=== PATIENT | female | born 2000 | race Hispanic/Latino ===

== ENCOUNTER 2020-06-02 22:01 | Emergency (ER) | payer OTHER, SELFPAY ==
[2020-06-03 00:53] LABS: Basophils % 1.2 % (0-1.3); Hematocrit 43.6 % (36.0-45.0); Lymphocytes % 39.2 % (15.3-44.8); MPV 7.7 fL (7.6-11.3); Protime INR 0.93; RBC Red Blood Cell Count 4.88 M/uL (3.86-4.86)
[2020-06-03 01:07] LABS: ALT/SGPT 135 U/L (12-78); AST/SGOT 54 U/L (15-37); Alkaline Phosphatase 119 U/L (45-117); BUN Blood Urea Nitrogen 16 mg/dL (7-18); Bicarbonate 22 mmol/L (21-32); Bilirubin Direct < 0.1 mg/dL (0-0.2); Bilirubin Total 0.3 mg/dL (0.2-1.0); Glucose Level 106 mg/dL (74-106); Potassium 3.7 mmol/L (3.5-5.1); Sodium Level 140 mmol/L (136-145)
[2020-06-03 01:08] LABS: Albumin 4.2 g/dL (3.4-5.0); Magnesium 2.3 mg/dL (1.8-2.4); NT PRO-BNP 34 pg/mL (<125); Protein, Total 8.1 g/dL (6.4-8.2); Troponin (Emerg Dept Use Only) < 0.02 ng/mL (0.0-0.045)
[2020-06-03] MEDS ORDERED: ACETAMINOPHEN 500 MG TAB ONE (01:27)
[2020-06-03 01:31] LABS: Barbiturates NEGATIVE (NEGATIVE); Benzodiazepines NEGATIVE (NEGATIVE); Cocaine NEGATIVE (NEGATIVE); METHAMPHETAM NEGATIVE (NEGATIVE); Methadone NEGATIVE (NEGATIVE); Opiates NEGATIVE (NEGATIVE); Phencyclidine NEGATIVE (NEGATIVE); THC Cannibis NEGATIVE (NEGATIVE)
[2020-06-03 01:48] LABS: Urine Blood NEGATIVE (NEG); Urine Glucose NEGATIVE (NEG); Urine Protein NEGATIVE (NEG)
[2020-06-03] MEDS ORDERED: ONDANSETRON 4 MG/2 ML VIAL ONE (03:35)
[2020-06-03] MEDS ORDERED: MORPHINE 4 MG/ML SYR ONE (03:35)
--- NOTE | 2020-06-03 04:35 | EDPHYS ---
Physician Documentation [facility] Name: Cyndi Sheridan Age: 20 yrs Sex: Female : 2000 Arrival Date: 06/02/2020 Time: 22:06 Bed 15 Private MD: ED Physician Jose Manuel Wu HPI: 06/03 00:57 This 20 yrs old Female presents to ER via Ambulatory with complaints of rib mh7 pain left side, Dizziness, Numbness Of Arm - Left arm. 00:58 The patient or guardian reports chest pain that is located primarily in the anterior mh7 chest wall, left. The pain radiates to the left arm. Associated signs and symptoms: Pertinent positives: dizziness, nausea, Pertinent negatives: abdominal pain, cough, diaphoresis, headache, lower extremity pain, lower extremity swelling, near syncope, palpitations, recent travel, shortness of breath, syncope, vomiting. The chest pain is described as sharp. Duration: The patient or guardian reports multiple episodes, that are intermittent, that wax and wane. Modifying factors: The symptoms are alleviated by remaining still, the symptoms are aggravated by movement. Severity of pain: At its worst the pain was moderate yesterday, in the emergency department the pain is unchanged. 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 - Social history:: Smoking status: Patient denies any tobacco usage or history of. ROS: 06/03 00:58 Constitutional: Negative for fever, chills, and weight loss, Eyes: Negative for injury, mh7 pain, redness, and discharge, ENT: Negative for injury, pain, and discharge, Neck: Negative for injury, pain, and swelling, Respiratory: Negative for shortness of breath, cough, wheezing, and pleuritic chest pain, Back: Negative for injury and pain, : Negative for injury, bleeding, discharge, and swelling, Skin: Negative for injury, rash, and discoloration, Psych: Negative for depression, anxiety, suicide ideation, homicidal ideation, and hallucinations, Allergy/Immunology: Negative for hives, rash, and allergies, Endocrine: Negative for neck swelling, polydipsia, polyuria, polyphagia, and marked weight changes, Hematologic/Lymphatic: Negative for swollen nodes, abnormal bleeding, and unusual bruising. Exam: 00:58 Constitutional: This is a well developed, well nourished patient who is awake, alert, mh7 and in no acute distress. Head/Face: Normocephalic, atraumatic. Eyes: Pupils equal round and reactive to light, extra-ocular motions intact. Lids and lashes normal. Conjunctiva and sclera are non-icteric and not injected. Cornea within normal limits. Periorbital areas with no swelling, redness, or edema. Neck: Trachea midline, no thyromegaly or masses palpated, and no cervical lymphadenopathy. Supple, full range of motion without nuchal rigidity, or vertebral point tenderness. No Meningismus. 00:58 Cardiovascular: Regular rate and rhythm with a normal S1 and S2. No gallops, murmurs, or rubs. Normal PMI, no JVD. No pulse deficits. Respiratory: Lungs have equal breath sounds bilaterally, clear to auscultation and percussion. No rales, rhonchi or wheezes noted. No increased work of breathing, no retractions or nasal flaring. Abdomen/GI: Soft, non-tender, with normal bowel sounds. No distension or tympany. No guarding or rebound. No evidence of tenderness throughout. Back: No spinal tenderness. No costovertebral tenderness. Full range of motion. Skin: Warm, dry with normal turgor. Normal color with no rashes, no lesions, and no evidence of cellulitis. MS/ Extremity: Pulses equal, no cyanosis. Neurovascular intact. Full, normal range of motion. Neuro: Awake and alert, GCS 15, oriented to person, place, time, and situation. Cranial nerves II-XII grossly intact. Motor strength 5/5 in all extremities. Sensory grossly intact. Cerebellar exam normal. Normal gait. Psych: Awake, alert, with orientation to person, place and time. Behavior, mood, and affect are within normal limits. 00:58 Chest/axilla: Inspection: normal, Palpation: tenderness, that is moderate, of the left lateral anterior chest, that totally reproduces the patient's complaints, Axilla: are normal, Lymph nodes: lymphadenopathy is not appreciated. Vital Signs: 06/02 22:31 BP 143 / 113; Pulse 83; Resp 18; Temp 97.7(TE); Pulse Ox 100% on R/A; Weight 76.2 kg lp1 (R); Height 5 ft. 2 in. (157.48 cm); 22:32 BP 138 / 107 RA; lp1 06/03 01:00 BP 109 / 74; Pulse 62; Resp 18; Pulse Ox 99% on R/A; wh 02:30 BP 105 / 69; Pulse 64; Resp 18; Pulse Ox 99% on R/A; wh 04:00 BP 109 / 62; Pulse 72; Resp 18; Pulse Ox 100% on R/A; wh 06/02 22:31 Body Mass Index 30.73 (76.20 kg, 157.48 cm) lp1 MDM: 04:32 Differential diagnosis: acute myocardial infarction, acute pericarditis, anxiety, chest mh7 wall pain, costochondritis, myocarditis, pleurisy, pneumonia, pneumothorax, pulmonary embolus. HEART Score: History: Slightly Suspicious (0), ECG: Normal (0), Age: < or = 45 years (0), Risk Factors: No Risk Factors Known (0), Troponin: < or = 1 x Normal Limit (0), Total Score = 0. Data reviewed: vital signs, nurses notes, lab test result(s), cardiac enzymes, CBC, electrolytes, urinalysis, urine drug screen, UPT: negative EKG, radiologic studies, CT scan, plain films. Data interpreted: Pulse oximetry: on room air is 100 %. Interpretation: normal. Counseling: I had a detailed discussion with the patient and/or guardian regarding: the historical points, exam findings, and any diagnostic results supporting the discharge/admit diagnosis, lab results, radiology results, the need for outpatient follow up, to return to the emergency department if symptoms worsen or persist or if there are any questions or concerns that arise at home. 04:[address] [facility] 06/03 00:40 Order name: Basic Metabolic Panel; Complete Time: 02:45 [facility] 06/03 00:40 Order name: CBC with Diff; Complete Time: 02:45 [facility] 06/03 00:40 Order name: LFT's; Complete Time: 02:45 06/03 00:40 Order name: Magnesium; Complete Time: 02:45 06/03 00:40 Order name: NT PRO-BNP; Complete Time: 02:45 06/03 00:40 Order name: PT-INR; Complete Time: 02:45 06/03 00:40 Order name: Troponin (emerg Dept Use Only); Complete Time: 02:45 06/03 00:40 Order name: XRAY Chest (1 view) 06/03 00:40 Order name: UDS; Complete Time: 02:45 06/03 00:57 Order name: ETOH Level; Complete Time: 02:45 06/03 01:01 Order name: Urine --Ancillary (enter results); Complete Time: 02:45 06/03 01:01 Order name: Urine Dipstick--Ancillary (enter results); Complete Time: 02:45 06/03 02:58 Order name: CT Chest For PE Angio 06/03 00:40 Order name: EKG; Complete Time: 00:41 06/03 00:40 Order name: Cardiac monitoring; Complete Time: 00:42 06/03 00:40 Order name: EKG - Nurse/Tech; Complete Time: 00:42 06/03 00:40 Order name: IV Saline Lock; Complete Time: 00:42 06/03 00:40 Order name: Labs collected and sent; Complete Time: 00:42 06/03 00:40 Order name: O2 Per Protocol; Complete Time: 00:42 06/03 00:40 Order name: O2 Sat Monitoring; Complete Time: 00:42 06/03 00:40 Order name: Urine Dipstick-Ancillary (obtain specimen); Complete Time: 00:51 06/03 00:40 Order name: Urine Test (obtain specimen); Complete Time: 00:51 Administered Medications: 03:26 Drug: morphine 4 mg {Note: RASS 0.} Route: IVP; Site: right forearm; 04:47 Follow up: Response: No adverse reaction; Pain is decreased; RASS: Alert and Calm (0) 03:28 Drug: Zofran (Ondansetron) 4 mg Route: IVP; Site: right forearm; 04:47 Follow up: Response: No adverse reaction 03:29 Not Given (Patient Refused): Tylenol 1000 mg PO once Disposition: 06/03/20 04:34 Discharged to Home. Impression: Chest pain, unspecified. - Condition is Stable. - Discharge Instructions: Chest Wall Pain. - Prescriptions for Ibuprofen 800 mg Oral Tablet - take 1 tablet by ORAL route every 8 hours As needed take with food; 15 tablet. - Medication Reconciliation Form, Thank You Letter, Antibiotic Education, Prescription Opioid Use form. - Follow up: Private Physician; When: 1 - 2 days; Reason: Worsening of condition, Recheck today's complaints, Continuance of care, Re-evaluation by your physician. - Problem is new. - Symptoms have improved. Signatures: Dispatcher [employer] EDTN Homa Singh RN RN lp1 Hany Sheehan Jose Manuel Wu MD MD mh7 Corrections: (The following items were deleted from the chart) 04:48 04:34 06/03/2020 04:34 Discharged to Home. Impression: Chest pain, unspecified. Condition is Stable. Forms are Medication Reconciliation Form, Thank You Letter, Antibiotic Education, Prescription Opioid Use. Follow up: Private Physician; When: 1 - 2 days; Reason: Worsening of condition, Recheck today's complaints, Continuance of care, Re-evaluation by your physician. Problem is new. Symptoms have improved. mh7
--- NOTE | 2020-06-03 04:35 | ER ---
Nurse's Notes [facility] Name: Cyndi Sheridan Age: 20 yrs Sex: Female : 2000 Arrival Date: 06/02/2020 Time: 22:06 Bed 15 Private MD: Diagnosis: Chest pain, unspecified Presentation: 06/02 22:28 Chief complaint: Patient states: About 3 hours ago, had left arm numbness, still able lp1 to move arm with left rib pain radiating to chest; Reports right arm feeling numb during triage, able to move arm independently; Denies any trauma. Coronavirus screen: Client denies travel out of the [place] in the last 14 days. At this time, the client does not indicate any symptoms associated with coronavirus-19. Ebola Screen: No symptoms or risks identified at this time. Onset of symptoms was June 02, 2020 at 19:00. 22:28 Method Of Arrival: Ambulatory lp1 22:28 Acuity: COLT 3 lp1 22:31 Initial Sepsis Screen: Does the patient meet any 2 criteria? No. Patient's initial lp1 sepsis screen is negative. Does the patient have a suspected source of infection? No. Patient's initial sepsis screen is negative. Risk Assessment: Do you want to hurt yourself or someone else? Patient reports no desire to harm self or others. 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 - Social history:: Smoking status: Patient denies any tobacco usage or history of. Screenin:31 Abuse screen: Denies threats or abuse. Denies injuries from another. Nutritional lp1 screening: No deficits noted. Tuberculosis screening: No symptoms or risk factors identified. Fall Risk None identified. Assessment: 06/03 00:48 General: Appears in no apparent distress. comfortable, Behavior is calm, cooperative. mg2 Pain: Complains of pain in chest Pain radiates to back. Neuro: Level of Consciousness is awake, alert, obeys commands, Oriented to person, place, time, situation. Neuro: Reports dizziness. Cardiovascular: Capillary refill < 3 seconds Patient's skin is warm and dry. Respiratory: Airway is patent Respiratory effort is even, unlabored, Respiratory pattern is regular, symmetrical. GI: No signs and/or symptoms were reported involving the gastrointestinal system. : No signs and/or symptoms were reported regarding the genitourinary system. EENT: No signs and/or symptoms were reported regarding the EENT system. Derm: Skin is intact, is healthy with good turgor, Skin is pink, warm \T\ dry. normal. Musculoskeletal: Circulation, motion, and sensation intact. Capillary refill < 3 seconds, Reports. 01:30 Reassessment: Patient appears in no apparent distress at this time. Patient and/or wh family updated on plan of care and expected duration. Pain level reassessed. Patient is alert, oriented x 3, equal unlabored respirations, skin warm/dry/pink. 03:00 Reassessment: Patient appears in no apparent distress at this time. Patient and/or wh family updated on plan of care and expected duration. Pain level reassessed. Patient is alert, oriented x 3, equal unlabored respirations, skin warm/dry/pink. 04:30 Reassessment: Patient appears in no apparent distress at this time. Patient and/or wh family updated on plan of care and expected duration. Pain level reassessed. Patient is alert, oriented x 3, equal unlabored respirations, skin warm/dry/pink. Patient states feeling better. Patient states symptoms have improved. Vital Signs: 06/02 22:31 BP 143 / 113; Pulse 83; Resp 18; Temp 97.7(TE); Pulse Ox 100% on R/A; Weight 76.2 kg lp1 (R); Height 5 ft. 2 in. (157.48 cm); 22:32 BP 138 / 107 RA; lp1 06/03 01:00 BP 109 / 74; Pulse 62; Resp 18; Pulse Ox 99% on R/A; 02:30 BP 105 / 69; Pulse 64; Resp 18; Pulse Ox 99% on R/A; 04:00 BP 109 / 62; Pulse 72; Resp 18; Pulse Ox 100% on R/A; 06/02 22:31 Body Mass Index 30.73 (76.20 kg, 157.48 cm) [facility] ED Course: 06/02 22:06 Patient arrived in ED. am2 22:30 Triage completed. lp1 22:31 Arm band placed on left wrist. lp1 06/03 00:12 Jose Manuel Wu MD is Attending Physician. mh7 00:15 Inserted saline lock: 20 gauge in right forearm, using aseptic technique. Blood ds4 collected. 00:17 Benito Bates, RN is Primary Nurse. mg2 00:30 EKG done, by ED staff, reviewed by Jose Manuel Wu MD. ds4 00:42 Patient has correct armband on for positive identification. Placed in gown. Bed in low ea position. Call light in reach. Side rails up X 1. monitoring engineer on. Pulse ox on. NIBP on. 00:49 No provider procedures requiring assistance completed. mg2 01:30 XRAY Chest (1 view) In Process Unspecified. EDMS 03:55 CT Chest For PE Angio In Process Unspecified. EDMS 04:48 IV discontinued, intact, bleeding controlled, No redness/swelling at site. Administered Medications: 03:26 Drug: morphine 4 mg {Note: RASS 0.} Route: IVP; Site: right forearm; 04:47 Follow up: Response: No adverse reaction; Pain is decreased; RASS: Alert and Calm (0) 03:28 Drug: Zofran (Ondansetron) 4 mg Route: IVP; Site: right forearm; 04:47 Follow up: Response: No adverse reaction 03:29 Not Given (Patient Refused): Tylenol 1000 mg PO once Outcome: 04:34 Discharge ordered by . [facility] 04:47 Discharged to home ambulatory, with family. 04:47 Condition: stable 04:47 Discharge instructions given to patient, Instructed on discharge instructions, follow up and referral plans. medication usage, POC Demonstrated understanding of instructions, follow-up care, medications, POC Prescriptions given X 1. 04:48 Patient left the ED. Signatures: Dispatcher [employer] EDMS Homa Singh, YOCASTA RN lp1 Prasad Mendez ds4 [place] Garvin am2 [place] Bender RN RN ea Habalo, Winsy Benito Bates RN RN mg2 Jose Manuel Wu MD MD [facility]
[2020-06-03 04:53] VITALS: TEMP 97.7
[2020-06-03 04:58] VITALS: BP 109/62; O2SAT 100
--- NOTE | 2020-06-03 12:46 | RAD REPORT ---
EXAM DESCRIPTION: RAD - Chest Single View - 06/03/2020 1:32 am CLINICAL HISTORY: CHEST PAIN Chest pain. COMPARISON: CHEST PA AND LAT 2 VIEW dated 12/02/2014 FINDINGS: Portable technique limits examination quality. The lungs are grossly clear. The heart is normal in size. No displaced fractures. IMPRESSION: No acute intrathoracic process suspected.
--- NOTE | 2020-06-03 14:05 | RAD REPORT ---
EXAM DESCRIPTION: CT Angiography Chest With Intravenous Contrast CLINICAL HISTORY: The patient is 20 years old and is Female; CHEST PAIN TECHNIQUE: Axial computed tomographic angiography images of the chest with intravenous contrast. S agittal and coronal reformatted images were created and reviewed. This CT exam was performed using one or more of the following dose reduction techniques: automated exposure control, adjustment of t he mA and/or kV according to patient size, and/or use of iterative reconstruction technique. MIP re constructed images were created and reviewed. COMPARISON: No relevant prior studies available. FINDINGS: Pulmonary arteries: No PE identified. Aorta: No acute findings. No thoracic aortic aneurysm. Lungs: No pulmonary consolidation or groundglass opacities. Pleural space: No pleural effusion or pneumothorax. Heart: Cardiomegaly. No significant pericardial effusion. No evidence of RV dysfunction. Mediastinum: No pathologically enlarged mediastinal or hilar lymph nodes. Bones/joints: No acute fracture. No dislocation. Soft tissues: Unremarkable. Lymph nodes: 2.8 cm left axillary lymph node. Other nonenlarged axillary lymph nodes noted bilaterally. Liver: Fatty liver. IMPRESSION: 1. No PE identified. 2. 2.8 cm left axillary lymph node. 3. Additional non-emergent findings as above. Electronically signed by: Yuko Bello MD 06/03/2020 4:18 AM ANDROID DEVELOPER Due to temporary technical issues with the PACS/Fluency reporting system, reports are being signed by the in house radiologists without review as a courtesy to insure prompt reporting. The interpreting radiologist is fully responsible for the content of the report
== END 2020-06-03 04:48 | disposition home or self-care (01) ==
LOC: ER 22:01
DX: R07.9 Chest pain, unspecified (principal)
CPT/HCPCS: 36415; 71045; 71275; 80048; 80076; 80307; 80320; 81003; 81025; 83735; 83880; 84484; 85025; 85610; 93005; 96374; 96375; 99285; J2405; Q9967

== ENCOUNTER 2024-07-20 09:26 | Emergency (ER) | payer OTHER ==
--- OUTSIDE RECORDS SUMMARY | 2024-07-20 09:38 | XMS REPORT | Continuity of Care Document ---
Author Name Unknown Address [address] [facility] [place] [address] [facility] Address [address] [facility] [place] [address] Care Team Providers Care Fumigator And Sterilizer Name Role Phone CHERYL ANDRES Primary Care Physician Unav ailCHERYL Silvestre Attending Clinician Unavail able Mary Infante Attending Clinician [phone] MARY LOREDO Attending Clinician Unavailable Marjan Salvador MD Attending Clinician [phone] WHITNEY ROMERO Attending Clinician UnavailWhitney Demarco CNM Attending Clinician Doctor Unassigned, [place] Attending Clinician U JANNIE Vincent Attending Clinician Unavailable [facility] Unava ilSHERRY Carlos Attending Clinician Unavailable Sherry Arreguni MD Attending Clinician [phone] Lazarus Lehman CRNA Attending Clinician [phone] Nilson Marx MD Attending Clinician [phone] [email or web address]_S Attending Clinician UnavailFREYA Flores Attending Clinician Unavailabl e Ultrasound, Ang-Mfm Attending Clinician UnavailFreya Flores MD Attending Clinician [phone] MARJAN SALVADOR Attending Clinician Unavailable MARJAN SALVDAOR Attending Clinician Unavailable 1, [facility] Usg Room Attending Clinician Unavaila LESLEE Sheehan Attending Clinician Unavailable Risk, Nye-Jevet-Fm/High Attending Clinician Unav ailable Landry WHLeslee FLYNN Attending Clinician + [phone] SLADE ACOSTA Attending Clinician Unavailab le CHAOMAN, LINDA RUCKER Attending Clinician Unavailab le Chaoman DIFFERENTIAL REPAIRER, Linda Rucker Attending Clinician + [phone] Aimee Childs MD Attending Clinician + AIMEE CHILDS Attending Clinician Unav ailable RADIOLOGY Attending Clinician Unavailable ELIEL PRO Attending Clinician Unavailable Eliel Pro MD Attending Clinician [phone] Akinsipe WHCNP, Cheryl Pierce Attending Clinician + SHEYLA WEBB Attending Clinician Unavailable Sheyla Givens Attending Clinician [phone] Parisa Sousa RN Attending Clinician Unavailable Carolynn Melendez RN Attending Clinician Unavailab ANABELA Murray Attending Clinician Unavailab Dajuan Marquez DO Attending Clinician [phone] Anabela Serrato Attending Clinician + [phone] SHERRY ARREGUIN Admitting Clinician Unavailable Sherry Arreguin MD Admitting Clinician [phone] [email or web address]_S Admitting Clinician Unavaila ELIEL Pope Admitting Clinician Unavailable Payers Payer Name Policy Type Policy Number Effective Date Expirati on Date Source GIULIANA MEYERS [id number] 2023 00:00:00 MEDICAID [facility] [id number] 2021 00:00:00 [facility] [id number] 2020 00:00:00 Problems Condition Name Condition Details Condition Category Status Onset Date Resolution Date Last Treatment Date Treating Clinician Comments Source Status post section Status post section Disease Active 2022-06 00:00: 00 [facility] Declines flu vaccine Declines flu vaccine Disease Active 2022-06 0-05 00:00: 00 [facility] Elevated blood pressure reading without diagnosis of hypertensi on Elevated blood pressure reading without diagnosis of hypertensi on Disease Active 4-06 00:00: 00 [facility] Family history of Down syndrome Family history of Down syndrome Disease Active 2020-06 2-16 00:00: 00 Overview: Formattin g of this note might be different from the original. Reports her brother [facility] PCOS (polycysti c ovarian syndrome) PCOS (polycysti c ovarian syndrome) Disease Active 2- 00:00: 00 [facility] Hypothyroi dism Hypothyroi dism Disease Active 2016-06 2 00:00: 00 [facility] Overweight (BMI 25.0-29.9) Overweight (BMI 25.0-29.9) Disease Resolve d 1-02 00:00: 00 2024-06-23 00:00:00 2024-06-23 11:00:35 [facility] Mild pre-eclamp marlin in third trimester Mild pre-eclamp marlin in third trimester Disease Resolve d 4-06 00:00: 00 2023-05-18 00:00:00 2023-05-18 11:28:16 [facility] Elevated liver enzymes Elevated liver enzymes Disease Resolve d 4-06 00:00: 00 2023-05-18 00:00:00 2023-05-18 11:28:23 [facility] Rubella non-immune status, antepartum Rubella non-immune status, antepartum Disease Resolve d 2020-06 2-17 00:00: 00 2023-05-18 00:00:00 2023-05-18 11:26:00 Overview: Formattin g of this note might be different from the original. Address pp [facility] Liveborn , of dueñas , born in hospital by delivery Liveborn , of dueñas , born in hospital by delivery Disease Resolve d 2022-06 1-16 00:00: 00 2023-05-15 00:00:00 2023-05-15 12:48:02 [facility] Vaginal bleeding in Vaginal bleeding in Disease Resolve d 2022- 1-15 00:00: 00 2023-05-15 00:00:00 2023-05-15 12:50:34 [facility] 37 weeks gestation of 37 weeks gestation of Disease Resolve d 2022-1 1-15 00:00: 00 2023-05-15 00:00:00 2023-05-15 12:47:30 [facility] Pain of round ligament during Pain of round ligament during Disease Resolve d 2022-0 9-03 00:00: 00 2023-05-15 00:00:00 2023-05-15 12:47:28 [facility] Family history of Down syndrome Family history of Down syndrome Disease Resolve d 2020-06 2-16 00:00: 00 2023-05-15 00:00:00 2023-05-15 12:50:18 Overview: Formattin g of this note might be different from the original. Reports her brother [facility] High-risk in third trimester High-risk in third trimester Disease Resolve d 2020- 2-16 00:00: 00 2023-05-15 00:00:00 2023-05-15 12:50:19 [facility] History of hypothyroi dism History of hypothyroi dism Disease Resolve d 2020- 2-16 00:00: 00 2023-05-15 00:00:00 2023-05-15 12:50:28 Overview: Formattin g of this note might be different from the original. Reports in 2012, was on meds, no longer on meds Labs WNL, repeat in 4 weeks [facility] Obesity in Obesity in Disease Resolve d 2019-0 9-23 00:00: 00 2023-05-15 00:00:00 2023-05-15 12:50:30 [facility] Other general counseling and advice for contracept dino management Other general counseling and advice for contracept dino management Disease Resolve d 2021-0 1-14 00:00: 00 2022-09-11 00:00:00 2022-09-11 10:59:14 [facility] UTI in UTI in Disease Resolve d 2020-06 2-20 00:00: 00 2022-09-11 00:00:00 2022-09-11 10:59:10 Overview: Formattin g of this note might be different from the original. Pending brittni [facility] Amenorrhea Amenorrhea Disease Resolve d 2-10 00:00: 00 2022-09-11 00:00:00 2022-09-11 10:59:07 [facility] Other general counseling and advice for contracept dino management Other general counseling and advice for contracept dino management Disease Resolve d 2-10 00:00: 00 2021-05-24 00:00:00 2021-05-24 10:54:32 [facility] Chlamydia trachomati s infection of lower genitourin khari sites Chlamydia trachomati s infection of lower genitourin khari sites Disease Resolve d 2017-0 5-11 00:00: 00 2021-05-24 00:00:00 2021-05-24 10:54:06 [facility] Screen for STD (sexually transmitte d disease) Screen for STD (sexually transmitte d disease) Disease Resolve d 2016-06 2-15 00:00: 00 2021-05-24 00:00:00 2021-05-24 10:54:26 [facility] Over weight Over weight Disease Resolve d 2016-06 2-15 00:00: 00 2021-05-24 00:00:00 2021-05-24 10:54:28 [facility] Allergies, Adverse Reactions, Alerts Allergy Name Allergy Type Status Severity Reaction(s) Onset Date Inactive Date Treating Clinician Comments Source NO KNOWN ALLERGIE S Drug Class Active [facility] Social History Social Habit Start Date Stop Date Quantity Comments Source ASSERTION 2022-08-15 00:00:00 [facility] of Social function 2024-06-23 00:00:00 2024-06-23 00:00:00 [facility] Alcoholic beverage intake 2024-06-23 00:00:00 2024-06-23 00:00:00 Ex-drinker (finding) [facility] Alcohol intake 2023-05-18 00:00:00 2023-05-18 00:00:00 Current non-drinker of alcohol (finding) [facility] Exposure to SARS-CoV-2 (event) 2022-11-01 00:00:00 2022-11-11 23:45:00 Not sure [facility] Tobacco use and exposure 2022-09-11 00:00:00 2022-09-11 00:00:00 Smokeless tobacco non-user [facility] Sex assigned at 2000 00:00:00 2000 00:00:00 [facility] Smoking Status Start Date Stop Date Source Never smoked tobacco [facility] Medications Ordered Medication Name Filled Medication Name Start Date Stop Date Current Medication? Ordering Clinician Indication Dosage Frequency Signature (SIG) Comments Components Source metroNIDAZO LE 500 mg tablet 06-25 00:00: 00 Yes [id number] 500mg Take 1 tablet by mouth every 12 (twelve) hours. [facility] fluconazole 150 mg tablet 06-25 00:00: 00 06-26 05:59 :00 Yes [id number] 150mg Take 1 tablet by mouth once now for 1 dose. [facility] silver sulfADIAZIN E (SILVADENE) 1 % cream 06-23 00:00: 00 Yes [id number] Apply to area(s) 2 (two) times daily. [facility] fluconazole 150 mg tablet 06-23 00:00: 00 06-24 05:59 :00 Yes [id number] 150mg Take 1 tablet by mouth once now for 1 dose. [facility] ibuprofen (IBU) tablet 600 mg 2022-06 00:00: 00 Yes 600mg 600 mg, Oral, Q6H ABX, First dose on 04/26/23 at 1800, Until Discontinu ed, Routine [facility] vitamin w/FA tablet 2022-06 00:00: 00 06-23 00:00 :00 No [id number] 1{tbl} Take 1 tablet by mouth in the morning. [facility] docusate 100 mg capsule 2022-06 00:00: 00 06-10 00:00 :00 No [id number] 200mg Take 2 capsules by mouth once daily as needed for Constipati on. [facility] ferrous sulfate 325 mg (65 mg iron) tablet 2022-06 00:00: 00 06-10 00:00 :00 No [id number] 325mg Take 1 tablet by mouth in the morning and 1 tablet in the evening. [facility] ibuprofen 600 mg tablet 2022-06 00:00: 00 06-10 00:00 :00 No [id number] 600mg Take 1 tablet by mouth every 6 (six) hours as needed (Pain). Take with food or milk. [facility] gabapentin 300 mg capsule 2022-06 00:00: 00 06-10 00:00 :00 No [id number] 300mg Take 1 capsule by mouth in the morning and 1 capsule at noon and 1 capsule in the evening. [facility] HYDROcodone -acetaminop hen 5-325 mg tablet 2022-06 00:00: 00 05-04 05:59 :00 No [id number] 1{tbl} Take 1 tablet by mouth every 6 (six) hours as needed for Pain (scale 7-10) (Alternate with Ibuprofen) for up to 7 days. Indication s: acute pain [facility] ketorolac (TORADOL) injection 30 mg 2022-06 00:00: 00 04-26 23:59 :00 No 30mg 30 mg, Slow IV Push, Q6H ABX, 4 doses, First dose on Fri04/25/23 at 1800, Last dose on Fri04/26/23 at 1200, Routine [facility] acetaminoph en (TYLENOL) tablet 650 mg 2022-06 18:00: 00 Yes 650mg 650 mg, Oral, Q6H ABX, First dose on 11/17/23 at 1200, Until Discontinu ed, Routine [facility] HYDROcodone -acetaminop hen (NORCO 5) 5-325 mg tablet 1 tablet 2022-06 18:00: 00 Yes 1{tbl} 1 tablet, Oral, Q6HPRN, Starting on Fri04/25/23 at 1200, Until Discontinu ed, Routine, Pain (scale 7-10), Alternate with Ibuprofen [facility] gabapentin (NEURONTIN) capsule 300 mg 2022-06 14:00: 00 Yes 300mg 300 mg, Oral, TID, First dose on Fri04/25/23 at 0800, Until Discontinu ed, Routine [facility] sodium chloride 0.9 % irrigation solution 2022-06 06:03: 00 Yes PRN, Starting on Fri04/25/23 at 0003, Until Discontinu ed, Intra-op [facility] lactated ringers IV infusion 1,000 mL 2022-06 04:45: 00 04-25 07:22 :51 No 1000mL at 125 mL/hr, 1,000 mL, IV Infusion, ONCE, 1 dose, On Fri04/24/23 at 2245, Routine [facility] rho(D) immune globulin (RHOGAM) syringe 300 mcg 2022-06 04:22: 07 Yes 300ug 300 mcg, Intramuscu lar, ONCE, For 1 dose, Conditiona l, Routine [facility] diphenhydrA MINE (BENADRYL) injection 25 mg 2022-06 04:22: 02 Yes 25mg 25 mg, Slow IV Push, Q6HPRN, Starting on Fri04/24/23 at 2222, Until Discontinu ed, Routine, Itching [facility] diphenhydrA MINE (BENADRYL) tablet 25 mg 2022-06 04:22: 02 Yes 25mg 25 mg, Oral, Q6HPRN, Starting on Fri04/24/23 at 2222, Until Discontinu ed, Routine, Sleep, Itching [facility] ondansetron (ZOFRAN (PF)) injection 4 mg 2022-06 04:22: 02 Yes 4mg 4 mg, Slow IV Push, Q8HPRN, Starting on Fri04/24/23 at 2222, Until Discontinu ed, Routine, Nausea and Vomiting (N/V) [facility] bisacodyL (DULCOLAX) suppository 10 mg 2022-06 04:22: 02 Yes 10mg 10 mg, Rectal, QDAILYPRN, Starting on Fri04/24/23 at 222, Until Discontinu ed, Routine, Constipati on [facility] simethicone (GAS RELIEF (SIMETHICON E)) chewable tablet 160 mg 2022-06 04:22: 02 Yes 160mg 160 mg, Oral, PC+HSPRN, Starting on Fri04/24/23 at 222, Until Discontinu ed, Routine, Gas [facility] docusate (COLACE) capsule 200 mg 2022-06 04:22: 02 Yes 200mg 200 mg, Oral, QDAILYPRN, Starting on Fri04/24/23 at 2222, Until Discontinu ed, Routine, Constipati on [facility] magnesium hydroxide (MILK OF MAGNESIA) 400 mg/5 mL suspension 30 mL 2022-06 04:22: 02 Yes 30mL 30 mL, Oral, QDAILYPRN, Starting on Fri04/24/23 at 2222, Until Discontinu ed, Routine, Constipati on [facility] lactated ringers IV infusion 1,000 mL 2022-06 04:22: 02 Yes 1000mL at 125 mL/hr, 1,000 mL, IV Infusion, PRN, 1 dose, Starting on Fri04/24/23 at 2222, Until Discontinu ed, Routine [facility] naloxone (NARCAN) injection 0.2 mg 2022-06 04:12: 00 Yes .2mg 0.2 mg, Intramuscu lar, Q3HPRN, Starting on Fri04/24/23 at 2212, Until Discontinu ed, Routine, Itching [facility] diphenhydrA MINE (BENADRYL) tablet 25 mg 2022-06 04:12: 00 Yes 25mg 25 mg, Oral, Q4HPRN, Starting on Georgina 04/24/23 at 2212, Until Discontinu ed, Routine, Itching [facility] naloxone (NARCAN) injection 0.4 mg 2022-06 04:12: 00 04-26 16:02 :22 No .4mg 0.4 mg, Slow IV Push, PRN - SEE INSTRUCTIO NS, Starting on Georgina 04/24/23 at 2212, Until 04/26/23 at 1002, Routine, Analgesia Recovery [facility] diphenhydrA MINE (BENADRYL) injection 25 mg 2022-06 04:12: 00 04-26 04:11 :00 No 25mg 25 mg, Slow IV Push, Q4HPRN, Starting on Georgina 04/24/23 at 2212, Until 04/25/23 at 2211, Routine, Itching [facility] morpHINE PF (DURAMORPH- PF) injection 2022-06 03:38: 00 04-25 03:58 :45 No Epidural, ONCE INTRA PROCEDURE, Starting on Georgina 04/24/23 at 2138, Until Georgina 04/24/23 at 2158, Routine, Intra-op [facility] methylergon ovine (METHERGINE ) injection 2022-06 03:08: 00 04-25 03:58 :45 No Intramuscu lar, ONCE INTRA PROCEDURE, Starting on Georgina 04/24/23 at 2108, Until Georgina 04/24/23 at 2158, Routine, Intra-op [facility] acetaminoph en ADULT (OFIRMEV) injection 2022-06 03:05: 00 04-25 03:58 :45 No IV Infusion, Administer over 15 Minutes, ONCE INTRA PROCEDURE, Starting on Georgina 04/24/23 at 2105, Until Georgina 04/24/23 at 215, Routine, [facility] ondansetron (ZOFRAN (PF)) injection 2022-06 02:59: 00 04-25 03:58 :45 No Slow IV Push, ONCE INTRA PROCEDURE, Starting on Georgina 04/24/23 at 2058, Until Georgina 04/24/23 at 2157, Routine, Intra-op [facility] LR 1000 mL + oxytocin 40 units 40 unit/ 1,000 mL IV Solution 2022-06 02:58: 00 04-25 03:58 :45 No IV Infusion, CONTINUOUS PRN, Starting on Georgina 04/24/23 at 2057, Until Georgina 04/24/23 at 2157, Routine, Intra-op [facility] chloroproca ine (NESACAINE- MPF) 30 mg/mL (3 %) injection 2022-06 02:31: 00 04-25 03:58 :45 No Epidural, ONCE INTRA PROCEDURE, Starting on Georgina 04/24/23 at 2030, Until Georgina 04/24/23 at 2157, Routine, Intra-op [facility] famotidine (PEPCID (PF)) injection 20 mg 2022-06 02:30: 00 04-25 04:22 :06 No 20mg 20 mg, Slow IV Push, Q12H, First dose on Georgina 04/24/23 at 2030, Until Discontinu ed, Routine [facility] mupirocin (BACTROBAN OINT) 2 % skin ointment 2022-06 02:00: 00 04-25 04:22 :06 No [facility] ceFAZolin (ANCEF) 2,000 mg in NaCl 0.9% (NS) 100 mL MINI-BAG 2022-06 01:28: 45 04-25 04:22 :06 No 2000mg 2,000 mg, IV Piggyback, O.R. HOLDING ONCE, Starting on Georgina 04/24/23 at 8, Until Georgina 04/24/23 at 2221, Administer over 30 Minutes, 100 mL
Reas on for Anti-Infec tive: Surgical Prophylaxi s
Surgi miquel Prophylaxi s: NATURALIST
Duration of therapy: within 24 hours of surgery [facility] PIB fentaNYL-ro pivacaine 2 mcg/mL-0.1 % (PF) in NS 200 mL epidural infusion RTU 2022-06 17:18: 00 04-25 03:58 :45 No Epidural, ONCE INTRA PROCEDURE, Starting on Georgina 04/24/23 at 1118, Until Discontinu ed, Routine, Intra-op [facility] lidocaine-e pinephrine (XYLOCAINE W/EPINEPHRI NE) 1.5 %-1:200,000 injection 2022-06 17:17: 00 04-25 03:58 :45 No Epidural, ONCE INTRA PROCEDURE, Starting on Georgina 04/24/23 at 1117, Until Discontinu ed, Routine, Intra-op [facility] lidocaine 1% (XYLOCAINE) 100 mg/10 mL (1 %) injection 2022-06 17:12: 00 04-25 03:58 :45 No Infiltrati on, ONCE INTRA PROCEDURE, Starting on Georgina 04/24/23 at 1112, Until Discontinu ed, Routine, Intra-op [facility] fluconazole (DIFLUCAN) tablet 200 mg 2022-06 04:00: 00 04-25 01:29 :17 No 200mg 200 mg, Oral, DAILY, 7 doses, First dose on Fri04/23/23 at 2200, Last dose on Fri04/29/23 at 0900, MARLY
Re ason for Anti-Infec tive: Documented Infection< br>Documen shamar Infection Site: Other
O ther site: yeast in vagina
Duration of Therapy: Other (see Comments) [facility] lactated ringers IV infusion 500 mL 2022-06 03:00: 00 04-24 16:50 :00 No 500mL at 999 mL/hr, 500 mL, IV Infusion, ONCE, 1 dose, On Fri04/23/23 at 2100, Routine [facility] terbutaline (BRETHINE) injection 0.25 mg 2022-06 02:33: 34 04-25 04:22 :06 No .25mg 0.25 mg, Subcutaneo us, PRN, Starting on Fri04/23/23 at 2033, Until Georgina 04/24/23 at 2222, Routine, feta bradycardi a > 3 min or Cat III strip [facility] FENTanyl PF (SUBLIMAZE (PF)) injection 100 mcg 2022-06 02:33: 02 04-25 04:22 :06 No 100ug 100 mcg, Slow IV Push, Q1HPRN, Starting on Fri04/23/23 at 2032, Until Georgina 04/24/23 at 2222, Routine, contractio n pain without an epidural and SVE < 8 cm and Cat I strip [facility] oxytocin (PITOCIN) 30 units in NS 500 mL IV infusion 2022-06 02:12: 52 04-25 04:22 :06 No 2mU/min at 2-40 mL/hr, IV Infusion, TITRATE, Starting on Fri04/23/23 at 2011, Until Georgina 04/24/23 at 2222, MARLY [facility] lactated ringers IV infusion 500 mL 2022-06 02:11: 17 04-25 04:22 :06 No 500mL at 999 mL/hr, 500 mL, IV Infusion, PRN - SEE INSTRUCTIO NS, Starting on Fri04/23/23 at 2010, Until Georgina 04/24/23 at 2222, Routine [facility] tranexamic acid (CYKLOKAPRO N) 1,000 mg in NaCl 0.9% (NS) 250 mL piggyback 2022-06 02:11: 04-25 03:10 :00 No 1000mg 1,000 mg, IV Piggyback, PRN, 1 dose, Starting on Fri04/23/23 at 2010, Until Discontinu ed, Administer over 10 Minutes, 250 mL [facility] carboprost (HEMABATE) injection 250 mcg 2022-06 02:11: 17 04-25 04:22 :06 No 250ug 250 mcg, Intramuscu lar, Q2HPRN, 8 doses, Starting on Fri04/23/23 at 2010, Until Georgina 04/24/23 at 2222, Routine, PPH [facility] sodium citrate-cit shannon acid (BICITRA) 500-334 mg/5 mL solution 30 mL 2022-06 02:11: 04-25 01:42 :00 No 30mL 30 mL, Oral, PRE-PROCED URE ONCE, 1 dose, Starting on Fri04/23/23 at 2010, Until Discontinu ed, Routine, Surgery/Pr ocedure [facility] D5W-LR IV infusion 1,000 mL 2022-06 02:11: 17 04-25 04:22 :06 No 1000mL at 1-125 mL/hr, IV Infusion, TITRATE, Starting on Fri04/23/23 at 2010, Until Georgina 04/24/23 at 2222, Routine [facility] fluconazole (DIFLUCAN) 150 mg tablet 2022-06 0 00:00: 00 03-16 04:59 :00 No [id number] 150mg Take 1 tablet by mouth once now for 1 dose. [facility] metroNIDAZO LE 500 mg tablet 01-24 00:00: 00 02-09 00:00 :00 No [id number] 500mg Take 1 tablet by mouth in the morning and 1 tablet in the evening. [facility] fluconazole (DIFLUCAN) 150 mg tablet 01-24 00:00: 00 01-25 04:59 :00 No [id number] 150mg Take 1 tablet by mouth once now for 1 dose. [facility] neomycin-po lymyxin-hyd rocortisone 3.5-10,000- 1 mg/mL-unit/ mL-% otic susp 03 00:00: 00 01-17 04:59 :00 No [id number] 92910 3[drp] Place 3 Drops in left ear 4 (four) times daily for 7 days. [facility] metroNIDAZO LE 500 mg tablet 12-13 00:00: 00 12-28 04:59 :00 No [id number] 500mg Take 1 tablet by mouth in the morning and 1 tablet in the evening. Do all this for 14 days. [facility] fluconazole (DIFLUCAN) 150 mg tablet 7-07 00:00: 00 12-14 04:59 :00 No [id number] 150mg Take 1 tablet by mouth once now for 1 dose. [facility] metroNIDAZO LE 500 mg tablet 6-07 00:00: 00 11-21 04:59 :00 No [id number] 500mg Take 1 tablet by mouth in the morning and 1 tablet in the evening. Do all this for 7 days. [facility] fluconazole (DIFLUCAN) 150 mg tablet 607 00:00: 00 11-14 04:59 :00 No [id number] 150mg Take 1 tablet by mouth once now for 1 dose. [facility] cephALEXin 500 mg capsule 5-14 00:00: 00 10-28 04:59 :00 No [id number] 500mg Take 1 capsule by mouth in the morning and 1 capsule in the evening. Do all this for 7 days. [facility] miconazole kit 5-14 00:00: 00 10-21 04:59 :00 No [id number] 1{each} Insert 1 Each into vagina once now for 1 dose. [facility] (BLOOD PRESSURE CUFF) [facility] 4-05 00:00: 00 Yes [id number] Use as directed [facility] [place] (BLOOD PRESSURE CUFF) [facility] 4-05 00:00: 00 04-26 00:00 :00 No [id number] Use as directed [facility] semaglutide (OZEMPIC) 1 mg/dose (4 mg/3 mL) PnIj 1-27 00:00: 00 09-11 00:00 :00 No 1mg inject 1 mg under the skin. [facility] metformin ER 500 mg 24 hr tablet 8-12 00:00: 00 09-11 00:00 :00 No [facility] Nitrofurant oin&Nit. Macrocryst (MACROBID) 100 mg capsule 100 mg 08-20 05:00: 00 08-20 05:00 :00 No 100mg 100 mg, Oral, ONCE, 1 dose, On 08/20/21 at 0000, Routine
Reason for Anti-Infec tive: Documented Infection< br>Documen shamar Infection Site: Urine
D uration of Therapy: Other (see Comments) [facility] iopamidol (ISOVUE 370-500 mL) injection 100 mL 08-20 03:15: 00 08-20 03:15 :00 No [id number] 100mL 100 mL, Intravenou s, ONCE, 1 dose, On Fri08/19/21 at 2215, Routine [facility] Nitrofurant oin&Nit. Macrocryst (MACROBID) 100 mg capsule 08-19 00:00: 00 09-11 00:00 :00 No [id number] 100mg Take 1 capsule by mouth 2 (two) times daily. [facility] traMADoL (ULTRAM) 50 mg tablet 08-19 00:00: 00 09-11 00:00 :00 No [id number] 50mg Take 1 tablet by mouth every 6 (six) hours as needed for Pain (scale 7-10). Indication s: acute pain [facility] ondansetron (ZOFRAN) 4 mg tablet 08-19 00:00: 00 09-11 00:00 :00 No [id number] 4mg Take 1 tablet by mouth every 8 (eight) hours as needed for Nausea and Vomiting (N/V). [facility] Nitrofurant oin&Nit. Macrocryst (MACROBID) 100 mg capsule 2020-06 2-20 00:00: 00 08-19 00:00 :00 No [id number] 100mg Take 1 capsule by mouth 2 (two) times daily. [facility] multivitami n ( VITAMIN) tablet 2020-06 2-16 00:00: 00 Yes [id number] 1{tbl} Take 1 tablet by mouth daily. [facility] multivitami n ( VITAMIN) tablet 2020-06 2-16 00:00: 00 04-26 00:00 :00 No [id number] 1{tbl} Take 1 tablet by mouth daily. [facility] Immunizations Ordered Immunization Name Filled Immunization Name Date Status Comments Source DTaP, Unspecified Formulation 2023-06-10 10:30:00 Completed [facility] MMR 2023-06-10 10:30:00 Completed [facility] Pneumococcal 7 Conjugate, PCV7 (Prevnar7) 2023-06-10 10:30:00 Completed [facility] IPV 2023-06-10 10:30:00 Completed [facility] Varicella (varivax)(chicken pox) 2023-06-10 10:30:00 Completed [facility] TDAP 2023-06-10 10:30:00 Completed [facility] HPV9 2023-06-10 10:30:00 Completed [facility] HEPATITIS A 2023-06-10 10:30:00 Completed [facility] HPV 2023-06-10 10:30:00 Completed [facility] Meningococcal Polysaccharide (groups A, C, Y and W-135) conjugate vaccine (MCV4P) 2023-06-10 10:30:00 Completed [facility] TDAP 2023-06-03 00:00:00 Completed [facility] HPV9 2023-06-03 00:00:00 Completed [facility] DTaP, Unspecified Formulation 2023-06-03 00:00:00 Completed [facility] HEPATITIS A 2023-06-03 00:00:00 Completed [facility] HPV 2023-06-03 00:00:00 Completed [facility] Meningococcal Polysaccharide (groups A, C, Y and W-135) conjugate vaccine (MCV4P) 2023-06-03 00:00:00 Completed [facility] MMR 2023-06-03 00:00:00 Completed [facility] Pneumococcal 7 Conjugate, PCV7 (Prevnar7) 2023-06-03 00:00:00 Completed [facility] IPV 2023-06-03 00:00:00 Completed [facility] Varicella (varivax)(chicken pox) 2023-06-03 00:00:00 Completed [facility] DTaP, Unspecified Formulation 2023-05-15 12:45:00 Completed [facility] MMR 2023-05-15 12:45:00 Completed [facility] Pneumococcal 7 Conjugate, PCV7 (Prevnar7) 2023-05-15 12:45:00 Completed [facility] IPV 2023-05-15 12:45:00 Completed [facility] Varicella (varivax)(chicken pox) 2023-05-15 12:45:00 Completed [facility] TDAP 2023-05-15 12:45:00 Completed [facility] HPV9 2023-05-15 12:45:00 Completed [facility] HEPATITIS A 2023-05-15 12:45:00 Completed [facility] HPV 2023-05-15 12:45:00 Completed [facility] Meningococcal Polysaccharide (groups A, C, Y and W-135) conjugate vaccine (MCV4P) 2023-05-15 12:45:00 Completed [facility] TDAP 2023-04-30 08:30:00 Completed [facility] HPV9 2023-04-30 08:30:00 Completed [facility] DTaP, Unspecified Formulation 2023-04-30 08:30:00 Completed [facility] HEPATITIS A 2023-04-30 08:30:00 Completed [facility] HPV 2023-04-30 08:30:00 Completed [facility] Meningococcal Polysaccharide (groups A, C, Y and W-135) conjugate vaccine (MCV4P) 2023-04-30 08:30:00 Completed [facility] MMR 2023-04-30 08:30:00 Completed [facility] Pneumococcal 7 Conjugate, PCV7 (Prevnar7) 2023-04-30 08:30:00 Completed [facility] IPV 2023-04-30 08:30:00 Completed [facility] Varicella (varivax)(chicken pox) 2023-04-30 08:30:00 Completed [facility] TDAP 2023-04-28 00:00:00 Completed [facility] HPV9 2023-04-28 00:00:00 Completed [facility] DTaP, Unspecified Formulation 2023-04-28 00:00:00 Completed [facility] HEPATITIS A 2023-04-28 00:00:00 Completed [facility] HPV 2023-04-28 00:00:00 Completed [facility] Meningococcal Polysaccharide (groups A, C, Y and W-135) conjugate vaccine (MCV4P) 2023-04-28 00:00:00 Completed [facility] MMR 2023-04-28 00:00:00 Completed [facility] Pneumococcal 7 Conjugate, PCV7 (Prevnar7) 2023-04-28 00:00:00 Completed [facility] IPV 2023-04-28 00:00:00 Completed [facility] Varicella (varivax)(chicken pox) 2023-04-28 00:00:00 Completed [facility] TDAP 2023-04-27 00:00:00 Completed [facility] HPV9 2023-04-27 00:00:00 Completed [facility] DTaP, Unspecified Formulation 2023-04-27 00:00:00 Completed [facility] HEPATITIS A 2023-04-27 00:00:00 Completed [facility] HPV 2023-04-27 00:00:00 Completed [facility] Meningococcal Polysaccharide (groups A, C, Y and W-135) conjugate vaccine (MCV4P) 2023-04-27 00:00:00 Completed [facility] MMR 2023-04-27 00:00:00 Completed [facility] Pneumococcal 7 Conjugate, PCV7 (Prevnar7) 2023-04-27 00:00:00 Completed [facility] IPV 2023-04-27 00:00:00 Completed [facility] Varicella (varivax)(chicken pox) 2023-04-27 00:00:00 Completed [facility] TDAP 2023-04-26 00:00:00 Completed [facility] HPV9 2023-04-26 00:00:00 Completed [facility] DTaP, Unspecified Formulation 2023-04-26 00:00:00 Completed [facility] HEPATITIS A 2023-04-26 00:00:00 Completed [facility] HPV 2023-04-26 00:00:00 Completed [facility] Meningococcal Polysaccharide (groups A, C, Y and W-135) conjugate vaccine (MCV4P) 2023-04-26 00:00:00 Completed [facility] MMR 2023-04-26 00:00:00 Completed [facility] Pneumococcal 7 Conjugate, PCV7 (Prevnar7) 2023-04-26 00:00:00 Completed [facility] IPV 2023-04-26 00:00:00 Completed [facility] Varicella (varivax)(chicken pox) 2023-04-26 00:00:00 Completed [facility] TDAP 2023-04-25 20:00:51 Completed [facility] HPV9 2023-04-25 20:00:51 Completed [facility] DTaP, Unspecified Formulation 2023-04-25 20:00:51 Completed [facility] HEPATITIS A 2023-04-25 20:00:51 Completed [facility] HPV 2023-04-25 20:00:51 Completed [facility] Meningococcal Polysaccharide (groups A, C, Y and W-135) conjugate vaccine (MCV4P) 2023-04-25 20:00:51 Completed [facility] MMR 2023-04-25 20:00:51 Completed [facility] Pneumococcal 7 Conjugate, PCV7 (Prevnar7) 2023-04-25 20:00:51 Completed [facility] IPV 2023-04-25 20:00:51 Completed [facility] Varicella (varivax)(chicken pox) 2023-04-25 20:00:51 Completed [facility] TDAP 2023-04-24 20:45:00 Completed [facility] HPV9 2023-04-24 20:45:00 Completed [facility] DTaP, Unspecified Formulation 2023-04-24 20:45:00 Completed [facility] HEPATITIS A 2023-04-24 20:45:00 Completed [facility] HPV 2023-04-24 20:45:00 Completed [facility] Meningococcal Polysaccharide (groups A, C, Y and W-135) conjugate vaccine (MCV4P) 2023-04-24 20:45:00 Completed [facility] MMR 2023-04-24 20:45:00 Completed [facility] Pneumococcal 7 Conjugate, PCV7 (Prevnar7) 2023-04-24 20:45:00 Completed [facility] IPV 2023-04-24 20:45:00 Completed [facility] Varicella (varivax)(chicken pox) 2023-04-24 20:45:00 Completed [facility] TDAP 2023-04-24 11:00:00 Completed [facility] HPV9 2023-04-24 11:00:00 Completed [facility] DTaP, Unspecified Formulation 2023-04-24 11:00:00 Completed [facility] HEPATITIS A 2023-04-24 11:00:00 Completed [facility] HPV 2023-04-24 11:00:00 Completed [facility] Meningococcal Polysaccharide (groups A, C, Y and W-135) conjugate vaccine (MCV4P) 2023-04-24 11:00:00 Completed [facility] MMR 2023-04-24 11:00:00 Completed [facility] Pneumococcal 7 Conjugate, PCV7 (Prevnar7) 2023-04-24 11:00:00 Completed [facility] IPV 2023-04-24 11:00:00 Completed [facility] Varicella (varivax)(chicken pox) 2023-04-24 11:00:00 Completed [facility] TDAP 2023-04-23 19:33:00 Completed [facility] HPV9 2023-04-23 19:33:00 Completed [facility] DTaP, Unspecified Formulation 2023-04-23 19:33:00 Completed [facility] HEPATITIS A 2023-04-23 19:33:00 Completed [facility] HPV 2023-04-23 19:33:00 Completed [facility] Meningococcal Polysaccharide (groups A, C, Y and W-135) conjugate vaccine (MCV4P) 2023-04-23 19:33:00 Completed [facility] MMR 2023-04-23 19:33:00 Completed [facility] Pneumococcal 7 Conjugate, PCV7 (Prevnar7) 2023-04-23 19:33:00 Completed [facility] IPV 2023-04-23 19:33:00 Completed [facility] Varicella (varivax)(chicken pox) 2023-04-23 19:33:00 Completed [facility] TDAP 2023-04-23 00:00:00 Completed [facility] HPV9 2023-04-23 00:00:00 Completed [facility] DTaP, Unspecified Formulation 2023-04-23 00:00:00 Completed [facility] HEPATITIS A 2023-04-23 00:00:00 Completed [facility] HPV 2023-04-23 00:00:00 Completed [facility] Meningococcal Polysaccharide (groups A, C, Y and W-135) conjugate vaccine (MCV4P) 2023-04-23 00:00:00 Completed [facility] MMR 2023-04-23 00:00:00 Completed [facility] Pneumococcal 7 Conjugate, PCV7 (Prevnar7) 2023-04-23 00:00:00 Completed [facility] IPV 2023-04-23 00:00:00 Completed [facility] Varicella (varivax)(chicken pox) 2023-04-23 00:00:00 Completed [facility] TDAP 2023-04-16 09:30:00 Completed [facility] HPV9 2023-04-16 09:30:00 Completed [facility] DTaP, Unspecified Formulation 2023-04-16 09:30:00 Completed [facility] HEPATITIS A 2023-04-16 09:30:00 Completed [facility] HPV 2023-04-16 09:30:00 Completed [facility] Meningococcal Polysaccharide (groups A, C, Y and W-135) conjugate vaccine (MCV4P) 2023-04-16 09:30:00 Completed [facility] MMR 2023-04-16 09:30:00 Completed [facility] Pneumococcal 7 Conjugate, PCV7 (Prevnar7) 2023-04-16 09:30:00 Completed [facility] IPV 2023-04-16 09:30:00 Completed [facility] Varicella (varivax)(chicken pox) 2023-04-16 09:30:00 Completed [facility] DTaP, Unspecified Formulation 2023-04-10 10:45:00 Completed [facility] MMR 2023-04-10 10:45:00 Completed [facility] Pneumococcal 7 Conjugate, PCV7 (Prevnar7) 2023-04-10 10:45:00 Completed [facility] IPV 2023-04-10 10:45:00 Completed [facility] Varicella (varivax)(chicken pox) 2023-04-10 10:45:00 Completed [facility] TDAP 2023-04-10 10:45:00 Completed [facility] HPV9 2023-04-10 10:45:00 Completed [facility] HEPATITIS A 2023-04-10 10:45:00 Completed [facility] HPV 2023-04-10 10:45:00 Completed [facility] Meningococcal Polysaccharide (groups A, C, Y and W-135) conjugate vaccine (MCV4P) 2023-04-10 10:45:00 Completed [facility] TDAP 2023-03-27 10:00:00 Completed [facility] HPV9 2023-03-27 10:00:00 Completed [facility] DTaP, Unspecified Formulation 2023-03-27 10:00:00 Completed [facility] HEPATITIS A 2023-03-27 10:00:00 Completed [facility] HPV 2023-03-27 10:00:00 Completed [facility] Meningococcal Polysaccharide (groups A, C, Y and W-135) conjugate vaccine (MCV4P) 2023-03-27 10:00:00 Completed [facility] MMR 2023-03-27 10:00:00 Completed [facility] Pneumococcal 7 Conjugate, PCV7 (Prevnar7) 2023-03-27 10:00:00 Completed [facility] IPV 2023-03-27 10:00:00 Completed [facility] Varicella (varivax)(chicken pox) 2023-03-27 10:00:00 Completed [facility] TDAP 2023-03-15 00:00:00 Completed [facility] HPV9 2023-03-15 00:00:00 Completed [facility] DTaP, Unspecified Formulation 2023-03-15 00:00:00 Completed [facility] HEPATITIS A 2023-03-15 00:00:00 Completed [facility] HPV 2023-03-15 00:00:00 Completed [facility] Meningococcal Polysaccharide (groups A, C, Y and W-135) conjugate vaccine (MCV4P) 2023-03-15 00:00:00 Completed [facility] MMR 2023-03-15 00:00:00 Completed [facility] Pneumococcal 7 Conjugate, PCV7 (Prevnar7) 2023-03-15 00:00:00 Completed [facility] IPV 2023-03-15 00:00:00 Completed [facility] Varicella (varivax)(chicken pox) 2023-03-15 00:00:00 Completed [facility] TDAP 2023-03-13 09:45:00 Completed [facility] HPV9 2023-03-13 09:45:00 Completed [facility] DTaP, Unspecified Formulation 2023-03-13 09:45:00 Completed [facility] HEPATITIS A 2023-03-13 09:45:00 Completed [facility] HPV 2023-03-13 09:45:00 Completed [facility] Meningococcal Polysaccharide (groups A, C, Y and W-135) conjugate vaccine (MCV4P) 2023-03-13 09:45:00 Completed [facility] MMR 2023-03-13 09:45:00 Completed [facility] Pneumococcal 7 Conjugate, PCV7 (Prevnar7) 2023-03-13 09:45:00 Completed [facility] IPV 2023-03-13 09:45:00 Completed [facility] Varicella (varivax)(chicken pox) 2023-03-13 09:45:00 Completed [facility] TDAP 2023-02-28 11:00:00 Completed [facility] HPV9 2023-02-28 11:00:00 Completed [facility] DTaP, Unspecified Formulation 2023-02-28 11:00:00 Completed [facility] HEPATITIS A 2023-02-28 11:00:00 Completed [facility] HPV 2023-02-28 11:00:00 Completed [facility] Meningococcal Polysaccharide (groups A, C, Y and W-135) conjugate vaccine (MCV4P) 2023-02-28 11:00:00 Completed [facility] MMR 2023-02-28 11:00:00 Completed [facility] Pneumococcal 7 Conjugate, PCV7 (Prevnar7) 2023-02-28 11:00:00 Completed [facility] IPV 2023-02-28 11:00:00 Completed [facility] Varicella (varivax)(chicken pox) 2023-02-28 11:00:00 Completed [facility] TDAP 2023-02-07 00:00:00 Completed [facility] TDAP 2023-02-07 00:00:00 Completed [facility] TDAP 2023-01-07 00:00:00 Completed [facility] HPV9 2023-01-07 00:00:00 Completed [facility] DTaP, Unspecified Formulation 2023-01-07 00:00:00 Completed [facility] HEPATITIS A 2023-01-07 00:00:00 Completed [facility] HPV 2023-01-07 00:00:00 Completed [facility] Meningococcal Polysaccharide (groups A, C, Y and W-135) conjugate vaccine (MCV4P) 2023-01-07 00:00:00 Completed [facility] MMR 2023-01-07 00:00:00 Completed [facility] Pneumococcal 7 Conjugate, PCV7 (Prevnar7) 2023-01-07 00:00:00 Completed [facility] IPV 2023-01-07 00:00:00 Completed [facility] Varicella (varivax)(chicken pox) 2023-01-07 00:00:00 Completed [facility] TDAP 2022-12-30 00:00:00 Completed [facility] HPV9 2022-12-30 00:00:00 Completed [facility] DTaP, Unspecified Formulation 2022-12-30 00:00:00 Completed [facility] HEPATITIS A 2022-12-30 00:00:00 Completed [facility] HPV 2022-12-30 00:00:00 Completed [facility] Meningococcal Polysaccharide (groups A, C, Y and W-135) conjugate vaccine (MCV4P) 2022-12-30 00:00:00 Completed [facility] MMR 2022-12-30 00:00:00 Completed [facility] Pneumococcal 7 Conjugate, PCV7 (Prevnar7) 2022-12-30 00:00:00 Completed [facility] IPV 2022-12-30 00:00:00 Completed [facility] Varicella (varivax)(chicken pox) 2022-12-30 00:00:00 Completed [facility] TDAP 2022-10-20 00:00:00 Completed [facility] HPV9 2022-10-20 00:00:00 Completed [facility] DTaP, Unspecified Formulation 2022-10-20 00:00:00 Completed [facility] HEPATITIS A 2022-10-20 00:00:00 Completed [facility] HPV 2022-10-20 00:00:00 Completed [facility] Meningococcal Polysaccharide (groups A, C, Y and W-135) conjugate vaccine (MCV4P) 2022-10-20 00:00:00 Completed [facility] MMR 2022-10-20 00:00:00 Completed [facility] Pneumococcal 7 Conjugate, PCV7 (Prevnar7) 2022-10-20 00:00:00 Completed [facility] IPV 2022-10-20 00:00:00 Completed [facility] Varicella (varivax)(chicken pox) 2022-10-20 00:00:00 Completed [facility] TDAP 2022-09-12 00:00:00 Completed [facility] HPV9 2022-09-12 00:00:00 Completed [facility] DTaP, Unspecified Formulation 2022-09-12 00:00:00 Completed [facility] HEPATITIS A 2022-09-12 00:00:00 Completed [facility] HPV 2022-09-12 00:00:00 Completed [facility] Meningococcal Polysaccharide (groups A, C, Y and W-135) conjugate vaccine (MCV4P) 2022-09-12 00:00:00 Completed [facility] MMR 2022-09-12 00:00:00 Completed [facility] Pneumococcal 7 Conjugate, PCV7 (Prevnar7) 2022-09-12 00:00:00 Completed [facility] IPV 2022-09-12 00:00:00 Completed [facility] Varicella (varivax)(chicken pox) 2022-09-12 00:00:00 Completed [facility] TDAP 2021-08-21 00:00:00 Completed [facility] HPV9 2021-08-21 00:00:00 Completed [facility] DTaP, Unspecified Formulation 2021-08-21 00:00:00 Completed [facility] HEPATITIS A 2021-08-21 00:00:00 Completed [facility] HPV 2021-08-21 00:00:00 Completed [facility] Meningococcal Polysaccharide (groups A, C, Y and W-135) conjugate vaccine (MCV4P) 2021-08-21 00:00:00 Completed [facility] MMR 2021-08-21 00:00:00 Completed [facility] Pneumococcal 7 Conjugate, PCV7 (Prevnar7) 2021-08-21 00:00:00 Completed [facility] IPV 2021-08-21 00:00:00 Completed [facility] Varicella (varivax)(chicken pox) 2021-08-21 00:00:00 Completed [facility] TDAP 2021-06-04 00:00:00 Completed [facility] HPV9 2021-06-04 00:00:00 Completed [facility] DTaP, Unspecified Formulation 2021-06-04 00:00:00 Completed [facility] HEPATITIS A 2021-06-04 00:00:00 Completed [facility] HPV 2021-06-04 00:00:00 Completed [facility] Meningococcal Polysaccharide (groups A, C, Y and W-135) conjugate vaccine (MCV4P) 2021-06-04 00:00:00 Completed [facility] MMR 2021-06-04 00:00:00 Completed [facility] Pneumococcal 7 Conjugate, PCV7 (Prevnar7) 2021-06-04 00:00:00 Completed [facility] IPV 2021-06-04 00:00:00 Completed [facility] Varicella (varivax)(chicken pox) 2021-06-04 00:00:00 Completed [facility] HPV9 2017-12-15 00:00:00 Completed [facility] HPV9 2017-12-15 00:00:00 Completed [facility] HPV9 2017-12-15 00:00:00 Completed [facility] HPV9 2017-12-15 00:00:00 Completed [facility] HPV9 2017-12-15 00:00:00 Completed [facility] HPV9 2017-12-15 00:00:00 Completed [facility] HPV9 2017-12-15 00:00:00 Completed [facility] HPV9 2017-12-15 00:00:00 Completed [facility] HPV9 2017-12-15 00:00:00 Completed [facility] HPV9 2017-12-15 00:00:00 Completed [facility] HPV9 2017-12-15 00:00:00 Completed [facility] HPV9 2017-12-15 00:00:00 Completed [facility] HPV9 2017-12-15 00:00:00 Completed [facility] HPV9 2017-12-15 00:00:00 Completed [facility] HPV9 2017-12-15 00:00:00 Completed [facility] HPV9 2017-12-15 00:00:00 Completed [facility] HPV9 2017-12-15 00:00:00 Completed [facility] HPV9 2017-12-15 00:00:00 Completed HPV9 2017-12-15 00:00:00 Completed [facility] HPV9 2017-12-15 00:00:00 Completed [facility] HPV9 2017-12-15 00:00:00 Completed [facility] HPV9 2017-12-15 00:00:00 Completed [facility] HPV9 2017-12-15 00:00:00 Completed [facility] HPV9 2017-12-15 00:00:00 Completed [facility] HPV9 2017-12-15 00:00:00 Completed [facility] HPV9 2017-12-15 00:00:00 Completed [facility] HPV9 2017-12-15 00:00:00 Completed [facility] HPV9 2017-12-15 00:00:00 Completed [facility] HPV9 2017-12-15 00:00:00 Completed [facility] HPV9 2017-08-15 00:00:00 Completed [facility] HPV9 2017-08-15 00:00:00 Completed [facility] HPV9 2017-08-15 00:00:00 Completed [facility] HPV9 2017-08-15 00:00:00 Completed [facility] HPV9 2017-08-15 00:00:00 Completed [facility] HPV9 2017-08-15 00:00:00 Completed [facility] HPV9 2017-08-15 00:00:00 Completed [facility] HPV9 2017-08-15 00:00:00 Completed [facility] HPV9 2017-08-15 00:00:00 Completed [facility] HPV9 2017-08-15 00:00:00 Completed [facility] HPV9 2017-08-15 00:00:00 Completed [facility] HPV9 2017-08-15 00:00:00 Completed [facility] HPV9 2017-08-15 00:00:00 Completed [facility] HPV9 2017-08-15 00:00:00 Completed [facility] HPV9 2017-08-15 00:00:00 Completed [facility] HPV9 2017-08-15 00:00:00 Completed [facility] HPV9 2017-08-15 00:00:00 Completed [facility] HPV9 2017-08-15 00:00:00 Completed [facility] HPV9 2017-08-15 00:00:00 Completed [facility] HPV9 2017-08-15 00:00:00 Completed [facility] HPV9 2017-08-15 00:00:00 Completed [facility] HPV9 2017-08-15 00:00:00 Completed [facility] HPV9 2017-08-15 00:00:00 Completed [facility] HPV9 2017-08-15 00:00:00 Completed [facility] HPV9 2017-08-15 00:00:00 Completed [facility] HPV9 2017-08-15 00:00:00 Completed [facility] HPV9 2017-08-15 00:00:00 Completed [facility] HPV9 2017-08-15 00:00:00 Completed [facility] HPV9 2017-08-15 00:00:00 Completed [facility] HPV9 2017-05-23 00:00:00 Completed [facility] HPV9 2017-05-23 00:00:00 Completed [facility] HPV9 2017-05-23 00:00:00 Completed [facility] HPV9 2017-05-23 00:00:00 Completed [facility] HPV9 2017-05-23 00:00:00 Completed [facility] HPV9 2017-05-23 00:00:00 Completed [facility] HPV9 2017-05-23 00:00:00 Completed [facility] HPV9 2017-05-23 00:00:00 Completed [facility] HPV9 2017-05-23 00:00:00 Completed [facility] HPV9 2017-05-23 00:00:00 Completed [facility] HPV9 2017-05-23 00:00:00 Completed [facility] HPV9 2017-05-23 00:00:00 Completed [facility] HPV9 2017-05-23 00:00:00 Completed [facility] HPV9 2017-05-23 00:00:00 Completed [facility] HPV9 2017-05-23 00:00:00 Completed [facility] HPV9 2017-05-23 00:00:00 Completed [facility] [facility] HPV9 2017-05-23 00:00:00 Completed [facility] HPV9 2017-05-23 00:00:00 Completed [facility] HPV9 2017-05-23 00:00:00 Completed [facility] HPV9 2017-05-23 00:00:00 Completed [facility] HPV9 2017-05-23 00:00:00 Completed [facility] HPV9 2017-05-23 00:00:00 Completed [facility] HPV9 2017-05-23 00:00:00 Completed [facility] HPV9 2017-05-23 00:00:00 Completed [facility] HPV9 2017-05-23 00:00:00 Completed [facility] HPV9 2017-05-23 00:00:00 Completed [facility] HPV9 2017-05-23 00:00:00 Completed [facility] HPV9 2017-05-23 00:00:00 Completed [facility] TDAP 2017-02-07 00:00:00 Completed [facility] TDAP 2017-02-07 00:00:00 Completed [facility] TDAP 2017-02-07 00:00:00 Completed [facility] TDAP 2017-02-07 00:00:00 Completed [facility] TDAP 2017-02-07 00:00:00 Completed [facility] TDAP 2017-02-07 00:00:00 Completed [facility] TDAP 2017-02-07 00:00:00 Completed [facility] TDAP 2017-02-07 00:00:00 Completed [facility] TDAP 2017-02-07 00:00:00 Completed [facility] TDAP 2017-02-07 00:00:00 Completed [facility] TDAP 2017-02-07 00:00:00 Completed [facility] TDAP 2017-02-07 00:00:00 Completed [facility] TDAP 2017-02-07 00:00:00 Completed [facility] TDAP 2017-02-07 00:00:00 Completed [facility] TDAP 2017-02-07 00:00:00 Completed [facility] TDAP 2017-02-07 00:00:00 Completed [facility] TDAP 2017-02-07 00:00:00 Completed [facility] TDAP 2017-02-07 00:00:00 Completed [facility] TDAP 2017-02-07 00:00:00 Completed [facility] TDAP 2017-02-07 00:00:00 Completed [facility] TDAP 2017-02-07 00:00:00 Completed [facility] TDAP 2017-02-07 00:00:00 Completed [facility] TDAP 2017-02-07 00:00:00 Completed [facility] TDAP 2017-02-07 00:00:00 Completed [facility] TDAP 2017-02-07 00:00:00 Completed [facility] TDAP 2017-02-07 00:00:00 Completed [facility] TDAP 2017-02-07 00:00:00 Completed [facility] TDAP 2017-02-07 00:00:00 Completed [facility] Meningococcal Polysaccharide (groups A, C, Y and W-135) conjugate vaccine (MCV4P) 2015-09-29 00:00:00 Completed [facility] Meningococcal Polysaccharide (groups A, C, Y and W-135) conjugate vaccine (MCV4P) 2015-09-29 00:00:00 Completed [facility] Meningococcal Polysaccharide (groups A, C, Y and W-135) conjugate vaccine (MCV4P) 2015-09-29 00:00:00 Completed [facility] Meningococcal Polysaccharide (groups A, C, Y and W-135) conjugate vaccine (MCV4P) 2015-09-29 00:00:00 Completed [facility] Meningococcal Polysaccharide (groups A, C, Y and W-135) conjugate vaccine (MCV4P) 2015-09-29 00:00:00 Completed [facility] Meningococcal Polysaccharide (groups A, C, Y and W-135) conjugate vaccine (MCV4P) 2015-09-29 00:00:00 Completed [facility] Meningococcal Polysaccharide (groups A, C, Y and W-135) conjugate vaccine (MCV4P) 2015-09-29 00:00:00 Completed [facility] Meningococcal Polysaccharide (groups A, C, Y and W-135) conjugate vaccine (MCV4P) 2015-09-29 00:00:00 Completed [facility] Meningococcal Polysaccharide (groups A, C, Y and W-135) conjugate vaccine (MCV4P) 2015-09-29 00:00:00 Completed [facility] Meningococcal Polysaccharide (groups A, C, Y and W-135) conjugate vaccine (MCV4P) 2015-09-29 00:00:00 Completed [facility] Meningococcal Polysaccharide (groups A, C, Y and W-135) conjugate vaccine (MCV4P) 2015-09-29 00:00:00 Completed [facility] Meningococcal Polysaccharide (groups A, C, Y and W-135) conjugate vaccine (MCV4P) 2015-09-29 00:00:00 Completed [facility] Meningococcal Polysaccharide (groups A, C, Y and W-135) conjugate vaccine (MCV4P) 2015-09-29 00:00:00 Completed [facility] Meningococcal Polysaccharide (groups A, C, Y and W-135) conjugate vaccine (MCV4P) 2015-09-29 00:00:00 Completed [facility] Meningococcal Polysaccharide (groups A, C, Y and W-135) conjugate vaccine (MCV4P) 2015-09-29 00:00:00 Completed [facility] Meningococcal Polysaccharide (groups A, C, Y and W-135) conjugate vaccine (MCV4P) 2015-09-29 00:00:00 Completed [facility] Meningococcal Polysaccharide (groups A, C, Y and W-135) conjugate vaccine (MCV4P) 2015-09-29 00:00:00 Completed [facility] Meningococcal Polysaccharide (groups A, C, Y and W-135) conjugate vaccine (MCV4P) 2015-09-29 00:00:00 Completed Meningococcal Polysaccharide (groups A, C, Y and W-135) conjugate vaccine (MCV4P) 2015-09-29 00:00:00 Completed [facility] Meningococcal Polysaccharide (groups A, C, Y and W-135) conjugate vaccine (MCV4P) 2015-09-29 00:00:00 Completed [facility] Meningococcal Polysaccharide (groups A, C, Y and W-135) conjugate vaccine (MCV4P) 2015-09-29 00:00:00 Completed [facility] Meningococcal Polysaccharide (groups A, C, Y and W-135) conjugate vaccine (MCV4P) 2015-09-29 00:00:00 Completed [facility] Meningococcal Polysaccharide (groups A, C, Y and W-135) conjugate vaccine (MCV4P) 2015-09-29 00:00:00 Completed [facility] Meningococcal Polysaccharide (groups A, C, Y and W-135) conjugate vaccine (MCV4P) 2015-09-29 00:00:00 Completed [facility] Meningococcal Polysaccharide (groups A, C, Y and W-135) conjugate vaccine (MCV4P) 2015-01-25 00:00:00 Completed [facility] Meningococcal Polysaccharide (groups A, C, Y and W-135) conjugate vaccine (MCV4P) 2015-01-25 00:00:00 Completed [facility] Meningococcal Polysaccharide (groups A, C, Y and W-135) conjugate vaccine (MCV4P) 2015-01-25 00:00:00 Completed [facility] Meningococcal Polysaccharide (groups A, C, Y and W-135) conjugate vaccine (MCV4P) 2015-01-25 00:00:00 Completed [facility] Meningococcal Polysaccharide (groups A, C, Y and W-135) conjugate vaccine (MCV4P) 2015-01-25 00:00:00 Completed [facility] Meningococcal Polysaccharide (groups A, C, Y and W-135) conjugate vaccine (MCV4P) 2015-01-25 00:00:00 Completed [facility] Meningococcal Polysaccharide (groups A, C, Y and W-135) conjugate vaccine (MCV4P) 2015-01-25 00:00:00 Completed [facility] Meningococcal Polysaccharide (groups A, C, Y and W-135) conjugate vaccine (MCV4P) 2015-01-25 00:00:00 Completed [facility] Meningococcal Polysaccharide (groups A, C, Y and W-135) conjugate vaccine (MCV4P) 2015-01-25 00:00:00 Completed [facility] Meningococcal Polysaccharide (groups A, C, Y and W-135) conjugate vaccine (MCV4P) 2015-01-25 00:00:00 Completed [facility] Meningococcal Polysaccharide (groups A, C, Y and W-135) conjugate vaccine (MCV4P) 2015-01-25 00:00:00 Completed [facility] Meningococcal Polysaccharide (groups A, C, Y and W-135) conjugate vaccine (MCV4P) 2015-01-25 00:00:00 Completed [facility] Meningococcal Polysaccharide (groups A, C, Y and W-135) conjugate vaccine (MCV4P) 2015-01-25 00:00:00 Completed [facility] Meningococcal Polysaccharide (groups A, C, Y and W-135) conjugate vaccine (MCV4P) 2015-01-25 00:00:00 Completed [facility] Meningococcal Polysaccharide (groups A, C, Y and W-135) conjugate vaccine (MCV4P) 2015-01-25 00:00:00 Completed [facility] Meningococcal Polysaccharide (groups A, C, Y and W-135) conjugate vaccine (MCV4P) 2015-01-25 00:00:00 Completed [facility] Meningococcal Polysaccharide (groups A, C, Y and W-135) conjugate vaccine (MCV4P) 2015-01-25 00:00:00 Completed [facility] Meningococcal Polysaccharide (groups A, C, Y and W-135) conjugate vaccine (MCV4P) 2015-01-25 00:00:00 Completed [facility] Meningococcal Polysaccharide (groups A, C, Y and W-135) conjugate vaccine (MCV4P) 2015-01-25 00:00:00 Completed [facility] Meningococcal Polysaccharide (groups A, C, Y and W-135) conjugate vaccine (MCV4P) 2015-01-25 00:00:00 Completed [facility] Meningococcal Polysaccharide (groups A, C, Y and W-135) conjugate vaccine (MCV4P) 2015-01-25 00:00:00 Completed [facility] Meningococcal Polysaccharide (groups A, C, Y and W-135) conjugate vaccine (MCV4P) 2015-01-25 00:00:00 Completed [facility] Meningococcal Polysaccharide (groups A, C, Y and W-135) conjugate vaccine (MCV4P) 2015-01-25 00:00:00 Completed [facility] HPV 2014-01-10 00:00:00 Completed [facility] HPV 2014-01-10 00:00:00 Completed [facility] HPV 2014-01-10 00:00:00 Completed [facility] HPV 2014-01-10 00:00:00 Completed [facility] HPV 2014-01-10 00:00:00 Completed [facility] HPV 2014-01-10 00:00:00 Completed [facility] HPV 2014-01-10 00:00:00 Completed [facility] HPV 2014-01-10 00:00:00 Completed [facility] HPV 2014-01-10 00:00:00 Completed [facility] HPV 2014-01-10 00:00:00 Completed [facility] HPV 2014-01-10 00:00:00 Completed [facility] HPV 2014-01-10 00:00:00 Completed [facility] HPV 2014-01-10 00:00:00 Completed [facility] HPV 2014-01-10 00:00:00 Completed [facility] HPV 2014-01-10 00:00:00 Completed [facility] HPV 2014-01-10 00:00:00 Completed [facility] HPV 2014-01-10 00:00:00 Completed [facility] HPV 2014-01-10 00:00:00 Completed HPV 2014-01-10 00:00:00 Completed [facility] HPV 2014-01-10 00:00:00 Completed [facility] HPV 2014-01-10 00:00:00 Completed [facility] HPV 2014-01-10 00:00:00 Completed [facility] HPV 2014-01-10 00:00:00 Completed [facility] HPV 2014-01-10 00:00:00 Completed [facility] HEPATITIS A 2013-01-11 00:00:00 Completed [facility] HPV 2013-01-11 00:00:00 Completed [facility] HEPATITIS A 2013-01-11 00:00:00 Completed [facility] HPV 2013-01-11 00:00:00 Completed [facility] HEPATITIS A 2013-01-11 00:00:00 Completed [facility] HPV 2013-01-11 00:00:00 Completed [facility] HEPATITIS A 2013-01-11 00:00:00 Completed [facility] HPV 2013-01-11 00:00:00 Completed [facility] HEPATITIS A 2013-01-11 00:00:00 Completed [facility] HPV 2013-01-11 00:00:00 Completed [facility] HEPATITIS A 2013-01-11 00:00:00 Completed [facility] HPV 2013-01-11 00:00:00 Completed [facility] HEPATITIS A 2013-01-11 00:00:00 Completed [facility] HPV 2013-01-11 00:00:00 Completed [facility] HEPATITIS A 2013-01-11 00:00:00 Completed [facility] HPV 2013-01-11 00:00:00 Completed [facility] HEPATITIS A 2013-01-11 00:00:00 Completed [facility] HPV 2013-01-11 00:00:00 Completed [facility] HEPATITIS A 2013-01-11 00:00:00 Completed [facility] HPV 2013-01-11 00:00:00 Completed [facility] HEPATITIS A 2013-01-11 00:00:00 Completed [facility] HPV 2013-01-11 00:00:00 Completed [facility] HEPATITIS A 2013-01-11 00:00:00 Completed [facility] HPV 2013-01-11 00:00:00 Completed [facility] HEPATITIS A 2013-01-11 00:00:00 Completed [facility] HPV 2013-01-11 00:00:00 Completed [facility] HEPATITIS A 2013-01-11 00:00:00 Completed [facility] HPV 2013-01-11 00:00:00 Completed [facility] HEPATITIS A 2013-01-11 00:00:00 Completed [facility] HPV 2013-01-11 00:00:00 Completed [facility] HEPATITIS A 2013-01-11 00:00:00 Completed [facility] HPV 2013-01-11 00:00:00 Completed [facility] HEPATITIS A 2013-01-11 00:00:00 Completed [facility] HPV 2013-01-11 00:00:00 Completed [facility] HEPATITIS A 2013-01-11 00:00:00 Completed HPV 2013-01-11 00:00:00 Completed HEPATITIS A 2013-01-11 00:00:00 Completed [facility] HPV 2013-01-11 00:00:00 Completed [facility] HEPATITIS A 2013-01-11 00:00:00 Completed [facility] HPV 2013-01-11 00:00:00 Completed [facility] HEPATITIS A 2013-01-11 00:00:00 Completed [facility] HPV 2013-01-11 00:00:00 Completed [facility] HEPATITIS A 2013-01-11 00:00:00 Completed [facility] HPV 2013-01-11 00:00:00 Completed [facility] HEPATITIS A 2013-01-11 00:00:00 Completed [facility] HPV 2013-01-11 00:00:00 Completed [facility] HEPATITIS A 2013-01-11 00:00:00 Completed [facility] HPV 2013-01-11 00:00:00 Completed [facility] HEPATITIS A 2012-01-10 00:00:00 Completed [facility] HPV 2012-01-10 00:00:00 Completed [facility] HEPATITIS A 2012-01-10 00:00:00 Completed [facility] HPV 2012-01-10 00:00:00 Completed [facility] HEPATITIS A 2012-01-10 00:00:00 Completed [facility] HPV 2012-01-10 00:00:00 Completed [facility] HEPATITIS A 2012-01-10 00:00:00 Completed [facility] HPV 2012-01-10 00:00:00 Completed [facility] HEPATITIS A 2012-01-10 00:00:00 Completed [facility] HPV 2012-01-10 00:00:00 Completed [facility] HEPATITIS A 2012-01-10 00:00:00 Completed [facility] HPV 2012-01-10 00:00:00 Completed [facility] HEPATITIS A 2012-01-10 00:00:00 Completed [facility] HPV 2012-01-10 00:00:00 Completed [facility] HEPATITIS A 2012-01-10 00:00:00 Completed [facility] HPV 2012-01-10 00:00:00 Completed [facility] HEPATITIS A 2012-01-10 00:00:00 Completed [facility] HPV 2012-01-10 00:00:00 Completed [facility] HEPATITIS A 2012-01-10 00:00:00 Completed [facility] HPV 2012-01-10 00:00:00 Completed [facility] HEPATITIS A 2012-01-10 00:00:00 Completed [facility] HPV 2012-01-10 00:00:00 Completed [facility] HEPATITIS A 2012-01-10 00:00:00 Completed [facility] HPV 2012-01-10 00:00:00 Completed [facility] HEPATITIS A 2012-01-10 00:00:00 Completed [facility] HPV 2012-01-10 00:00:00 Completed [facility] HEPATITIS A 2012-01-10 00:00:00 Completed [facility] HPV 2012-01-10 00:00:00 Completed [facility] HEPATITIS A 2012-01-10 00:00:00 Completed [facility] HPV 2012-01-10 00:00:00 Completed [facility] HEPATITIS A 2012-01-10 00:00:00 Completed [facility] HPV 2012-01-10 00:00:00 Completed [facility] HEPATITIS A 2012-01-10 00:00:00 Completed [facility] HPV 2012-01-10 00:00:00 Completed [facility] HEPATITIS A 2012-01-10 00:00:00 Completed [facility] HPV 2012-01-10 00:00:00 Completed [facility] HEPATITIS A 2012-01-10 00:00:00 Completed [facility] HPV 2012-01-10 00:00:00 Completed [facility] HEPATITIS A 2012-01-10 00:00:00 Completed [facility] HPV 2012-01-10 00:00:00 Completed [facility] HEPATITIS A 2012-01-10 00:00:00 Completed [facility] HPV 2012-01-10 00:00:00 Completed [facility] HEPATITIS A 2012-01-10 00:00:00 Completed [facility] HPV 2012-01-10 00:00:00 Completed [facility] HEPATITIS A 2012-01-10 00:00:00 Completed [facility] HPV 2012-01-10 00:00:00 Completed [facility] Varicella (varivax)(chicken pox) 2011-10-10 00:00:00 Completed [facility] Varicella (varivax)(chicken pox) 2011-10-10 00:00:00 Completed [facility] Varicella (varivax)(chicken pox) 2011-10-10 00:00:00 Completed [facility] Varicella (varivax)(chicken pox) 2011-10-10 00:00:00 Completed [facility] Varicella (varivax)(chicken pox) 2011-10-10 00:00:00 Completed [facility] Varicella (varivax)(chicken pox) 2011-10-10 00:00:00 Completed [facility] Varicella (varivax)(chicken pox) 2011-10-10 00:00:00 Completed [facility] Varicella (varivax)(chicken pox) 2011-10-10 00:00:00 Completed [facility] Varicella (varivax)(chicken pox) 2011-10-10 00:00:00 Completed [facility] Varicella (varivax)(chicken pox) 2011-10-10 00:00:00 Completed [facility] Varicella (varivax)(chicken pox) 2011-10-10 00:00:00 Completed [facility] Varicella (varivax)(chicken pox) 2011-10-10 00:00:00 Completed [facility] Varicella (varivax)(chicken pox) 2011-10-10 00:00:00 Completed [facility] Varicella (varivax)(chicken pox) 2011-10-10 00:00:00 Completed [facility] Varicella (varivax)(chicken pox) 2011-10-10 00:00:00 Completed [facility] Varicella (varivax)(chicken pox) 2011-10-10 00:00:00 Completed [facility] Varicella (varivax)(chicken pox) 2011-10-10 00:00:00 Completed [facility] Varicella (varivax)(chicken pox) 2011-10-10 00:00:00 Completed [facility] Varicella (varivax)(chicken pox) 2011-10-10 00:00:00 Completed [facility] Varicella (varivax)(chicken pox) 2011-10-10 00:00:00 Completed [facility] Varicella (varivax)(chicken pox) 2011-10-10 00:00:00 Completed [facility] Varicella (varivax)(chicken pox) 2011-10-10 00:00:00 Completed [facility] Varicella (varivax)(chicken pox) 2011-10-10 00:00:00 Completed [facility] Meningococcal Polysaccharide (groups A, C, Y and W-135) conjugate vaccine (MCV4P) 2010-01-26 00:00:00 Completed [facility] TDAP 2010-01-26 00:00:00 Completed [facility] Meningococcal Polysaccharide (groups A, C, Y and W-135) conjugate vaccine (MCV4P) 2010-01-26 00:00:00 Completed [facility] TDAP 2010-01-26 00:00:00 Completed [facility] Meningococcal Polysaccharide (groups A, C, Y and W-135) conjugate vaccine (MCV4P) 2010-01-26 00:00:00 Completed [facility] TDAP 2010-01-26 00:00:00 Completed [facility] Meningococcal Polysaccharide (groups A, C, Y and W-135) conjugate vaccine (MCV4P) 2010-01-26 00:00:00 Completed [facility] TDAP 2010-01-26 00:00:00 Completed [facility] Meningococcal Polysaccharide (groups A, C, Y and W-135) conjugate vaccine (MCV4P) 2010-01-26 00:00:00 Completed [facility] TDAP 2010-01-26 00:00:00 Completed [facility] Meningococcal Polysaccharide (groups A, C, Y and W-135) conjugate vaccine (MCV4P) 2010-01-26 00:00:00 Completed [facility] TDAP 2010-01-26 00:00:00 Completed [facility] Meningococcal Polysaccharide (groups A, C, Y and W-135) conjugate vaccine (MCV4P) 2010-01-26 00:00:00 Completed [facility] TDAP 2010-01-26 00:00:00 Completed [facility] Meningococcal Polysaccharide (groups A, C, Y and W-135) conjugate vaccine (MCV4P) 2010-01-26 00:00:00 Completed [facility] TDAP 2010-01-26 00:00:00 Completed [facility] Meningococcal Polysaccharide (groups A, C, Y and W-135) conjugate vaccine (MCV4P) 2010-01-26 00:00:00 Completed [facility] TDAP 2010-01-26 00:00:00 Completed [facility] Meningococcal Polysaccharide (groups A, C, Y and W-135) conjugate vaccine (MCV4P) 2010-01-26 00:00:00 Completed [facility] TDAP 2010-01-26 00:00:00 Completed [facility] Meningococcal Polysaccharide (groups A, C, Y and W-135) conjugate vaccine (MCV4P) 2010-01-26 00:00:00 Completed [facility] TDAP 2010-01-26 00:00:00 Completed [facility] Meningococcal Polysaccharide (groups A, C, Y and W-135) conjugate vaccine (MCV4P) 2010-01-26 00:00:00 Completed [facility] TDAP 2010-01-26 00:00:00 Completed [facility] Meningococcal Polysaccharide (groups A, C, Y and W-135) conjugate vaccine (MCV4P) 2010-01-26 00:00:00 Completed [facility] TDAP 2010-01-26 00:00:00 Completed [facility] Meningococcal Polysaccharide (groups A, C, Y and W-135) conjugate vaccine (MCV4P) 2010-01-26 00:00:00 Completed [facility] TDAP 2010-01-26 00:00:00 Completed [facility] Meningococcal Polysaccharide (groups A, C, Y and W-135) conjugate vaccine (MCV4P) 2010-01-26 00:00:00 Completed [facility] TDAP 2010-01-26 00:00:00 Completed [facility] Meningococcal Polysaccharide (groups A, C, Y and W-135) conjugate vaccine (MCV4P) 2010-01-26 00:00:00 Completed [facility] TDAP 2010-01-26 00:00:00 Completed [facility] Meningococcal Polysaccharide (groups A, C, Y and W-135) conjugate vaccine (MCV4P) 2010-01-26 00:00:00 Completed [facility] TDAP 2010-01-26 00:00:00 Completed [facility] Meningococcal Polysaccharide (groups A, C, Y and W-135) conjugate vaccine (MCV4P) 2010-01-26 00:00:00 Completed TDAP 2010-01-26 00:00:00 Completed Meningococcal Polysaccharide (groups A, C, Y and W-135) conjugate vaccine (MCV4P) 2010-01-26 00:00:00 Completed [facility] TDAP 2010-01-26 00:00:00 Completed [facility] Meningococcal Polysaccharide (groups A, C, Y and W-135) conjugate vaccine (MCV4P) 2010-01-26 00:00:00 Completed [facility] TDAP 2010-01-26 00:00:00 Completed [facility] Meningococcal Polysaccharide (groups A, C, Y and W-135) conjugate vaccine (MCV4P) 2010-01-26 00:00:00 Completed [facility] TDAP 2010-01-26 00:00:00 Completed [facility] Meningococcal Polysaccharide (groups A, C, Y and W-135) conjugate vaccine (MCV4P) 2010-01-26 00:00:00 Completed [facility] TDAP 2010-01-26 00:00:00 Completed [facility] Meningococcal Polysaccharide (groups A, C, Y and W-135) conjugate vaccine (MCV4P) 2010-01-26 00:00:00 Completed [facility] TDAP 2010-01-26 00:00:00 Completed [facility] Meningococcal Polysaccharide (groups A, C, Y and W-135) conjugate vaccine (MCV4P) 2010-01-26 00:00:00 Completed [facility] TDAP 2010-01-26 00:00:00 Completed [facility] DTaP, Unspecified Formulation 2003-01-17 00:00:00 Completed [facility] MMR 2003-01-17 00:00:00 Completed [facility] Pneumococcal 7 Conjugate, PCV7 (Prevnar7) 2003-01-17 00:00:00 Completed [facility] IPV 2003-01-17 00:00:00 Completed [facility] DTaP, Unspecified Formulation 2003-01-17 00:00:00 Completed [facility] MMR 2003-01-17 00:00:00 Completed [facility] Pneumococcal 7 Conjugate, PCV7 (Prevnar7) 2003-01-17 00:00:00 Completed [facility] IPV 2003-01-17 00:00:00 Completed [facility] DTaP, Unspecified Formulation 2003-01-17 00:00:00 Completed [facility] MMR 2003-01-17 00:00:00 Completed [facility] Pneumococcal 7 Conjugate, PCV7 (Prevnar7) 2003-01-17 00:00:00 Completed [facility] IPV 2003-01-17 00:00:00 Completed [facility] DTaP, Unspecified Formulation 2003-01-17 00:00:00 Completed [facility] MMR 2003-01-17 00:00:00 Completed [facility] Pneumococcal 7 Conjugate, PCV7 (Prevnar7) 2003-01-17 00:00:00 Completed [facility] IPV 2003-01-17 00:00:00 Completed [facility] DTaP, Unspecified Formulation 2003-01-17 00:00:00 Completed [facility] MMR 2003-01-17 00:00:00 Completed [facility] Pneumococcal 7 Conjugate, PCV7 (Prevnar7) 2003-01-17 00:00:00 Completed [facility] IPV 2003-01-17 00:00:00 Completed [facility] DTaP, Unspecified Formulation 2003-01-17 00:00:00 Completed [facility] MMR 2003-01-17 00:00:00 Completed [facility] Pneumococcal 7 Conjugate, PCV7 (Prevnar7) 2003-01-17 00:00:00 Completed [facility] IPV 2003-01-17 00:00:00 Completed [facility] DTaP, Unspecified Formulation 2003-01-17 00:00:00 Completed [facility] MMR 2003-01-17 00:00:00 Completed [facility] Pneumococcal 7 Conjugate, PCV7 (Prevnar7) 2003-01-17 00:00:00 Completed [facility] IPV 2003-01-17 00:00:00 Completed [facility] DTaP, Unspecified Formulation 2003-01-17 00:00:00 Completed [facility] MMR 2003-01-17 00:00:00 Completed [facility] Pneumococcal 7 Conjugate, PCV7 (Prevnar7) 2003-01-17 00:00:00 Completed [facility] IPV 2003-01-17 00:00:00 Completed [facility] DTaP, Unspecified Formulation 2003-01-17 00:00:00 Completed [facility] MMR 2003-01-17 00:00:00 Completed [facility] Pneumococcal 7 Conjugate, PCV7 (Prevnar7) 2003-01-17 00:00:00 Completed [facility] IPV 2003-01-17 00:00:00 Completed [facility] DTaP, Unspecified Formulation 2003-01-17 00:00:00 Completed [facility] MMR 2003-01-17 00:00:00 Completed [facility] Pneumococcal 7 Conjugate, PCV7 (Prevnar7) 2003-01-17 00:00:00 Completed [facility] IPV 2003-01-17 00:00:00 Completed [facility] DTaP, Unspecified Formulation 2003-01-17 00:00:00 Completed [facility] MMR 2003-01-17 00:00:00 Completed [facility] Pneumococcal 7 Conjugate, PCV7 (Prevnar7) 2003-01-17 00:00:00 Completed [facility] IPV 2003-01-17 00:00:00 Completed [facility] DTaP, Unspecified Formulation 2003-01-17 00:00:00 Completed [facility] MMR 2003-01-17 00:00:00 Completed [facility] Pneumococcal 7 Conjugate, PCV7 (Prevnar7) 2003-01-17 00:00:00 Completed [facility] IPV 2003-01-17 00:00:00 Completed [facility] DTaP, Unspecified Formulation 2003-01-17 00:00:00 Completed [facility] MMR 2003-01-17 00:00:00 Completed [facility] Pneumococcal 7 Conjugate, PCV7 (Prevnar7) 2003-01-17 00:00:00 Completed [facility] IPV 2003-01-17 00:00:00 Completed [facility] DTaP, Unspecified Formulation 2003-01-17 00:00:00 Completed [facility] MMR 2003-01-17 00:00:00 Completed [facility] Pneumococcal 7 Conjugate, PCV7 (Prevnar7) 2003-01-17 00:00:00 Completed [facility] IPV 2003-01-17 00:00:00 Completed [facility] DTaP, Unspecified Formulation 2003-01-17 00:00:00 Completed [facility] MMR 2003-01-17 00:00:00 Completed [facility] Pneumococcal 7 Conjugate, PCV7 (Prevnar7) 2003-01-17 00:00:00 Completed [facility] IPV 2003-01-17 00:00:00 Completed [facility] DTaP, Unspecified Formulation 2003-01-17 00:00:00 Completed [facility] MMR 2003-01-17 00:00:00 Completed [facility] Pneumococcal 7 Conjugate, PCV7 (Prevnar7) 2003-01-17 00:00:00 Completed [facility] IPV 2003-01-17 00:00:00 Completed [facility] DTaP, Unspecified Formulation 2003-01-17 00:00:00 Completed [facility] MMR 2003-01-17 00:00:00 Completed [facility] Pneumococcal 7 Conjugate, PCV7 (Prevnar7) 2003-01-17 00:00:00 Completed [facility] IPV 2003-01-17 00:00:00 Completed [facility] DTaP, Unspecified Formulation 2003-01-17 00:00:00 Completed [facility] DTaP, Unspecified Formulation 2003-01-17 00:00:00 Completed [facility] MMR 2003-01-17 00:00:00 Completed [facility] Pneumococcal 7 Conjugate, PCV7 (Prevnar7) 2003-01-17 00:00:00 Completed [facility] IPV 2003-01-17 00:00:00 Completed [facility] DTaP, Unspecified Formulation 2003-01-17 00:00:00 Completed [facility] MMR 2003-01-17 00:00:00 Completed [facility] Pneumococcal 7 Conjugate, PCV7 (Prevnar7) 2003-01-17 00:00:00 Completed [facility] IPV 2003-01-17 00:00:00 Completed [facility] DTaP, Unspecified Formulation 2003-01-17 00:00:00 Completed [facility] MMR 2003-01-17 00:00:00 Completed [facility] Pneumococcal 7 Conjugate, PCV7 (Prevnar7) 2003-01-17 00:00:00 Completed [facility] IPV 2003-01-17 00:00:00 Completed [facility] DTaP, Unspecified Formulation 2003-01-17 00:00:00 Completed [facility] MMR 2003-01-17 00:00:00 Completed [facility] Pneumococcal 7 Conjugate, PCV7 (Prevnar7) 2003-01-17 00:00:00 Completed [facility] IPV 2003-01-17 00:00:00 Completed [facility] DTaP, Unspecified Formulation 2003-01-17 00:00:00 Completed [facility] MMR 2003-01-17 00:00:00 Completed [facility] Pneumococcal 7 Conjugate, PCV7 (Prevnar7) 2003-01-17 00:00:00 Completed [facility] IPV 2003-01-17 00:00:00 Completed [facility] DTaP, Unspecified Formulation 2003-01-17 00:00:00 Completed [facility] MMR 2003-01-17 00:00:00 Completed [facility] Pneumococcal 7 Conjugate, PCV7 (Prevnar7) 2003-01-17 00:00:00 Completed [facility] IPV 2003-01-17 00:00:00 Completed [facility] Vital Signs Vital Name Observation Time Observation Value Comments S ource Systolic blood pressure 2024-06-23 16:40:00 112 mm[Hg] [facility] Diastolic blood pressure 2024-06-23 16:40:00 82 mm[Hg] [facility] Heart rate 2024-06-23 16:35:00 78 /min [facility] Body temperature 2024-06-23 16:35:00 36.56 Melissa [facility] Respiratory rate 2024-06-23 16:35:00 18 /min [facility] Body height 2024-06-23 16:35:00 157.5 cm [facility] Body weight 2024-06-23 16:35:00 77.367 kg [facility] BMI 2024-06-23 16:35:00 31.20 kg/m2 [facility] Systolic blood pressure 2023-06-10 16:29:00 121 mm[Hg] [facility] Diastolic blood pressure 2023-06-10 16:29:00 83 mm[Hg] [facility] Heart rate 2023-06-10 16:29:00 71 /min [facility] Body temperature 2023-06-10 16:29:00 36.56 Melissa [facility] Respiratory rate 2023-06-10 16:29:00 18 /min [facility] Body height 2023-06-10 16:29:00 157.5 cm [facility] Body weight 2023-06-10 16:29:00 74.135 kg [facility] BMI 2023-06-10 16:29:00 29.89 kg/m2 [facility] Systolic blood pressure 2023-05-15 19:10:00 124 mm[Hg] [facility] Diastolic blood pressure 2023-05-15 19:10:00 89 mm[Hg] [facility] Heart rate 2023-05-15 19:10:00 66 /min [facility] Body temperature 2023-05-15 19:10:00 36.28 Melissa [facility] Respiratory rate 2023-05-15 19:10:00 18 /min [facility] Body height 2023-05-15 19:10:00 157.5 cm [facility] Body weight 2023-05-15 19:10:00 76.839 kg [facility] BMI 2023-05-15 19:10:00 30.98 kg/m2 [facility] Systolic blood pressure 2023-04-30 14:48:00 110 mm[Hg] [facility] Diastolic blood pressure 2023-04-30 14:48:00 72 mm[Hg] [facility] Heart rate 2023-04-30 14:40:00 83 /min [facility] Body temperature 2023-04-30 14:40:00 36.39 Melissa [facility] Respiratory rate 2023-04-30 14:40:00 17 /min [facility] Body height 2023-04-30 14:40:00 157.5 cm [facility] Body weight 2023-04-30 14:40:00 81.103 kg [facility] BMI 2023-04-30 14:40:00 32.70 kg/m2 [facility] Systolic blood pressure 2023-04-26 13:44:00 121 mm[Hg] [facility] Diastolic blood pressure 2023-04-26 13:44:00 87 mm[Hg] [facility] Heart rate 2023-04-26 13:44:00 87 /[facility] 2023-04-26 13:44:00 36.67 Melissa [facility] Respiratory rate 2023-04-26 13:44:00 18 /min [facility] Oxygen saturation in Arterial blood by Pulse oximetry 2023-04-26 13:44:00 100 /min [facility] Body height 2023-04-24 01:48:00 157.5 cm [facility] Body weight 2023-04-24 01:48:00 87 kg [facility] BMI 2023-04-24 01:48:00 35.08 kg/m2 [facility] Systolic blood pressure 2023-04-25 04:15:00 117 mm[Hg] [facility] Diastolic blood pressure 2023-04-25 04:15:00 67 mm[Hg] [facility] Heart rate 2023-04-25 04:15:00 98 /min [facility] O[facility] in Arterial blood by Pulse oximetry 2023-04-25 04:15:00 98 /min [facility] Body temperature 2023-04-25 04:00:00 36.44 Melissa [facility] Respiratory rate 2023-04-25 04:00:00 18 /min [facility] Body height 2023-04-24 01:48:00 157.5 cm [facility] Body weight 2023-04-24 01:48:00 87 kg [facility] BMI 2023-04-24 01:48:00 35.08 kg/m2 [facility] Respiratory rate 2023-04-25 03:49:00 25 /min [facility] Systolic blood pressure 2023-04-16 15:21:00 119 mm[Hg] [facility] Diastolic blood pressure 2023-04-16 15:21:00 76 mm[Hg] [facility] Heart rate 2023-04-16 15:21:00 89 /min [facility] Body [facility] 2023-04-16 15:21:00 36.5 Melissa [facility] Respiratory rate 2023-04-16 15:21:00 18 /min [facility] Body height 2023-04-16 15:21:00 157.5 cm [facility] Body weight 2023-04-16 15:21:00 85.503 kg [facility] BMI 2023-04-16 15:21:00 34.48 kg/m2 [facility] Systolic blood pressure 2023-04-10 15:41:00 108 mm[Hg] [facility] Diastolic blood pressure 2023-04-10 15:41:00 72 mm[Hg] [facility] Heart rate 2023-04-10 15:41:00 85 /min [facility] Body temperature 2023-04-10 15:41:00 36.33 Melissa [facility] Respiratory rate 2023-04-10 15:41:00 18 /min [facility] Body height 2023-04-10 15:41:00 157.5 cm [facility] Body weight 2023-04-10 15:41:00 84.879 kg [facility] BMI 2023-04-10 15:41:00 34.23 kg/m2 [facility] Systolic blood pressure 2023-03-27 14:57:00 119 mm[Hg] [facility] Diastolic blood pressure 2023-03-27 14:57:00 79 mm[Hg] [facility] Heart rate 2023-03-27 14:57:00 88 /min [facility] Body temperature 2023-03-27 14:57:00 36.61 Melissa [facility] Respiratory rate 2023-03-27 14:57:00 18 /min [facility] Body height 2023-03-27 14:57:00 157.5 cm [facility] Body weight 2023-03-27 14:57:00 84.823 kg [facility] BMI 2023-03-27 14:57:00 34.20 kg/m2 [facility] Systolic blood pressure 2023-03-13 15:04:00 121 mm[Hg] [facility] Diastolic blood pressure 2023-03-13 15:04:00 76 mm[Hg] [facility] Heart rate 2023-03-13 15:04:00 86 /min [facility] Body temperature 2023-03-13 15:04:00 36.56 Melissa [facility] Respiratory rate 2023-03-13 15:04:00 17 /min [facility] Body height 2023-03-13 15:04:00 157.5 cm [facility] Body weight 2023-03-13 15:04:00 84.879 kg [facility] BMI 2023-03-13 15:04:00 34.23 kg/m2 [facility] Systolic blood pressure 2023-02-28 15:54:00 112 mm[Hg] [facility] Diastolic blood pressure 2023-02-28 15:54:00 77 mm[Hg] [facility] Heart rate 2023-02-28 15:54:00 75 /min [facility] Body temperature 2023-02-28 15:54:00 36.22 Melissa [facility] Respiratory rate 2023-02-28 15:54:00 18 /min [facility] Body height 2023-02-28 15:54:00 157.5 cm [facility] Body weight 2023-02-28 15:54:00 83.122 kg [facility] BMI 2023-02-28 15:54:00 33.52 kg/m2 [facility] Systolic blood pressure 2023-02-07 15:28:00 114 mm[Hg] [facility] Diastolic blood pressure 2023-02-07 15:28:00 81 mm[Hg] [facility] Heart rate 2023-02-07 15:28:00 83 /min [facility] Body temperature 2023-02-07 15:28:00 36.72 Melissa [facility] Respiratory rate 2023-02-07 15:28:00 18 /min [facility] Body height 2023-02-07 15:28:00 [facility] 2023-02-07 15:28:00 82.781 kg [facility] BMI 2023-02-07 15:28:00 33.38 kg/m2 [facility] Systolic blood pressure 2023-01-09 15:40:00 122 mm[Hg] [facility] Diastolic blood pressure 2023-01-09 15:40:00 76 mm[Hg] [facility] Heart rate 2023-01-09 15:40:00 89 /min [facility] Body temperature 2023-01-09 15:40:00 36.78 Melissa [facility] Respiratory rate 2023-01-09 15:40:00 18 /min [facility] Body height 2023-01-09 15:40:00 157.5 cm [facility] Body weight 2023-01-09 15:40:00 80.428 kg [facility] BMI 2023-01-09 15:40:00 32.43 kg/m2 [facility] Systolic blood pressure 2022-12-12 15:28:00 124 mm[Hg] [facility] Diastolic blood pressure 2022-12-12 15:28:00 78 mm[Hg] [facility] Heart rate 2022-12-12 15:28:00 82 /min [facility] Body temperature 2022-12-12 15:28:00 36.78 Melissa [facility] Respiratory rate 2022-12-12 15:28:00 20 /min [facility] Body height 2022-12-12 15:28:00 157.5 cm [facility] Body weight 2022-12-12 15:28:00 80.457 kg [facility] BMI 2022-12-12 15:28:00 32.44 kg/m2 [facility] Systolic blood pressure 2022-11-21 14:12:00 113 mm[Hg] [facility] Diastolic blood pressure 2022-11-21 14:12:00 75 mm[Hg] [facility] Heart rate 2022-11-21 14:12:00 93 /min [facility] Body temperature 2022-11-21 14:12:00 37.06 Melissa [facility] Respiratory rate 2022-11-21 14:12:00 18 /min [facility] Body height 2022-11-21 14:12:00 [facility] 2022-11-21 14:12:00 78.501 kg [facility] BMI 2022-11-21 14:12:00 31.65 kg/m2 [facility] Systolic blood pressure 2022-11-12 15:19:00 130 mm[Hg] [facility] Diastolic blood pressure 2022-11-12 15:19:00 84 mm[Hg] [facility] Heart rate 2022-11-12 15:19:00 84 /min [facility] Body temperature 2022-11-12 15:19:00 37 Melissa [facility] Respiratory rate 2022-11-12 15:19:00 18 /min [facility] Body height 2022-11-12 15:19:00 157.5 cm [facility] Body weight 2022-11-12 15:19:00 78.189 kg [facility] BMI 2022-11-12 15:19:00 31.53 kg/m2 [facility] Systolic blood pressure 2022-10-20 14:15:00 139 mm[Hg] [facility] Diastolic blood pressure 2022-10-20 14:15:00 97 mm[Hg] [facility] Heart rate 2022-10-20 14:15:00 78 /min [facility] Body temperature 2022-10-20 14:15:00 37 Melissa [facility] Respiratory rate 2022-10-20 14:15:00 18 /min [facility] Body weight 2022-10-20 14:15:00 77.565 [facility] 2022-10-20 14:15:00 31.28 kg/m2 [facility] Oxygen saturation in Arterial blood by Pulse oximetry 2022-10-20 14:15:00 99 /min [facility] Systolic blood pressure 2022-10-15 14:17:00 126 mm[Hg] [facility] Diastolic blood pressure 2022-10-15 14:17:00 84 mm[Hg] [facility] Heart rate 2022-10-15 14:17:00 85 /min [facility] Body temperature 2022-10-15 14:17:00 36.72 Melissa [facility] Respiratory rate 2022-10-15 14:17:00 17 /min [facility] Body height 2022-10-15 14:17:00 157.5 cm [facility] Body weight 2022-10-15 14:17:00 77.565 kg [facility] BMI 2022-10-15 14:17:00 31.28 kg/m2 [facility] Systolic blood pressure 2022-09-17 20:40:00 119 mm[Hg] [facility] Diastolic blood pressure 2022-09-17 20:40:00 81 mm[Hg] [facility] Heart rate 2022-09-17 20:40:00 82 /min [facility] Body temperature 2022-09-17 20:40:00 37.11 Melissa [facility] Respiratory rate 2022-09-17 20:40:00 18 /min [facility] Body height 2022-09-17 20:40:00 157.5 cm [facility] Body weight 2022-09-17 20:40:00 78.586 kg [facility] BMI 2022-09-17 20:40:00 31.69 kg/m2 [facility] Systolic blood pressure 2022-09-11 15:34:00 135 mm[Hg] [facility] Diastolic blood pressure 2022-09-11 15:34:00 97 mm[Hg] [facility] Heart rate 2022-09-11 15:33:00 85 /min [facility] Body temperature 2022-09-11 15:33:00 36.83 Melissa [facility] Respiratory rate 2022-09-11 15:33:00 18 /min [facility] Body height 2022-09-11 15:33:00 157.5 cm [facility] Body weight 2022-09-11 15:33:00 77.928 kg [facility] BMI 2022-09-11 15:33:00 31.42 kg/m2 [facility] Systolic blood pressure 2021-08-20 04:00:00 118 mm[Hg] [facility] Diastolic blood pressure 2021-08-20 04:00:00 72 mm[Hg] [facility] Heart rate 2021-08-20 04:00:00 89 /min [facility] Respiratory rate 2021-08-20 04:00:00 16 /min [facility] Oxygen saturation in Arterial blood by Pulse oximetry 2021-08-20 04:00:00 99 /min [facility] Body temperature 2021-08-20 00:27:00 36.33 Melissa [facility] Body height 2021-08-20 00:27:00 157.5 cm [facility] Body weight 2021-08-20 00:27:00 80.151 kg [facility] BMI 2021-08-20 00:27:00 32.32 kg/m2 [facility] Systolic blood pressure 2021-06-22 21:15:00 139 mm[Hg] [facility] Diastolic blood pressure 2021-06-22 21:15:00 89 mm[Hg] [facility] Heart rate 2021-06-22 21:15:00 87 /min [facility] Body temperature 2021-06-22 21:15:00 36.11 Melissa [facility] Respiratory rate 2021-06-22 21:15:00 16 /min [facility] Body height 2021-06-22 21:15:00 157.5 cm [facility] Body weight 2021-06-22 21:15:00 79.062 kg [facility] BMI 2021-06-22 21:15:00 31.88 kg/m2 [facility] Procedures Procedure Date / Time Performed Performing Clinician Source POCT TEST 2024-06-23 17:27:00 Mary Loredo [facility] CBC WITH DIFF 2023-04-25 10:05:00 Sherry Arreguin [facility] CBC WITH DIFF 2023-04-25 10:05:00 Sherry Arreguin [facility] SECTION 2023-04-25 02:19:00 Sherry Arreguin [facility] SECTION 2023-04-25 02:19:00 Sherry Arreguin [facility] URINALYSIS 2023-04-24 20:21:00 Sherry Arreguin [facility] PROTEIN CREAT RATIO URINE RANDOM 2023-04-24 20:21:00 Sherry Arreguin [facility] URINALYSIS 2023-04-24 20:21:00 Sherry Arreguin [facility] PROTEIN CREAT RATIO URINE RANDOM 2023-04-24 20:21:00 Sherry Arreguin [facility] CENTRAL NEURAXIAL BLOCK 2023-04-24 17:31:00 Trisha Lehman [facility] SGOT (ASPARTATE AMINO TRANSFER) 2023-04-24 02:33:00 Sherry Arreguin [facility] CREATININE 2023-04-24 02:33:00 Sherry Arreguin [facility] ALANINE AMINO TRANSFERASE(SGPT 2023-04-24 02:33:00 Sherry Arreguin [facility] LACTATE DEHYDROGENASE 2023-04-24 02:33:00 Sherry Arreguin [facility] URIC ACID 2023-04-24 02:33:00 Sherry Arreguin [facility] CBC WITH DIFF 2023-04-24 02:33:00 Sherry Arreguin [facility] HEPATITIS B SURFACE ANTIGEN 2023-04-24 02:33:00 Sherry Arreguin [facility] HB ABO GROUPING 2023-04-24 02:33:00 Sherry Arreguin [facility] ADC CLC OR LCC ONLY - WET PREP 2023-04-24 02:33:00 EmanuelSherry [facility] RHO (D) IMMUNE GLOBULIN 2023-04-24 02:33:00 Purnima Arreguinen [facility] ADC OR CRISTIANO ONLY - RPR 2023-04-24 02:33:00 EmanuelSherry [facility] EXTRA TUBE LT. GREEN 2023-04-24 02:33:00 Emanuel Sherry [facility] HIV 1/2 AG-AB WITH REFLEX 2023-04-24 02:[facility]23-04-24 02:[facility]23-04-24 02:33:00 Sherry Arreguin [facility] ALANINE AMINO TRANSFERASE(SGPT 2023-04-24 02:33[facility] L[facility]GENASE 2023-04-24 02:33:00 Sherry Arreguin [facility] URIC ACID 2023-04-24 02:33:00 Sherry Arreguin [facility] CBC WITH DIFF 2023-04-24 02:33:00 Sherry Arreguin [facility] HEPATITIS B SURFACE ANTIGEN 2023-04-24 02:33:00 Emanuel Sherry [facility] HB ABO GROUPING 2023-04-24 02:33:00 Sherry Arreguin [facility] ADC CLC OR LCC ONLY - WET PREP 2023-04-24 02:33:00 Emanuel Sherry [facility] RHO (D) IMMUNE GLOBULIN 2023-04-24 02:33:00 Emanuel Sherry [facility] ADC OR CRISTIANO ONLY - RPR 2023-04-24 02:33:00 Emanuel Sherry [facility] EXTRA TUBE LT. GREEN 2023-04-24 02:33:00 Emanuel Sherry [facility] HIV 1/2 AG-AB WITH REFLEX 2023-04-24 02:33:[address] [facility] ASSIGNMENT OF BENEFITS 2023-04-24 01:27:39 Docto r Unassigned, [place] [facility] ASSIGNMENT OF BENEFITS 2023-04-24 01:27:39 Docto r Unassigned, [place] [facility] CONSENT/REFUSAL FOR DIAGNOSIS AND TREATMENT 2023-04-24 01:27:07 Doctor Unassigned, [place] [facility] POCT URINALYSIS 2023-04-16 15:24:00 Whitney Romero [facility] POCT URINALYSIS 2023-03-27 14:58:00 Whitney Romero [facility] THYROID STIMULATING HORMONE 2023-03-13 15:35:00 Whitney Romero [facility] HIV 1/2 AG-AB WITH REFLEX 2023-03-13 15:35:00 Whitney Romero [facility] POCT URINALYSIS 2023-03-13 15:08:00 Whitney Romero [facility] POCT URINALYSIS 2023-02-28 16:30:00 Whitney Romero [facility] POCT URINALYSIS 2023-02-07 16:36:00 Whitney Romero [facility] SGOT (ASPARTATE AMINO TRANSFER) 2023-02-07 16:25:00 Whitney Romero [facility] GLUCOSE 1 HOUR POST PRANDIAL 2023-02-07 16:25:00 Whitney Romero [facility] ALANINE AMINO TRANSFERASE(SGPT 2023-02-07 16:25:00 Whitney Romero [facility] CBC WITH DIFF 2023-02-07 16:25:00 Whitney Romero [facility] TDAP VACCINE, >11 YRS, IM 2023-02-07 15:59:35 Whitney Romero [facility] SECOND AND THIRD TRIMESTER ULTRASOUND 2023-02-03 15:26:00 Whitney Romero [facility] POCT URINALYSIS 2023-01-09 15:41:00 Whitney Romero [facility] SECOND AND THIRD TRIMESTER ULTRASOUND 2022-12-30 15:32:00 Whitney Romero [facility] SECOND AND THIRD TRIMESTER ULTRASOUND 2022-12-30 15:04:00 Whitney Romero [facility] POCT URINALYSIS 2022-12-12 15:29:00 Whitney Romero [facility] POCT URINALYSIS 2022-11-21 14:13:00 Whitney Romero [facility] POCT URINALYSIS 2022-11-12 15:19:00 Whitney Romero [facility] URINALYSIS 2022-10-20 14:31:00 Linda Carmen [facility] CONSENT/REFUSAL FOR DIAGNOSIS AND TREATMENT 2022-10-20 14:12:03 Doctor Unassigned, [place] [facility] ASSIGNMENT OF BENEFITS 2022-10-20 14:11:46 Docto r Unassigned, [place] [facility] SGOT (ASPARTATE AMINO TRANSFER) 2022-10-15 15:05:00 Whitney Romero [facility] ALANINE AMINO TRANSFERASE(SGPT 2022-10-15 15:05:00 Whitney Romero [facility] THYROID STIMULATING HORMONE 2022-10-15 15:05:00 Whitney Romero [facility] POCT URINALYSIS 2022-10-15 00:00:00 Whitney Romero [facility] POCT URINALYSIS 2022-09-17 20:43:00 Whitney Romero [facility] GLUCOSE 1 HOUR POST PRANDIAL 2022-09-11 16:30:00 Whitney Romero [facility] FREE T4 2022-09-11 16:30:00 [facility] HORMONE 2022-09-11 16:30:00 Whitney Romero [facility] COMP. METABOLIC PANEL (49558) 2022-09-11 16:30:00 Whitney Romero [facility] CBC WITH DIFF 2022-09-11 16:30:00 Whitney Romero [facility] RUBELLA SCREEN IGG 2022-09-11 16:30:00 Fátima Romero [facility] VZV ANTIBODY SCREEN 2022-09-11 16:30:00 Diane Romero [facility] HEPATITIS B SURFACE ANTIGEN 2022-09-11 16:30:00 Whitney Romero [facility] HCV ANTIBODY 2022-09-11 16:30:00 Whitney Romero [facility] HB INDIRECT ANTIGLOBULIN TEST 2022-09-11 16:30:00 Whitney Romero [facility] GC & CHLAMYDIA AMPLIFIED ASSAY 2022-09-11 16:30:00 Whitney Romero [facility] FREE T3 2022-09-11 16:30:00 Whitney Romero [facility] HIV 1/2 AG-AB WITH REFLEX 2022-09-11 16:30:00 Whitney Romero [facility] SYPHILIS IGG/IGM 2022-09-11 16:30:00 Whitney Romero [facility] URINE CULTURE 2022-09-11 16:30:00 Whitney Romero [facility] ASSIGNMENT OF BENEFITS 2022-09-11 14:40:20 Docto r Unassigned, [place] [facility] POCT TEST 2022-09-11 00:00:00 Diane Romero [facility] POCT URINALYSIS W/O SPECIFIC GRAVITY 2022-09-11 00:00:00 Whitney Romero [facility] EXTERNAL PROVIDER RECORDS 2022-01-24 05:01:00 Doctor Unassigned, [place] [facility] CT ABDOMEN PELVIS W CONTRAST 2021-08-20 02:10:12 Eliel Pro [facility] POCT TEST 2021-08-20 00:52:00 Eliel Pro [facility] LIPASE 2021-08-20 00:50:00 Eliel Pro [facility] COMP. METABOLIC PANEL (97273) 2021-08-20 00:50:00 Eliel Pro [facility] CBC WITH DIFF 2021-08-20 00:50:00 Eliel Por [facility] URINALYSIS 2021-08-20 00:42:00 Eliel Pro [facility] NOTICE OF PRIVACY PRACTICES 2021-08-20 00:19:08 Doctor Unassigned, [place] [facility] CONSENT/REFUSAL FOR DIAGNOSIS AND TREATMENT 2021-08-20 00:18:13 Doctor Unassigned, [place] [facility] POCT TEST 2021-06-22 21:20:00 George Andres [facility] Encounters Start Date/Time End Date/Time Encounter Type Admission Type Attending Clinicians Care Facility Care Department Encounter ID Source 2024-06-25 00:00:00 2024-06-25 08:26:37 Case Management Mary Loredo [facility] NATURALIST [facility]ERNAL & [facility] 1..840.114 350.1.13.10 4.2.7.2.686 [id number] 107 [id number] [facility] 2024-06-23 10:15:00 2024-06-23 11:32:05 Outpatient R MARY LOREDO [facility] [id number] [facility] 2024-06-23 10:15:00 2024-06-23 11:32:05 Office Visit Mary Loredo [facility] NATURALIST [facility] MATERNAL & [facility] 1..840.114 350.1.13.10 4.2.7.2.686 [id number] 107 [id number] [facility] 2022-12-30 00:00:00 2023-12-08 13:20:06 Letter (Out) Marjan Salvador [facility] ..840.114 350.1.13.10 4.2.7.2.686 [id number] [facility] 2023-06-10 10:30:00 2023-06-10 11:24:49 Outpatient R WHITNEY ROMERO [facility] [id number] [facility] 2023-06-10 10:30:00 2023-06-10 11:24:49 Office Visit Whitney Romero [facility] NATURALIST [facility] & CHILD [facility] 1.840.114 350.1.13.10 4.2.7.2.686 [id number] 107 [id number] [facility] 2023-06-03 00:00:00 2023-06-03 00:00:00 Patient Secure Msg Doctor Unassigned, [place] [facility] 1..114 350.1.13.10 4.2.7.2.686 [id number] [facility] 2023-05-15 12:45:00 2023-05-15 13:30:08 Outpatient R WHITNEY ROMERO [facility] [id number] [facility] 2023-05-15 12:45:00 2023-05-15 13:30:08 [facility] CHILD [facility] 1.840.114 350.1.13.10 4.2.7.2.686 [id number] [facility] 2023-04-30 08:30:00 2023-04-30 09:02:45 Outpatient R WHITNEY ROMERO [facility] [id number] [facility] 2023-04-30 08:30:00 2023-04-30 09:02:45 Nurse Visit Visit, [facility]chp [facility] 1..114 350.1.13.10 4.2.7.2.686 [id number] 107 [id number] [facility] 2023-04-28 00:00:00 2023-04-28 00:00:00 Encounter 1.2.840.1 42750.1.1 3.104.2.7 .2.390569 1.2.840.114 350.1.13.10 4.2.7.2.696 [id number] [facility] 2023-04-27 00:00:00 2023-04-27 00:00:00 Encounter 1.2.840.1 22812.1.1 3.104.2.7 .2.843850 1.2.840.114 350.1.13.10 4.2.7.2.696 [id number] [facility] 2023-04-23 19:33:00 2023-04-26 08:55:00 Inpatient X SHERRY ARREGUIN [facility] MICHELLE [id number] [facility] 2023-04-23 19:33:00 2023-04-26 08:55:00 Hospital Encounter Sherry Arreguin [facility] 1.2.840.114 350.1.13.10 4.2.7.2.686 [id number] [facility] 2023-04-26 00:00:00 2023-04-26 00:00:00 Encounter 1.2.840.1 34137.1.1 3.104.2.7 .2.260340 1.2.840.114 350.1.13.10 4.2.7.2.696 570 [id number] [facility] 2023-04-25 20:00:51 2023-04-25 20:00:51 Anesthesia Event Lazarus Lehman [facility] 1.2.840.114 350.1.13.10 4.2.7.2.686 [id number] [id number] [facility] 2023-04-24 20:45:00 2023-04-24 22:25:00 Surgery Sherry Arreguin [facility] 1.2.840.114 350.1.13.10 4.2.7.2.686 [id number] [id number] [facility] 2023-04-24 11:00:00 2023-04-24 21:58:00 Anesthesia Event Lazarus Lehman David K [facility] .84.114 350.1.13.10 4.2.7.2.686 [id number] [id number] [facility] 2023-04-24 09:30:00 2023-04-24 09:30:00 Outpatient R WHITNEY ROMERO [facility] [id number] [facility] 2023-04-23 00:00:00 2023-04-23 00:00:00 Orders Only Doctor Unassigned, [place] [facility] 1.84.114 350.1.13.10 4.2.7.2.686 [id number] [facility] 2023-04-16 09:30:00 2023-04-16 09:53:21 Outpatient R WHITNEY ROMERO [facility] [id number] [facility] 2023-04-16 09:30:00 2023-04-16 09:53:21 Routine Visit Whitney Romero [facility] NATURALIST [facility] MATERNAL & CHILD [facility] 1.840.114 350.1.13.10 4.2.7.2.686 [id number] 107 [id number] [facility] 2023-04-10 10:45:00 2023-04-10 11:12:30 Outpatient R WHITNEY ROMERO [facility] [id number] [facility] 2023-04-10 10:45:00 2023-04-10 11:12:30 Routine Visit Whitney Romero [facility] NATURALIST [facility] MATERNAL & CHILD [facility] 1.84.114 350.1.13.10 4.2.7.2.686 [id number] 107 [id number] [facility] 2023-04-06 00:00:00 2023-04-06 00:00:00 Outpatient GC_GCBZW_Ka diyala_S [facility] [id number] [facility] 2023-03-27 10:00:00 2023-03-27 10:19:53 Outpatient R WHITNEY ROMERO [facility] [id number] [facility] 2023-03-27 10:00:00 2023-03-27 10:19:53 Routine Visit Whitney Romero [facility] NATURALIST [facility] MATERNAL & CHILD [facility] 1.2.840.114 350.1.13.10 4.2.7.2.686 [id number] 107 [id number] [facility] 2023-03-15 00:00:00 2023-03-15 00:00:00 [facility] 1.2.840.114 350.1.13.10 4.2.7.2.686 [id number] 107 [id number] [facility] 2023-03-14 09:30:00 2023-03-14 09:30:00 Outpatient R WHITNEY ROMERO [facility] [id number] [facility] 2023-03-13 09:45:00 2023-03-13 10:36:54 Outpatient R WHITNEY ROMERO [facility] [id number] [facility] 2023-03-13 09:45:00 2023-03-13 10:36:54 Routine Visit Whitney Romero [facility] NATURALIST [facility] & CHILD [facility] 1.2.840.114 350.1.13.10 4.2.7.2.686 [id number] 107 [id number] [facility] 2023-02-28 11:00:00 2023-02-28 11:22:05 Outpatient R WHITNEY ROMERO [facility] [id number] [facility] 2023-02-28 11:00:00 2023-02-28 11:22:05 Routine Visit Jones Whitney Arndt [facility] NATURALIST [facility] MATERNAL & CHILD [facility] 1.2.840.114 350.1.13.10 4.2.7.2.686 [id number] 107 [id number] [facility] 2023-02-07 10:15:00 2023-02-07 11:27:34 Outpatient R WHITNEY ROMERO [facility] [id number] [facility] 2023-02-07 10:15:00 2023-02-07 11:27:34 Routine Visit Jones Whitney Yris [facility] NATURALIST [facility] & CHILD [facility] 1.2840.114 350.1.13.10 4.2.7.2.686 [id number] 107 [id number] [facility] 2023-02-03 10:00:00 2023-02-03 10:27:48 Outpatient P FREYA SCHAEFER [facility] [id number] [facility] 2023-02-03 10:00:00 2023-02-03 10:27:48 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, Freya Houston [facility] NATURALIST [facility] & CHILD [facility] 1.2840.114 350.1.13.10 4.2.7.2.686 [id number] [facility] 2023-02-03 00:00:00 2023-02-03 00:00:00 Case Management Whitney Romero [facility] NATURALIST [facility] MATERNAL & CHILD [facility] 1.2840.114 350.1.13.10 4.2.7.2.686 [id number] 107 [id number] [facility] 2023-01-23 00:00:00 2023-01-23 00:00:00 Patient Secure Msg Whitney Romero [facility] NATURALIST [facility] & CHILD [facility] 1.2840.114 350.1.13.10 4.2.7.2.686 [id number] 107 [id number] [facility] 2023-01-23 00:00:00 2023-01-23 00:00:00 Refill Whitney Romero [facility] NATURALIST [facility] CHILD [facility] 1.2.840.114 350.1.13.10 4.2.7.2.686 [id number] 107 [id number] [facility] 2023-01-23 00:00:00 2023-01-23 00:00:00 Telephone Whitney Romero [facility] NATURALIST [facility] CHILD [facility] 1.2840.114 350.1.13.10 4.2.7.2.686 [id number] 107 [id number] [facility] 2023-01-09 10:15:00 2023-01-09 11:09:44 Outpatient R WHITNEY ROMERO [facility] [id number] [facility] 2023-01-09 10:15:00 2023-01-09 11:09:44 Routine Visit Whitney Romero [facility] 1.284.114 350.1.13.10 4.2.7.2.686 [id number] [facility] 2023-01-07 10:10:55 2023-01-07 10:10:55 Outpatient [facility] [id number] Spike Sabrina Fabio 2023-01-07 00:00:00 2023-01-07 00:00:00 Patient Secure Msg Doctor Unassigned, [place] [facility] 1.0.114 350.1.13.10 4.2.7.2.686 [id number] [facility] 2022-12-31 00:00:00 2022-12-31 00:00:00 Case Management Whitney Romero [facility] NATURALIST [facility] & CHILD [facility] 1.2840.114 350.1.13.10 4.2.7.2.686 [id number] 107 [id number] [facility] 2022-12-30 09:45:00 2022-12-30 10:33:37 Outpatient P MARJAN SALVADOR SHANNON [facility] [id number] [facility] 2022-12-30 09:45:00 2022-12-30 10:33:37 Marine Animal Trainer Visit 1, [facility] Us Room Marjan Salvador [facility] .114 350.1.13.10 4.2.7.2.686 [id number] [facility] 2022-12-13 00:00:00 2022-12-13 00:00:00 Case Management Whitney Romero [facility] NATURALIST [facility] CHILD [facility] 1..114 350.1.13.10 4.2.7.2.686 [id number] 107 [id number] [facility] 2022-12-12 10:30:00 2022-12-12 10:57:13 Outpatient R WHITNEY ROMERO [facility] [id number] [facility] 2022-12-12 10:30:00 2022-12-12 10:57:13 Routine Visit Whitney Romero [facility] NATURALIST [facility] CHILD [facility] 1..114 350.1.13.10 4.2.7.2.686 [id number] 107 [id number] [facility] 2022-12-09 00:00:00 2022-12-09 00:00:00 Refill Whitney Romero [facility] NATURALIST [facility] 1..114 350.1.13.10 4.2.7.2.686 [id number] 107 [id number] [facility] 2022-11-21 09:30:00 2022-11-21 10:03:03 Outpatient R LESLEE ALATORRE [facility] [id number] [facility] 2022-11-21 09:30:00 2022-11-21 10:03:03 Routine Visit Risk, Ang-Rmchp-N p/High Leslee Alatorre [facility] NATURALIST [facility] MATERNAL & CHILD [facility] 1.2.840.114 350.1.13.10 4.2.7.2.686 [id number] 107 [id number] [facility] 2022-11-13 00:00:00 2022-11-13 00:00:00 Case Management Whitney Romero [facility] NATURALIST [facility] & CHILD [facility] 1.2.840.114 350.1.13.10 4.2.7.2.686 [id number] 107 [id number] [facility] 2022-11-12 10:15:00 2022-11-12 11:51:57 Routine Visit Whitney Romero [facility] NATURALIST [facility] CHILD [facility] 1.2840.114 350.1.13.10 4.2.7.2.686 [id number] 107 [id number] [facility] 2022-11-12 10:15:00 2022-11-12 11:51:57 Outpatient WHITNEY BOYCE [facility] [id number] [facility] 2022-10-30 15:00:00 2022-10-30 15:00:00 Outpatient SLADE HOLM [facility] [id number] [facility] 2022-10-20 09:16:00 2022-10-20 10:26:00 Emergency X LINDA CARMEN [facility] ERT [id number] [facility] 2022-10-20 09:16:00 2022-10-20 10:26:00 Emergency Linda Carmen [facility] 1.2.840.114 350.1.13.10 4.2.7.2.686 [id number] [facility] 2022-10-20 00:00:00 2022-10-20 00:00:00 Orders Only Doctor Unassigned, [place] [facility] 1.2840.114 350.1.13.10 4.2.7.2.686 [id number] [facility] 2022-10-20 00:00:00 2022-10-20 00:00:00 Patient Secure Msg Doctor Unassigned, [place] [facility] 1.20.114 350.1.13.10 4.2.7.2.686 [id number] [facility] 2022-10-15 08:45:00 2022-10-15 10:05:00 Outpatient R WHITNEY ROMERO [facility] [id number] [facility] 2022-10-15 08:45:00 2022-10-15 10:05:00 Routine Visit Whitney Romero [facility] NATURALIST [facility] MATERNAL & [facility]ILD [facility] 1.840.114 350.1.13.10 4.2.7.2.686 [id number] 107 [id number] [facility] 2022-10-15 08:00:00 2022-10-15 08:00:00 Outpatient R CHERYL ANDRES [facility] [id number] [facility] 2022-10-14 13:00:00 2022-10-14 13:16:44 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, Kevin-Aimee Castillo [facility] NATURALIST [facility] MATERNAL & CHILD [facility] 1.840.114 350.1.13.10 4.2.7.2.686 [id number] [facility] 2022-10-14 13:00:00 2022-10-14 13:00:00 Outpatient P AIMEE CARRANZA [facility] [id number] [facility] 2022-10-14 00:00:00 2022-10-14 00:00:00 Letter (Out) Aimee Carranza [facility] NATURALIST [facility] MATERNAL & CHILD [facility] 1.2840.114 350.1.13.10 4.2.7.2.686 [id number] 107 [id number] [facility] 2022-09-25 15:00:00 2022-09-25 15:00:00 Outpatient R CHERYL ANDRES [facility] [id number] [facility] 2022-09-17 15:30:00 2022-09-17 16:10:47 Outpatient R WHITNEY ROMERO [facility] [id number] [facility] 2022-09-17 15:30:00 2022-09-17 16:10:47 Routine Visit Whitney Romero [facility] NATURALIST [facility] 1.2840.114 350.1.13.10 4.2.7.2.686 [id number] 107 [id number] [facility] 2022-09-12 00:00:00 2022-09-12 00:00:00 Patient Secure Msg Whitney Romero [facility] NATURALIST [facility] 1.20.114 350.1.13.10 4.2.7.2.686 [id number] 107 [id number] [facility] 2022-09-12 00:00:00 2022-09-12 00:00:00 Case Management Whitney Romero [facility] NATURALIST [facility] 1.2840.114 350.1.13.10 4.2.7.2.686 [id number] 107 [id number] [facility] 2022-09-11 10:15:00 2022-09-11 11:42:24 Initial Visit Whitney Romero [facility] NATURALIST [facility]ILD [facility] 1.2840.114 350.1.13.10 4.2.7.2.686 [id number] 107 [id number] [facility] 2022-09-11 09:45:00 2022-09-11 10:08:58 Outpatient R WHITNEY ROMERO [facility] [id number] [facility] 2022-09-11 00:00:00 2022-09-11 00:00:00 Orders Only Doctor Unassigned, [place] [facility] 1.2840.114 350.1.13.10 4.2.7.2.686 [id number] [facility] 2022-09-03 00:00:00 2022-09-03 00:00:00 Telephone Whitney Romero [facility] NATURALIST [facility]ILD [facility] 1.2.840.114 350.1.13.10 4.2.7.2.686 [id number] [facility] 2022-01-24 00:00:00 2022-01-24 00:00:00 Orders Only Doctor Unassigned, [place] [facility] 1.2840.114 350.1.13.10 4.2.7.2.686 [id number] [facility] 2021-08-24 00:00:00 2021-08-24 00:00:00 Outpatient R RADIOLOGY [facility] [id number] [facility] 2021-08-21 00:00:00 2021-08-21 00:00:00 Patient Secure Msg Doctor Unassigned, [place] [facility] NATURALIST [facility] 1..114 350.1.13.10 4.2.7.2.686 [id number] 107 [id number] [facility] 2021-08-19 19:30:00 2021-08-19 23:10:00 Emergency X ELIEL PRO [facility] ERT [id number] [facility] 2021-08-19 19:30:2021-08-19 23:10:00 Emergency Eliel Pro [facility] 1.2.840.114 350.1.13.10 4.2.7.2.686 [id number] [facility] 2021-06-26 09:00:00 2021-06-26 09:00:00 Outpatient P [facility] [id number] [facility] 2021-06-22 15:15:00 2021-06-22 15:40:37 Office Visit Cheryl Andres [facility] 1.2.840.114 350.1.13.10 [id number] [id number] [facility] 2021-06-22 15:15:00 2021-06-22 15:40:37 Outpatient R AKINSIPE, CHERYL [facility] [id number] [facility] 2021-06-22 15:15:00 2021-06-22 15:15:00 Outpatient R AKINSIPE, CHERYL [facility] [id number] [facility] 2021-06-21 15:30:00 2021-06-21 15:30:00 Outpatient R AKINSIPE, CHERYL [facility] [id number] [facility] 2021-06-21 15:30:00 2021-06-21 15:30:00 Outpatient R AKINSIPE, CHERYL [facility] [id number] [facility] 2021-06-19 08:15:00 2021-06-19 08:15:00 Outpatient R AKINSIPE, CHERYL [facility] [id number] [facility] 2021-06-06 08:30:00 2021-06-06 08:30:00 Outpatient R AKINSIPE, CHERYL [facility] [id number] [facility] 2021-06-06 08:30:00 2021-06-06 08:30:00 Outpatient R AKINSIPE, CHERYL [facility] [id number] [facility] 2021-06-05 09:45:00 2021-06-05 10:19:48 Outpatient R CHERYL ANDRES [facility] [id number] [facility] 2021-06-05 09:45:00 2021-06-05 10:19:48 Routine Visit Cheryl Andres [facility]URAL[facility] 1..840.114 350.1.13.10 4.2.7.2.686 [id number] [facility] 2021-06-05 09:45:00 2021-06-05 10:19:48 Outpatient R COOKIECHERYL ROBIN [facility] [id number] [facility] 2021-06-05 00:00:00 2021-06-05 00:00:00 Letter (Out) Cheryl Andres [facility] 1..840.114 350.1.13.10 4.2.7.2.686 [id number] [facility] 2021-06-04 10:24:00 2021-06-04 12:52:00 Emergency X JON SHEYLA [facility] ERT [id number] [facility] 2021-06-04 10:24:00 2021-06-04 12:52:00 Emergency Sheyla Webb [facility] ..840.114 350.1.13.10 4.2.7.2.686 [id number] [facility] 2021-06-04 10:24:00 2021-06-04 12:52:00 Emergency X JON SHEYLA [facility] ERT [id number] [facility] 2021-06-04 00:00:00 2021-06-04 00:00:00 Patient Secure Msg Cheryl Andres [facility] NATURALIST [facility] 1.2.840.114 350.1.13.10 4.2.7.2.686 [id number] 107 [id number] [facility] 2021-06-04 00:00:00 2021-06-04 00:00:00 Orders Only Doctor Unassigned, [place] [facility] 1.2.840.114 350.1.13.10 4.2.7.2.686 [id number] 009 [id number] [facility] 2021-06-03 00:00:00 2021-06-03 00:00:00 Telephone Cheryl Andres [facility] NATURALIST [facility] CHILD [facility] 1.2.840.114 350.1.13.10 4.2.7.2.686 [id number] 107 [id number] [facility] 2021-06-02 00:00:00 2021-06-02 00:00:00 Nurse Triage Parisa Sousa [facility] 1.2.840.114 350.1.13.10 4.2.7.2.686 [id number] 019 [id number] [facility] 2021-06-01 00:00:00 2021-06-01 00:00:00 Nurse Triage Carolynn Melendez [facility] 1.2.840.114 350.1.13.10 4.2.7.2.686 [id number] 019 [id number] [facility] 2021-05-30 00:00:00 2021-05-30 00:00:00 Telephone Cheryl Andres [facility] NATURALIST [facility] 1.2.840.114 350.1.13.10 4.2.7.2.686 [id number] 107 [id number] [facility] 2021-05-28 00:00:00 2021-05-28 00:00:00 Telephone Cheryl Andres [facility] NATURALIST [facility] 1.2.840.114 350.1.13.10 4.2.7.2.686 [id number] 107 [id number] [facility] 2021-05-24 10:00:00 2021-05-24 11:24:27 Outpatient R CHERYL ANDRES [facility] [id number] [facility] 2021-05-24 10:00:00 2021-05-24 11:24:27 Initial Visit Cheryl Andres [facility] NATURALIST [facility] MATERNAL & CHILD [facility] 840.114 350.1.13.10 4.2.7.2.686 [id number] 107 [id number] [facility] 2021-05-24 10:00:00 2021-05-24 11:24:27 Outpatient R CHERYL ANDRES [facility] [id number] [facility] 2021-05-24 09:30:00 2021-05-24 10:30:59 Outpatient R CHERYL ANDRES [facility] [id number] [facility] 2021-05-24 09:30:00 2021-05-24 09:30:00 Outpatient R CHERYL ANDRES [facility] [id number] [facility] 2021-05-24 00:00:00 2021-05-24 00:00:00 Orders Only Doctor Unassigned, [place] [facility] .840.114 350.1.13.10 4.2.7.2.686 [id number] 009 [id number] [facility] 2021-03-05 08:30:00 2021-03-05 08:30:00 Outpatient R ANABELA CHAVEZ [facility] [id number] [facility] 2021-01-23 00:00:00 2021-01-23 00:00:00 Telephone Cheryl Andres [facility] NATURALIST [facility] & [facility] 840.114 350.1.13.10 4.2.7.2.686 [id number] 107 [id number] [facility] 2021-01-17 15:15:00 2021-01-17 15:59:01 Outpatient R CHERYL ANDRES [facility] [id number] [facility] 2021-01-17 14:59:33 2021-01-17 15:59:01 Office Visit Cheryl Andres NE[facility] NATURALIST [facility] & [facility]ILD [facility] 1..840.114 350.1.13.10 4.2.7.2.686 [id number] 107 [id number] [facility] 2021-01-17 15:15:00 2021-01-17 15:15:00 Outpatient R CHERYL ANDRES [facility] [id number] [facility] 2021-01-17 14:15:00 2021-01-17 14:15:00 Outpatient R CHERYL ANDRES [facility] [id number] [facility] 2021-01-16 00:00:00 2021-01-16 00:00:00 Telephone Cheryl Andres [facility] NATURALIST [facility] ..840.114 350.1.13.10 4.2.7.2.686 [id number] 107 [id number] [facility] 2021-01-02 13:00:00 2021-01-02 13:35:51 Outpatient R CHERYL ANDRES [facility] [id number] [facility] 2021-01-02 12:57:30 2021-01-02 13:35:51 Office Visit Cheryl Andres [facility] NATURALIST [facility]ILD [facility] ..840.114 350.1.13.10 4.2.7.2.686 [id number] 107 [id number] [facility] 2021-01-02 13:00:00 2021-01-02 13:00:00 Outpatient R CHERYL ANDRES [facility] [id number] [facility] 2020-12-05 15:00:00 2020-12-05 16:00:40 Outpatient R CHERYL ANDRES [facility] [id number] [facility] 2020-12-05 14:46:31 2020-12-05 16:00:40 Office Visit Cheryl Andres [facility] NATURALIST [facility] MATERNAL & [facility]ILD [facility] ..114 350.1.13.10 4.2.7.2.686 [id number] 107 [id number] [facility] 2020-12-05 15:00:00 2020-12-05 15:00:00 Outpatient R CHERYL ANDRES [facility] [id number] [facility] 2020-12-04 09:15:00 2020-12-04 09:15:00 Outpatient R CHERYL ANDRES [facility] [id number] [facility] 2020-11-09 10:30:00 2020-11-09 10:30:00 Outpatient R CHERYL ANDRES [facility] [id number] [facility] 2020-09-18 00:00:00 2020-09-18 00:00:00 Telephone Cheryl Andres [facility] NATURALIST [facility]NAL & [facility]ILD [facility] ..114 350.1.13.10 4.2.7.2.686 [id number] 107 [id number] [facility] 2020-09-06 00:00:00 2020-09-06 00:00:00 Telephone Cheryl Andres [facility] NATURALIST [facility]ILD [facility] ..114 350.1.13.10 4.2.7.2.686 [id number] 107 [id number] [facility] 2020-08-29 00:00:00 2020-08-29 00:00:00 Patient Outreach Dajuan Salvador [facility] ..114 350.1.13.10 4.2.7.2.686 [id number] [facility] 2020-08-09 10:37:00 2020-08-09 11:22:08 Office Visit Cheryl Andres [facility] NATURALIST [facility] MATERNAL & CHILD [facility] 1.2.840.114 350.1.13.10 4.2.7.2.686 [id number] [facility] 2020-08-09 10:30:00 2020-08-09 10:30:00 Outpatient R CHERYL ANDRES [facility] [id number] [facility] 2020-07-26 00:00:00 2020-07-26 00:00:00 Telephone Cheryl Andres [facility] NATURALIST [facility] 1.2.840.114 350.1.13.10 4.2.7.2.686 [id number] 107 [id number] [facility] 2020-07-20 00:00:00 2020-07-20 00:00:00 Telephone Cheryl Andres [facility] NATURALIST [facility] 1.2.840.114 350.1.13.10 4.2.7.2.686 [id number] 107 [id number] [facility] 2020-07-19 10:30:37 2020-07-19 11:15:52 Office Visit Cheryl Andres [facility] NATURALIST [facility]ILD [facility] 1.2.840.114 350.1.13.10 4.2.7.2.686 [id number] [facility] 2020-07-19 10:30:00 2020-07-19 10:30:00 Outpatient R CHERYL ANDRES NEJUAN [facility] [id number] [facility] 2020-03-01 15:36:14 2020-03-01 16:30:50 Office Visit Anabela Chavez [facility] NATURALIST [facility]ILD [facility] 1.2840.114 350.1.13.10 4.2.7.2.686 [id number] 107 [id number] [facility] 2020-03-01 15:15:00 2020-03-01 15:15:00 Outpatient ANABELA HRARELL [facility] [id number] [facility] 2020-03-01 00:00:00 2020-03-01 00:00:00 Orders Only Doctor Unassigned, [place] [facility] 1.2840.114 350.1.13.10 4.2.7.2.686 [id number] [id number] [facility] 2020-02-22 00:00:00 2020-02-22 00:00:00 Telephone Cheryl Andres [facility] NATURALIST [facility]ILD [facility] 1.840.114 350.1.13.10 4.2.7.2.686 [id number] [facility] Results Test Description Test Time Test Comments Results Result Co mments Source [facility] Ccggdehtcyrn7446-61-87 13:00:30* Test Item Value Reference Range Interpretation Comme nts WBC (test code = 6690-2) 18.02 See_Comment H [Automated message] The system which generated this result transmitted reference range: 4.30 - 11.10 10*3/?L. The reference range was not used to interpret this result as normal/abnormal. RBC (test code = 789-8) 3.93 See_Comment [Automated message] The system which generated this result transmitted reference range: 3.93 - 5.25 10*6/?L. The reference range was not used to interpret this result as normal/abnormal. HGB (test code = 718-7) 11.4 g/dL 11.6-15.0 L HCT (test code = 4544-3) 34.5 % 35.7-45.2 L MCV (test code = 787-2) 87.8 fL 80.6-95.5 MCH (test code = 785-6) 29.0 pg 25.9-32.8 MCHC (test code = 786-4) 33.0 g/dL 31.6-35.1 RDW-SD (test code = 51556-4) 45.7 fL 39.0-49.9 RDW-CV (test code = 788-0) 14.3 % 12.0-15.5 PLT (test code = 777-3) 282 See_Comment [Automated message] The system which generated this result transmitted reference range: 166 - 358 10*3/?L. The reference range was not used to interpret this result as normal/abnormal. MPV (test code = 49358-6) 9.9 fL 9.5-12.9 NRBC/100 WBC (test code = 5305506708) 0.0 See_Comment [Automated message] The system which generated this result transmitted reference range: 0.0 - 10.0 /100 WBCs. The reference range was not used to interpret this result as normal/abnormal. NRBC x10^3 (test code = 7096352262) See_Comment [Automated message] The system which generated this result transmitted reference range: 10*3/?L. The reference range was not used to interpret this result as normal/abnormal. SEG % (test code = 97811-0) 88 % 33-76 H BAND % (test code = 16024-7) 4 % 0-1 H LYMPH % (test code = 84858-0) 8 % 14-54 L ANC (test code = 753-4) 16.58 10*3/uL 1.88-7.09 H Lab Interpretation (test code = 87080-9) Abnormal [facility] with Feyyajtejhgu6536-03-33 13:00:30* Test Item Value Reference Range Interpretation Comme nts WBC (test code = 6690-2) 18.02 See_Comment H [Automated message] The system which generated this result transmitted reference range: 4.30 - 11.10 10*3/?L. The reference range was not used to interpret this result as normal/abnormal. RBC (test code = 789-8) 3.93 See_Comment [Automated message] The system which generated this result transmitted reference range: 3.93 - 5.25 10*6/?L. The reference range was not used to interpret this result as normal/abnormal. HGB (test code = 718-7) 11.4 g/dL 11.6-15.0 L HCT (test code = 4544-3) 34.5 % 35.7-45.2 L MCV (test code = 787-2) 87.8 fL 80.6-95.5 MCH (test code = 785-6) 29.0 pg 25.9-32.8 MCHC (test code = 786-4) 33.0 g/dL 31.6-35.1 RDW-SD (test code = 09532-4) 45.7 fL 39.0-49.9 RDW-CV (test code = 788-0) 14.3 % 12.0-15.5 PLT (test code = 777-3) 282 See_Comment [Automated message] The system which generated this result transmitted reference range: 166 - 358 10*3/?L. The reference range was not used to interpret this result as normal/abnormal. MPV (test code = 97158-1) 9.9 fL 9.5-12.9 NRBC/100 WBC (test code = 4887298607) 0.0 See_Comment [Automated message] The system which generated this result transmitted reference range: 0.0 - 10.0 /100 WBCs. The reference range was not used to interpret this result as normal/abnormal. NRBC x10^3 (test code = 7135680676) See_Comment [Automated message] The system which generated this result transmitted reference range: 10*3/?L. The reference range was not used to interpret this result as normal/abnormal. SEG % (test code = 55886-4) 88 % 33-76 H BAND % (test code = 21401-3) 4 % 0-1 H LYMPH % (test code = 50460-1) 8 % 14-54 L ANC (test code = 753-4) 16.58 10*3/uL 1.88-7.09 H Lab Interpretation (test code = 81594-0) Abnormal [facility] (D) IMMUNE [id number] 06:14:16* Test Item Value Reference Range Interpretation Comme nts RHIG CANDIDATE? (test code = 5188) No- see comment Patient is not a candidate for RhIg- Patient is Rh Positive.Performed at [facility] Laboratory Services [facility] Blood [address] [place] [id number] Free: [phone] No. [id number] [facility]) IMMUNE [id number] 06:14:16* Test Item Value Reference Range Interpretation Comme nts RHIG CANDIDATE? (test code = 5188) No- see comment Patient is not a candidate for RhIg- Patient is Rh Positive.Performed at [facility] Laboratory Services [facility] Blood [address] [place], [place] [id number] Free: [phone] No. [id number] [facility] Surface Rkyhjsh5280-89-73 10:02:47 * Test Item Value Reference Range Interpretation Comme nts HBsAg Semi-Quantitative (kayleen t code = 5195-3) 0.05 Negative [facility] B Surface Uclccek3844-08-36 10:02:47 * Test Item Value Reference Range Interpretation Comme nts HBsAg Semi-Quantitative (kayleen t code = 5195-3) 0.05 Negative [facility] OR CRISTIANO ONLY - [id number] 08:35:53* Test Item Value Reference Range Interpretation Comme nts RPR (Qualitative) (test code = 88315-3) Nonreactive Nonreactive Lab Interpretation (test cod e = 18612-3) Normal [facility] OR CRISTIANO ONLY - [id number] 08:35:53* Test Item Value Reference Range Interpretation Comme nts RPR (Qualitative) (test code = 50536-8) Nonreactive Nonreactive Lab Interpretation (test cod e = 96306-9) Normal [facility] Iqgrf8306-57-66 08:10:11* Test Item Value Reference Range Interpretation Comme nts URIC ACID (test code = 0152886696) 5.7 mg/dL 2.9-6.0 Lab Interpretation (test cod e = 60460-9) Normal [facility] Grcquqfzos5541-23-20 08:10:11* Test Item Value Reference Range Interpretation Comme nts CREATININE (test code = 1138914064) 0.56 mg/dL 0.50-1.04 eGFR (test code = 88689-2) 130.9 mL/min/1.73m2 CKD-EPI eGFR (20 21). Assuming creatinine has been stable day-to-day for at least three months, the eGFR indicates Category G1 (>= 90 mL/min/1.73 m2) [facility] (Asparate Amino Transfer)2023-04-24 08:10:11* Test Item Value Reference Range Interpretation Comme nts AST(SGOT) (test code = 8099154088) 18 U/L 13-40 Lab Interpretation (test cod e = 91799-3) Normal [facility] Transferase (SGPT)2023-04-24 08:10:11* Test Item Value Reference Range Interpretation Comme nts ALTv (test code = 1742-6) 17 U/L 5-35 Lab Interpretation (test cod e = 39853-7) Normal [facility] Gadmdnkcbomgw5075-35-54 08:10:11* Test Item Value Reference Range Interpretation Comme nts LDH (test code = 9587093657) 141 U/L 120-246 Lab Interpretation (test cod e = 03058-9) Normal [facility] Bzfku8174-13-88 08:10:11* Test Item Value Reference Range Interpretation Comme [facility] URIC ACID (test code = 7042016930) 5.7 mg/dL 2.9-6.0 Lab Interpretation (test cod e = 25725-2) Normal [facility] Wnjvriguzc1057-94-04 08:10:11* Test Item Value Reference Range Interpretation Comme nts CREATININE (test code = 7721912838) 0.56 mg/dL 0.50-1.04 eGFR (test code = 23638-8) 130.9 mL/min/1.73m2 CKD-EPI eGFR (20 21). Assuming creatinine has been stable day-to-day for at least three months, the eGFR indicates Category G1 (>= 90 mL/min/1.73 m2) [facility]Asparate Amino Transfer)2023-04-24 08:10:11* Test Item Value Reference Range Interpretation Comme nts AST(SGOT) (test code = 2970236219) 18 U/L 13-40 Lab Interpretation (test cod e = 70015-5) Normal [facility] (SGPT)2023-04-24 08:10:11* Test Item Value Reference Range Interpretation Comme nts ALTv (test code = 1742-6) 17 U/L 5-35 Lab Interpretation (test cod e = 76776-4) Normal [facility] Zlelcipuexyqq9295-63-98 08:10:11* Test Item Value Reference Range Interpretation Comme nts LDH (test code = 5621522321) 141 U/L 120-246 Lab Interpretation (test cod e = 17575-2) Normal [facility]-AB WITH [id number] 04:25:18* Test Item Value Reference Range Interpretation Comme nts HIV Semi-quantitative (test code = 79784-0) 0.19 Negative FRED (test code = FRED) Non-reactive for HIV-1 antigen and HIV-1/HIV-2 antibodies. ?No laboratory evidence of HIV infection. ?Repeat in 2-4 weeks if acute HIV infection is suspected. [facility]-AB WITH [id number] 04:25:18* Test Item Value Reference Range Interpretation Comme nts HIV Semi-quantitative (test code = 28503-3) 0.19 Negative FRED (test code = FRED) Non-reactive for HIV-1 antigen and HIV-1/HIV-2 antibodies. ?No laboratory evidence of HIV infection. ?Repeat in 2-4 weeks if acute HIV infection is suspected. [facility] WITH [id number] 03:10:10* Test Item Value Reference Range Interpretation Comme nts WBC (test code = 6690-2) 8.22 See_Comment [Automated messa ge] The system which generated this result transmitted reference range: 4.30 - 11.10 10*3/?L. The reference range was not used to interpret this result as normal/abnormal. RBC (test code = 789-8) 3.93 See_Comment [Automated messa ge] The system which generated this result transmitted reference range: 3.93 - 5.25 10*6/?L. The reference range was not used to interpret this result as normal/abnormal. HGB (test code = 718-7) 11.6 g/dL 11.6-15.0 HCT (test code = 4544-3) 34.1 % 35.7-45.2 L MCV (test code = 787-2) 86.8 fL 80.6-95.5 MCH (test code = 785-6) 29.5 pg 25.9-32.8 MCHC (test code = 786-4) 34.0 g/dL 31.6-35.1 RDW-SD (test code = 92824-5) 44.8 fL 39.0-49.9 RDW-CV (test code = 788-0) 14.0 % 12.0-15.5 PLT (test code = 777-3) 304 See_Comment [Automated messa ge] The system which generated this result transmitted reference range: 166 - 358 10*3/?L. The reference range was not used to interpret this result as normal/abnormal. MPV (test code = 67172-1) 9.5 fL 9.5-12.9 NRBC/100 WBC (test code = 4693924336) 0.0 See_Comment [Automated [employer] ssage] The system which generated this result transmitted reference range: 0.0 - 10.0 /100 WBCs. The reference range was not used to interpret this result as normal/abnormal. NRBC x10^3 (test code = 7670586971) See_Comment [Automated messa ge] The system which generated this result transmitted reference range: 10*3/?L. The reference range was not used to interpret this result as normal/abnormal. GRAN MAT (NEUT) % (test code = 770-8) 63.6 % IMM GRAN % (test code = 7594937177) 1.10 % LYMPH % (test code = 736-9) 24.3 % MONO % (test code = 5905-5) 7.7 % EOS % (test code = 713-8) 2.7 % BASO % (test code = 706-2) 0.6 % GRAN MAT x10^3(ANC) (test code = 7723958643) 5.23 10*3/uL 1.88-7.09 IMM GRAN x10^3 (test code = 6280284061) 0.09 10*3/uL 0.00-0.06 H LYMPH x10^3 (test code = 731-0) 2.00 10*3/uL 1.32-3.29 MONO x10^3 (test code = 742-7) 0.63 10*3/uL 0.33-0.92 EOS x10^3 (test code = 711-2) 0.22 10*3/uL 0.03-0.39 BASO x10^3 (test code = 704-7) 0.05 10*3/uL 0.01-0.07 Lab Interpretation (test code = 57027-1) Abnormal [facility] WITH [id number] 03:10:10* Test Item Value Reference Range Interpretation Comme nts WBC (test code = 6690-2) 8.22 See_Comment [Automated messa ge] The system which generated this result transmitted reference range: 4.30 - 11.10 10*3/?L. The reference range was not used to interpret this result as normal/abnormal. RBC (test code = 789-8) 3.93 See_Comment [Automated messa ge] The system which generated this result transmitted reference range: 3.93 - 5.25 10*6/?L. The reference range was not used to interpret this result as normal/abnormal. HGB (test code = 718-7) 11.6 g/dL 11.6-15.0 HCT (test code = 4544-3) 34.1 % 35.7-45.2 L MCV (test code = 787-2) 86.8 fL 80.6-95.5 MCH (test code = 785-6) 29.5 pg 25.9-32.8 MCHC (test code = 786-4) 34.0 g/dL 31.6-35.1 RDW-SD (test code = 99485-9) 44.8 fL 39.0-49.9 RDW-CV (test code = 788-0) 14.0 % 12.0-15.5 PLT (test code = 777-3) 304 See_Comment [Automated messa ge] The system which generated this result transmitted reference range: 166 - 358 10*3/?L. The reference range was not used to interpret this result as normal/abnormal. MPV (test code = 21133-9) 9.5 fL 9.5-12.9 NRBC/100 WBC (test code = 2299941434) 0.0 See_Comment [Automated me ssage] The system which generated this result transmitted reference range: 0.0 - 10.0 /100 WBCs. The reference range was not used to interpret this result as normal/abnormal. NRBC x10^3 (test code = 3938445961) See_Comment [Automated messa ge] The system which generated this result transmitted reference range: 10*3/?L. The reference range was not used to interpret this result as normal/abnormal. GRAN MAT (NEUT) % (test code = 770-8) 63.6 % IMM GRAN % (test code = 2174920175) 1.10 % LYMPH % (test code = 736-9) 24.3 % MONO % (test code = 5905-5) 7.7 % EOS % (test code = 713-8) 2.7 % BASO % (test code = 706-2) 0.6 % GRAN MAT x10^3(ANC) (test code = 7869602995) 5.23 10*3/uL 1.88-7.09 IMM GRAN x10^3 (test code = 0244457231) 0.09 10*3/uL 0.00-0.06 H LYMPH x10^3 (test code = 731-0) 2.00 10*3/uL 1.32-3.29 MONO x10^3 (test code = 742-7) 0.63 10*3/uL 0.33-0.92 EOS x10^3 (test code = 711-2) 0.22 10*3/uL 0.03-0.39 BASO x10^3 (test code = 704-7) 0.05 10*3/uL 0.01-0.07 Lab Interpretation (test code = 55154-9) [facility]normal [facility] - [facility]CE [id number] 03:05:00 * Test Item Value Reference Range Interpretation Comme nts ABO & RH (test code = 20) O Positive IAT (test code = 1185) Negative [facility] - [facility] [id number] 03:05:00 * Test Item Value Reference Range Interpretation Comme nts ABO & RH (test code = 20) O Positive IAT (test code = 1185) Negative [facility] URINALYSIS W SPECIFIC [id number] 15:24:00* Test Item Value Reference Range Interpretation Comme nts POCT U SP GRAV (test code = 3255) . 1.005-1.025 POCT PH U (test code = 3254) 7 mg/dl 5-8 POCT U LEUK EST (test code = 3263) Trace Negative - Negative POCT U NIT (test code = 3262) Neg Negative - Negati ve POCT U PROT (test code = 3259) Trace Negative - Negat dino POCT U GLU (test code = 3256) Nml Negative - Negati ve POCT U KETONE (test code = 3258) None Negative - Neg ative POCT U UROBILI (test code = 3260) . 0.2-1 POCT U BILI (test code = 3261) . Negative - Negat dino POCT U BLD (test code = 3257) Trace Negative - Negati ve POCT U COLOR (test code = 3266) POCT U APPEAR (test code = 3267) [facility] URINALYSIS W SPECIFIC [id number] 14:58:00* Test Item Value Reference Range Interpretation Comme nts POCT U SP GRAV (test code = 3255) . 1.005-1.025 POCT PH U (test code = 3254) 8 mg/dl 5-8 POCT U LEUK EST (test code = 3263) 1+ Negative - Negative POCT U NIT (test code = 3262) Neg Negative - Negati ve POCT U PROT (test code = 3259) Trace Negative - Negat dino POCT U GLU (test code = 3256) Neg Negative - Negati ve POCT U KETONE (test code = 3258) None Negative - Neg ative POCT U UROBILI (test code = 3260) . 0.2-1 POCT U BILI (test code = 3261) . Negative - Negat dino POCT U BLD (test code = 3257) Trace Negative - Negati ve POCT U COLOR (test code = 3266) . POCT U APPEAR (test code = 3267) [facility] URINALYSIS W SPECIFIC [id number] 14:58:00* Test Item Value Reference Range Interpretation Comme nts POCT U SP GRAV (test code = 3255) . 1.005-1.025 POCT PH U (test code = 3254) 8 mg/dl 5-8 POCT U LEUK EST (test code = 3263) 1+ Negative - Negative POCT U NIT (test code = 3262) Neg Negative - Negati ve POCT U PROT (test code = 3259) Trace Negative - Negat dino POCT U GLU (test code = 3256) Neg Negative - Negati ve POCT U KETONE (test code = 3258) None Negative - Neg ative POCT U UROBILI (test code = 3260) . 0.2-1 POCT U BILI (test code = 3261) . Negative - Negat dino POCT U BLD (test code = 3257) Trace Negative - Negati ve POCT U COLOR (test code = 3266) . POCT U APPEAR (test code = 3267) [facility] WITH [id number] 07:04:34* Test Item Value Reference Range Interpretation Comme nts HIV Semi-quantitative (test code = 94322-8) 0.11 Negative FRED (test code = FRED) Non-reactive for HIV-1 antigen and HIV-1/HIV-2 antibodies. ?No laboratory evidence of HIV infection. ?Repeat in 2-4 weeks if acute HIV infection is suspected. [facility] [id number] 06:09:03 * Test Item Value Reference Range Interpretation Comme nts TSH (test code = 9497898164) 3.02 See_Comment Biotin has been reported to cause a negative bias, interpret results relative to patient's use of biotin. [Automated message] The system which generated this result transmitted reference range: 0.45 - 4.70 mIU/L. The reference range was not used to interpret this result as normal/abnormal. Lab Interpretation (test code = 13566-6) Normal [facility] URINALYSIS W SPECIFIC [id number] 15:08:00* Test Item Value Reference Range Interpretation Comme nts POCT U SP GRAV (test code = 3255) . 1.005-1.025 POCT PH U (test code = 3254) 7 mg/dl 5-8 POCT U LEUK EST (test code = 3263) 2+ Negative - Negative POCT U NIT (test code = 3262) Neg Negative - Negati ve POCT U PROT (test code = 3259) Trace Negative - Negat dino POCT U GLU (test code = 3256) Neg Negative - Negati ve POCT U KETONE (test code = 3258) None Negative - Neg ative POCT U UROBILI (test code = 3260) . 0.2-1 POCT U BILI (test code = 3261) . Negative - Negat dino POCT U BLD (test code = 3257) Trace Negative - Negati ve POCT U COLOR (test code = 3266) . POCT U APPEAR (test code = 3267) . [facility] URINALYSIS W SPECIFIC [id number] 15:08:00* Test Item Value Reference Range Interpretation Comme nts POCT U SP GRAV (test code = 3255) . 1.005-1.025 POCT PH U (test code = 3254) 7 mg/dl 5-8 POCT U LEUK EST (test code = 3263) 2+ Negative - Negative POCT U NIT (test code = 3262) Neg Negative - Negati ve POCT U PROT (test code = 3259) Trace Negative - Negat dino POCT U GLU (test code = 3256) Neg Negative - Negati ve POCT U KETONE (test code = 3258) None Negative - Neg ative POCT U UROBILI (test code = 3260) . 0.2-1 POCT U BILI (test code = 3261) . Negative - Negat dino POCT U BLD (test code = 3257) Trace Negative - Negati ve POCT U COLOR (test code = 3266) . POCT U APPEAR (test code = 3267) . [facility] URINALYSIS W SPECIFIC [id number] 15:08:00* Test Item Value Reference Range Interpretation Comme nts POCT U SP GRAV (test code = 3255) . 1.005-1.025 POCT PH U (test code = 3254) 7 mg/dl 5-8 POCT U LEUK EST (test code = 3263) 2+ Negative - Negative POCT U NIT (test code = 3262) Neg Negative - Negati ve POCT U PROT (test code = 3259) Trace Negative - Negat dino POCT U GLU (test code = 3256) Neg Negative - Negati ve POCT U KETONE (test code = 3258) None Negative - Neg ative POCT U UROBILI (test code = 3260) . 0.2-1 POCT U BILI (test code = 3261) . Negative - Negat dino POCT U BLD (test code = 3257) Trace Negative - Negati ve POCT U COLOR (test code = 3266) . POCT U APPEAR (test code = 3267) . [facility]CIFIC [id number] 16:31:00* Test Item Value Reference Range Interpretation Comme nts POCT U SP GRAV (test code = 3255) . 1.005-1.025 POCT PH U (test code = 3254) 7 mg/dl 5-8 POCT U LEUK EST (test code = 3263) 2+ Negative - Negative POCT U NIT (test code = 3262) Neg Negative - Negati ve POCT U PROT (test code = 3259) 2+ Negative - Negat dino POCT U GLU (test code = 3256) Neg Negative - Negati ve POCT U KETONE (test code = 3258) None Negative - Neg ative POCT U UROBILI (test code = 3260) . 0.2-1 POCT U BILI (test code = 3261) . Negative - Negat dino POCT U BLD (test code = 3257) Trace Negative - Negati ve POCT U COLOR (test code = 3266) POCT U APPEAR (test code = 3267) [facility] [id number] 05:53:03* Test Item Value Reference Range Interpretation Comme nts GLUC 1 HR (test code = 9594926491) 98 mg/dL 120-170 L Lab Interpretation (test cod e = 04485-8) Abnormal [facility] AMINO TRANSFERASE([id number] 05:53:03* Test Item Value Reference Range Interpretation Comme nts ALTv (test code = 1742-6) 14 U/L 5-35 Lab Interpretation (test cod e = 98684-7) [facility] (ASPARTATE AMINO TRANSFER)2023-02-08 05:53:03* Test Item Value Reference Range Interpretation Comme nts AST(SGOT) (test code = 3527440469) 17 U/L 13-40 Lab Interpretation (test cod e = 75480-7) Normal [facility] with [id number] 04:22:07* Test Item Value Reference Range Interpretation Comme nts WBC (test code = 6690-2) 9.69 See_Comment [Automated messa ge] The system which generated this result transmitted reference range: 4.30 - 11.10 10*3/?L. The reference range was not used to interpret this result as normal/abnormal. RBC (test code = 789-8) 3.78 See_Comment L [Automated messa ge] The system which generated this result transmitted reference range: 3.93 - 5.25 10*6/?L. The reference range was not used to interpret this result as normal/abnormal. HGB (test code = 718-7) 11.4 g/dL 11.6-15.0 L HCT (test code = 4544-3) 34.2 % 35.7-45.2 L MCV (test code = 787-2) 90.5 fL 80.6-95.5 MCH (test code = 785-6) 30.2 pg 25.9-32.8 MCHC (test code = 786-4) 33.3 g/dL 31.6-35.1 RDW-SD (test code = 56185-9) 46.3 fL 39.0-49.9 RDW-CV (test code = 788-0) 14.0 % 12.0-15.5 PLT (test code = 777-3) 347 See_Comment [Automated messa ge] The system which generated this result transmitted reference range: 166 - 358 10*3/?L. The reference range was not used to interpret this result as normal/abnormal. MPV (test code = 64503-5) 9.8 fL 9.5-12.9 NRBC/100 WBC (test code = 1845039032) 0.0 See_Comment [Automated me ssage] The system which generated this result transmitted reference range: 0.0 - 10.0 /100 WBCs. The reference range was not used to interpret this result as normal/abnormal. NRBC x10^3 (test code = 1315283570) See_Comment [Automated messa ge] The system which generated this result transmitted reference range: 10*3/?L. The reference range was not used to interpret this result as normal/abnormal. GRAN MAT (NEUT) % (test code = 770-8) 72.7 % IMM GRAN % (test code = 3962649122) 1.40 % LYMPH % (test code = 736-9) 16.9 % MONO % (test code = 5905-5) 6.2 % EOS % (test code = 713-8) 2.4 % BASO % (test code = 706-2) 0.4 % GRAN MAT x10^3(ANC) (test code = 3647576269) 7.04 10*3/uL 1.88-7.09 IMM GRAN x10^3 (test code = 2983877274) 0.14 10*3/uL 0.00-0.06 H LYMPH x10^3 (test code = 731-0) 1.64 10*3/uL 1.32-3.29 MONO x10^3 (test code = 742-7) 0.60 10*3/uL 0.33-0.92 EOS x10^3 (test code = 711-2) 0.23 10*3/uL 0.03-0.39 BASO x10^3 (test code = 704-7) 0.04 10*3/uL 0.01-0.07 Lab Interpretation (test code = 28673-9) Abnormal [facility] URINALYSIS W SPECIFIC [id number] 16:36:00* Test Item Value Reference Range Interpretation Comme nts POCT U SP GRAV (test code = 3255) . 1.005-1.025 POCT PH U (test code = 3254) . 5-8 POCT U LEUK EST (test code = 3263) . Negative - N egative POCT U NIT (test code = 3262) . Negative - Negati ve POCT U PROT (test code = 3259) . Negative - Negat dino POCT U GLU (test code = 3256) . Negative - Negati ve POCT U KETONE (test code = 3258) . Negative - Neg ative POCT U UROBILI (test code = 3260) . 0.2-1 POCT U BILI (test code = 3261) . Negative - Negat dino POCT U BLD (test code = 3257) . Negative - Negati ve POCT U COLOR (test code = 3266) . POCT U APPEAR (test code = 3267) . [facility] URINALYSIS W SPECIFIC [id number] 15:41:00* Test Item Value Reference Range Interpretation Comme nts POCT U SP GRAV (test code = 3255) . 1.005-1.025 POCT PH U (test code = 3254) 6 mg/dl 5-8 POCT U LEUK EST (test code = 3263) Trace Negative - Negative POCT U NIT (test code = 3262) Neg Negative - Negati ve POCT U PROT (test code = 3259) Trace Negative - Negat dino POCT U GLU (test code = 3256) Neg Negative - Negati ve POCT U KETONE (test code = 3258) None Negative - Neg ative POCT U UROBILI (test code = 3260) . 0.2-1 POCT U BILI (test code = 3261) . Negative - Negat dino POCT U BLD (test code = 3257) Trace Negative - Negati ve POCT U COLOR (test code = 3266) . POCT U APPEAR (test code = 3267) [facility] URINALYSIS W SPECIFIC [id number] 15:29:00* Test Item Value Reference Range Interpretation Comme nts POCT U SP GRAV (test code = 3255) . 1.005-1.025 POCT PH U (test code = 3254) 6 mg/dl 5-8 POCT U LEUK EST (test code = 3263) Trace Negative - Negative POCT U NIT (test code = 3262) Neg Negative - Negati ve POCT U PROT (test code = 3259) Trace Negative - Negat dino POCT U GLU (test code = 3256) Neg Negative - Negati ve POCT U KETONE (test code = 3258) None Negative - Neg ative POCT U UROBILI (test code = 3260) . 0.2-1 POCT U BILI (test code = 3261) . Negative - Negat dino POCT U BLD (test code = 3257) Trace Negative - Negati ve POCT U COLOR (test code = 3266) . POCT U APPEAR (test code = 3267) [facility] URINALYSIS W SPECIFIC [id number] 14:13:00* Test Item Value Reference Range Interpretation Comme nts POCT U SP GRAV (test code = 3255) . 1.005-1.025 POCT PH U (test code = 3254) 6 mg/dl 5-8 POCT U LEUK EST (test code = 3263) Trace Negative - Negative POCT U NIT (test code = 3262) Neg Negative - Negati ve POCT U PROT (test code = 3259) Trace Negative - Negat dino POCT U GLU (test code = 3256) Neg Negative - Negati ve POCT U KETONE (test code = 3258) None Negative - Neg ative POCT U UROBILI (test code = 3260) . 0.2-1 POCT U BILI (test code = 3261) . Negative - Negat dino POCT U BLD (test code = 3257) Trace Negative - Negati ve POCT U COLOR (test code = 3266) POCT U APPEAR (test code = 3267) [facility] URINALYSIS W SPECIFIC [id number] 15:20:00* Test Item Value Reference Range Interpretation Comme nts POCT U SP GRAV (test code = 3255) . 1.005-1.025 POCT PH U (test code = 3254) 7 mg/dl 5-8 POCT U LEUK EST (test code = 3263) 1+ Negative - Negative POCT U NIT (test code = 3262) Neg Negative - Negati ve POCT U PROT (test code = 3259) 1+ Negative - Negat dino POCT U GLU (test code = 3256) Neg Negative - Negati ve POCT U KETONE (test code = 3258) Neg Negative - Neg ative POCT U UROBILI (test code = 3260) . 0.2-1 POCT U BILI (test code = 3261) . Negative - Negat dino POCT U BLD (test code = 3257) Trace Negative - Negati ve POCT U COLOR (test code = 3266) . POCT U APPEAR (test code = 3267) . [facility] [id number] 06:02:31 * Test Item Value Reference Range Interpretation Comme nts TSH (test code = 2805872924) 2.97 See_Comment [Automated messa ge] The system which generated this result transmitted reference range: 0.45 - 4.70 mIU/L. The reference range was not used to interpret this result as normal/abnormal. Lab Interpretation (test code = 38931-7) Normal [facility] (ASPARTATE AMINO TRANSFER)2022-10-16 05:28:29* Test Item Value Reference Range Interpretation Comme nts AST(SGOT) (test code = 9711174952) 22 U/L 13-40 Lab Interpretation (test cod e = 75245-7) Normal [facility] TRANSFERASE([id number] 05:28:28* Test Item Value Reference Range Interpretation Comme nts ALTv (test code = 1742-6) 25 U/L 5-35 Lab Interpretation (test cod e = 23569-5) Normal [facility] W SPECIFIC [id number] 14:20:00* Test Item Value Reference Range Interpretation Comme nts POCT U SP GRAV (test code = 3255) . 1.005-1.025 POCT PH U (test code = 3254) 7 mg/dl 5-8 POCT U LEUK EST (test code = 3263) 2+ Negative - Negative POCT U NIT (test code = 3262) negative Negative - Negati ve POCT U PROT (test code = 3259) trace Negative - Negat dino POCT U GLU (test code = 3256) negative Negative - Negati ve POCT U KETONE (test code = 3258) negative Negative - Neg ative POCT U UROBILI (test code = 3260) . 0.2-1 POCT U BILI (test code = 3261) . Negative - Negat dino POCT U BLD (test code = 3257) negative Negative - Negati ve POCT U COLOR (test code = 3266) . POCT U APPEAR (test code = 3267) . [facility] W SPECIFIC [id number] 20:43:00* Test Item Value Reference Range Interpretation Comme nts POCT U SP GRAV (test code = 3255) . 1.005-1.025 POCT PH U (test code = 3254) 7 mg/dl 5-8 POCT U LEUK EST (test code = 3263) Trace Negative - Negative POCT U NIT (test code = 3262) Neg Negative - Negati ve POCT U PROT (test code = 3259) Trace Negative - Negat dino POCT U GLU (test code = 3256) Neg Negative - Negati ve POCT U KETONE (test code = 3258) None Negative - Neg ative POCT U UROBILI (test code = 3260) . 0.2-1 POCT U BILI (test code = 3261) . Negative - Negat dino POCT U BLD (test code = 3257) Trace Negative - Negati ve POCT U COLOR (test code = 3266) POCT U APPEAR (test code = 3267) [facility] ([facility]IC[facility]) [id number] 19:12:18 * Test Item Value Reference Range Interpretation Comme [facility] Rubella screen IgG (test code = 9182001087) Negative Negative FRED (test code = FRED) Positive - Indicat es the patient was exposed to Rubella through infection or vaccination.Negative - Indicates the patient could be susceptible to Rubella infection.Equivocal - A second specimen should be sent. [facility] ArlingtonVZV ANTIBODY [id number] 19:12:18* Test Item Value Reference Range Interpretation Comme [facility] VZV IgG antibody (test code = 62297-1) Positive Negative FRED (test code = FRED) Positive - Indicat es the patient was exposed to VZV through infection or vaccination.Negative - Indicates the patient could be susceptible to VZV infection.Equivocal - A second specimen should be sent for testing. [facility]LL[facility] S[facility] (PATRICIA) [id number] 19:12:18 * Test Item Value Reference Range Interpretation Comme [facility] Rubella screen IgG (test code = 7397248181) Negative Negative FRED (test code = FRED) Positive - Indicat es the patient was exposed to Rubella through infection or vaccination.Negative - Indicates the patient could be susceptible to Rubella infection.Equivocal - A second specimen should be sent. [facility] ANTIBODY [id number] 19:12:18* Test Item Value Reference Range Interpretation Comme [facility] VZV IgG antibody (test code = 58661-8) Positive Negative FRED (test code = FRED) Positive - Indicat es the patient was exposed to VZV through infection or vaccination.Negative - Indicates the patient could be susceptible to VZV infection.Equivocal - A second specimen should be sent for testing. [facility] ONLY - SYPHILIS [id number] 15:53:54* Test Item Value Reference Range Interpretation Comme [facility] Syphilis IgG/IgM (test code = 59027-7) Non-reactive Non-reactive FRED (test code = FRED) Non-reactive - No serologic evidence of T. pallidum infection. Cannot exclude incubating or early syphilis. Submit a second specimen in 2-4 weeks if syphilis is clinically suspected. Equivocal - Further testing to follow. Reactive - Further testing to follow. Lab Interpretation (test code = 19954-8) Normal [facility] ONLY - SYPHILIS [id number] 15:53:54* Test Item Value Reference Range Interpretation Comme [facility] Syphilis IgG/IgM (test code = 07917-1) Non-reactive Non-reactive FRED (test code = FRED) Non-reactive - No serologic evidence of T. pallidum infection. Cannot exclude incubating or early syphilis. Submit a second specimen in 2-4 weeks if syphilis is clinically suspected. Equivocal - Further testing to follow. Reactive - Further testing to follow. Lab Interpretation (test code = 81853-7) Normal [facility] [id number] 15:52:16* Test Item Value Reference Range Interpretation Comme nts FREE T3 (test code = 1758189082) 4.41 pg/mL 2.77-5.27 Lab Interpretation (test cod e = 51136-1) Normal [facility] 15:52:16* Test Item Value Reference Range Interpretation Comme nts FREE T3 (test code = 7645087825) 4.41 pg/mL 2.77-5.27 Lab Interpretation (test cod e = 58903-6) Normal [facility] [id number] 14:49:37* Test Item Value Reference Range Interpretation Comme nts FREE T4 (test code = 5634159944) 1.02 See_Comment [Automated messa ge] The system which generated this result transmitted reference range: 0.78 - 2.20 ng/dL:. The reference range was not used to interpret this result as normal/abnormal. Lab Interpretation (test code = 24958-8) Normal [facility] [id number] 14:49:37* Test Item Value Reference Range Interpretation Comme nts FREE T4 (test code = 9327884107) 1.02 See_Comment [Automated messa ge] The system which generated this result transmitted reference range: 0.78 - 2.20 ng/dL:. The reference range was not used to interpret this result as normal/abnormal. Lab Interpretation (test code = 58820-0) Normal [facility] 1/2 AG-AB WITH [id number] 08:56:49* Test Item Value Reference Range Interpretation Comme [facility] HIV Semi-quantitative (test code = 73921-3) 0.10 Negative FRED (test code = FRED) Non-reactive for HIV-1 antigen and HIV-1/HIV-2 antibodies. ?No laboratory evidence of HIV infection. ?Repeat in 2-4 weeks if acute HIV infection is suspected. [facility] 1/2 AG-AB WITH [id number] 08:56:49* Test Item Value Reference Range Interpretation Comme nts HIV Semi-quantitative (test code = 64276-9) 0.10 Negative FRED (test code = FRED) Non-reactive for HIV-1 antigen and HIV-1/HIV-2 antibodies. ?No laboratory evidence of HIV infection. ?Repeat in 2-4 weeks if acute HIV infection is suspected. [facility] [id number] 06:02:34* Test Item Value Reference Range Interpretation Comme nts HCV Ab (test code = 99865-5) Negative HCV Semi-Quantitative (test code = 53342-7) 0.03 [facility] [id number] 06:02:34* Test Item Value Reference Range Interpretation Comme nts HCV Ab (test code = 71760-2) Negative HCV Semi-Quantitative (test code = 55437-7) 0.03 [facility] B SURFACE [id number] 05:45:14 * Test Item Value Reference Range Interpretation Comme nts HBsAg Semi-Quantitative (kayleen t code = 5195-3) 0.05 Negative [facility] [id number] 05:45:14 * Test Item Value Reference Range Interpretation Comme nts TSH (test code = 1412990813) 4.99 See_Comment H [Automated messa ge] The system which generated this result transmitted reference range: 0.45 - 4.70 mIU/L. The reference range was not used to interpret this result as normal/abnormal. Lab Interpretation (test code = 56354-5) Abnormal [facility] B SURFACE [id number] 05:45:14 * Test Item Value Reference Range Interpretation Comme nts HBsAg Semi-Quantitative (kayleen t code = 5195-3) 0.05 Negative [facility] [id number] 05:45:14 * Test Item Value Reference Range Interpretation Comme nts TSH (test code = 0787174076) 4.99 See_Comment H [Automated messa ge] The system which generated this result transmitted reference range: 0.45 - 4.70 mIU/L. The reference range was not used to interpret this result as normal/abnormal. Lab Interpretation (test code = 49638-6) [facility]normal [facility] [id number] 05:22:25* Test Item Value Reference Range Interpretation Comme nts GLUC 1 HR (test code = 9159705729) 95 mg/dL 120-170 L Lab Interpretation (test cod e = 68122-3) [facility]normal [facility] [id number] 05:22:25* Test Item Value Reference Range Interpretation Comme nts GLUC 1 HR (test code = 9925042463) 95 mg/dL 120-170 L Lab Interpretation (test cod e = 37006-1) [facility]normal [facility]. METABOLIC PANEL (35847)2022-09-12 05:17:29* Test Item Value Reference Range Interpretation Comme nts NA (test code = 1055199342) 138 mmol/L 135-145 K (test code = 5751816601) 4.3 mmol/L 3.5-5.0 CL (test code = 7463213031) 104 mmol/L 98-108 CO2 TOTAL (test code = 6353569351) 24 mmol/L 23-31 AGAP (test code = 8693660502) 10 2-16 BUN (test code = 7824069449) 10 mg/dL 7-23 GLUCOSE (test code = 0023172393) 101 mg/dL 70-110 CREATININE (test code = 9026569915) 0.62 mg/dL 0.50-1.04 TOTAL BILI (test code = 1707898521) 0.4 mg/dL 0.1-1.1 CALCIUM (test code = 1234193858) 9.5 mg/dL 8.6-10.6 T PROTEIN (test code = 9830320157) 7.5 g/dL 6.3-8.2 ALBUMIN (test code = 0630332721) 4.4 g/dL 3.5-5.0 ALK PHOS (test code = 6256634407) 80 U/L 34-122 ALTv (test code = 1742-6) 47 U/L 5-35 H AST(SGOT) (test code = 7768895967) 30 U/L 13-40 eGFR (test code = 8025812462) 119.3 mL/min/1.73m2 FRED (test code = FRED) Association of Glomerular Filtration Rate (GFR) and Staging of Kidney Disease* + --+ --+ ------+| GFR (mL/min/1.73 m2) ?| With Kidney Damage ?| ?Without Kidney Damage+ --------+ --------+ +| ?>90 ?| ?Stage one ?| ? Normal ?+ ---+ ---+ -------+| ?60-89 ?| ?Stage two ?| ? Decreased GFR ? + --+ --+ ------+| ?30-59 ?| ?Stage three ?| ? Stage three ? + --+ --+ ------+| ?15-29 ?| ?Stage four ? | ? Stage four ?+ ---+ ---+ -------+| ?<15 (or dialysis) ? ?| ?Stage five ? | ? Stage five ?+ ---+ ---+ -------+ *Each stage assumes the associated GFR level has been in effect for at least three months. ?Stages 1 to 5, with or without kidney disease, indicate chronic kidney disease. Notes: Determination of stages one and two (with eGFR >59mL/min/1.73 m2) requires estimation of kidney damage for at least three months as defined by structural or functional abnormalities of the kidney, manifested by either:Pathological abnormalities or Markers of kidney damage (including abnormalities in the composition of the blood or urine or abnormalities in imaging tests). Lab Interpretation (test code = 84022-5) Abnormal [facility]. METABOLIC PANEL (76024)2022-09-12 05:17:29* Test Item Value Reference Range Interpretation Comme nts NA (test code = 3754388771) 138 mmol/L 135-145 K (test code = 1722905145) 4.3 mmol/L 3.5-5.0 CL (test code = 3809854934) 104 mmol/L 98-108 CO2 TOTAL (test code = 1683441573) 24 mmol/L 23-31 AGAP (test code = 4983790753) 10 2-16 BUN (test code = 2276329930) 10 mg/dL 7-23 GLUCOSE (test code = 4265349863) 101 mg/dL 70-110 CREATININE (test code = 4476464466) 0.62 mg/dL 0.50-1.04 TOTAL BILI (test code = 3762863804) 0.4 mg/dL 0.1-1.1 CALCIUM (test code = 6369858129) 9.5 mg/dL 8.6-10.6 T PROTEIN (test code = 1595112160) 7.5 g/dL 6.3-8.2 ALBUMIN (test code = 7518526368) 4.4 g/dL 3.5-5.0 ALK PHOS (test code = 1827444554) 80 U/L 34-122 ALTv (test code = 1742-6) 47 U/L 5-35 H AST(SGOT) (test code = 5595316998) 30 U/L 13-40 eGFR (test code = 3405420473) 119.3 mL/min/1.73m2 FRED (test code = FRED) Association of Glomerular Filtration Rate (GFR) and Staging of Kidney Disease* + --+ --+ ------+| GFR (mL/min/1.73 m2) ?| With Kidney Damage ?| ?Without Kidney Damage+ --------+ --------+ +| ?>90 ?| ?Stage one ?| ? Normal ?+ ---+ ---+ -------+| ?60-89 ?| ?Stage two ?| ? Decreased GFR ? + --+ --+ ------+| ?30-59 ?| ?Stage three ?| ? Stage three ? + --+ --+ ------+| ?15-29 ?| ?Stage four ? | ? Stage four ?+ ---+ ---+ -------+| ?<15 (or dialysis) ? ?| ?Stage five ? | ? Stage five ?+ ---+ ---+ -------+ *Each stage assumes the associated GFR level has been in effect for at least three months. ?Stages 1 to 5, with or without kidney disease, indicate chronic kidney disease. Notes: Determination of stages one and two (with eGFR >59mL/min/1.73 m2) requires estimation of kidney damage for at least three months as defined by structural or functional abnormalities of the kidney, manifested by either:Pathological abnormalities or Markers of kidney damage (including abnormalities in the composition of the blood or urine or abnormalities in imaging tests). Lab Interpretation (test code = 68724-4) Abnormal [facility] WITH [id number] 04:51:06* Test Item Value Reference Range Interpretation Comme nts WBC (test code = 6690-2) 8.62 See_Comment [Automated [employer]] The system which generated this result transmitted reference range: 4.30 - 11.10 10*3/?L. The reference range was not used to interpret this result as normal/abnormal. RBC (test code = 789-8) 4.81 See_Comment [Automated [employer]] The system which generated this result transmitted reference range: 3.93 - 5.25 10*6/?L. The reference range was not used to interpret this result as normal/abnormal. HGB (test code = 718-7) 14.1 g/dL 11.6-15.0 HCT (test code = 4544-3) 42.7 % 35.7-45.2 MCV (test code = 787-2) 88.8 fL 80.6-95.5 MCH (test code = 785-6) 29.3 pg 25.9-32.8 MCHC (test code = 786-4) 33.0 g/dL 31.6-35.1 RDW-SD (test code = 64882-1) 40.7 fL 39.0-49.9 RDW-CV (test code = 788-0) 12.4 % 12.0-15.5 PLT (test code = 777-3) 414 See_Comment H [Automated messa ge] The system which generated this result transmitted reference range: 166 - 358 10*3/?L. The reference range was not used to interpret this result as normal/abnormal. MPV (test code = 42589-9) 9.4 fL 9.5-12.9 L NRBC/100 WBC (test code = 1787245929) 0.0 See_Comment [Automated [employer] ssage] The system which generated this result transmitted reference range: 0.0 - 10.0 /100 WBCs. The reference range was not used to interpret this result as normal/abnormal. NRBC x10^3 (test code = 7390626022) See_Comment [Autom[employer]] The system which generated this result transmitted reference range: 10*3/?L. The reference range was not used to interpret this result as normal/abnormal. GRAN MAT (NEUT) % (test code = 770-8) 67.7 % IMM GRAN % (test code = 4697278930) 0.60 % LYMPH % (test code = 736-9) 22.3 % MONO % (test code = 5905-5) 5.6 % EOS % (test code = 713-8) 3.0 % BASO % (test code = 706-2) 0.8 % GRAN MAT x10^3(ANC) (test code = 4822651282) 5.84 10*3/uL 1.88-7.09 IMM GRAN x10^3 (test code = 7824374876) 0.05 10*3/uL 0.00-0.06 LYMPH x10^3 (test code = 731-0) 1.92 10*3/uL 1.32-3.29 MONO x10^3 (test code = 742-7) 0.48 10*3/uL 0.33-0.92 EOS x10^3 (test code = 711-2) 0.26 10*3/uL 0.03-0.39 BASO x10^3 (test code = 704-7) 0.07 10*3/uL 0.01-0.07 Lab Interpretation (test code = 64243-6) Abnormal [facility] WITH [id number] 04:51:06* Test Item Value Reference Range Interpretation Comme nts WBC (test code = 6690-2) 8.62 See_Comment [Automated messa ge] The system which generated this result transmitted reference range: 4.30 - 11.10 10*3/?L. The reference range was not used to interpret this result as normal/abnormal. RBC (test code = 789-8) 4.81 See_Comment [Automated messa ge] The system which generated this result transmitted reference range: 3.93 - 5.25 10*6/?L. The reference range was not used to interpret this result as normal/abnormal. HGB (test code = 718-7) 14.1 g/dL 11.6-15.0 HCT (test code = 4544-3) 42.7 % 35.7-45.2 MCV (test code = 787-2) 88.8 fL 80.6-95.5 MCH (test code = 785-6) 29.3 pg 25.9-32.8 MCHC (test code = 786-4) 33.0 g/dL 31.6-35.1 RDW-SD (test code = 25579-4) 40.7 fL 39.0-49.9 RDW-CV (test code = 788-0) 12.4 % 12.0-15.5 PLT (test code = 777-3) 414 See_Comment H [Automated messa ge] The system which generated this result transmitted reference range: 166 - 358 10*3/?L. The reference range was not used to interpret this result as normal/abnormal. MPV (test code = 93310-6) 9.4 fL 9.5-12.9 L NRBC/100 WBC (test code = 1904912126) 0.0 See_Comment [Automated me ssage] The system which generated this result transmitted reference range: 0.0 - 10.0 /100 WBCs. The reference range was not used to interpret this result as normal/abnormal. NRBC x10^3 (test code = 3723143781) See_Comment [Automated messa ge] The system which generated this result transmitted reference range: 10*3/?L. The reference range was not used to interpret this result as normal/abnormal. GRAN MAT (NEUT) % (test code = 770-8) 67.7 % IMM GRAN % (test code = 3654207560) 0.60 % LYMPH % (test code = 736-9) 22.3 % MONO % (test code = 5905-5) 5.6 % EOS % (test code = 713-8) 3.0 % BASO % (test code = 706-2) 0.8 % GRAN MAT x10^3(ANC) (test code = 1831440710) 5.84 10*3/uL 1.88-7.09 IMM GRAN x10^3 (test code = 2557403913) 0.05 10*3/uL 0.00-0.06 LYMPH x10^3 (test code = 731-0) 1.92 10*3/uL 1.32-3.29 MONO x10^3 (test code = 742-7) 0.48 10*3/uL 0.33-0.92 EOS x10^3 (test code = 711-2) 0.26 10*3/uL 0.03-0.39 BASO x10^3 (test code = 704-7) 0.07 10*3/uL 0.01-0.07 Lab Interpretation (test code = 60775-4) Abnormal [facility] WORKUP, BLOOD [id number] 16:49:00 * Test Item Value Reference Range Interpretation Comme nts ABO & RH (test code = 20) O POSITIVE IAT (test code = 1185) Negative [facility] WORKUP, BLOOD [id number] 16:49:00 * Test Item Value Reference Range Interpretation Comme nts ABO & RH (test code = 20) O POSITIVE IAT (test code = 1185) Negative [facility] [id number] 15:36:00* Test Item Value Reference Range Interpretation Comme nts POCT PREG (test code = 1605) Positive On board controls acceptable with C Line (test code = 3574) Yes POCT PREG LOT # (test code = 3575) POCT PREG TEST DATE ( test code = 3576) [facility] URINALYSIS W/O SPECIFIC [id number] 15:36:00* Test Item Value Reference Range Interpretation Comme nts POCT PH U (test code = 3254) 7 mg/dl 5-8 POCT U LEUK EST (test code = 3263) 2+ Negative - Negative POCT U NIT (test code = 3262) negative Negative - Negati ve POCT U PROT (test code = 3259) 1+ Negative - Negat dino POCT U GLU (test code = 3256) negative Negative - Negati ve POCT U KETONE (test code = 3258) negative Negative - Neg ative POCT U BLD (test code = 3257) negative Negative - Negati ve [facility] [id number] 15:36:00* Test Item Value Reference Range Interpretation Comme nts POCT PREG (test code = 1605) Positive On board controls acceptable with C Line (test code = 3574) Yes POCT PREG LOT # (test code = 3575) POCT PREG TEST DATE ( test code = 3576) [facility] URINALYSIS W/O SPECIFIC [id number] 15:36:00* Test Item Value Reference Range Interpretation Comme nts POCT PH U (test code = 3254) 7 mg/dl 5-8 POCT U LEUK EST (test code = 3263) 2+ Negative - Negative POCT U NIT (test code = 3262) negative Negative - Negati ve POCT U PROT (test code = 3259) 1+ Negative - Negat dino POCT U GLU (test code = 3256) negative Negative - Negati ve POCT U KETONE (test code = 3258) negative Negative - Neg ative POCT U BLD (test code = 3257) negative Negative - Negati ve [facility] [id number] 01:52:07* Test Item Value Reference Range Interpretation Comme nts NA (test code = 1377310093) 140 mmol/L 135-145 K (test code = 9676968733) 4.3 mmol/L 3.5-5.0 CL (test code = 4421922073) 105 mmol/L 98-108 CO2 TOTAL (test code = 7035029456) 20 mmol/L 23-31 L AGAP (test code = 5118334626) 2-16 BUN (test code = 3274977712) 17 mg/dL 7-23 GLUCOSE (test code = 6024315584) 101 mg/dL 70-110 CREATININE (test code = 8755798129) 0.74 mg/dL 0.50-1.04 TOTAL BILI (test code = 1281294759) 0.4 mg/dL 0.1-1.1 CALCIUM (test code = 8400209156) 8.8 mg/dL 8.6-10.6 T PROTEIN (test code = 2088011291) 8.3 g/dL 6.3-8.2 H ALBUMIN (test code = 8306887211) 4.9 g/dL 3.5-5.0 ALK PHOS (test code = 0120813669) 116 U/L 34-122 ALTv (test code = 1742-6) 62 U/L 5-35 H AST(SGOT) (test code = 0324691667) 45 U/L 13-40 H eGFR (test code = 0100923451) mL/min/1.73m2 FRED (test code = FRED) Association of Glomerular Filtration Rate (GFR) and Staging of Kidney Disease* + --+ --+ ------+| GFR (mL/min/1.73 m2) ?| With Kidney Damage ?| ?Without Kidney Damage+ --------+ --------+ +| ?>90 ?| ?Stage one ?| ? Normal ?+ ---+ ---+ -------+| ?60-89 ?| ?Stage two ?| ? Decreased GFR ? + --+ --+ ------+| ?30-59 ?| ?Stage three ?| ? Stage three ? + --+ --+ ------+| ?15-29 ?| ?Stage four ? | ? Stage four ?+ ---+ ---+ -------+| ?<15 (or dialysis) ? ?| ?Stage five ? | ? Stage five ?+ ---+ ---+ -------+ *Each stage assumes the associated GFR level has been in effect for at least three months. ?Stages 1 to 5, with or without kidney disease, indicate chronic kidney disease. Notes: Determination of stages one and two (with eGFR >59mL/min/1.73 m2) requires estimation of kidney damage for at least three months as defined by structural or functional abnormalities of the kidney, manifested by either:Pathological abnormalities or Markers of kidney damage (including abnormalities in the composition of the blood or urine or abnormalities in imaging tests). Lab Interpretation (test code = 09326-8) [facility] [id number] 01:51:27* Test Item Value Reference Range Interpretation Comme nts LIPASE (test code = 8546634493) 128 U/L 0-220 Lab Interpretation (test cod e = 21446-1) Normal [facility] with [id number] 01:05:48* Test Item Value Reference Range Interpretation Comme nts WBC (test code = 6690-2) See_Comment [[employer]] The system which generated this result transmitted reference range: 4.30 - 11.10 10*3/?L. The reference range was not used to interpret this result as normal/abnormal. RBC (test code = 789-8) See_Comment [[employer]] The system which generated this result transmitted reference range: 3.93 - 5.25 10*6/?L. The reference range was not used to interpret this result as normal/abnormal. HGB (test code = 718-7) 15.3 g/dL 11.6-15.0 H HCT (test code = 4544-3) 44.8 % 35.7-45.2 MCV (test code = 787-2) 87.0 fL 80.6-95.5 MCH (test code = 785-6) 29.7 pg 25.9-32.8 MCHC (test code = 786-4) 34.2 g/dL 31.6-35.1 RDW-SD (test code = 57718-4) 38.2 fL 39.0-49.9 L RDW-CV (test code = 788-0) 11.9 % 12.0-15.5 L PLT (test code = 777-3) See_Comment H [Automated messa ge] The system which generated this result transmitted reference range: 166 - 358 10*3/?L. The reference range was not used to interpret this result as normal/abnormal. MPV (test code = 19495-9) 8.9 fL 9.5-12.9 L NRBC/100 WBC (test code = 6729352029) See_Comment [Automated [employer] ssage] The system which generated this result transmitted reference range: 0.0 - 10.0 /100 WBCs. The reference range was not used to interpret this result as normal/abnormal. NRBC x10^3 (test code = 5442762129) <0.01 See_Comment [[employer]] The system which generated this result transmitted reference range: 10*3/?L. The reference range was not used to interpret this result as normal/abnormal. GRAN MAT (NEUT) % (test code = 770-8) 53.1 % IMM GRAN % (test code = 6288574135) 0.70 % LYMPH % (test code = 736-9) 34.4 % MONO % (test code = 5905-5) 5.9 % EOS % (test code = 713-8) 5.1 % BASO % (test code = 706-2) 0.8 % GRAN MAT x10^3(ANC) (test code = 7334391733) 4.38 10*3/uL 1.88-7.09 IMM GRAN x10^3 (test code = 7087772878) 0.06 10*3/uL 0.00-0.06 LYMPH x10^3 (test code = 731-0) 2.84 10*3/uL 1.32-3.29 MONO x10^3 (test code = 742-7) 0.49 10*3/uL 0.33-0.92 EOS x10^3 (test code = 711-2) 0.42 10*3/uL 0.03-0.39 H BASO x10^3 (test code = 704-7) 0.07 10*3/uL 0.01-0.07 Lab Interpretation (test code = 90372-6) [facility] [id number] 00:52:00* Test Item Value Reference Range Interpretation Comme nts POCT PREG (test code = 1605) Negative On board controls acceptable with C Line (test code = 3574) Positive POCT PREG LOT # (test code = 3575) [id number] POCT PREG TEST DATE ( test code = 3576) Lab Interpretation (test cod e = 24716-9) Normal [facility] [id number] 21:20:00* Test Item Value Reference Range Interpretation Comme nts POCT PREG (test code = 1605) Negative On board controls acceptable with C Line (test code = 3574) Yes POCT PREG LOT # (test code = 3575) POCT PREG TEST DATE ( test code = 3576) [facility] [id number] 21:20:00* Test Item Value Reference Range Interpretation Comme nts POCT PREG (test code = 1605) Negative On board controls acceptable with C Line (test code = 3574) Yes POCT PREG LOT # (test code = 3575) POCT PREG TEST DATE ( test code = 3576) [facility]"
--- NOTE | 2024-07-20 09:46 | EDPHYS ---
Physician Documentation [facility] Name: Cyndi Sheridan Age: 24 yrs Sex: Female : 2000 Arrival Date: 07/20/2024 Time: 09:26 Bed 14 Private MD: ED Physician Bandar Castaneda HPI: 07/20 09:48 This 24 yrs old Female presents to ER via Ambulatory with complaints of ms3 Allergic Reaction - to meds. 09:48 24-year-old female with past medical history of hypothyroidism presents to the [facility] emergency department for rash on her lower lip and face that has been present for 2 days. Patient states she is having moderate pain. She denies any alleviating or inciting factors. Patient states she has been on acyclovir and Diflucan without change in her symptoms.. Historical: - Allergies: 09:45 No Known Allergies; iw - PMHx: 09:45 Hypothyroidism; iw ROS: 09:48 Constitutional: Negative for fever, and chills. Cardiovascular: Negative for chest ms3 pain, and palpitations. Respiratory: Negative for shortness of breath, cough, wheezing, and pleuritic chest pain, Abdomen/GI: Negative for abdominal pain, nausea, vomiting, diarrhea, and constipation, MS/Extremity: Negative for injury and deformity, 09:48 Skin: Positive for rash, Exam: 09:48 Constitutional: This is a well developed, well nourished patient who is awake, alert, ms3 and in no acute distress. Cardiovascular: Regular rate and rhythm with a normal S1 and S2. No gallops, murmurs, or rubs. Normal PMI, no JVD. No pulse deficits. Respiratory: Lungs have equal breath sounds bilaterally, clear to auscultation and percussion. No rales, rhonchi or wheezes noted. No increased work of breathing, no retractions or nasal flaring. Abdomen/GI: Soft, non-tender, with normal bowel sounds. No distension or tympany. No guarding or rebound. No evidence of tenderness throughout. 09:48 Skin: impetigo, on the lower lip, left superior eye, Vital Signs: 09:42 BP 134 / 99; Pulse 98; Resp 16; Temp 97.9; Pulse Ox 97% on R/A; Weight 73.03 kg; Height iw 5 ft. 2 in. ; 09:42 Body Mass Index 29.45 (73.03 kg, 157.48 cm) iw MDM: 09:44 Medical Screening Exam initiated ms3 09:48 Differential diagnosis: impetigo vs zoster vs rash. Data reviewed: vital signs, nurses ms3 notes, and as a result, I will discharge patient. I considered the following discharge prescriptions or medication management in the emergency department See Rx. Counseling: I had a detailed discussion with the patient and/or guardian regarding the historical points, exam findings, and any diagnostic results supporting the discharge/admit diagnosis, the need for outpatient follow up, to return to the emergency department if symptoms worsen or persist or if there are any questions or concerns that arise at home. Special discussion: I discussed with the patient/guardian in detail that at this point there is no indication for admission to the hospital. It is understood, however, that if the symptoms persist or worsen the patient needs to return immediately for re-evaluation. ED course: Discussed physical exam findings with patient. Patient given prescription for Bactrim DS and mupirocin. Patient currently on acyclovir to cover possible zoster. Patient to follow-up with primary care physician in 2 to 3 days. Patient understands and agrees with plan. All questions were answered. Return precautions discussed include worsening symptoms, or any other concerns.. Administered Medications: No medications were administered Disposition Summary: 07/20/24 09:45 Discharge Ordered Notes: Location: Home ms3 Condition: Stable ms3 Diagnosis - Impetigo, unspecified ms3 Followup: ms3 - With: Kolby Reis DO - When: 2 - 3 days - Reason: Recheck today's complaints Discharge Instructions: - Discharge Summary Sheet ms3 - Impetigo, Adult ms3 Forms: - Medication Reconciliation Form ms3 - Antibiotic Education ms3 - Prescription Opioid Use ms3 - Patient Portal Instructions ms3 - Leadership Thank You Letter ms3 Prescriptions: - mupirocin 2 % Topical ointment - apply 1 application TOPICAL route 3 times per day; 22 gram; Refills: 0, Product ms3 Selection Permitted - Doxycycline Monohydrate 100 mg Oral tablet - take 1 tablet ORAL route every 12 hours for 7 days; 14 tablet; Refills: 0, ms3 Product Selection Permitted Signatures: Julia Resendiz RN RN iw Bandar Castaneda DO DO ms3
--- NOTE | 2024-07-20 09:46 | ER ---
Nurse's Notes [facility] Name: Cyndi Sheridan Age: 24 yrs Sex: Female : 2000 Arrival Date: 07/20/2024 Time: 09:26 Bed 14 Private MD: Diagnosis: Impetigo, unspecified Presentation: 07/20 09:42 Chief complaint: Patient states: blisters to chin, eye area X 2days. Coronavirus iw screen: At this time, the client does not indicate any symptoms associated with coronavirus-19. 09:42 Method Of Arrival: Ambulatory iw 09:42 Acuity: COLT 4 iw 09:42 Ebola Screen: No symptoms or risks identified at this time. Initial Sepsis Screen: Does iw the patient meet any 2 criteria? No. Patient's initial sepsis screen is negative. Does the patient have a suspected source of infection? No. Patient's initial sepsis screen is negative. Risk Assessment: Do you want to hurt yourself or someone else? Patient reports no desire to harm self or others. Triage Assessment: 09:50 General: Appears in no apparent distress. Behavior is calm, cooperative. iw Historical: - Allergies: 09:45 No Known Allergies; iw - PMHx: 09:45 Hypothyroidism; iw Screenin:00 [facility] ED Fall Risk Assessment (Adult) History of falling in the last 3 months, iw including since admission No falls in past 3 months (0 pts) Confusion or Disorientation No (0 pts) Intoxicated or Sedated No (0 pts) Impaired Gait No (0 pts) Mobility Assist Device Used No (0 pt) Altered Elimination No (0 pt) Score/Fall Risk Level 0 - 2 = Low Risk Oriented to surroundings, Maintained a safe environment. Abuse screen: Denies threats or abuse. Denies injuries from another. Nutritional screening: No deficits noted. Tuberculosis screening: No symptoms or risk factors identified. Assessment: 09:30 General: Appears in no apparent distress. Behavior is calm, cooperative. Pain: iw Complains of pain in face. Neuro: Level of Consciousness is awake, alert, obeys commands, Oriented to person, place, time, situation, Moves all extremities. Cardiovascular: Patient's skin is warm and dry. Respiratory: Respiratory effort is even, unlabored, Respiratory pattern is regular. Derm: Skin has blisters on chin, left orbital area. Musculoskeletal: Range of motion: intact in all extremities. Vital Signs: 09:42 BP 134 / 99; Pulse 98; Resp 16; Temp 97.9; Pulse Ox 97% on R/A; Weight 73.03 kg; Height iw 5 ft. 2 in. ; 09:42 Body Mass Index 29.45 (73.03 kg, 157.48 cm) iw ED Course: 09:31 Patient arrived in ED. al6 09:32 Bandar Castaneda DO is Attending Physician. ms3 09:42 Triage completed. iw 09:43 Arm band placed on. iw 09:45 Julia Resendiz, YOCASTA is Primary Nurse. iw 09:45 Kolby Reis DO is Referral Physician. ms3 Administered Medications: No medications were administered Outcome: :45 Discharge ordered by MD. ms3 10:07 Discharged to home ambulatory, with family, iw 10:07 Condition: good 10:07 Discharge instructions given to patient, family, Instructed on discharge instructions, follow up and referral plans. medication usage, Demonstrated understanding of instructions, follow-up care, medications, Prescriptions given X 1, 10:08 Patient left the ED. iw Signatures: Julia Resendiz, YOCSATA RN iw Bandar Castaneda DO DO ms3 Leisa [place] al6 Corrections: (The following items were deleted from the chart) 09:45 09:42 BP 134 / 99; Pulse 98bpm; Resp 16bpm; Pulse Ox 97% RA; iw iw
[2024-07-20 11:56] VITALS: BP 134/99; TEMP 97.9; O2SAT 97
== END 2024-07-20 10:08 | disposition home or self-care (01) ==
LOC: ER 09:26
DX: L01.00 Impetigo, unspecified (principal)

== ENCOUNTER 2024-09-16 09:51 | Emergency (ER) | payer OTHER ==
--- OUTSIDE RECORDS SUMMARY | 2024-09-16 10:04 | XMS REPORT | Continuity of Care Document ---
Author Name Unknown Address [address] [facility] [address] [place] [address] [facility] [place] Address [address] [facility] [address] [place] [address] Care Team Providers Care Histology Aide Name Role Phone Ronda Salomon Primary Care Physicia n CASSY LOREDO Attending Clinician Unavailable Cassy Infante Attending Clinician [phone] WHITNEY ROMERO Attending Clinician RONDA Meier Attending Clinician Unavail Salud Torres MD Attending Clinician [phone] Whitney Romero CNM Attending Clinician [phone] Doctor Unassigned, Waggoner Attending Clinician U JANNIE Vincent Attending Clinician Unavailable Visit, EmekaRmchp Nurse Attending Clinician UnaSHERRY [place] Attending Clinician Unavailable Emanuel GARCIA, Sherry Bernal Attending Clinician [phone] Lazarus Lehman CRNA Attending Clinician [phone] Nilson Marx MD Attending Clinician [phone] [email or web address]_S Attending Clinician UnavailJANENE Flores Attending Clinician Unavailabl e Ultrasound, Emekanicky Attending Clinician UnavailJanene Flores MD Attending Clinician [phone] SALUD SALVADOR Attending Clinician Unavailable SALUD SALVADOR Attending Clinician Unavailable 1, [facility] Us Room Attending Clinician Unavaila YOLA Sheehan Attending Clinician Unavailable Risk, Xca-Wwfva-Gh/High Attending Clinician Unav ailable Landry WHCNP, Yola Parks Attending Clinician + [phone] CYNDI ACOSTA Attending Clinician Unavailab le CHAOMANLINDA Attending Clinician Unavailab le Chaoman A AND P MECHANIC, Linda Muñoz Attending Clinician + [phone] Aimee Childs MD Attending Clinician + AIMEE CHILDS Attending Clinician Unav ailable RADIOLOGY Attending Clinician Unavailable ELIEL PRO Attending Clinician Unavailable Eliel Pro MD Attending Clinician [phone] Akinsipe WHCNP, Ronda Pierce Attending Clinician + SHEYLA SOMMERS Attending Clinician Unavailable Matthieu A AND P MECHANIC, Sheyla Attending Clinician [phone] Parisa Sousa RN Attending Clinician Unavailable Carolynn Melendez RN Attending Clinician Unavailab ANABELA Murray Attending Clinician Unavailab Dajuan Marquez DO Attending Clinician [phone] David A AND P MECHANIC, Anabela Wang Attending Clinician + [phone] SHERRY ARREGUIN Admitting Clinician Unavailable Sherry Arreguin MD Admitting Clinician [phone] [email or web address]_S Admitting Clinician Unavaila ELIEL Pope Admitting Clinician Unavailable Payers Payer Name Policy Type Policy Number Effective Date Expirati on Date Source [facility] [id number] 2023 00:00:00 [facility] [id number] 2023 00:00:00 MEDICAID [facility] [id number] 2021 00:00:00 [facility] [id number] 2020 00:00:00 Problems Condition Name Condition Details Condition Category Status Onset Date Resolution Date Last Treatment Date Treating Clinician Comments Source Status post section Status post section Disease Active 2022-06 2-07 00:00: 00 [facility] Declines flu vaccine Declines flu vaccine Disease Active 2022-06 0-05 00:00: 00 [facility] Elevated blood pressure reading without diagnosis of hypertensi on Elevated blood pressure reading without diagnosis of hypertensi on Disease Active 4-06 00:00: 00 [facility] Family history of Down syndrome Family history of Down syndrome Disease Active 2020-06 2-16 00:00: 00 Overview: Formattin g of this note might be different from the original. Reports her brother [facility] PCOS (polycysti c ovarian syndrome) PCOS (polycysti c ovarian syndrome) Disease Active 2- 00:00: 00 [facility] Hypothyroi dism Hypothyroi dism Disease Active 2016-06 2 00:00: 00 [facility] Overweight (BMI 25.0-29.9) Overweight (BMI 25.0-29.9) Disease Resolve d 1-02 00:00: 00 2024-06-23 00:00:00 2024-06-23 11:00:35 [facility] Mild pre-eclamp marlin in third trimester Mild pre-eclamp marlin in third trimester Disease Resolve d 4-06 00:00: 00 2023-05-18 00:00:00 2023-05-18 11:28:16 [facility] Elevated liver enzymes Elevated liver enzymes Disease Resolve d 4-06 00:00: 00 2023-05-18 00:00:00 2023-05-18 11:28:23 [facility] Rubella non-immune status, antepartum Rubella non-immune status, antepartum Disease Resolve d 2020-06 2-17 00:00: 00 2023-05-18 00:00:00 2023-05-18 11:26:00 Overview: Formattin g of this note might be different from the original. Address pp [facility] Liveborn , of dueñas , born in hospital by delivery Liveborn infant, of dueñas , born in hospital by delivery Disease Resolve d 2022-06 1-16 00:00: 00 2023-05-15 00:00:00 2023-05-15 12:48:02 [facility] Vaginal bleeding in Vaginal bleeding in Disease Resolve d 2022-06 1-15 00:00: 00 2023-05-15 00:00:00 2023-05-15 12:50:34 [facility] 37 weeks gestation of 37 weeks gestation of Disease Resolve d 2022-06 1-15 00:00: 00 2023-05-15 00:00:00 2023-05-15 12:47:30 [facility] Pain of round ligament during Pain of round ligament during Disease Resolve d 9-03 00:00: 00 2023-05-15 00:00:00 2023-05-15 12:47:28 [facility] Family history of Down syndrome Family history of Down syndrome Disease Resolve d 2020-06 2-16 00:00: 00 2023-05-15 00:00:00 2023-05-15 12:50:18 Overview: Formattin g of this note might be different from the original. Reports her brother [facility] High-risk in third trimester High-risk in third trimester Disease Resolve d 2020-06 2-16 00:00: 00 2023-05-15 00:00:00 2023-05-15 12:50:19 [facility] History of hypothyroi dism History of hypothyroi dism Disease Resolve d 2020-06 2-16 00:00: 00 2023-05-15 00:00:00 2023-05-15 12:50:28 Overview: Formattin g of this note might be different from the original. Reports in 2013, was on meds, no longer on meds Labs WNL, repeat in 4 weeks [facility] Obesity in Obesity in Disease Resolve d 2019-0 9-23 00:00: 00 2023-05-15 00:00:00 2023-05-15 12:50:30 [facility] Other general counseling and advice for contracept dino management Other general counseling and advice for contracept dino management Disease Resolve d 2021-0 1-14 00:00: 00 2022-09-11 00:00:00 2022-09-11 10:59:14 [facility] UTI in UTI in Disease Resolve d 2020-06 2-20 00:00: 00 2022-09-11 00:00:00 2022-09-11 10:59:10 Overview: Kenyetta g of this note might be different from the original. Pending brittni [facility] Amenorrhea Amenorrhea Disease Resolve d 2020-0 2-10 00:00: 00 2022-09-11 00:00:00 2022-09-11 10:59:07 [facility] Other general counseling and advice for contracept dino management Other general counseling and advice for contracept dino management Disease Resolve d 0 2-10 00:00: 00 2021-05-24 00:00:00 2021-05-24 10:54:32 [facility] Chlamydia trachomati s infection of lower genitourin khari sites Chlamydia trachomati s infection of lower genitourin khari sites Disease Resolve d 2017-0 5-11 00:00: 00 2021-05-24 00:00:00 2021-05-24 10:54:06 [facility] Screen for STD (sexually transmitte d disease) Screen for STD (sexually transmitte d disease) Disease Resolve d 2016-06 2-15 00:00: 00 2021-05-24 00:00:00 2021-05-24 10:54:26 [facility] Over weight Over weight Disease Resolve d 2016-06 2-15 00:00: 00 2021-05-24 00:00:00 2021-05-24 10:54:28 [facility] Allergies, Adverse Reactions, Alerts Allergy Name Allergy Type Status Severity Reaction(s) Onset Date Inactive Date Treating Clinician Comments Source NO KNOWN ALLERGIE S Drug Class Active [facility] Social History Social Habit Start Date Stop Date Quantity Comments Source ASSERTION 2022-08-15 00:00:00 [facility] Gender identity [facility] Alcoholic beverage intake 2024-07-26 00:00:00 2024-07-26 00:00:00 Ex-drinker (finding) [facility] History of Social function 2024-06-23 00:00:00 2024-06-23 00:00:00 [facility] Alcohol intake 2023-05-18 00:00:00 2023-05-18 00:00:00 Current non-drinker of alcohol (finding) [facility] Exposure to SARS-CoV-2 (event) 2022-11-01 00:00:00 2022-11-11 23:45:00 Not sure [facility] Tobacco use and exposure 2022-09-11 00:00:00 2022-09-11 00:00:00 Smokeless tobacco non-user [facility] Sex assigned at 2000 00:00:00 2000 00:00:00 [facility] Smoking Status Start Date Stop Date Source Never smoked tobacco [facility] Medications Ordered Medication Name Filled Medication Name Start Date Stop Date Current Medication? Ordering Clinician Indication Dosage Frequency Signature (SIG) Comments Components Source metroNIDAZO LE 500 mg tablet 07-22 00:00: 00 Yes [id number] 500mg Take 1 tablet by mouth every 12 (twelve) hours. [facility] fluconazole 150 mg tablet 07-22 00:00: 00 07-23 05:59 :00 No [id number] 150mg Take 1 tablet by mouth once now for 1 dose. [facility] metroNIDAZO LE 500 mg tablet 06-25 00:00: 00 07-22 00:00 :00 No [id number] 500mg Take 1 tablet by mouth every 12 (twelve) hours. [facility] fluconazole 150 mg tablet 06-25 00:00: 00 06-26 05:59 :00 Yes [id number] 150mg Take 1 tablet by mouth once now for 1 dose. [facility] silver sulfADIAZIN E (SILVADENE) 1 % cream 06-23 00:00: 00 Yes [id number] Apply to area(s) 2 (two) times daily. [facility] fluconazole 150 mg tablet 06-23 00:00: 00 06-24 05:59 :00 Yes [id number] 150mg Take 1 tablet by mouth once now for 1 dose. [facility] ibuprofen (IBU) tablet 600 mg 2022-06 00:00: 00 Yes 600mg 600 mg, Oral, Q6H ABX, First dose on 04/26/23 at 1800, Until Discontinu ed, Routine [facility] vitamin w/FA tablet 2022-06 00:00: 00 06-23 00:00 :00 No [id number] 1{tbl} Take 1 tablet by mouth in the morning. [facility] docusate 100 mg capsule 2022-06 00:00: 00 06-10 00:00 :00 No [id number] 200mg Take 2 capsules by mouth once daily as needed for Constipati on. [facility] ferrous sulfate 325 mg (65 mg iron) tablet 2022-06 00:00: 00 06-10 00:00 :00 No [id number] 325mg Take 1 tablet by mouth in the morning and 1 tablet in the evening. [facility] ibuprofen 600 mg tablet 2022-06 00:00: 00 06-10 00:00 :00 No [id number] 600mg Take 1 tablet by mouth every 6 (six) hours as needed (Pain). Take with food or milk. [facility] gabapentin 300 mg capsule 2022-06 00:00: 00 06-10 00:00 :00 No [id number] 300mg Take 1 capsule by mouth in the morning and 1 capsule at noon and 1 capsule in the evening. [facility] HYDROcodone -acetaminop hen 5-325 mg tablet 2022-06 00:00: 00 05-04 05:59 :00 No [id number] 1{tbl} Take 1 tablet by mouth every 6 (six) hours as needed for Pain (scale 7-10) (Alternate with Ibuprofen) for up to 7 days. Indication s: acute pain [facility] ketorolac (TORADOL) injection 30 mg 2022-06 00:00: 00 04-26 23:59 :00 No 30mg 30 mg, Slow IV Push, Q6H ABX, 4 doses, First dose on Fri04/25/23 at 1800, Last dose on Fri04/26/23 at 1200, Routine [facility] acetaminoph en (TYLENOL) tablet 650 mg 2022-06 18:00: 00 Yes 650mg 650 mg, Oral, Q6H ABX, First dose on Fri04/25/23 at 1200, Until Discontinu ed, Routine [facility] HYDROcodone -acetaminop hen (NORCO 5) 5-325 mg tablet 1 tablet 2022-06 18:00: 00 Yes 1{tbl} 1 tablet, Oral, Q6HPRN, Starting on Fri04/25/23 at 1200, Until Discontinu ed, Routine, Pain (scale 7-10), Alternate with Ibuprofen [facility] gabapentin (NEURONTIN) capsule 300 mg 2022-06 14:00: 00 Yes 300mg 300 mg, Oral, TID, First dose on Fri04/25/23 at 0800, Until Discontinu ed, Routine [facility] sodium chloride 0.9 % irrigation solution 2022-06 06:03: 00 Yes PRN, Starting on Fri04/25/23 at 0003, Until Discontinu ed, Intra-op [facility] lactated ringers IV infusion 1,000 mL 2022-06 04:45: 00 04-25 07:22 :51 No 1000mL at 125 mL/hr, 1,000 mL, IV Infusion, ONCE, 1 dose, On Georgina 04/24/23 at 2245, Routine [facility] rho(D) immune globulin (RHOGAM) syringe 300 mcg 2022-06 04:22: 07 Yes 300ug 300 mcg, Intramuscu lar, ONCE, For 1 dose, Conditiona l, Routine [facility] diphenhydrA MINE (BENADRYL) injection 25 mg 2022-06 04:22: 02 Yes 25mg 25 mg, Slow IV Push, Q6HPRN, Starting on Fri04/24/23 at 2222, Until Discontinu ed, Routine, Itching [facility] diphenhydrA MINE (BENADRYL) tablet 25 mg 2022-06 04:22: 02 Yes 25mg 25 mg, Oral, Q6HPRN, Starting on Fri04/24/23 at 2222, Until Discontinu ed, Routine, Sleep, Itching [facility] ondansetron (ZOFRAN (PF)) injection 4 mg 2022-06 04:22: 02 Yes 4mg 4 mg, Slow IV Push, Q8HPRN, Starting on Fri04/24/23 at 2222, Until Discontinu ed, Routine, Nausea and Vomiting (N/V) [facility] bisacodyL (DULCOLAX) suppository 10 mg 2022-06 04:22: 02 Yes 10mg 10 mg, Rectal, QDAILYPRN, Starting on Fri04/24/23 at 2222, Until Discontinu ed, Routine, Constipati on [facility] simethicone (GAS RELIEF (SIMETHICON E)) chewable tablet 160 mg 2022-06 04:22: 02 Yes 160mg 160 mg, Oral, PC+HSPRN, Starting on Fri04/24/23 at 2222, Until Discontinu ed, Routine, Gas [facility] docusate (COLACE) capsule 200 mg 2022-06 04:22: 02 Yes 200mg 200 mg, Oral, QDAILYPRN, Starting on Fri04/24/23 at 2222, Until Discontinu ed, Routine, Constipati on [facility] magnesium hydroxide (MILK OF MAGNESIA) 400 mg/5 mL suspension 30 mL 2022-06 04:22: 02 Yes 30mL 30 mL, Oral, QDAILYPRN, Starting on Fri04/24/23 at 2222, Until Discontinu ed, Routine, Constipati on [facility] lactated ringers IV infusion 1,000 mL 2022-06 04:22: 02 Yes 1000mL at 125 mL/hr, 1,000 mL, IV Infusion, PRN, 1 dose, Starting on Fri04/24/23 at 2222, Until Discontinu ed, Routine [facility] naloxone (NARCAN) injection 0.2 mg 2022-06 04:12: 00 Yes .2mg 0.2 mg, Intramuscu lar, Q3HPRN, Starting on Fri04/24/23 at 2212, Until Discontinu ed, Routine, Itching [facility] diphenhydrA MINE (BENADRYL) tablet 25 mg 2022-06 04:12: 00 Yes 25mg 25 mg, Oral, Q4HPRN, Starting on Fri04/24/23 at 2212, Until Discontinu ed, Routine, Itching [facility] naloxone (NARCAN) injection 0.4 mg 2022-06 04:12: 00 04-26 16:02 :22 No .4mg 0.4 mg, Slow IV Push, PRN - SEE INSTRUCTIO NS, Starting on Fri04/24/23 at 2212, Until 04/26/23 at 1002, Routine, Analgesia Recovery [facility] diphenhydrA MINE (BENADRYL) injection 25 mg 2022-06 04:12: 00 04-26 04:11 :00 No 25mg 25 mg, Slow IV Push, Q4HPRN, Starting on Fri04/24/23 at 2212, Until Fri04/25/23 at 2211, Routine, Itching [facility] morpHINE PF (DURAMORPH- PF) injection 2022-06 03:38: 00 04-25 03:58 :45 No Epidural, ONCE INTRA PROCEDURE, Starting on Fri04/24/23 at 2138, Until Fri04/24/23 at 2158, Routine, Intra-op [facility] methylergon ovine (METHERGINE ) injection 2022-06 03:08: 00 04-25 03:58 :45 No Intramuscu lar, ONCE INTRA PROCEDURE, Starting on Fri04/24/23 at 2108, Until Georgina 04/24/23 at 2157, Routine, Intra-op [facility] acetaminoph en ADULT (OFIRMEV) injection 2022-06 03:05: 00 04-25 03:58 :45 No IV Infusion, Administer over 15 Minutes, ONCE INTRA PROCEDURE, Starting on Georgina 04/24/23 at 2104, Until Georgina 04/24/23 at 2157, Routine, Intra-op [facility] ondansetron (ZOFRAN (PF)) injection 2022-06 02:59: 00 04-25 03:58 :45 No Slow IV Push, ONCE INTRA PROCEDURE, Starting on Georgina 04/24/23 at 2058, Until Georgina 04/24/23 at 2157, Routine, Intra-op [facility] LR 1000 mL + oxytocin 40 units 40 unit/ 1,000 mL IV Solution 2022-06 02:58: 00 04-25 03:58 :45 No IV Infusion, CONTINUOUS PRN, Starting on Georgina 04/24/23 at 2057, Until Georgina 04/24/23 at 2157, Routine, Intra-op [facility] chloroproca ine (NESACAINE- MPF) 30 mg/mL (3 %) injection 2022-06 02:31: 00 04-25 03:58 :45 No Epidural, ONCE INTRA PROCEDURE, Starting on Georgina 04/24/23 at 2030, Until Georgina 04/24/23 at 2157, Routine, Intra-op [facility] famotidine (PEPCID (PF)) injection 20 mg 2022-06 02:30: 00 04-25 04:22 :06 No 20mg 20 mg, Slow IV Push, Q12H, First dose on Georgina 04/24/23 at 2030, Until Discontinu ed, Routine [facility] mupirocin (BACTROBAN OINT) 2 % skin ointment 2022-06 02:00: 00 04-25 04:22 :06 No [facility] ceFAZolin (ANCEF) 2,000 mg in NaCl 0.9% (NS) 100 mL MINI-BAG 2022-06 01:28: 45 04-25 04:22 :06 No 2000mg 2,000 mg, IV Piggyback, O.R. HOLDING ONCE, Starting on Fri04/24/23 at 1928, Until Fri04/24/23 at 2222, Administer over 30 Minutes, 100 mL
Reas on for Anti-Infec tive: Surgical Prophylaxi s
Surgi miquel Prophylaxi s: DIAMOND MOUNTER
Duration of therapy: within 24 hours of surgery [facility] PIB fentaNYL-ro pivacaine 2 mcg/mL-0.1 % (PF) in NS 200 mL epidural infusion RTU 2022-06 17:18: 00 04-25 03:58 :45 No Epidural, ONCE INTRA PROCEDURE, Starting on Fri04/24/23 at 1118, Until Discontinu ed, Routine, Intra-op [facility] lidocaine-e pinephrine (XYLOCAINE W/EPINEPHRI NE) 1.5 %-1:200,000 injection 2022-06 17:17: 00 04-25 03:58 :45 No Epidural, ONCE INTRA PROCEDURE, Starting on Fri04/24/23 at 1117, Until Discontinu ed, Routine, Intra-op [facility] lidocaine 1% (XYLOCAINE) 100 mg/10 mL (1 %) injection 2022-06 17:12: 00 04-25 03:58 :45 No Infiltrati on, ONCE INTRA PROCEDURE, Starting on Fri04/24/23 at 1112, Until Discontinu ed, Routine, Intra-op [facility] fluconazole (DIFLUCAN) tablet 200 mg 2022-06 04:00: 00 04-25 01:29 :17 No 200mg 200 mg, Oral, DAILY, 7 doses, First dose on Fri04/23/23 at 2200, Last dose on Fri04/29/23 at 0900, MARLY
Re ason for Anti-Infec tive: Documented Infection< br>Documen shamar Infection Site: Other
O ther site: yeast in vagina
Duration of Therapy: Other (see Comments) [facility] lactated ringers IV infusion 500 mL 2022-06 03:00: 00 04-24 16:50 :00 No 500mL at 999 mL/hr, 500 mL, IV Infusion, ONCE, 1 dose, On Fri04/23/23 at 2100, Routine [facility] terbutaline (BRETHINE) injection 0.25 mg 2022-06 02:33: 34 04-25 04:22 :06 No .25mg 0.25 mg, Subcutaneo us, PRN, Starting on Fri04/23/23 at 2032, Until Fri04/24/23 at 222, Routine, feta bradycardi a > 3 min or Cat III strip [facility] FENTanyl PF (SUBLIMAZE (PF)) injection 100 mcg 2022-06 02:33: 02 04-25 04:22 :06 No 100ug 100 mcg, Slow IV Push, Q1HPRN, Starting on Fri04/23/23 at 2032, Until Georgina 04/24/23 at 2222, Routine, contractio n pain without an epidural and SVE < 8 cm and Cat I strip [facility] oxytocin (PITOCIN) 30 units in NS 500 mL IV infusion 2022-06 02:12: 52 04-25 04:22 :06 No 2mU/min at 2-40 mL/hr, IV Infusion, TITRATE, Starting on Fri04/23/23 at 2011, Until Fri04/24/23 at 2222, MARLY [facility] lactated ringers IV infusion 500 mL 2022-06 02:11: 17 04-25 04:22 :06 No 500mL at 999 mL/hr, 500 mL, IV Infusion, PRN - SEE INSTRUCTIO NS, Starting on Fri04/23/23 at 2010, Until Fri04/24/23 at 2222, Routine [facility] tranexamic acid (CYKLOKAPRO N) 1,000 mg in NaCl 0.9% (NS) 250 mL piggyback 2022-06 02:11: 04-25 03:10 :00 No 1000mg 1,000 mg, IV Piggyback, PRN, 1 dose, Starting on Fri04/23/23 at 2010, Until Discontinu ed, Administer over 10 Minutes, 250 mL [facility] carboprost (HEMABATE) injection 250 mcg 2022-06 02:11: 04-25 04:22 :06 No 250ug 250 mcg, Intramuscu lar, Q2HPRN, 8 doses, Starting on Fri04/23/23 at 2010, Until Georgina 04/24/23 at 2222, Routine, PPH [facility] sodium citrate-cit shannon acid (BICITRA) 500-334 mg/5 mL solution 30 mL 2022-06 02:11: 04-25 01:42 :00 No 30mL 30 mL, Oral, PRE-PROCED URE ONCE, 1 dose, Starting on Fri04/23/23 at 2010, Until Discontinu ed, Routine, Surgery/Pr ocedure [facility] D5W-LR IV infusion 1,000 mL 2022-06 02:11: 04-25 04:22 :06 No 1000mL at 1-125 mL/hr, IV Infusion, TITRATE, Starting on Fri04/23/23 at 2010, Until Georgina 04/24/23 at 2222, Routine [facility] fluconazole (DIFLUCAN) 150 mg tablet 2022-06 0-07 00:00: 00 03-16 04:59 :00 No [id number] 150mg Take 1 tablet by mouth once now for 1 dose. [facility] metroNIDAZO LE 500 mg tablet 8-18 00:00: 00 02-09 00:00 :00 No [id number] 500mg Take 1 tablet by mouth in the morning and 1 tablet in the evening. [facility] fluconazole (DIFLUCAN) 150 mg tablet 8-18 00:00: 00 01-25 04:59 :00 No [id number] 150mg Take 1 tablet by mouth once now for 1 dose. [facility] neomycin-po lymyxin-hyd rocortisone 3.5-10,000- 1 mg/mL-unit/ mL-% otic susp 8-03 00:00: 00 01-17 04:59 :00 No [id number] 94927 3[drp] Place 3 Drops in left ear 4 (four) times daily for 7 days. [facility] metroNIDAZO LE 500 mg tablet 12-13 00:00: 00 12-28 04:59 :00 No [id number] 500mg Take 1 tablet by mouth in the morning and 1 tablet in the evening. Do all this for 14 days. [facility] fluconazole (DIFLUCAN) 150 mg tablet 12-13 00:00: 00 12-14 04:59 :00 No [id number] 150mg Take 1 tablet by mouth once now for 1 dose. [facility] metroNIDAZO LE 500 mg tablet 11-13 00:00: 00 11-21 04:59 :00 No [id number] 500mg Take 1 tablet by mouth in the morning and 1 tablet in the evening. Do all this for 7 days. [facility] fluconazole (DIFLUCAN) 150 mg tablet 11-13 00:00: 00 11-14 04:59 :00 No [id number] 150mg Take 1 tablet by mouth once now for 1 dose. [facility] cephALEXin 500 mg capsule 10-20 00:00: 00 10-28 04:59 :00 No [id number] 500mg Take 1 capsule by mouth in the morning and 1 capsule in the evening. Do all this for 7 days. [facility] miconazole kit 10-20 00:00: 00 10-21 04:59 :00 No [id number] 1{each} Insert 1 Each into vagina once now for 1 dose. [facility] (BLOOD PRESSURE CUFF) [facility] 4-05 00:00: 00 Yes [id number] Use as directed [facility] (BLOOD PRESSURE CUFF) [facility] 4-05 00:00: 00 04-26 00:00 :00 No [id number] Use as directed [facility] semaglutide (OZEMPIC) 1 mg/dose (4 mg/3 mL) PnIj 1-27 00:00: 00 09-11 00:00 :00 No 1mg inject 1 mg under the skin. [facility] metformin ER 500 mg 24 hr tablet 8-12 00:00: 00 09-11 00:00 :00 No [facility] Nitrofurant oin&Nit. Macrocryst (MACROBID) 100 mg capsule 100 mg 08-20 05:00: 00 08-20 05:00 :00 No 100mg 100 mg, Oral, ONCE, 1 dose, On 08/20/21 at 0000, Routine
Reason for Anti-Infec tive: Documented Infection< br>Documen shamar Infection Site: Urine
D uration of Therapy: Other (see Comments) [facility] iopamidol (ISOVUE 370-500 mL) injection 100 mL 08-20 03:15: 00 08-20 03:15 :00 No [id number] 100mL 100 mL, Intravenou s, ONCE, 1 dose, On Fri08/19/21 at 2215, Routine [facility] Nitrofurant oin&Nit. Macrocryst (MACROBID) 100 mg capsule 08-19 00:00: 00 09-11 00:00 :00 No [id number] 100mg Take 1 capsule by mouth 2 (two) times daily. [facility] traMADoL (ULTRAM) 50 mg tablet 08-19 00:00: 00 09-11 00:00 :00 No [id number] 50mg Take 1 tablet by mouth every 6 (six) hours as needed for Pain (scale 7-10). Indication s: acute pain [facility] ondansetron (ZOFRAN) 4 mg tablet 08-19 00:00: 00 09-11 00:00 :00 No [id number] 4mg Take 1 tablet by mouth every 8 (eight) hours as needed for Nausea and Vomiting (N/V). [facility] Nitrofurant oin&Nit. Macrocryst (MACROBID) 100 mg capsule 2020-06 00:00: 00 08-19 00:00 :00 No [id number] 100mg Take 1 capsule by mouth 2 (two) times daily. [facility] multivitami n ( VITAMIN) tablet 2020-06 00:00: 00 Yes [id number] 1{tbl} Take 1 tablet by mouth daily. [facility] multivitami n ( VITAMIN) tablet 2020-06 00:00: 00 04-26 00:00 :00 No [id number] 1{tbl} Take 1 tablet by mouth daily. [facility] Immunizations Ordered Immunization Name Filled Immunization Name Date Status Comments Source DTaP, Unspecified Formulation 2023-06-10 10:30:00 Completed [facility] MMR 2023-06-10 10:30:00 Completed [facility] Pneumococcal 7 Conjugate, PCV7 (Prevnar7) 2023-06-10 10:30:00 Completed [facility] IPV 2023-06-10 10:30:00 Completed [facility] Varicella (varivax)(chicken pox) 2023-06-10 10:30:00 Completed [facility] TDAP 2023-06-10 10:30:00 Completed [facility] HPV9 2023-06-10 10:30:00 Completed [facility] HEPATITIS A 2023-06-10 10:30:00 Completed [facility] HPV 2023-06-10 10:30:00 Completed [facility] Meningococcal Polysaccharide (groups A, C, Y and W-135) conjugate vaccine (MCV4P) 2023-06-10 10:30:00 Completed [facility] TDAP 2023-06-03 00:00:00 Completed [facility] HPV9 2023-06-03 00:00:00 Completed [facility] DTaP, Unspecified Formulation 2023-06-03 00:00:00 Completed [facility] HEPATITIS A 2023-06-03 00:00:00 Completed [facility] HPV 2023-06-03 00:00:00 Completed [facility] Meningococcal Polysaccharide (groups A, C, Y and W-135) conjugate vaccine (MCV4P) 2023-06-03 00:00:00 Completed [facility] MMR 2023-06-03 00:00:00 Completed [facility] Pneumococcal 7 Conjugate, PCV7 (Prevnar7) 2023-06-03 00:00:00 Completed [facility] IPV 2023-06-03 00:00:00 Completed [facility] Varicella (varivax)(chicken pox) 2023-06-03 00:00:00 Completed [facility] DTaP, Unspecified Formulation 2023-05-15 12:45:00 Completed [facility] MMR 2023-05-15 12:45:00 Completed [facility] Pneumococcal 7 Conjugate, PCV7 (Prevnar7) 2023-05-15 12:45:00 Completed [facility] IPV 2023-05-15 12:45:00 Completed [facility] Varicella (varivax)(chicken pox) 2023-05-15 12:45:00 Completed [facility] TDAP 2023-05-15 12:45:00 Completed [facility] HPV9 2023-05-15 12:45:00 Completed [facility] HEPATITIS A 2023-05-15 12:45:00 Completed [facility] HPV 2023-05-15 12:45:00 Completed [facility] Meningococcal Polysaccharide (groups A, C, Y and W-135) conjugate vaccine (MCV4P) 2023-05-15 12:45:00 Completed [facility] TDAP 2023-04-30 08:30:00 Completed [facility] HPV9 2023-04-30 08:30:00 Completed [facility] DTaP, Unspecified Formulation 2023-04-30 08:30:00 Completed [facility] HEPATITIS A 2023-04-30 08:30:00 Completed [facility] HPV 2023-04-30 08:30:00 Completed [facility] Meningococcal Polysaccharide (groups A, C, Y and W-135) conjugate vaccine (MCV4P) 2023-04-30 08:30:00 Completed [facility] MMR 2023-04-30 08:30:00 Completed [facility] Pneumococcal 7 Conjugate, PCV7 (Prevnar7) 2023-04-30 08:30:00 Completed [facility] IPV 2023-04-30 08:30:00 Completed [facility] Varicella (varivax)(chicken pox) 2023-04-30 08:30:00 Completed [facility] TDAP 2023-04-28 00:00:00 Completed [facility] HPV9 2023-04-28 00:00:00 Completed [facility] DTaP, Unspecified Formulation 2023-04-28 00:00:00 Completed [facility] HEPATITIS A 2023-04-28 00:00:00 Completed [facility] HPV 2023-04-28 00:00:00 Completed [facility] Meningococcal Polysaccharide (groups A, C, Y and W-135) conjugate vaccine (MCV4P) 2023-04-28 00:00:00 Completed [facility] MMR 2023-04-28 00:00:00 Completed [facility] Pneumococcal 7 Conjugate, PCV7 (Prevnar7) 2023-04-28 00:00:00 Completed [facility] IPV 2023-04-28 00:00:00 Completed [facility] Varicella (varivax)(chicken pox) 2023-04-28 00:00:00 Completed [facility] TDAP 2023-04-27 00:00:00 Completed [facility] HPV9 2023-04-27 00:00:00 Completed [facility] DTaP, Unspecified Formulation 2023-04-27 00:00:00 Completed [facility] HEPATITIS A 2023-04-27 00:00:00 Completed [facility] HPV 2023-04-27 00:00:00 Completed [facility] Meningococcal Polysaccharide (groups A, C, Y and W-135) conjugate vaccine (MCV4P) 2023-04-27 00:00:00 Completed [facility] MMR 2023-04-27 00:00:00 Completed [facility] Pneumococcal 7 Conjugate, PCV7 (Prevnar7) 2023-04-27 00:00:00 Completed [facility] IPV 2023-04-27 00:00:00 Completed [facility] Varicella (varivax)(chicken pox) 2023-04-27 00:00:00 Completed [facility] TDAP 2023-04-26 00:00:00 Completed [facility] HPV9 2023-04-26 00:00:00 Completed [facility] DTaP, Unspecified Formulation 2023-04-26 00:00:00 Completed [facility] HEPATITIS A 2023-04-26 00:00:00 Completed [facility] HPV 2023-04-26 00:00:00 Completed [facility] Meningococcal Polysaccharide (groups A, C, Y and W-135) conjugate vaccine (MCV4P) 2023-04-26 00:00:00 Completed [facility] MMR 2023-04-26 00:00:00 Completed [facility] Pneumococcal 7 Conjugate, PCV7 (Prevnar7) 2023-04-26 00:00:00 Completed [facility] IPV 2023-04-26 00:00:00 Completed [facility] Varicella (varivax)(chicken pox) 2023-04-26 00:00:00 Completed [facility] TDAP 2023-04-25 20:00:51 Completed [facility] HPV9 2023-04-25 20:00:51 Completed [facility] DTaP, Unspecified Formulation 2023-04-25 20:00:51 Completed [facility] HEPATITIS A 2023-04-25 20:00:51 Completed [facility] HPV 2023-04-25 20:00:51 Completed [facility] Meningococcal Polysaccharide (groups A, C, Y and W-135) conjugate vaccine (MCV4P) 2023-04-25 20:00:51 Completed [facility] MMR 2023-04-25 20:00:51 Completed [facility] Pneumococcal 7 Conjugate, PCV7 (Prevnar7) 2023-04-25 20:00:51 Completed [facility] IPV 2023-04-25 20:00:51 Completed [facility] Varicella (varivax)(chicken pox) 2023-04-25 20:00:51 Completed [facility] TDAP 2023-04-24 20:45:00 Completed [facility] HPV9 2023-04-24 20:45:00 Completed [facility] DTaP, Unspecified Formulation 2023-04-24 20:45:00 Completed [facility] HEPATITIS A 2023-04-24 20:45:00 Completed [facility] HPV 2023-04-24 20:45:00 Completed [facility] Meningococcal Polysaccharide (groups A, C, Y and W-135) conjugate vaccine (MCV4P) 2023-04-24 20:45:00 Completed [facility] MMR 2023-04-24 20:45:00 Completed [facility] Pneumococcal 7 Conjugate, PCV7 (Prevnar7) 2023-04-24 20:45:00 Completed [facility] IPV 2023-04-24 20:45:00 Completed [facility] Varicella (varivax)(chicken pox) 2023-04-24 20:45:00 Completed [facility] TDAP 2023-04-24 11:00:00 Completed [facility] HPV9 2023-04-24 11:00:00 Completed [facility] DTaP, Unspecified Formulation 2023-04-24 11:00:00 Completed [facility] HEPATITIS A 2023-04-24 11:00:00 Completed [facility] HPV 2023-04-24 11:00:00 Completed [facility] Meningococcal Polysaccharide (groups A, C, Y and W-135) conjugate vaccine (MCV4P) 2023-04-24 11:00:00 Completed [facility] MMR 2023-04-24 11:00:00 Completed [facility] Pneumococcal 7 Conjugate, PCV7 (Prevnar7) 2023-04-24 11:00:00 Completed [facility] IPV 2023-04-24 11:00:00 Completed [facility] Varicella (varivax)(chicken pox) 2023-04-24 11:00:00 Completed [facility] TDAP 2023-04-23 19:33:00 Completed [facility] HPV9 2023-04-23 19:33:00 Completed [facility] DTaP, Unspecified Formulation 2023-04-23 19:33:00 Completed [facility] HEPATITIS A 2023-04-23 19:33:00 Completed [facility] HPV 2023-04-23 19:33:00 Completed [facility] Meningococcal Polysaccharide (groups A, C, Y and W-135) conjugate vaccine (MCV4P) 2023-04-23 19:33:00 Completed [facility] MMR 2023-04-23 19:33:00 Completed [facility] Pneumococcal 7 Conjugate, PCV7 (Prevnar7) 2023-04-23 19:33:00 Completed [facility] IPV 2023-04-23 19:33:00 Completed [facility] Varicella (varivax)(chicken pox) 2023-04-23 19:33:00 Completed [facility] TDAP 2023-04-23 00:00:00 Completed [facility] HPV9 2023-04-23 00:00:00 Completed [facility] DTaP, Unspecified Formulation 2023-04-23 00:00:00 Completed [facility] HEPATITIS A 2023-04-23 00:00:00 Completed [facility] HPV 2023-04-23 00:00:00 Completed [facility] Meningococcal Polysaccharide (groups A, C, Y and W-135) conjugate vaccine (MCV4P) 2023-04-23 00:00:00 Completed [facility] MMR 2023-04-23 00:00:00 Completed [facility] Pneumococcal 7 Conjugate, PCV7 (Prevnar7) 2023-04-23 00:00:00 Completed [facility] IPV 2023-04-23 00:00:00 Completed [facility] Varicella (varivax)(chicken pox) 2023-04-23 00:00:00 Completed [facility] TDAP 2023-04-16 09:30:00 Completed [facility] HPV9 2023-04-16 09:30:00 Completed [facility] DTaP, Unspecified Formulation 2023-04-16 09:30:00 Completed [facility] HEPATITIS A 2023-04-16 09:30:00 Completed [facility] HPV 2023-04-16 09:30:00 Completed [facility] Meningococcal Polysaccharide (groups A, C, Y and W-135) conjugate vaccine (MCV4P) 2023-04-16 09:30:00 Completed [facility] MMR 2023-04-16 09:30:00 Completed [facility] Pneumococcal 7 Conjugate, PCV7 (Prevnar7) 2023-04-16 09:30:00 Completed [facility] IPV 2023-04-16 09:30:00 Completed [facility] Varicella (varivax)(chicken pox) 2023-04-16 09:30:00 Completed [facility] DTaP, Unspecified Formulation 2023-04-10 10:45:00 Completed [facility] MMR 2023-04-10 10:45:00 Completed [facility] Pneumococcal 7 Conjugate, PCV7 (Prevnar7) 2023-04-10 10:45:00 Completed [facility] IPV 2023-04-10 10:45:00 Completed [facility] Varicella (varivax)(chicken pox) 2023-04-10 10:45:00 Completed [facility] TDAP 2023-04-10 10:45:00 Completed [facility] HPV9 2023-04-10 10:45:00 Completed [facility] HEPATITIS A 2023-04-10 10:45:00 Completed [facility] HPV 2023-04-10 10:45:00 Completed [facility] Meningococcal Polysaccharide (groups A, C, Y and W-135) conjugate vaccine (MCV4P) 2023-04-10 10:45:00 Completed [facility] TDAP 2023-03-27 10:00:00 Completed [facility] HPV9 2023-03-27 10:00:00 Completed [facility] DTaP, Unspecified Formulation 2023-03-27 10:00:00 Completed [facility] HEPATITIS A 2023-03-27 10:00:00 Completed [facility] HPV 2023-03-27 10:00:00 Completed [facility] Meningococcal Polysaccharide (groups A, C, Y and W-135) conjugate vaccine (MCV4P) 2023-03-27 10:00:00 Completed [facility] MMR 2023-03-27 10:00:00 Completed [facility] Pneumococcal 7 Conjugate, PCV7 (Prevnar7) 2023-03-27 10:00:00 Completed [facility] IPV 2023-03-27 10:00:00 Completed [facility] Varicella (varivax)(chicken pox) 2023-03-27 10:00:00 Completed [facility] TDAP 2023-03-15 00:00:00 Completed [facility] HPV9 2023-03-15 00:00:00 Completed [facility] DTaP, Unspecified Formulation 2023-03-15 00:00:00 Completed [facility] HEPATITIS A 2023-03-15 00:00:00 Completed [facility] HPV 2023-03-15 00:00:00 Completed [facility] Meningococcal Polysaccharide (groups A, C, Y and W-135) conjugate vaccine (MCV4P) 2023-03-15 00:00:00 Completed [facility] MMR 2023-03-15 00:00:00 Completed [facility] Pneumococcal 7 Conjugate, PCV7 (Prevnar7) 2023-03-15 00:00:00 Completed [facility] IPV 2023-03-15 00:00:00 Completed [facility] Varicella (varivax)(chicken pox) 2023-03-15 00:00:00 Completed [facility] TDAP 2023-03-13 09:45:00 Completed [facility] HPV9 2023-03-13 09:45:00 Completed [facility] DTaP, Unspecified Formulation 2023-03-13 09:45:00 Completed [facility] HEPATITIS A 2023-03-13 09:45:00 Completed [facility] HPV 2023-03-13 09:45:00 Completed [facility] Meningococcal Polysaccharide (groups A, C, Y and W-135) conjugate vaccine (MCV4P) 2023-03-13 09:45:00 Completed [facility] MMR 2023-03-13 09:45:00 Completed [facility] Pneumococcal 7 Conjugate, PCV7 (Prevnar7) 2023-03-13 09:45:00 Completed [facility] IPV 2023-03-13 09:45:00 Completed [facility] Varicella (varivax)(chicken pox) 2023-03-13 09:45:00 Completed [facility] TDAP 2023-02-28 11:00:00 Completed [facility] HPV9 2023-02-28 11:00:00 Completed [facility] DTaP, Unspecified Formulation 2023-02-28 11:00:00 Completed [facility] HEPATITIS A 2023-02-28 11:00:00 Completed [facility] HPV 2023-02-28 11:00:00 Completed [facility] Meningococcal Polysaccharide (groups A, C, Y and W-135) conjugate vaccine (MCV4P) 2023-02-28 11:00:00 Completed [facility] MMR 2023-02-28 11:00:00 Completed [facility] Pneumococcal 7 Conjugate, PCV7 (Prevnar7) 2023-02-28 11:00:00 Completed [facility] IPV 2023-02-28 11:00:00 Completed [facility] Varicella (varivax)(chicken pox) 2023-02-28 11:00:00 Completed [facility] TDAP 2023-02-07 00:00:00 Completed [facility] TDAP 2023-02-07 00:00:00 Completed [facility] TDAP 2023-01-07 00:00:00 Completed [facility] HPV9 2023-01-07 00:00:00 Completed [facility] DTaP, Unspecified Formulation 2023-01-07 00:00:00 Completed [facility] HEPATITIS A 2023-01-07 00:00:00 Completed [facility] HPV 2023-01-07 00:00:00 Completed [facility] Meningococcal Polysaccharide (groups A, C, Y and W-135) conjugate vaccine (MCV4P) 2023-01-07 00:00:00 Completed [facility] MMR 2023-01-07 00:00:00 Completed [facility] Pneumococcal 7 Conjugate, PCV7 (Prevnar7) 2023-01-07 00:00:00 Completed [facility] IPV 2023-01-07 00:00:00 Completed [facility] Varicella (varivax)(chicken pox) 2023-01-07 00:00:00 Completed [facility] TDAP 2022-12-30 00:00:00 Completed [facility] HPV9 2022-12-30 00:00:00 Completed [facility] DTaP, Unspecified Formulation 2022-12-30 00:00:00 Completed [facility] HEPATITIS A 2022-12-30 00:00:00 Completed [facility] HPV 2022-12-30 00:00:00 Completed [facility] Meningococcal Polysaccharide (groups A, C, Y and W-135) conjugate vaccine (MCV4P) 2022-12-30 00:00:00 Completed [facility] MMR 2022-12-30 00:00:00 Completed [facility] Pneumococcal 7 Conjugate, PCV7 (Prevnar7) 2022-12-30 00:00:00 Completed [facility] IPV 2022-12-30 00:00:00 Completed [facility] Varicella (varivax)(chicken pox) 2022-12-30 00:00:00 Completed [facility] TDAP 2022-10-20 00:00:00 Completed [facility] HPV9 2022-10-20 00:00:00 Completed [facility] DTaP, Unspecified Formulation 2022-10-20 00:00:00 Completed [facility] HEPATITIS A 2022-10-20 00:00:00 Completed [facility] HPV 2022-10-20 00:00:00 Completed [facility] Meningococcal Polysaccharide (groups A, C, Y and W-135) conjugate vaccine (MCV4P) 2022-10-20 00:00:00 Completed [facility] MMR 2022-10-20 00:00:00 Completed [facility] Pneumococcal 7 Conjugate, PCV7 (Prevnar7) 2022-10-20 00:00:00 Completed [facility] IPV 2022-10-20 00:00:00 Completed [facility] Varicella (varivax)(chicken pox) 2022-10-20 00:00:00 Completed [facility] TDAP 2022-09-12 00:00:00 Completed [facility] HPV9 2022-09-12 00:00:00 Completed [facility] DTaP, Unspecified Formulation 2022-09-12 00:00:00 Completed [facility] HEPATITIS A 2022-09-12 00:00:00 Completed [facility] HPV 2022-09-12 00:00:00 Completed [facility] Meningococcal Polysaccharide (groups A, C, Y and W-135) conjugate vaccine (MCV4P) 2022-09-12 00:00:00 Completed [facility] MMR 2022-09-12 00:00:00 Completed [facility] Pneumococcal 7 Conjugate, PCV7 (Prevnar7) 2022-09-12 00:00:00 Completed [facility] IPV 2022-09-12 00:00:00 Completed [facility] Varicella (varivax)(chicken pox) 2022-09-12 00:00:00 Completed [facility] TDAP 2021-08-21 00:00:00 Completed [facility] HPV9 2021-08-21 00:00:00 Completed [facility] DTaP, Unspecified Formulation 2021-08-21 00:00:00 Completed [facility] HEPATITIS A 2021-08-21 00:00:00 Completed [facility] HPV 2021-08-21 00:00:00 Completed [facility] Meningococcal Polysaccharide (groups A, C, Y and W-135) conjugate vaccine (MCV4P) 2021-08-21 00:00:00 Completed [facility] MMR 2021-08-21 00:00:00 Completed [facility] Pneumococcal 7 Conjugate, PCV7 (Prevnar7) 2021-08-21 00:00:00 Completed [facility] IPV 2021-08-21 00:00:00 Completed [facility] Varicella (varivax)(chicken pox) 2021-08-21 00:00:00 Completed [facility] TDAP 2021-06-04 00:00:00 Completed [facility] HPV9 2021-06-04 00:00:00 Completed [facility] DTaP, Unspecified Formulation 2021-06-04 00:00:00 Completed [facility] HEPATITIS A 2021-06-04 00:00:00 Completed [facility] HPV 2021-06-04 00:00:00 Completed [facility] Meningococcal Polysaccharide (groups A, C, Y and W-135) conjugate vaccine (MCV4P) 2021-06-04 00:00:00 Completed [facility] MMR 2021-06-04 00:00:00 Completed [facility] Pneumococcal 7 Conjugate, PCV7 (Prevnar7) 2021-06-04 00:00:00 Completed [facility] IPV 2021-06-04 00:00:00 Completed [facility] Varicella (varivax)(chicken pox) 2021-06-04 00:00:00 Completed [facility] HPV9 2017-12-15 00:00:00 Completed [facility] HPV9 2017-12-15 00:00:00 Completed [facility] HPV9 2017-12-15 00:00:00 Completed [facility] HPV9 2017-12-15 00:00:00 Completed [facility] HPV9 2017-12-15 00:00:00 Completed [facility] HPV9 2017-12-15 00:00:00 Completed [facility] HPV9 2017-12-15 00:00:00 Completed [facility] HPV9 2017-12-15 00:00:00 Completed [facility] HPV9 2017-12-15 00:00:00 Completed [facility] HPV9 2017-12-15 00:00:00 Completed [facility] HPV9 2017-12-15 00:00:00 Completed [facility] HPV9 2017-12-15 00:00:00 Completed [facility] HPV9 2017-12-15 00:00:00 Completed [facility] HPV9 2017-12-15 00:00:00 Completed [facility] HPV9 2017-12-15 00:00:00 Completed [facility] HPV9 2017-12-15 00:00:00 Completed [facility] HPV9 2017-12-15 00:00:00 Completed [facility] HPV9 2017-12-15 00:00:00 Completed HPV9 2017-12-15 00:00:00 Completed [facility] HPV9 2017-12-15 00:00:00 Completed [facility] HPV9 2017-12-15 00:00:00 Completed [facility] HPV9 2017-12-15 00:00:00 Completed [facility] HPV9 2017-12-15 00:00:00 Completed [facility] HPV9 2017-12-15 00:00:00 Completed [facility] HPV9 2017-12-15 00:00:00 Completed [facility] HPV9 2017-12-15 00:00:00 Completed [facility] HPV9 2017-12-15 00:00:00 Completed [facility] HPV9 2017-12-15 00:00:00 Completed [facility] HPV9 2017-12-15 00:00:00 Completed [facility] HPV9 2017-08-15 00:00:00 Completed [facility] HPV9 2017-08-15 00:00:00 Completed [facility] HPV9 2017-08-15 00:00:00 Completed [facility] HPV9 2017-08-15 00:00:00 Completed [facility] HPV9 2017-08-15 00:00:00 Completed [facility] HPV9 2017-08-15 00:00:00 Completed [facility] HPV9 2017-08-15 00:00:00 Completed [facility] HPV9 2017-08-15 00:00:00 Completed [facility] HPV9 2017-08-15 00:00:00 Completed [facility] HPV9 2017-08-15 00:00:00 Completed [facility] HPV9 2017-08-15 00:00:00 Completed [facility] HPV9 2017-08-15 00:00:00 Completed [facility] HPV9 2017-08-15 00:00:00 Completed [facility] HPV9 2017-08-15 00:00:00 Completed [facility] HPV9 2017-08-15 00:00:00 Completed [facility] HPV9 2017-08-15 00:00:00 Completed [facility] HPV9 2017-08-15 00:00:00 Completed [facility] HPV9 2017-08-15 00:00:00 Completed [facility] HPV9 2017-08-15 00:00:00 Completed [facility] HPV9 2017-08-15 00:00:00 Completed [facility] HPV9 2017-08-15 00:00:00 Completed [facility] HPV9 2017-08-15 00:00:00 Completed [facility] HPV9 2017-08-15 00:00:00 Completed [facility] HPV9 2017-08-15 00:00:00 Completed [facility] HPV9 2017-08-15 00:00:00 Completed [facility] HPV9 2017-08-15 00:00:00 Completed [facility] HPV9 2017-08-15 00:00:00 Completed [facility] HPV9 2017-08-15 00:00:00 Completed [facility] HPV9 2017-08-15 00:00:00 Completed [facility] HPV9 2017-05-23 00:00:00 Completed [facility] HPV9 2017-05-23 00:00:00 Completed [facility] HPV9 2017-05-23 00:00:00 Completed [facility] HPV9 2017-05-23 00:00:00 Completed [facility] HPV9 2017-05-23 00:00:00 Completed [facility] HPV9 2017-05-23 00:00:00 Completed [facility] HPV9 2017-05-23 00:00:00 Completed [facility] HPV9 2017-05-23 00:00:00 Completed [facility] HPV9 2017-05-23 00:00:00 Completed [facility] HPV9 2017-05-23 00:00:00 Completed [facility] HPV9 2017-05-23 00:00:00 Completed [facility] HPV9 2017-05-23 00:00:00 Completed [facility] HPV9 2017-05-23 00:00:00 Completed [facility] HPV9 2017-05-23 00:00:00 Completed [facility] HPV9 2017-05-23 00:00:00 Completed [facility] HPV9 2017-05-23 00:00:00 Completed [facility] HPV9 2017-05-23 00:00:00 Completed [facility] HPV9 2017-05-23 00:00:00 Completed [facility] HPV9 2017-05-23 00:00:00 Completed [facility] HPV9 2017-05-23 00:00:00 Completed [facility] HPV9 2017-05-23 00:00:00 Completed [facility] HPV9 2017-05-23 00:00:00 Completed [facility] HPV9 2017-05-23 00:00:00 Completed [facility] HPV9 2017-05-23 00:00:00 Completed [facility] HPV9 2017-05-23 00:00:00 Completed [facility] HPV9 2017-05-23 00:00:00 Completed [facility] HPV9 2017-05-23 00:00:00 Completed [facility] HPV9 2017-05-23 00:00:00 Completed [facility] TDAP 2017-02-07 00:00:00 Completed [facility] TDAP 2017-02-07 00:00:00 Completed [facility] TDAP 2017-02-07 00:00:00 Completed [facility] TDAP 2017-02-07 00:00:00 Completed [facility] TDAP 2017-02-07 00:00:00 Completed [facility] TDAP 2017-02-07 00:00:00 Completed [facility] TDAP 2017-02-07 00:00:00 Completed [facility] TDAP 2017-02-07 00:00:00 Completed [facility] TDAP 2017-02-07 00:00:00 Completed [facility] TDAP 2017-02-07 00:00:00 Completed [facility] TDAP 2017-02-07 00:00:00 Completed [facility] TDAP 2017-02-07 00:00:00 Completed [facility] TDAP 2017-02-07 00:00:00 Completed [facility] TDAP 2017-02-07 00:00:00 Completed [facility] TDAP 2017-02-07 00:00:00 Completed [facility] TDAP 2017-02-07 00:00:00 Completed [facility] TDAP 2017-02-07 00:00:00 Completed [facility] TDAP 2017-02-07 00:00:00 Completed [facility] TDAP 2017-02-07 00:00:00 Completed [facility] TDAP 2017-02-07 00:00:00 Completed [facility] TDAP 2017-02-07 00:00:00 Completed [facility] TDAP 2017-02-07 00:00:00 Completed [facility] TDAP 2017-02-07 00:00:00 Completed [facility] TDAP 2017-02-07 00:00:00 Completed [facility] TDAP 2017-02-07 00:00:00 Completed [facility] TDAP 2017-02-07 00:00:00 Completed [facility] TDAP 2017-02-07 00:00:00 Completed [facility] TDAP 2017-02-07 00:00:00 Completed [facility] Meningococcal Polysaccharide (groups A, C, Y and W-135) conjugate vaccine (MCV4P) 2015-09-29 00:00:00 Completed [facility] Meningococcal Polysaccharide (groups A, C, Y and W-135) conjugate vaccine (MCV4P) 2015-09-29 00:00:00 Completed [facility] Meningococcal Polysaccharide (groups A, C, Y and W-135) conjugate vaccine (MCV4P) 2015-09-29 00:00:00 Completed [facility] Meningococcal Polysaccharide (groups A, C, Y and W-135) conjugate vaccine (MCV4P) 2015-09-29 00:00:00 Completed [facility] Meningococcal Polysaccharide (groups A, C, Y and W-135) conjugate vaccine (MCV4P) 2015-09-29 00:00:00 Completed [facility] Meningococcal Polysaccharide (groups A, C, Y and W-135) conjugate vaccine (MCV4P) 2015-09-29 00:00:00 Completed [facility] Meningococcal Polysaccharide (groups A, C, Y and W-135) conjugate vaccine (MCV4P) 2015-09-29 00:00:00 Completed [facility] Meningococcal Polysaccharide (groups A, C, Y and W-135) conjugate vaccine (MCV4P) 2015-09-29 00:00:00 Completed [facility] Meningococcal Polysaccharide (groups A, C, Y and W-135) conjugate vaccine (MCV4P) 2015-09-29 00:00:00 Completed [facility] Meningococcal Polysaccharide (groups A, C, Y and W-135) conjugate vaccine (MCV4P) 2015-09-29 00:00:00 Completed [facility] Meningococcal Polysaccharide (groups A, C, Y and W-135) conjugate vaccine (MCV4P) 2015-09-29 00:00:00 Completed [facility] Meningococcal Polysaccharide (groups A, C, Y and W-135) conjugate vaccine (MCV4P) 2015-09-29 00:00:00 Completed [facility] Meningococcal Polysaccharide (groups A, C, Y and W-135) conjugate vaccine (MCV4P) 2015-09-29 00:00:00 Completed [facility] Meningococcal Polysaccharide (groups A, C, Y and W-135) conjugate vaccine (MCV4P) 2015-09-29 00:00:00 Completed [facility] Meningococcal Polysaccharide (groups A, C, Y and W-135) conjugate vaccine (MCV4P) 2015-09-29 00:00:00 Completed [facility] Meningococcal Polysaccharide (groups A, C, Y and W-135) conjugate vaccine (MCV4P) 2015-09-29 00:00:00 Completed [facility] Meningococcal Polysaccharide (groups A, C, Y and W-135) conjugate vaccine (MCV4P) 2015-09-29 00:00:00 Completed [facility] Meningococcal Polysaccharide (groups A, C, Y and W-135) conjugate vaccine (MCV4P) 2015-09-29 00:00:00 Completed Meningococcal Polysaccharide (groups A, C, Y and W-135) conjugate vaccine (MCV4P) 2015-09-29 00:00:00 Completed [facility] Meningococcal Polysaccharide (groups A, C, Y and W-135) conjugate vaccine (MCV4P) 2015-09-29 00:00:00 Completed [facility] Meningococcal Polysaccharide (groups A, C, Y and W-135) conjugate vaccine (MCV4P) 2015-09-29 00:00:00 Completed [facility] Meningococcal Polysaccharide (groups A, C, Y and W-135) conjugate vaccine (MCV4P) 2015-09-29 00:00:00 Completed [facility] Meningococcal Polysaccharide (groups A, C, Y and W-135) conjugate vaccine (MCV4P) 2015-09-29 00:00:00 Completed [facility] Meningococcal Polysaccharide (groups A, C, Y and W-135) conjugate vaccine (MCV4P) 2015-09-29 00:00:00 Completed [facility] Meningococcal Polysaccharide (groups A, C, Y and W-135) conjugate vaccine (MCV4P) 2015-01-25 00:00:00 Completed [facility] Meningococcal Polysaccharide (groups A, C, Y and W-135) conjugate vaccine (MCV4P) 2015-01-25 00:00:00 Completed [facility] Meningococcal Polysaccharide (groups A, C, Y and W-135) conjugate vaccine (MCV4P) 2015-01-25 00:00:00 Completed [facility] Meningococcal Polysaccharide (groups A, C, Y and W-135) conjugate vaccine (MCV4P) 2015-01-25 00:00:00 Completed [facility] Meningococcal Polysaccharide (groups A, C, Y and W-135) conjugate vaccine (MCV4P) 2015-01-25 00:00:00 Completed [facility] Meningococcal Polysaccharide (groups A, C, Y and W-135) conjugate vaccine (MCV4P) 2015-01-25 00:00:00 Completed [facility] Meningococcal Polysaccharide (groups A, C, Y and W-135) conjugate vaccine (MCV4P) 2015-01-25 00:00:00 Completed [facility] Meningococcal Polysaccharide (groups A, C, Y and W-135) conjugate vaccine (MCV4P) 2015-01-25 00:00:00 Completed [facility] Meningococcal Polysaccharide (groups A, C, Y and W-135) conjugate vaccine (MCV4P) 2015-01-25 00:00:00 Completed [facility] Meningococcal Polysaccharide (groups A, C, Y and W-135) conjugate vaccine (MCV4P) 2015-01-25 00:00:00 Completed [facility] Meningococcal Polysaccharide (groups A, C, Y and W-135) conjugate vaccine (MCV4P) 2015-01-25 00:00:00 Completed [facility] Meningococcal Polysaccharide (groups A, C, Y and W-135) conjugate vaccine (MCV4P) 2015-01-25 00:00:00 Completed [facility] Meningococcal Polysaccharide (groups A, C, Y and W-135) conjugate vaccine (MCV4P) 2015-01-25 00:00:00 Completed [facility] Meningococcal Polysaccharide (groups A, C, Y and W-135) conjugate vaccine (MCV4P) 2015-01-25 00:00:00 Completed [facility] Meningococcal Polysaccharide (groups A, C, Y and W-135) conjugate vaccine (MCV4P) 2015-01-25 00:00:00 Completed [facility] Meningococcal Polysaccharide (groups A, C, Y and W-135) conjugate vaccine (MCV4P) 2015-01-25 00:00:00 Completed [facility] Meningococcal Polysaccharide (groups A, C, Y and W-135) conjugate vaccine (MCV4P) 2015-01-25 00:00:00 Completed [facility] Meningococcal Polysaccharide (groups A, C, Y and W-135) conjugate vaccine (MCV4P) 2015-01-25 00:00:00 Completed [facility] Meningococcal Polysaccharide (groups A, C, Y and W-135) conjugate vaccine (MCV4P) 2015-01-25 00:00:00 Completed [facility] Meningococcal Polysaccharide (groups A, C, Y and W-135) conjugate vaccine (MCV4P) 2015-01-25 00:00:00 Completed [facility] Meningococcal Polysaccharide (groups A, C, Y and W-135) conjugate vaccine (MCV4P) 2015-01-25 00:00:00 Completed [facility] Meningococcal Polysaccharide (groups A, C, Y and W-135) conjugate vaccine (MCV4P) 2015-01-25 00:00:00 Completed [facility] Meningococcal Polysaccharide (groups A, C, Y and W-135) conjugate vaccine (MCV4P) 2015-01-25 00:00:00 Completed [facility] HPV 2014-01-10 00:00:00 Completed [facility] HPV 2014-01-10 00:00:00 Completed [facility] HPV 2014-01-10 00:00:00 Completed [facility] HPV 2014-01-10 00:00:00 Completed [facility] HPV 2014-01-10 00:00:00 Completed [facility] HPV 2014-01-10 00:00:00 Completed [facility] HPV 2014-01-10 00:00:00 Completed [facility] HPV 2014-01-10 00:00:00 Completed [facility] HPV 2014-01-10 00:00:00 Completed [facility] HPV 2014-01-10 00:00:00 Completed [facility] HPV 2014-01-10 00:00:00 Completed [facility] HPV 2014-01-10 00:00:00 Completed [facility] HPV 2014-01-10 00:00:00 Completed [facility] HPV 2014-01-10 00:00:00 Completed [facility] HPV 2014-01-10 00:00:00 Completed [facility] HPV 2014-01-10 00:00:00 Completed [facility] HPV 2014-01-10 00:00:00 Completed [facility] HPV 2014-01-10 00:00:00 Completed HPV 2014-01-10 00:00:00 Completed [facility] HPV 2014-01-10 00:00:00 Completed [facility] HPV 2014-01-10 00:00:00 Completed [facility] HPV 2014-01-10 00:00:00 Completed [facility] HPV 2014-01-10 00:00:00 Completed [facility] HPV 2014-01-10 00:00:00 Completed [facility] HEPATITIS A 2013-01-11 00:00:00 Completed [facility] HPV 2013-01-11 00:00:00 Completed [facility] HEPATITIS A 2013-01-11 00:00:00 Completed [facility] HPV 2013-01-11 00:00:00 Completed [facility] HEPATITIS A 2013-01-11 00:00:00 Completed [facility] HPV 2013-01-11 00:00:00 Completed [facility] HEPATITIS A 2013-01-11 00:00:00 Completed [facility] HPV 2013-01-11 00:00:00 Completed [facility] HEPATITIS A 2013-01-11 00:00:00 Completed [facility] HPV 2013-01-11 00:00:00 Completed [facility] HEPATITIS A 2013-01-11 00:00:00 Completed [facility] HPV 2013-01-11 00:00:00 Completed [facility] HEPATITIS A 2013-01-11 00:00:00 Completed [facility] HPV 2013-01-11 00:00:00 Completed [facility] HEPATITIS A 2013-01-11 00:00:00 Completed [facility] HPV 2013-01-11 00:00:00 Completed [facility] HEPATITIS A 2013-01-11 00:00:00 Completed [facility] HPV 2013-01-11 00:00:00 Completed [facility] HEPATITIS A 2013-01-11 00:00:00 Completed [facility] HPV 2013-01-11 00:00:00 Completed [facility] HEPATITIS A 2013-01-11 00:00:00 Completed [facility] HPV 2013-01-11 00:00:00 Completed [facility] HEPATITIS A 2013-01-11 00:00:00 Completed [facility] HPV 2013-01-11 00:00:00 Completed [facility] HEPATITIS A 2013-01-11 00:00:00 Completed [facility] HPV 2013-01-11 00:00:00 Completed [facility] HEPATITIS A 2013-01-11 00:00:00 Completed [facility] HPV 2013-01-11 00:00:00 Completed [facility] HEPATITIS A 2013-01-11 00:00:00 Completed [facility] HPV 2013-01-11 00:00:00 Completed [facility] HEPATITIS A 2013-01-11 00:00:00 Completed [facility] HPV 2013-01-11 00:00:00 Completed [facility] HEPATITIS A 2013-01-11 00:00:00 Completed [facility] HPV 2013-01-11 00:00:00 Completed [facility] HEPATITIS A 2013-01-11 00:00:00 Completed HPV 2013-01-11 00:00:00 Completed HEPATITIS A 2013-01-11 00:00:00 Completed [facility] HPV 2013-01-11 00:00:00 Completed [facility] HEPATITIS A 2013-01-11 00:00:00 Completed [facility] HPV 2013-01-11 00:00:00 Completed [facility] HEPATITIS A 2013-01-11 00:00:00 Completed [facility] HPV 2013-01-11 00:00:00 Completed [facility] HEPATITIS A 2013-01-11 00:00:00 Completed [facility] HPV 2013-01-11 00:00:00 Completed [facility] HEPATITIS A 2013-01-11 00:00:00 Completed [facility] HPV 2013-01-11 00:00:00 Completed [facility] HEPATITIS A 2013-01-11 00:00:00 Completed [facility] HPV 2013-01-11 00:00:00 Completed [facility] HEPATITIS A 2012-01-10 00:00:00 Completed [facility] HPV 2012-01-10 00:00:00 Completed [facility] HEPATITIS A 2012-01-10 00:00:00 Completed [facility] HPV 2012-01-10 00:00:00 Completed [facility] HEPATITIS A 2012-01-10 00:00:00 Completed [facility] HPV 2012-01-10 00:00:00 Completed [facility] HEPATITIS A 2012-01-10 00:00:00 [facility] [facility] HPV 2012-01-10 00:00:00 Completed [facility] HEPATITIS A 2012-01-10 00:00:00 Completed [facility] HPV 2012-01-10 00:00:00 Completed [facility] HEPATITIS A 2012-01-10 00:00:00 Completed [facility] HPV 2012-01-10 00:00:00 Completed [facility] HEPATITIS A 2012-01-10 00:00:00 Completed [facility] HPV 2012-01-10 00:00:00 Completed [facility] HEPATITIS A 2012-01-10 00:00:00 Completed [facility] HPV 2012-01-10 00:00:00 Completed [facility] HEPATITIS A 2012-01-10 00:00:00 Completed [facility] HPV 2012-01-10 00:00:00 Completed [facility] HEPATITIS A 2012-01-10 00:00:00 Completed [facility] HPV 2012-01-10 00:00:00 Completed [facility] HEPATITIS A 2012-01-10 00:00:00 Completed [facility] HPV 2012-01-10 00:00:00 Completed [facility] HEPATITIS A 2012-01-10 00:00:00 Completed [facility] HPV 2012-01-10 00:00:00 Completed [facility] HEPATITIS A 2012-01-10 00:00:00 Completed [facility] HPV 2012-01-10 00:00:00 Completed [facility] HEPATITIS A 2012-01-10 00:00:00 Completed [facility] HPV 2012-01-10 00:00:00 Completed [facility] HEPATITIS A 2012-01-10 00:00:00 Completed [facility] HPV 2012-01-10 00:00:00 Completed [facility] HEPATITIS A 2012-01-10 00:00:00 Completed [facility] HPV 2012-01-10 00:00:00 Completed [facility] HEPATITIS A 2012-01-10 00:00:00 Completed [facility] HPV 2012-01-10 00:00:00 Completed [facility] HEPATITIS A 2012-01-10 00:00:00 Completed [facility] HPV 2012-01-10 00:00:00 Completed [facility] HEPATITIS A 2012-01-10 00:00:00 Completed [facility] HPV 2012-01-10 00:00:00 Completed [facility] HEPATITIS A 2012-01-10 00:00:00 Completed [facility] HPV 2012-01-10 00:00:00 Completed [facility] HEPATITIS A 2012-01-10 00:00:00 Completed [facility] HPV 2012-01-10 00:00:00 Completed [facility] HEPATITIS A 2012-01-10 00:00:00 Completed [facility] HPV 2012-01-10 00:00:00 Completed [facility] HEPATITIS A 2012-01-10 00:00:00 Completed [facility] HPV 2012-01-10 00:00:00 Completed [facility] Varicella (varivax)(chicken pox) 2011-10-10 00:00:00 Completed [facility] Varicella (varivax)(chicken pox) 2011-10-10 00:00:00 Completed [facility] Varicella (varivax)(chicken pox) 2011-10-10 00:00:00 Completed [facility] Varicella (varivax)(chicken pox) 2011-10-10 00:00:00 Completed [facility] Varicella (varivax)(chicken pox) 2011-10-10 00:00:00 Completed [facility] Varicella (varivax)(chicken pox) 2011-10-10 00:00:00 Completed [facility] Varicella (varivax)(chicken pox) 2011-10-10 00:00:00 Completed [facility] Varicella (varivax)(chicken pox) 2011-10-10 00:00:00 Completed [facility] Varicella (varivax)(chicken pox) 2011-10-10 00:00:00 Completed [facility] Varicella (varivax)(chicken pox) 2011-10-10 00:00:00 Completed [facility] Varicella (varivax)(chicken pox) 2011-10-10 00:00:00 Completed [facility] Varicella (varivax)(chicken pox) 2011-10-10 00:00:00 Completed [facility] Varicella (varivax)(chicken pox) 2011-10-10 00:00:00 Completed [facility] Varicella (varivax)(chicken pox) 2011-10-10 00:00:00 Completed [facility] Varicella (varivax)(chicken pox) 2011-10-10 00:00:00 Completed [facility] Varicella (varivax)(chicken pox) 2011-10-10 00:00:00 Completed [facility] Varicella (varivax)(chicken pox) 2011-10-10 00:00:00 Completed [facility] Varicella (varivax)(chicken pox) 2011-10-10 00:00:00 Completed [facility] Varicella (varivax)(chicken pox) 2011-10-10 00:00:00 Completed [facility] Varicella (varivax)(chicken pox) 2011-10-10 00:00:00 Completed [facility] Varicella (varivax)(chicken pox) 2011-10-10 00:00:00 Completed [facility] Varicella (varivax)(chicken pox) 2011-10-10 00:00:00 Completed [facility] Varicella (varivax)(chicken pox) 2011-10-10 00:00:00 Completed [facility] Meningococcal Polysaccharide (groups A, C, Y and W-135) conjugate vaccine (MCV4P) 2010-01-26 00:00:00 Completed [facility] TDAP 2010-01-26 00:00:00 Completed [facility] Meningococcal Polysaccharide (groups A, C, Y and W-135) conjugate vaccine (MCV4P) 2010-01-26 00:00:00 Completed [facility] TDAP 2010-01-26 00:00:00 Completed [facility] Meningococcal Polysaccharide (groups A, C, Y and W-135) conjugate vaccine (MCV4P) 2010-01-26 00:00:00 Completed [facility] TDAP 2010-01-26 00:00:00 Completed [facility] Meningococcal Polysaccharide (groups A, C, Y and W-135) conjugate vaccine (MCV4P) 2010-01-26 00:00:00 Completed [facility] TDAP 2010-01-26 00:00:00 Completed [facility] Meningococcal Polysaccharide (groups A, C, Y and W-135) conjugate vaccine (MCV4P) 2010-01-26 00:00:00 Completed [facility] TDAP 2010-01-26 00:00:00 Completed [facility] Meningococcal Polysaccharide (groups A, C, Y and W-135) conjugate vaccine (MCV4P) 2010-01-26 00:00:00 Completed [facility] TDAP 2010-01-26 00:00:00 Completed [facility] Meningococcal Polysaccharide (groups A, C, Y and W-135) conjugate vaccine (MCV4P) 2010-01-26 00:00:00 Completed [facility] TDAP 2010-01-26 00:00:00 Completed [facility] Meningococcal Polysaccharide (groups A, C, Y and W-135) conjugate vaccine (MCV4P) 2010-01-26 00:00:00 Completed [facility] TDAP 2010-01-26 00:00:00 Completed [facility] Meningococcal Polysaccharide (groups A, C, Y and W-135) conjugate vaccine (MCV4P) 2010-01-26 00:00:00 Completed [facility] TDAP 2010-01-26 00:00:00 Completed [facility] Meningococcal Polysaccharide (groups A, C, Y and W-135) conjugate vaccine (MCV4P) 2010-01-26 00:00:00 Completed [facility] TDAP 2010-01-26 00:00:00 Completed [facility] Meningococcal Polysaccharide (groups A, C, Y and W-135) conjugate vaccine (MCV4P) 2010-01-26 00:00:00 Completed [facility] TDAP 2010-01-26 00:00:00 Completed [facility] Meningococcal Polysaccharide (groups A, C, Y and W-135) conjugate vaccine (MCV4P) 2010-01-26 00:00:00 Completed [facility] TDAP 2010-01-26 00:00:00 Completed [facility] Meningococcal Polysaccharide (groups A, C, Y and W-135) conjugate vaccine (MCV4P) 2010-01-26 00:00:00 Completed [facility] TDAP 2010-01-26 00:00:00 Completed [facility] Meningococcal Polysaccharide (groups A, C, Y and W-135) conjugate vaccine (MCV4P) 2010-01-26 00:00:00 Completed [facility] TDAP 2010-01-26 00:00:00 Completed [facility] Meningococcal Polysaccharide (groups A, C, Y and W-135) conjugate vaccine (MCV4P) 2010-01-26 00:00:00 Completed [facility] TDAP 2010-01-26 00:00:00 Completed [facility] Meningococcal Polysaccharide (groups A, C, Y and W-135) conjugate vaccine (MCV4P) 2010-01-26 00:00:00 Completed [facility] TDAP 2010-01-26 00:00:00 Completed [facility] Meningococcal Polysaccharide (groups A, C, Y and W-135) conjugate vaccine (MCV4P) 2010-01-26 00:00:00 Completed [facility] TDAP 2010-01-26 00:00:00 Completed [facility] Meningococcal Polysaccharide (groups A, C, Y and W-135) conjugate vaccine (MCV4P) 2010-01-26 00:00:00 Completed TDAP 2010-01-26 00:00:00 Completed Meningococcal Polysaccharide (groups A, C, Y and W-135) conjugate vaccine (MCV4P) 2010-01-26 00:00:00 Completed [facility] TDAP 2010-01-26 00:00:00 Completed [facility] Meningococcal Polysaccharide (groups A, C, Y and W-135) conjugate vaccine (MCV4P) 2010-01-26 00:00:00 Completed [facility] TDAP 2010-01-26 00:00:00 Completed [facility] Meningococcal Polysaccharide (groups A, C, Y and W-135) conjugate vaccine (MCV4P) 2010-01-26 00:00:00 Completed [facility] TDAP 2010-01-26 00:00:00 Completed [facility] Meningococcal Polysaccharide (groups A, C, Y and W-135) conjugate vaccine (MCV4P) 2010-01-26 00:00:00 Completed [facility] TDAP 2010-01-26 00:00:00 Completed [facility] Meningococcal Polysaccharide (groups A, C, Y and W-135) conjugate vaccine (MCV4P) 2010-01-26 00:00:00 Completed [facility] TDAP 2010-01-26 00:00:00 Completed [facility] Meningococcal Polysaccharide (groups A, C, Y and W-135) conjugate vaccine (MCV4P) 2010-01-26 00:00:00 Completed [facility] TDAP 2010-01-26 00:00:00 Completed [facility] DTaP, Unspecified Formulation 2003-01-17 00:00:00 Completed [facility] MMR 2003-01-17 00:00:00 Completed [facility] Pneumococcal 7 Conjugate, PCV7 (Prevnar7) 2003-01-17 00:00:00 Completed [facility] IPV 2003-01-17 00:00:00 Completed [facility] DTaP, Unspecified Formulation 2003-01-17 00:00:00 Completed [facility] MMR 2003-01-17 00:00:00 Completed [facility] Pneumococcal 7 Conjugate, PCV7 (Prevnar7) 2003-01-17 00:00:00 Completed [facility] IPV 2003-01-17 00:00:00 Completed [facility] DTaP, Unspecified Formulation 2003-01-17 00:00:00 Completed [facility] MMR 2003-01-17 00:00:00 Completed [facility] Pneumococcal 7 Conjugate, PCV7 (Prevnar7) 2003-01-17 00:00:00 Completed [facility] IPV 2003-01-17 00:00:00 Completed [facility] DTaP, Unspecified Formulation 2003-01-17 00:00:00 Completed [facility] MMR 2003-01-17 00:00:00 Completed [facility] Pneumococcal 7 Conjugate, PCV7 (Prevnar7) 2003-01-17 00:00:00 Completed [facility] IPV 2003-01-17 00:00:00 Completed [facility] DTaP, Unspecified Formulation 2003-01-17 00:00:00 Completed [facility] MMR 2003-01-17 00:00:00 Completed [facility] Pneumococcal 7 Conjugate, PCV7 (Prevnar7) 2003-01-17 00:00:00 Completed [facility] IPV 2003-01-17 00:00:00 Completed [facility] DTaP, Unspecified Formulation 2003-01-17 00:00:00 Completed [facility] MMR 2003-01-17 00:00:00 Completed [facility] Pneumococcal 7 Conjugate, PCV7 (Prevnar7) 2003-01-17 00:00:00 Completed [facility] IPV 2003-01-17 00:00:00 Completed [facility] DTaP, Unspecified Formulation 2003-01-17 00:00:00 Completed [facility] MMR 2003-01-17 00:00:00 Completed [facility] Pneumococcal 7 Conjugate, PCV7 (Prevnar7) 2003-01-17 00:00:00 Completed [facility] IPV 2003-01-17 00:00:00 Completed [facility] DTaP, Unspecified Formulation 2003-01-17 00:00:00 Completed [facility] MMR 2003-01-17 00:00:00 Completed [facility] Pneumococcal 7 Conjugate, PCV7 (Prevnar7) 2003-01-17 00:00:00 Completed [facility] IPV 2003-01-17 00:00:00 Completed [facility] DTaP, Unspecified Formulation 2003-01-17 00:00:00 Completed [facility] MMR 2003-01-17 00:00:00 Completed [facility] Pneumococcal 7 Conjugate, PCV7 (Prevnar7) 2003-01-17 00:00:00 Completed [facility] IPV 2003-01-17 00:00:00 Completed [facility] DTaP, Unspecified Formulation 2003-01-17 00:00:00 Completed [facility] MMR 2003-01-17 00:00:00 Completed [facility] Pneumococcal 7 Conjugate, PCV7 (Prevnar7) 2003-01-17 00:00:00 Completed [facility] IPV 2003-01-17 00:00:00 Completed [facility] DTaP, Unspecified Formulation 2003-01-17 00:00:00 Completed [facility] MMR 2003-01-17 00:00:00 Completed [facility] Pneumococcal 7 Conjugate, PCV7 (Prevnar7) 2003-01-17 00:00:00 Completed [facility] IPV 2003-01-17 00:00:00 Completed [facility] DTaP, Unspecified Formulation 2003-01-17 00:00:00 Completed [facility] MMR 2003-01-17 00:00:00 Completed [facility] Pneumococcal 7 Conjugate, PCV7 (Prevnar7) 2003-01-17 00:00:00 Completed [facility] IPV 2003-01-17 00:00:00 Completed [facility] DTaP, Unspecified Formulation 2003-01-17 00:00:00 Completed [facility] MMR 2003-01-17 00:00:00 Completed [facility] Pneumococcal 7 Conjugate, PCV7 (Prevnar7) 2003-01-17 00:00:00 Completed [facility] IPV 2003-01-17 00:00:00 Completed [facility] DTaP, Unspecified Formulation 2003-01-17 00:00:00 Completed [facility] MMR 2003-01-17 00:00:00 Completed [facility] Pneumococcal 7 Conjugate, PCV7 (Prevnar7) 2003-01-17 00:00:00 Completed [facility] IPV 2003-01-17 00:00:00 Completed [facility] DTaP, Unspecified Formulation 2003-01-17 00:00:00 Completed [facility] MMR 2003-01-17 00:00:00 Completed [facility] Pneumococcal 7 Conjugate, PCV7 (Prevnar7) 2003-01-17 00:00:00 Completed [facility] IPV 2003-01-17 00:00:00 Completed [facility] DTaP, Unspecified Formulation 2003-01-17 00:00:00 Completed [facility] MMR 2003-01-17 00:00:00 Completed [facility] Pneumococcal 7 Conjugate, PCV7 (Prevnar7) 2003-01-17 00:00:00 Completed [facility] IPV 2003-01-17 00:00:00 Completed [facility] DTaP, Unspecified Formulation 2003-01-17 00:00:00 Completed [facility] MMR 2003-01-17 00:00:00 Completed [facility] Pneumococcal 7 Conjugate, PCV7 (Prevnar7) 2003-01-17 00:00:00 Completed [facility] IPV 2003-01-17 00:00:00 Completed [facility] DTaP, Unspecified Formulation 2003-01-17 00:00:00 Completed [facility] DTaP, Unspecified Formulation 2003-01-17 00:00:00 Completed [facility] MMR 2003-01-17 00:00:00 Completed [facility] Pneumococcal 7 Conjugate, PCV7 (Prevnar7) 2003-01-17 00:00:00 Completed [facility] IPV 2003-01-17 00:00:00 Completed [facility] DTaP, Unspecified Formulation 2003-01-17 00:00:00 Completed [facility] MMR 2003-01-17 00:00:00 Completed [facility] Pneumococcal 7 Conjugate, PCV7 (Prevnar7) 2003-01-17 00:00:00 Completed [facility] IPV 2003-01-17 00:00:00 Completed [facility] DTaP, Unspecified Formulation 2003-01-17 00:00:00 Completed [facility] MMR 2003-01-17 00:00:00 Completed [facility] Pneumococcal 7 Conjugate, PCV7 (Prevnar7) 2003-01-17 00:00:00 Completed [facility] IPV 2003-01-17 00:00:00 Completed [facility] DTaP, Unspecified Formulation 2003-01-17 00:00:00 Completed [facility] MMR 2003-01-17 00:00:00 Completed [facility] Pneumococcal 7 Conjugate, PCV7 (Prevnar7) 2003-01-17 00:00:00 Completed [facility] IPV 2003-01-17 00:00:00 Completed [facility] DTaP, Unspecified Formulation 2003-01-17 00:00:00 Completed [facility] MMR 2003-01-17 00:00:00 Completed [facility] Pneumococcal 7 Conjugate, PCV7 (Prevnar7) 2003-01-17 00:00:00 Completed [facility] IPV 2003-01-17 00:00:00 Completed [facility] DTaP, Unspecified Formulation 2003-01-17 00:00:00 Completed [facility] MMR 2003-01-17 00:00:00 Completed [facility] Pneumococcal 7 Conjugate, PCV7 (Prevnar7) 2003-01-17 00:00:00 Completed [facility] IPV 2003-01-17 00:00:00 Completed [facility] Vital Signs Vital Name Observation Time Observation Value Comments S ource Systolic blood pressure 2024-07-22 16:02:00 132 mm[Hg] [place] [facility] Diastolic blood pressure 2024-07-22 16:02:00 90 mm[Hg] [place] [facility] Heart rate 2024-07-22 16:02:00 94 /min [facility] Body temperature 2024-07-22 16:02:00 36.61 Melissa [facility] Respiratory rate 2024-07-22 16:02:00 18 /min [facility] Body height 2024-07-22 16:02:00 157.5 cm [facility] Body weight 2024-07-22 16:02:00 73.755 kg [facility] BMI 2024-07-22 16:02:00 29.74 kg/m2 [facility] Systolic blood pressure 2024-06-23 16:40:00 112 mm[Hg] [facility] Diastolic blood pressure 2024-06-23 16:40:00 82 mm[Hg] [facility] Heart rate 2024-06-23 16:35:00 78 /min [facility] Body temperature 2024-06-23 16:35:00 36.56 Melissa [facility] Respiratory rate 2024-06-23 16:35:00 18 /min [facility] Body height 2024-06-23 16:35:00 157.5 cm [facility] Body weight 2024-06-23 16:35:00 77.367 kg [facility] BMI 2024-06-23 16:35:00 31.20 kg/m2 [facility] Systolic blood pressure 2023-06-10 16:29:00 121 mm[Hg] [facility] Diastolic blood pressure 2023-06-10 16:29:00 83 mm[Hg] [facility] Heart rate 2023-06-10 16:29:00 71 /min [facility] Body temperature 2023-06-10 16:29:00 36.56 Melissa [facility] Respiratory rate 2023-06-10 16:29:00 18 /min [facility] Body height 2023-06-10 16:29:00 157.5 cm [facility] Body weight 2023-06-10 16:29:00 74.135 kg [facility] BMI 2023-06-10 16:29:00 29.89 kg/m2 [facility] Systolic blood pressure 2023-05-15 19:10:00 124 mm[Hg] [facility] Diastolic blood pressure 2023-05-15 19:10:00 89 mm[Hg] [facility] Heart rate 2023-05-15 19:10:00 66 /min [facility] Body temperature 2023-05-15 19:10:00 36.28 Melissa [facility] Respiratory rate 2023-05-15 19:10:00 18 /min [facility] Body height 2023-05-15 19:10:00 157.5 cm [facility] Body weight 2023-05-15 19:10:00 76.839 kg [facility] BMI 2023-05-15 19:10:00 30.98 kg/m2 [facility] Systolic blood pressure 2023-04-30 14:48:00 110 mm[Hg] [facility] Diastolic blood pressure 2023-04-30 14:48:00 72 mm[Hg] [facility] Heart rate 2023-04-30 14:40:00 83 /min [facility] Body temperature 2023-04-30 14:40:00 36.39 Melissa [facility] Respiratory rate 2023-04-30 14:40:00 17 /min [facility] Body height 2023-04-30 14:40:00 157.5 cm [facility] Body weight 2023-04-30 14:40:00 81.103 kg [facility] BMI 2023-04-30 14:40:00 32.70 kg/m2 [facility] Systolic blood pressure 2023-04-26 13:44:00 121 mm[Hg] [facility] Diastolic blood pressure 2023-04-26 13:44:00 87 mm[Hg] [facility] Heart rate 2023-04-26 13:44:00 87 /min [facility] Body temperature 2023-04-26 13:44:00 36.67 Melissa [facility] Respiratory rate 2023-04-26 13:44:00 18 /min [facility] Oxygen saturation in Arterial blood by Pulse oximetry 2023-04-26 13:44:00 100 /min [facility] Body height 2023-04-24 01:48:00 157.5 cm [facility] Body weight 2023-04-24 01:48:00 87 kg [facility] BMI 2023-04-24 01:48:00 35.08 kg/m2 [facility] Systolic blood pressure 2023-04-25 04:15:00 117 mm[Hg] [facility] Diastolic blood pressure 2023-04-25 04:15:00 67 mm[Hg] [facility] Heart rate 2023-04-25 04:15:00 98 /[facility] Oxygen saturation in Arterial blood by Pulse oximetry 2023-04-25 04:15:00 98 /min [facility] Body temperature 2023-04-25 04:00:00 36.44 Melissa [facility] Respiratory rate 2023-04-25 04:00:00 18 /min [facility] Body height 2023-04-24 01:48:00 157.5 cm [facility] Body weight 2023-04-24 01:48:00 87 kg [facility] BMI 2023-04-24 01:48:00 35.08 kg/m2 [facility] Respiratory rate 2023-04-25 03:49:00 25 /min [facility] Systolic blood pressure 2023-04-16 15:21:00 119 mm[Hg] [facility] Diastolic blood pressure 2023-04-16 15:21:00 76 mm[Hg] [facility] Heart rate 2023-04-16 15:21:00 89 /min [facility] Body temperature 2023-04-16 15:21:00 36.5 Melissa [facility] Respiratory rate 2023-04-16 15:21:00 18 /min [facility] Body height 2023-04-16 15:21:00 157.5 cm [facility] Body weight 2023-04-16 15:21:00 85.503 kg [facility] BMI 2023-04-16 15:21:00 34.48 kg/m2 [facility] Systolic blood pressure 2023-04-10 15:41:00 108 mm[Hg] [facility] Diastolic blood pressure 2023-04-10 15:41:00 72 mm[Hg] [place] [facility] Heart rate 2023-04-10 15:41:00 85 /min [facility] Body temperature 2023-04-10 15:41:00 36.33 Melissa [facility] Respiratory rate 2023-04-10 15:41:00 18 /min [facility] Body height 2023-04-10 15:41:00 157.5 cm [facility] Body weight 2023-04-10 15:41:00 84.879 kg [facility] BMI 2023-04-10 15:41:00 34.23 kg/m2 [facility] Systolic blood pressure 2023-03-27 14:57:00 119 mm[Hg] [place] [facility] Diastolic blood pressure 2023-03-27 14:57:00 79 mm[Hg] [facility] Heart rate 2023-03-27 14:57:00 88 /min [facility] Body temperature 2023-03-27 14:57:00 36.61 Melissa [facility] Respiratory rate 2023-03-27 14:57:00 18 /min [facility] Body height 2023-03-27 14:57:00 157.5 cm [facility] Body weight 2023-03-27 14:57:00 84.823 kg [facility] BMI 2023-03-27 14:57:00 34.20 kg/m2 [facility] Systolic blood pressure 2023-03-13 15:04:00 121 mm[Hg] [place] [facility] Diastolic blood pressure 2023-03-13 15:04:00 76 mm[Hg] [facility] Heart rate 2023-03-13 15:04:00 86 /min [facility] Body temperature 2023-03-13 15:04:00 36.56 Melissa [facility] Respiratory rate 2023-03-13 15:04:00 17 /min [facility] Body height 2023-03-13 15:04:00 157.5 cm [facility] Body weight 2023-03-13 15:04:00 84.879 kg [facility] BMI 2023-03-13 15:04:00 34.23 kg/m2 [facility] Systolic blood pressure 2023-02-28 15:54:00 112 mm[Hg] [facility] Diastolic blood pressure 2023-02-28 15:54:00 77 mm[Hg] [facility] Heart rate 2023-02-28 15:54:00 75 /min [facility] Body temperature 2023-02-28 15:54:00 36.22 Melissa [facility] Respiratory rate 2023-02-28 15:54:00 18 /min [facility] Body height 2023-02-28 15:54:00 157.5 cm [facility] Body weight 2023-02-28 15:54:00 83.122 kg [facility] BMI 2023-02-28 15:54:00 33.52 kg/m2 [facility] Systolic blood pressure 2023-02-07 15:28:00 114 mm[Hg] [facility] Diastolic blood pressure 2023-02-07 15:28:00 81 mm[Hg] [facility] Heart rate 2023-02-07 15:28:00 83 /min [facility] Body temperature 2023-02-07 15:28:00 36.72 Melissa [facility] Respiratory rate 2023-02-07 15:28:00 18 /min [facility] Body height 2023-02-07 15:28:00 157.5 cm [facility] Body weight 2023-02-07 15:28:00 82.781 kg [facility] BMI 2023-02-07 15:28:00 33.38 kg/m2 [facility] Systolic blood pressure 2023-01-09 15:40:00 122 mm[Hg] [facility] Diastolic blood pressure 2023-01-09 15:40:00 76 mm[Hg] [facility] Heart rate 2023-01-09 15:40:00 89 /min [facility] Body temperature 2023-01-09 15:40:00 36.78 Melissa [facility] Respiratory rate 2023-01-09 15:40:00 18 /min [facility] Body height 2023-01-09 15:40:00 157.5 cm [facility] 2023-01-09 15:40:00 80.428 kg [facility] BMI 2023-01-09 15:40:00 32.43 kg/m2 [facility] Systolic blood pressure 2022-12-12 15:28:00 124 mm[Hg] [facility] Diastolic blood pressure 2022-12-12 15:28:00 78 mm[Hg] [facility] Heart rate 2022-12-12 15:28:00 82 /min [facility] Body temperature 2022-12-12 15:28:00 36.78 Melissa [facility] Respiratory rate 2022-12-12 15:28:00 20 /min [facility] Body height 2022-12-12 15:28:00 157.5 cm [facility] Body weight 2022-12-12 15:28:00 80.457 kg [facility] BMI 2022-12-12 15:28:00 32.44 kg/m2 [facility] Systolic blood pressure 2022-11-21 14:12:00 113 mm[Hg] [facility] Diastolic blood pressure 2022-11-21 14:12:00 75 mm[Hg] [facility] Heart rate 2022-11-21 14:12:00 93 /min [facility] Body temperature 2022-11-21 14:12:00 37.06 Melissa [facility] Respiratory rate 2022-11-21 14:12:00 18 /min [facility] Body height 2022-11-21 14:12:00 157.5 cm [facility] Body weight 2022-11-21 14:12:00 78.501 kg [facility] BMI 2022-11-21 14:12:00 31.65 kg/m2 [facility] Systolic blood pressure 2022-11-12 15:19:00 130 mm[Hg] [facility] Diastolic blood pressure 2022-11-12 15:19:00 84 mm[Hg] [facility] Heart rate 2022-11-12 15:19:00 84 /min [facility] Body temperature 2022-11-12 15:19:00 37 Melissa [facility] Respiratory rate 2022-11-12 15:19:00 18 /min [facility] Body height 2022-11-12 15:19:00 157.5 cm [facility] Body weight 2022-11-12 15:19:00 78.189 kg [facility] BMI 2022-11-12 15:19:00 31.53 kg/m2 [facility] Systolic blood pressure 2022-10-20 14:15:00 139 mm[Hg] [facility] Diastolic blood pressure 2022-10-20 14:15:00 97 mm[Hg] [facility] Heart rate 2022-10-20 14:15:00 78 /min [facility] Body temperature 2022-10-20 14:15:00 37 Melissa [facility] Respiratory rate 2022-10-20 14:15:00 18 /min [facility] Body weight 2022-10-20 14:15:00 77.565 kg [facility] BMI 2022-10-20 14:15:00 31.28 kg/m2 [facility] Oxygen saturation in Arterial blood by Pulse oximetry 2022-10-20 14:15:00 99 /min [facility] Systolic blood pressure 2022-10-15 14:17:00 126 mm[Hg] [facility] Diastolic blood pressure 2022-10-15 14:17:00 84 mm[Hg] [facility] Heart rate 2022-10-15 14:17:00 85 /min [facility] Body temperature 2022-10-15 14:17:00 36.72 Melissa [facility] Respiratory rate 2022-10-15 14:17:00 17 /min [facility] Body height 2022-10-15 14:17:00 157.5 cm [facility] Body weight 2022-10-15 14:17:00 77.565 kg [facility] BMI 2022-10-15 14:17:00 31.28 kg/m2 [facility] Systolic blood pressure 2022-09-17 20:40:00 119 mm[Hg] [facility] Diastolic blood pressure 2022-09-17 20:40:00 81 mm[Hg] [facility] Heart rate 2022-09-17 20:40:00 82 /min [facility] Body temperature 2022-09-17 20:40:00 37.11 Melissa [facility] Respiratory rate 2022-09-17 20:40:00 18 /min [facility] Body height 2022-09-17 20:40:00 157.5 cm [facility] Body weight 2022-09-17 20:40:00 78.586 kg [facility] BMI 2022-09-17 20:40:00 31.69 kg/m2 [facility] Systolic blood pressure 2022-09-11 15:34:00 135 mm[Hg] [facility] Diastolic blood pressure 2022-09-11 15:34:00 97 mm[Hg] [facility] Heart rate 2022-09-11 15:33:00 85 /min [facility] Body temperature 2022-09-11 15:33:00 36.83 Melissa [facility] Respiratory rate 2022-09-11 15:33:00 18 /min [facility] Body height 2022-09-11 15:33:00 157.5 cm [facility] Body weight 2022-09-11 15:33:00 77.928 kg [facility] BMI 2022-09-11 15:33:00 31.42 kg/m2 [facility] Systolic blood pressure 2021-08-20 04:00:00 118 mm[Hg] [facility] Diastolic blood pressure 2021-08-20 04:00:00 72 mm[Hg] [facility] Heart rate 2021-08-20 04:00:00 89 /min [facility] Respiratory rate 2021-08-20 04:00:00 16 /min [facility] Oxygen saturation in Arterial blood by Pulse oximetry 2021-08-20 04:00:00 99 /min [facility] Body temperature 2021-08-20 00:27:00 36.33 Melissa [facility] Body height 2021-08-20 00:27:00 157.5 cm [facility] Body weight 2021-08-20 00:27:00 80.151 kg [facility] BMI 2021-08-20 00:27:00 32.32 kg/m2 [facility] Systolic blood pressure 2021-06-22 21:15:00 139 mm[Hg] [facility] Diastolic blood pressure 2021-06-22 21:15:00 89 mm[Hg] [facility] Heart rate 2021-06-22 21:15:00 87 /min [facility] Body temperature 2021-06-22 21:15:00 36.11 Melissa [facility] Respiratory rate 2021-06-22 21:15:00 16 /min [facility] Body height 2021-06-22 21:15:00 157.5 cm [facility] Body weight 2021-06-22 21:15:00 79.062 kg [facility] BMI 2021-06-22 21:15:00 31.88 kg/m2 [facility] Procedures Procedure Date / Time Performed Performing Clinician Source [facility]AL[facility] ONLY - VAGINAL PATHOGENS BY NUCLEIC ACID TESTING 2024-07-22 17:20:00 Cassy Loredo [facility] POCT TEST 2024-06-23 17:27:00 Cassy Loredo [facility] CBC WITH DIFF 2023-04-25 10:05:00 Sherry Arreguin [facility] CBC WITH DIFF 2023-04-25 10:05:00 Sherry Arreguin [facility] SECTION 2023-04-25 02:19:00 Arreguin, Sherry [facility] SECTION 2023-04-25 02:19:00 EmanuelSherry [facility] URINALYSIS 2023-04-24 20:21:00 EmanuelSherry Gabe [facility] PROTEIN CREAT RATIO URINE RANDOM 2023-04-24 20:21:00 ArreguinSherry Gabe [facility] URINALYSIS 2023-04-24 20:21:00 ArreguinSherry Gabe [facility] PROTEIN CREAT RATIO URINE RANDOM 2023-04-24 20:21:00 ArreguinSherry Gabe [facility] CENTRAL NEURAXIAL BLOCK 2023-04-24 17:31:00 Trisha Lehman [facility] SGOT (ASPARTATE AMINO TRANSFER) 2023-04-24 02:33:00 Emanuel Sherry Gabe [facility] CREATININE 2023-04-24 02:33:00 EmanuelPurnimanewton Bernal [facility] ALANINE AMINO TRANSFERASE(SGPT 2023-04-24 02:33:00 Emanuel Sherry [facility] LACTATE DEHYDROGENASE 2023-04-24 02:33:00 Sherry Arreguin [facility] URIC ACID 2023-04-24 02:33:00 EmanuelPurnimanewton Bernal [facility] CBC WITH DIFF 2023-04-24 02:33:00 Sherry Arreguin [facility] HEPATITIS B SURFACE ANTIGEN 2023-04-24 02:33:00 Sherry Arreguin [facility] HB ABO GROUPING 2023-04-24 02:33:00 Sherry Arreguin [facility] ADC CLC OR LCC ONLY - WET PREP 2023-04-24 02:33:00 Emanuel Sherry [facility] RHO (D) IMMUNE GLOBULIN 2023-04-24 02:33:00 Sherry Arreguin [facility] ADC OR CRISTIANO ONLY - RPR 2023-04-24 02:33:00 Sherry Arreguin [facility] EXTRA TUBE LT. GREEN 2023-04-24 02:33:00 Sherry Arreguin [facility] HIV 1/2 AG-AB WITH REFLEX 2023-04-24 02:33:00 Sherry Arreguin [facility] SGOT (ASPARTATE AMINO TRANSFER) 2023-04-24 02:33:00 Sherry Arreguin [facility] CREATININE 2023-04-24 02:33:00 Sherry Arreguin [facility] ALANINE AMINO TRANSFERASE(SGPT 2023-04-24 02:33:00 Sherry Arreguin [facility] LACTATE DEHYDROGENASE 2023-04-24 02:33:00 Sherry Arreguin [facility] URIC ACID 2023-04-24 02:33:00 Sherry Arreguin [facility] CBC WITH DIFF 2023-04-24 02:33:00 Sherry Arreguin [facility] HEPATITIS B SURFACE ANTIGEN 2023-04-24 02:33:00 Sherry Arreguin [facility] HB ABO GROUPING 2023-04-24 02:33:00 Sherry [facility] ADC CLC OR LCC ONLY - WET PREP 2023-04-24 02:33:00 Sherry Arreguin [facility] RHO (D) IMMUNE GLOBULIN 2023-04-24 02:33:00 Sherry Arreguin [facility] ADC OR CRISTIANO ONLY - RPR 2023-04-24 02:33:00 Sherry Arreguin [facility] EXTRA TUBE LT. GREEN 2023-04-24 02:33:00 Sherry Arreguin [facility] HIV 1/2 AG-AB WITH REFLEX 2023-04-24 02:33:00 Sherry Arreguin [facility] ASSIGNMENT OF BENEFITS 2023-04-24 01:27:39 Docto r Unassigned, [place]aggoner [facility] ASSIGNMENT OF BENEFITS 2023-04-24 01:27:39 Docto r Unassigned, [place] [facility] CONSENT/REFUSAL FOR DIAGNOSIS AND TREATMENT 2023-04-24 01:27:07 Doctor Unassigned, [place] [facility] POCT URINALYSIS 2023-04-16 15:24:00 Whitney Romero [facility] POCT URINALYSIS 2023-03-27 14:58:00 Whitney Romero [facility] THYROID STIMULATING HORMONE 2023-03-13 15:35:00 Whitney Romero [facility] HIV 1/2 AG-AB WITH REFLEX 2023-03-13 15:35:00 Whitney Romero [facility] POCT URINALYSIS 2023-03-13 15:08:00 Whitney Romero [facility] POCT URINALYSIS 2023-02-28 16:30:00 Whitney Romero [facility] POCT URINALYSIS 2023-02-07 16:36:00 Whitney Romero [facility] SGOT (ASPARTATE AMINO TRANSFER) 2023-02-07 16:25:00 Whitney Romero [facility] GLUCOSE 1 HOUR POST PRANDIAL 2023-02-07 16:25:00 Whitney Romero [facility] ALANINE AMINO TRANSFERASE(SGPT 2023-02-07 16:25:00 Whitney Romero [facility] CBC WITH DIFF 2023-02-07 16:25:00 Whitney Romero [facility] TDAP VACCINE, >11 YRS, IM 2023-02-07 15:59:35 Whitney Romero [facility] SECOND AND THIRD TRIMESTER ULTRASOUND 2023-02-03 15:26:00 Whitney Romero [facility] POCT URINALYSIS 2023-01-09 15:41:00 Whitney Romero [facility] SECOND AND THIRD TRIMESTER ULTRASOUND 2022-12-30 15:32:00 Whitney Romero [facility] SECOND AND THIRD TRIMESTER ULTRASOUND 2022-12-30 15:04:00 Whitney Romero [facility] POCT URINALYSIS 2022-12-12 15:29:00 Whitney Romero [facility] POCT URINALYSIS 2022-11-21 14:13:00 Whitney Romero [facility] POCT URINALYSIS 2022-11-12 15:19:00 Whitney Romero [facility] URINALYSIS 2022-10-20 14:31:00 Linda Carmen Eber [facility] CONSENT/REFUSAL FOR DIAGNOSIS AND TREATMENT 2022-10-20 14:12:03 Doctor Unassigned, [place] [facility] ASSIGNMENT OF BENEFITS 2022-10-20 14:11:46 Docto r Unassigned, [place]oner [facility] SGOT (ASPARTATE AMINO TRANSFER) 2022-10-15 15:05:00 Whitney Romero [facility] ALANINE AMINO TRANSFERASE(SGPT 2022-10-15 15:05:00 Whitney Romero [facility] THYROID STIMULATING HORMONE 2022-10-15 15:05:00 Whitney Romero [facility] POCT URINALYSIS 2022-10-15 00:00:00 Whitney Romero [facility] POCT URINALYSIS 2022-09-17 20:43:00 Whitney Romero [facility] GLUCOSE 1 HOUR POST PRANDIAL 2022-09-11 16:30:00 Whitney Romero [facility] FREE T4 2022-09-11 16:30:00 Whitney Romero [facility] THYROID STIMULATING HORMONE 2022-09-11 16:30:00 Whitney Romero [facility] COMP. METABOLIC PANEL ([id number]) 2022-09-11 16:30:00 Whitney Romero [facility] CBC WITH DIFF 2022-09-11 16:30:00 Whitney Romero [facility] RUBELLA SCREEN IGG 2022-09-11 16:30:00 Fátima Romero [facility] VZV ANTIBODY SCREEN 2022-09-11 16:30:00 Diane Romero [facility] HEPATITIS B SURFACE ANTIGEN 2022-09-11 16:30:00 Whitney Romero [facility] HCV ANTIBODY 2022-09-11 16:30:00 Whitney Romero [facility] HB INDIRECT ANTIGLOBULIN TEST 2022-09-11 16:30:00 Whitney Romero [facility] GC & CHLAMYDIA AMPLIFIED ASSAY 2022-09-11 16:30:00 Whitney Romero [facility] FREE T3 2022-09-11 16:30:00 [facility]-AB WITH REFLEX 2022-09-11 16:30:00 Whitney Romero [facility] SYPHILIS IGG/IGM 2022-09-11 16:30:00 Whitney Romero [facility] URINE CULTURE 2022-09-11 16:30:00 Whitney Romero [facility] ASSIGNMENT OF BENEFITS 2022-09-11 14:40:20 Docto r Unassigned, [place] [facility] POCT TEST 2022-09-11 00:00:00 Diane Romero [facility] POCT URINALYSIS W/O SPECIFIC GRAVITY 2022-09-11 00:00:00 Whitney Romero [facility] EXTERNAL PROVIDER RECORDS 2022-01-24 05:01:00 Doctor Unassigned, [place] [facility] CT ABDOMEN PELVIS W CONTRAST 2021-08-20 02:10:12 Eliel Pro [facility] POCT TEST 2021-08-20 00:52:00 Eliel Pro [facility] LIPASE 2021-08-20 00:50:00 Eliel Pro [facility] COMP. METABOLIC PANEL ([id number]) 2021-08-20 00:50:00 Eliel Pro [facility] CBC WITH DIFF 2021-08-20 00:50:00 Eliel Pro [facility] URINALYSIS 2021-08-20 00:42:00 Eliel Pro [facility] NOTICE OF PRIVACY PRACTICES 2021-08-20 00:19:08 Doctor Unassigned, [place] [facility] CONSENT/REFUSAL FOR DIAGNOSIS AND TREATMENT 2021-08-20 00:18:13 Doctor Unassigned, [place] [facility] POCT TEST 2021-06-22 21:20:00 George Andres [facility] Encounters Start Date/Time End Date/Time Encounter Type Admission Type Attending [facility] Care Department Encounter ID Source 2024-07-22 09:45:00 2024-07-22 10:40:45 Outpatient R CASSY LOREDO [facility] [id number] [facility] 2024-07-22 09:45:00 2024-07-22 10:40:45 Office Visit [facility] & CHILD [facility] [id number] [facility] 2024-06-25 00:00:00 2024-06-25 08:26:37 Case Management [facility] & CHILD [facility] [id number] [facility] 2024-06-23 10:15:00 2024-06-23 11:32:05 Outpatient R CASSY LOREDO [facility] [id number] [facility] 2024-06-23 10:15:00 2024-06-23 11:32:05 [facility] [facility]ILD [facility] 1.840.114 350.1.13.10 4.2.7.2.686 [id number] [facility] 2022-12-30 00:00:00 2023-12-08 13:20:06 Letter (Out) Salud Salvador [facility] 1.840.114 350.1.13.10 4.2.7.2.686 [id number] [facility] 2023-06-10 10:30:00 2023-06-10 11:24:49 Outpatient R WHITNEY ROMERO [facility] [id number] [facility] 2023-06-10 10:30:00 2023-06-10 11:24:49 Office Visit Whitney Romero [facility] 1.20.114 350.1.13.10 4.2.7.2.686 [id number] 107 [id number] [facility] 2023-06-03 00:00:00 2023-06-03 00:00:00 Patient Secure Msg Doctor Unassigned, Waggoner [facility] 1..114 350.1.13.10 4.2.7.2.686 [id number] [facility] 2023-05-15 12:45:00 2023-05-15 13:30:08 [id number] 2023-05-15 12:45:00 2023-05-15 13:30:08 Routine Visit Whitney Romero [facility] 1..114 350.1.13.10 4.2.7.2.686 [id number] 107 [id number] [facility] 2023-04-30 08:30:00 2023-04-30 09:02:45 Outpatient R WHITNEY ROMERO [facility] [id number] [facility] 2023-04-30 08:30:00 2023-04-30 09:02:45 Nurse Visit Visit, [facility] 1.2.114 350.1.13.10 4.2.7.2.686 [id number] 107 [id number] [facility] 2023-04-28 00:00:00 2023-04-28 00:00:00 Encounter 1.2840.1 [id number] 3.104.2.7 .2.517934 1.2.840.114 350.1.13.10 4.2.7.2.696 570 [id number] [facility] 2023-04-27 00:00:00 2023-04-27 00:00:00 Encounter 1.2.840.1 [id number] 3.104.2.7 .2.655583 1.2.840.114 350.1.13.10 4.2.7.2.696 [id number] [facility] 2023-04-23 19:33:00 2023-04-26 08:55:00 Inpatient X SHERRY ARREGUIN [facility] MICHELLE [id number] [facility] 2023-04-23 19:33:00 2023-04-26 08:55:00 Hospital Encounter Sherry Arreguin [facility] 1.2.840.114 350.1.13.10 4.2.7.2.686 [id number] [id number] [facility] 2023-04-26 00:00:00 2023-04-26 00:00:00 Encounter 1.2.840.1 [id number] 3.104.2.7 .[id number] 1.2.840.114 350.1.13.10 4.2.7.2.696 [id number] [facility] 2023-04-25 20:00:51 2023-04-25 20:00:51 Anesthesia Event Lazarus Lehman [facility] 1.2.840.114 350.1.13.10 4.2.7.2.686 [id number] [id number] [facility] 2023-04-24 20:45:00 2023-04-24 22:25:00 Surgery Sherry Arreguin [facility] 1.2.840.114 350.1.13.10 4.2.7.2.686 [id number] [id number] [facility] 2023-04-24 11:00:00 2023-04-24 21:58:00 Anesthesia Event Lazarus Lehman David K [facility] .84.114 350.1.13.10 4.2.7.2.686 [id number] [id number] [facility] 2023-04-24 09:30:00 2023-04-24 09:30:00 Outpatient WHITNEY BOYCE [facility] [id number] [facility] 2023-04-23 00:00:00 2023-04-23 00:00:00 Orders Only Doctor Unassigned, Waggoner [facility] 1.840.114 350.1.13.10 4.2.7.2.686 [id number] [facility] 2023-04-16 09:30:00 2023-04-16 09:53:21 Outpatient WHITNEY BOYCE [facility] [id number] [facility] 2023-04-16 09:30:00 2023-04-16 09:53:21 Routine Visit Whitney Romero [facility]ILD [facility] 1.840.114 350.1.13.10 4.2.7.2.686 [id number] 107 [id number] [facility] 2023-04-10 10:45:00 2023-04-10 11:12:30 Outpatient WHITNEY BOYCE [facility] [id number] [facility] 2023-04-10 10:45:00 2023-04-10 11:12:30 Routine Visit Whitney Romero [facility] 1.84.114 350.1.13.10 4.2.7.2.686 [id number] 107 [id number] [facility] 2023-04-06 00:00:00 2023-04-06 00:00:00 Outpatient GC_[id number] diyala_S [facility] [id number] [facility] 2023-03-27 10:00:00 2023-03-27 10:19:53 Outpatient R WHITNEY ROMERO [facility] [id number] [facility] 2023-03-27 10:00:00 2023-03-27 10:19:53 Routine Visit Whitney Romero [facility] 1.2.840.114 350.1.13.10 4.2.7.2.686 [id number] 107 [id number] [facility] 2023-03-15 00:00:00 2023-03-15 00:00:00 Case [facility] 1.2.840.114 350.1.13.10 4.2.7.2.686 [id number] 107 [id number] [facility] 2023-03-14 09:30:00 2023-03-14 09:30:00 Outpatient R WHITNEY ROMERO [facility] [id number] [facility] 2023-03-13 09:45:00 2023-03-13 10:36:54 Outpatient R WHITNEY ROMERO [facility] [id number] [facility] 2023-03-13 09:45:00 2023-03-13 10:36:54 Routine Visit Whtiney Romero [facility] 1.2.840.114 350.1.13.10 4.2.7.2.686 [id number] 107 [id number] [facility] 2023-02-28 11:00:00 2023-02-28 11:22:05 Outpatient R WHITNEY RMOERO [facility] [id number] [facility] 2023-02-28 11:00:00 2023-02-28 11:22:05 Routine Visit Kaurjuan jose Whitney Yris [facility] 1.2.840.114 350.1.13.10 4.2.7.2.686 [id number] 107 [id number] [facility] 2023-02-07 10:15:00 2023-02-07 11:27:34 Outpatient R JONES WHITNEY [facility] [id number] [facility] 2023-02-07 10:15:00 2023-02-07 11:27:34 Routine Visit KaurDiane ingramnda Yris [facility] 1.2840.114 350.1.13.10 4.2.7.2.686 [id number] 107 [id number] [facility] 2023-02-03 10:00:00 2023-02-03 10:27:48 Outpatient P JANENE SCHAEFER [facility] [id number] [facility] 2023-02-03 10:00:00 2023-02-03 10:27:48 Crane Man Visit Ultrasound, Janene Houston [facility] 1.2840.114 350.1.13.10 4.2.7.2.686 [id number] [facility] 2023-02-03 00:00:00 2023-02-03 00:00:00 Case Management Jones Whitney Arndt [facility] 1.2840.114 350.1.13.10 4.2.7.2.686 [id number] 107 [id number] [facility] 2023-01-23 00:00:00 2023-01-23 00:00:00 Patient Secure Msg Jones Whitney [facility] 1.2840.114 350.1.13.10 4.2.7.2.686 [id number] 107 [id number] [facility] 2023-01-23 00:00:00 2023-01-23 00:00:00 Refill Whitney Romero [facility] 1.2.840.114 350.1.13.10 4.2.7.2.686 [id number] 107 [id number] [facility] 2023-01-23 00:00:00 2023-01-23 00:00:00 Telephone Whitney Romero [facility] 1.20.114 350.1.13.10 4.2.7.2.686 [id number] 107 [id number] [facility] 2023-01-09 10:15:00 2023-01-09 11:09:44 Outpatient R WHITNEY ROMERO [facility] [id number] [facility] 2023-01-09 10:15:00 2023-01-09 11:09:44 Routine Visit Whitney Romero [facility] 1.2.114 350.1.13.10 4.2.7.2.686 [id number] 107 [id number] [facility] 2023-01-07 10:10:55 2023-01-07 10:10:55 Outpatient [facility] [id number] Spike Mccarthy 2023-01-07 00:00:00 2023-01-07 00:00:00 Patient Secure Msg Doctor Unassigned, Waggoner [facility] 1.2.114 350.1.13.10 4.2.7.2.686 [id number] [facility] 2022-12-31 00:00:00 2022-12-31 00:00:00 Case Management Whitney Romero [facility] 1.2.840.114 350.1.13.10 4.2.7.2.686 [id number] 107 [id number] [facility] 2022-12-30 09:45:00 2022-12-30 10:33:37 Outpatient P SALUD SALVADOR SHANNON [facility] [id number] [facility] 2022-12-30 09:45:00 2022-12-30 10:33:37 Crane Man Visit 1, [facility] Us Room Salud Salvador [facility] 1.114 350.1.13.10 4.2.7.2.686 [id number] [facility] 2022-12-13 00:00:00 2022-12-13 00:00:00 Case Management Whitney Romero [facility] 1.84.114 350.1.13.10 4.2.7.2.686 [id number] 107 [id number] [facility] 2022-12-12 10:30:00 2022-12-12 10:57:13 Outpatient R WHITNEY ROMERO [facility] [id number] [facility] 2022-12-12 10:30:00 2022-12-12 10:57:13 Routine Visit Whitney Romero [facility] 1..114 350.1.13.10 4.2.7.2.686 [id number] 107 [id number] [facility] 2022-12-09 00:00:00 2022-12-09 00:00:00 Refill Whitney Romero [facility] 1..114 350.1.13.10 4.2.7.2.686 [id number] 107 [id number] [facility] 2022-11-21 09:30:00 2022-11-21 10:03:03 Outpatient R YOLA ALATORRE [facility] [id number] [facility] 2022-11-21 09:30:00 2022-11-21 10:03:03 Routine Visit Risk, Ang-Rmchp-N p/High Yola Alatorre [facility] 1.2.840.114 350.1.13.10 4.2.7.2.686 [id number] 107 [id number] [facility] 2022-11-13 00:00:00 2022-11-13 00:00:00 Case Management Whitney Romero [facility] 1.2.840.114 350.1.13.10 4.2.7.2.686 [id number] 107 [id number] [facility] 2022-11-12 10:15:00 2022-11-12 11:51:57 Routine Visit Whitney Romero [facility] 1.2840.114 350.1.13.10 4.2.7.2.686 [id number] 107 [id number] [facility] 2022-11-12 10:15:00 2022-11-12 11:51:57 Outpatient WHITNEY BOYCE [facility] [id number] [facility] 2022-10-30 15:00:00 2022-10-30 15:00:00 Outpatient CYNDI HOLM [facility] [id number] [facility] 2022-10-20 09:16:00 2022-10-20 10:26:00 Emergency X LINDA CARMEN [facility] ERT [id number] [facility] 2022-10-20 09:16:00 2022-10-20 10:26:00 Emergency Linda Carmen [facility] 1.2840.114 350.1.13.10 4.2.7.2.686 [id number] [facility] 2022-10-20 00:00:00 2022-10-20 00:00:00 Patient Secure Msg Doctor Unassigned, Waggoner [facility] 1.2840.114 350.1.13.10 4.2.7.2.686 [id number] [facility] 2022-10-20 00:00:00 2022-10-20 00:00:00 Orders Only Doctor Unassigned, Waggoner [facility] 1.20.114 350.1.13.10 4.2.7.2.686 [id number] [facility] 2022-10-15 08:45:00 2022-10-15 10:05:00 Outpatient R WHITNEY ROMERO [facility] [id number] [facility] 2022-10-15 08:45:00 2022-10-15 10:05:00 Routine Visit Whiteny Romero [facility] 1.840.114 350.1.13.10 4.2.7.2.686 [id number] 107 [id number] [facility] 2022-10-15 08:00:00 2022-10-15 08:00:00 Outpatient R RONDA ANDRES [facility] [id number] [facility] 2022-10-14 13:00:00 2022-10-14 13:16:44 Crane Man Visit Ultrasound, Kevin-Aimee Marcus [facility] 1.840.114 350.1.13.10 4.2.7.2.686 [id number] [facility] 2022-10-14 13:00:00 2022-10-14 13:00:00 Outpatient P AIMEE STEPHENS [facility] [id number] [facility] 2022-10-14 00:00:00 2022-10-14 00:00:00 Letter (Out) NievesAimee Moe [facility] 1.2840.114 350.1.13.10 4.2.7.2.686 [id number] 107 [id number] [facility] 2022-09-25 15:00:00 2022-09-25 15:00:00 Outpatient R RONDA ANDRES [facility] [id number] [facility] 2022-09-17 15:30:00 2022-09-17 16:10:47 Outpatient R WHITNEY ROMERO [facility] [id number] [facility] 2022-09-17 15:30:00 2022-09-17 16:10:47 Routine Visit Whitney Rmoero [facility] 1.2840.114 350.1.13.10 4.2.7.2.686 [id number] 107 [id number] [facility] 2022-09-12 00:00:00 2022-09-12 00:00:00 Patient Secure [facility]sg [facility] 1.2840.114 350.1.13.10 4.2.7.2.686 [id number] 107 [id number] [facility] 2022-09-12 00:00:00 2022-09-12 00:00:00 Case Management Whitney Romero [facility] 1.2.840.114 350.1.13.10 4.2.7.2.686 [id number] 107 [id number] [facility] 2022-09-11 10:15:00 2022-09-11 11:42:24 Initial Visit Whitney Romero [facility] 1.2.840.114 350.1.13.10 4.2.7.2.686 [id number] 107 [id number] [facility] 2022-09-11 09:45:00 2022-09-11 10:08:58 Outpatient R WHITNEY ROMERO [facility] [id number] [facility] 2022-09-11 00:00:00 2022-09-11 00:00:00 Orders Only Doctor Unassigned, Waggoner [facility] 1.2840.114 350.1.13.10 4.2.7.2.686 [id number] [facility] 2022-09-03 00:00:00 2022-09-03 00:00:00 Telephone Whitney Romero [facility] 1..840.114 350.1.13.10 4.2.7.2.686 [id number] 107 [id number] [facility] 2022-01-24 00:00:00 2022-01-24 00:00:00 Orders Only Doctor Unassigned, Waggoner [facility] 1.2840.114 350.1.13.10 4.2.7.2.686 [id number] [facility] 2021-08-24 00:00:00 2021-08-24 00:00:00 Outpatient R RADIOLOGY [facility] [id number] [facility] 2021-08-21 00:00:00 2021-08-21 00:00:00 Patient Secure Msg Doctor Unassigned, Waggoner [facility] 1.84.114 350.1.13.10 4.2.7.2.686 [id number] 107 [id number] [facility] 2021-08-19 19:30:00 2021-08-19 23:10:00 Emergency X ELIEL PRO [facility] ERT [id number] [facility] 2021-08-19 19:30:00 2021-08-19 23:10:00 Emergency Eliel Pro [facility] 1.2.840.114 350.1.13.10 4.2.7.2.686 [id number] [facility] 2021-06-26 09:00:00 2021-06-26 09:00:00 Outpatient P [facility] [id number] [facility] 2021-06-22 15:15:00 2021-06-22 15:40:37 Office Visit Ronda Andres [facility] 1.2.840.114 350.1.13.10 4.2.7.2.686 [id number] 107 [id number] [facility] 2021-06-22 15:15:00 2021-06-22 15:40:37 Outpatient R AKINSIPE, RONDA [facility] [id number] [facility] 2021-06-22 15:15:00 2021-06-22 15:15:00 Outpatient R AKINSIPE, RONDA [facility] [id number] [facility] 2021-06-21 15:30:00 2021-06-21 15:30:00 Outpatient R AKINSIPE, RONDA [facility] [id number] [facility] 2021-06-21 15:30:00 2021-06-21 15:30:00 Outpatient R AKINSIPE, RONDA [facility] [id number] [facility] 2021-06-19 08:15:00 2021-06-19 08:15:00 Outpatient R AKINSIPE, RONDA [facility] [id number] [facility] 2021-06-06 08:30:00 2021-06-06 08:30:00 Outpatient R AKINSIPE, RONDA [facility] [id number] [facility] 2021-06-06 08:30:00 2021-06-06 08:30:00 Outpatient R AKINSIPE, RONDA [facility] [id number] [facility] 2021-06-05 09:45:00 2021-06-05 10:19:48 Outpatient R RONDA ANDRES [facility] [id number] [facility] 2021-06-05 09:45:00 2021-06-05 10:19:48 Routine Visit Ronda Andres [facility] ..840.114 350.1.13.10 4.2.7.2.686 [id number] 107 [id number] [facility] 2021-06-05 09:45:00 2021-06-05 10:19:48 Outpatient R RONDA ANDRES [facility] [id number] [facility] 2021-06-05 00:00:00 2021-06-05 00:00:00 Letter (Out) Ronda Andres [facility] ..840.114 350.1.13.10 4.2.7.2.686 [id number] 107 [id number] [facility] 2021-06-04 10:24:00 2021-06-04 12:52:00 Emergency X MATTHIEU SHEYLA [facility] ERT [id number] [facility] 2021-06-04 10:24:00 2021-06-04 12:52:00 Emergency Sheyla Sommers [facility] ..840.114 350.1.13.10 4.2.7.2.686 [id number] [facility] 2021-06-04 10:24:00 2021-06-04 12:52:00 Emergency X MATTHIEU SHEYLA [facility] ERT [id number] [facility] 2021-06-04 00:00:00 2021-06-04 00:00:00 Patient Secure Msg Ronda Andres [facility] 1.2.840.114 350.1.13.10 4.2.7.2.686 [id number] 107 [id number] [facility] 2021-06-04 00:00:00 2021-06-04 00:00:00 Orders Only Doctor Unassigned, Waggoner [facility] 1.2.840.114 350.1.13.10 4.2.7.2.686 [id number] [facility] 2021-06-03 00:00:00 2021-06-03 00:00:00 Telephone Ronda Andres [facility] 1.2.840.114 350.1.13.10 4.2.7.2.686 [id number] 107 [id number] [facility] 2021-06-02 00:00:00 2021-06-02 00:00:00 Nurse Triage Parisa Sousa [facility] 1.2.840.114 350.1.13.10 4.2.7.2.686 [id number] [facility] 2021-06-01 00:00:00 2021-06-01 00:00:00 Nurse Triage Nora Carolynn Yris [facility] 1.2.840.114 350.1.13.10 4.2.7.2.686 [id number] [facility] 2021-05-30 00:00:00 2021-05-30 00:00:00 Telephone Ronda Andres [facility] 1.2.840.114 350.1.13.10 4.2.7.2.686 [id number] 107 [id number] [facility] 2021-05-28 00:00:00 2021-05-28 00:00:00 Telephone Ronda Andres [facility] 1.2.840.114 350.1.13.10 4.2.7.2.686 [id number] 107 [id number] [facility] 2021-05-24 10:00:00 2021-05-24 11:24:27 Outpatient R COOKIERONDA ROBIN [facility] [id number] [facility] 2021-05-24 10:00:00 2021-05-24 11:24:27 Initial Visit Ronda Andres [facility] 1.84.114 350.1.13.10 4.2.7.2.686 [id number] [facility] 2021-05-24 10:00:00 2021-05-24 11:24:27 Outpatient R RONDA ANDRES [facility] [id number] [facility] 2021-05-24 09:30:00 2021-05-24 10:30:59 Outpatient R RONDA ANDRES [facility] [id number] [facility] 2021-05-24 09:30:00 2021-05-24 09:30:00 Outpatient R COOKIECARLOS MANUELIRMA RONDA [facility] [id number] [facility] 2021-05-24 00:00:00 2021-05-24 00:00:00 Orders Only Doctor Unassigned, Waggoner [facility] 1..840.114 350.1.13.10 4.2.7.2.686 [id number] [facility] 2021-03-05 08:30:00 2021-03-05 08:30:00 Outpatient R ANABELA CHAVEZ [facility] [id number] [facility] 2021-01-23 00:00:00 2021-01-23 00:00:00 Telephone Ronda Andres [facility] 1.840.114 350.1.13.10 4.2.7.2.686 [id number] [facility] 2021-01-17 15:15:00 2021-01-17 15:59:01 Outpatient R RONDA ANDRES [facility] [id number] [facility] 2021-01-17 14:59:33 2021-01-17 15:59:01 Office Visit Ronda Andres [facility] .2.840.114 350.1.13.10 4.2.7.2.686 [id number] [facility] 2021-01-17 15:15:00 2021-01-17 15:15:00 Outpatient R RONDA ANDRES [facility] [id number] [facility] 2021-01-17 14:15:00 2021-01-17 14:15:00 Outpatient R RONDA ANDRES [facility] [id number] [facility] 2021-01-16 00:00:00 2021-01-16 00:00:00 Telephone Ronda Andres [facility] ..840.114 350.1.13.10 4.2.7.2.686 [id number] [facility] 2021-01-02 13:00:00 2021-01-02 13:35:51 Outpatient R RONDA ANDRES [facility] [id number] [facility] 2021-01-02 12:57:30 2021-01-02 13:35:51 Office Visit Ronda Andres [facility] ..840.114 350.1.13.10 4.2.7.2.686 [id number] [facility] 2021-01-02 13:00:00 2021-01-02 13:00:00 Outpatient R RONDA ANDRES [facility] [id number] [facility] 2020-12-05 15:00:00 2020-12-05 16:00:40 Outpatient R RONDA ANDRES [facility] [id number] [facility] 2020-12-05 14:46:31 2020-12-05 16:00:40 Office Visit Ronda Andres [facility] ..114 350.1.13.10 4.2.7.2.686 [id number] [facility] 2020-12-05 15:00:00 2020-12-05 15:00:00 Outpatient R RONDA ANDRES [facility] [id number] [facility] 2020-12-04 09:15:00 2020-12-04 09:15:00 Outpatient R RONDA ANDRES [facility] [id number] [facility] 2020-11-09 10:30:00 2020-11-09 10:30:00 Outpatient R RONDA ANDRES [facility] [id number] [facility] 2020-09-18 00:00:00 2020-09-18 00:00:00 Telephone Ronda Andres [facility] ..114 350.1.13.10 4.2.7.2.686 [id number] [facility] 2020-09-06 00:00:00 2020-09-06 00:00:00 Telephone Ronda Andres [facility] ..114 350.1.13.10 4.2.7.2.686 [id number] 107 [id number] [facility] 2020-08-29 00:00:00 2020-08-29 00:00:00 Patient Outreach Dajuan Salvador [facility] ..114 350.1.13.10 4.2.7.2.686 [id number] [facility] 2020-08-09 10:37:00 2020-08-09 11:22:08 Office Visit Ronda Andres [facility] [facility] 1.2.840.114 350.1.13.10 4.2.7.2.686 [id number] [facility] 2020-08-09 10:30:00 2020-08-09 10:30:00 Outpatient R RONDA ANDRES [facility] [id number] [facility] 2020-07-26 00:00:00 2020-07-26 00:00:00 Telephone Ronda Andres [facility] 1.2.840.114 350.1.13.10 4.2.7.2.686 [id number] [facility] 2020-07-20 00:00:00 2020-07-20 00:00:00 Telephone Ronda Andres [facility] 1.2.840.114 350.1.13.10 4.2.7.2.686 [id number] [facility] 2020-07-19 10:30:37 2020-07-19 11:15:52 Office Visit Ronda Andres [facility] 1.2.840.114 350.1.13.10 4.2.7.2.686 [id number] [facility] 2020-07-19 10:30:00 2020-07-19 10:30:00 Outpatient R RONDA ANDRES [facility] [id number] [facility] 2020-03-01 15:36:14 2020-03-01 16:30:50 Office Visit Anabela Chavez [facility] 1.2840.114 350.1.13.10 4.2.7.2.686 [id number] [facility] 2020-03-01 15:15:00 2020-03-01 15:15:00 Outpatient R ANABELA CHAVEZ [facility] [id number] [facility] 2020-03-01 00:00:00 2020-03-01 00:00:00 Orders Only Doctor Unassigned, [facility] 1.2840.114 350.1.13.10 4.2.7.2.686 [id number] [facility] 2020-02-22 00:00:00 2020-02-22 00:00:00 Telephone Ronda Andres [facility] 1.840.114 350.1.13.10 4.2.7.2.686 [id number] [facility] Results Test Description Test Time Test Comments Results Result Co mments Source [facility] with Nsvebqblfavp9626-53-92 13:00:30* Test Item Value Reference Range Interpretation [...] 33.0 g/dL 31.6-35.1 RDW-SD (test code = 83544-1) 45.7 fL 39.0-49.9 RDW-CV (test code = 788-0) 14.3 % 12.0-15.5 PLT (test code = 777-3) 282 See_Comment [Automated message] The system which generated this result transmitted reference range: 166 - 358 10*3/?L. The reference range was not used to interpret this result as normal/abnormal. MPV (test code = 90519-6) 9.9 fL 9.5-12.9 NRBC/100 WBC (test code = 0500338045) 0.0 See_Comment [Automated message] The system which generated this result transmitted reference range: 0.0 - 10.0 /100 WBCs. The reference range was not used to interpret this result as normal/abnormal. NRBC x10^3 (test code = 2504306220) See_Comment [Automated message] The system which generated this result transmitted reference range: 10*3/?L. The reference range was not used to interpret this result as normal/abnormal. SEG % (test code = 56061-4) 88 % 33-76 H BAND % (test code = 17306-4) 4 % 0-1 H LYMPH % (test code = 02479-4) 8 % 14-54 L ANC (test code = 753-4) 16.58 10*3/uL 1.88-7.09 H Lab Interpretation (test code = 61074-7) Abnormal [facility] with Ixaetlfdurem2639-68-52 13:00:30* Test Item Value Reference Range Interpretation [...] 33.0 g/dL 31.6-35.1 RDW-SD (test code = 88896-6) 45.7 fL 39.0-49.9 RDW-CV (test code = 788-0) 14.3 % 12.0-15.5 PLT (test code = 777-3) 282 See_Comment [Automated message] The system which generated this result transmitted reference range: 166 - 358 10*3/?L. The reference range was not used to interpret this result as normal/abnormal. MPV (test code = 16113-6) 9.9 fL 9.5-12.9 NRBC/100 WBC (test code = 9787475169) 0.0 See_Comment [Automated message] The system which generated this result transmitted reference range: 0.0 - 10.0 /100 WBCs. The reference range was not used to interpret this result as normal/abnormal. NRBC x10^3 (test code = 0471692398) See_Comment [Automated message] The system which generated this result transmitted reference range: 10*3/?L. The reference range was not used to interpret this result as normal/abnormal. SEG % (test code = 96086-5) 88 % 33-76 H BAND % (test code = 14165-6) 4 % 0-1 H LYMPH % (test code = 54978-9) 8 % 14-54 L ANC (test code = 753-4) 16.58 10*3/uL 1.88-7.09 H Lab Interpretation (test code = 01203-1) [facility]normal [facility] IMMUNE [id number] 06:14:16* Test Item Value Reference Range Interpretation Comme nts RHIG CANDIDATE? (test code = 5188) No- see comment Patient is not a candidate for RhIg- Patient is Rh Positive.Performed at [facility] Laboratory Services [facility] [address] [place] [id number] Free: [phone] No. [id number] [facility] (D) IMMUNE [id number] 06:14:16* Test Item Value Reference Range Interpretation Comme nts RHIG CANDIDATE? (test code = 5188) No- see comment Patient is not a candidate for RhIg- Patient is Rh Positive.Performed at [facility] Laboratory Services [facility] Blood [address] [place], [place] [id number] Free: [phone] No. [id number] [facility] ArlingtonHepatitis B Surface Ujmnwfs1318-84-21 10:02:47 * Test Item Value Reference Range Interpretation Comme nts HBsAg Semi-Quantitative (kayleen t code = 5195-3) 0.05 Negative [facility] B Surface Pxakuxt0333-92-03 10:02:47 * Test Item Value Reference Range Interpretation Comme nts HBsAg Semi-Quantitative (kayleen t code = 5195-3) 0.05 Negative [facility] OR CRISTIAN[facility] ONLY - [id number] 08:35:53* Test Item Value Reference Range Interpretation Comme nts RPR (Qualitative) (test code = 00028-6) Nonreactive Nonreactive Lab Interpretation (test cod e = 43730-2) Normal [facility] OR [place] ONLY - [id number] 08:35:53* Test Item Value Reference Range Interpretation Comme nts RPR (Qualitative) (test code = 38249-1) Nonreactive Nonreactive Lab Interpretation (test cod e = 12949-2) Normal [facility] ArlingtonUric Acid Jzdjm7015-89-04 08:10:11* Test Item Value Reference Range Interpretation Comme nts URIC ACID (test code = 2132912883) 5.7 mg/dL 2.9-6.0 Lab Interpretation (test cod e = 19821-5) Normal [facility] Nvrltokxzf6858-37-36 08:10:11* Test Item Value Reference Range Interpretation Comme nts CREATININE (test code = 2430572300) 0.56 mg/dL 0.50-1.04 eGFR (test code = 48788-2) 130.9 mL/min/1.73m2 CKD-EPI eGFR (20 21). Assuming creatinine has been stable day-to-day for at least three months, the eGFR indicates Category G1 (>= 90 mL/min/1.73 m2) [facility]OT (Asparate Amino Transfer)2023-04-24 08:10:11* Test Item Value Reference Range Interpretation Comme nts AST(SGOT) (test code = 3610729751) 18 U/L 13-40 Lab Interpretation (test cod e = 36237-4) Normal [facility] ArlingtonAlanine Amino Transferase (SGPT)2023-04-24 08:10:11* Test Item Value Reference Range Interpretation Comme nts ALTv (test code = 1742-6) 17 U/L 5-35 Lab Interpretation (test cod e = 16391-7) Normal [facility] ArlingtonLactate Zrzmcoahpypxc8192-67-67 08:10:11* Test Item Value Reference Range Interpretation Comme [facility] LDH (test code = 0044158855) 141 U/L 120-246 Lab Interpretation (test cod e = 38653-6) Normal [facility] ArlingtonUric Acid Gohyo7608-74-43 08:10:11* Test Item Value Reference Range Interpretation Comme [facility] URIC ACID (test code = 7577018874) 5.7 mg/dL 2.9-6.0 Lab Interpretation (test cod e = 25032-5) Normal [facility] Vosjlxidhe2249-09-66 08:10:11* Test Item Value Reference Range Interpretation Comme [facility] CREATININE (test code = 9960532519) 0.56 mg/dL 0.50-1.04 eGFR (test code = 39193-8) 130.9 mL/min/1.73m2 CKD-EPI eGFR (20 21). Assuming creatinine has been stable day-to-day for at least three months, the eGFR indicates Category G1 (>= 90 mL/min/1.73 m2) [facility] (Asparate Amino Transfer)2023-04-24 08:10:11* Test Item Value Reference Range Interpretation Comme nts AST(SGOT) (test code = 9434664732) 18 U/L 13-40 Lab Interpretation (test cod e = 55230-6) Normal [facility] ArlingtonAlanine Amino Transferase (SGPT)2023-04-24 08:10:11* Test Item Value Reference Range Interpretation Comme nts ALTv (test code = 1742-6) 17 U/L 5-35 Lab Interpretation (test cod e = 68692-6) Normal [facility] ArlingtonLactate Djrjbxeljlnpz7923-27-88 08:10:11* Test Item Value Reference Range Interpretation Comme nts LDH (test code = 1233198773) 141 U/L 120-246 Lab Interpretation (test cod e = 99890-8) Normal [facility] ArlingtonHIV 1/2 AG-AB WITH [id number] 04:25:18* Test Item Value Reference Range Interpretation Comme nts HIV Semi-quantitative (test code = 45241-5) 0.19 Negative FRED (test code = FRED) Non-reactive for HIV-1 antigen and HIV-1/HIV-2 antibodies. ?No laboratory evidence of HIV infection. ?Repeat in 2-4 weeks if acute HIV infection is suspected. [facility] ArlingtonHIV 1/2 AG-AB WITH [id number] 04:25:18* Test Item Value Reference Range Interpretation Comme nts HIV Semi-quantitative (test code = 91775-3) 0.19 Negative FRED (test code = FRED) Non-reactive for HIV-1 antigen and HIV-1/HIV-2 antibodies. ?No laboratory evidence of HIV infection. ?Repeat in 2-4 weeks if acute HIV infection is suspected. [facility] ArlingtonCB WITH [id number] 03:10:10* Test Item Value Reference Range Interpretation [...] 34.0 g/dL 31.6-35.1 RDW-SD (test code = 93015-5) 44.8 fL 39.0-49.9 RDW-CV (test code = 788-0) 14.0 % 12.0-15.5 PLT (test code = 777-3) 304 See_Comment [Automated [employer]] The system which generated this result transmitted reference range: 166 - 358 10*3/?L. The reference range was not used to interpret this result as normal/abnormal. MPV (test code = 94968-4) 9.5 fL 9.5-12.9 NRBC/100 WBC (test code = 6297166082) 0.0 See_Comment [Automated [employer] ssage] The system which generated this result transmitted reference range: 0.0 - 10.0 /100 WBCs. The reference range was not used to interpret this result as normal/abnormal. NRBC x10^3 (test code = 1613849782) See_Comment [Automated [employer]] The system which generated this result transmitted reference range: 10*3/?L. The reference range was not used to interpret this result as normal/abnormal. GRAN MAT (NEUT) % (test code = 770-8) 63.6 % IMM GRAN % (test code = 2425712686) 1.10 % LYMPH % (test code = 736-9) 24.3 % MONO % (test code = 5905-5) 7.7 % EOS % (test code = 713-8) 2.7 % BASO % (test code = 706-2) 0.6 % GRAN MAT x10^3(ANC) (test code = 9442310989) 5.23 10*3/uL 1.88-7.09 IMM GRAN x10^3 (test code = 4111642986) 0.09 10*3/uL 0.00-0.06 H LYMPH x10^3 (test code = 731-0) 2.00 10*3/uL 1.32-3.29 MONO x10^3 (test code = 742-7) 0.63 10*3/uL 0.33-0.92 EOS x10^3 (test code = 711-2) 0.22 10*3/uL 0.03-0.39 BASO x10^3 (test code = 704-7) 0.05 10*3/uL 0.01-0.07 Lab Interpretation (test code = 96596-5) Abnormal [facility] WITH [id number] 03:10:10* Test Item Value Reference Range Interpretation [...] 34.0 g/dL 31.6-35.1 RDW-SD (test code = 64548-9) 44.8 fL 39.0-49.9 RDW-CV (test code = 788-0) 14.0 % 12.0-15.5 PLT (test code = 777-3) 304 See_Comment [Automated messa ge] The system which generated this result transmitted reference range: 166 - 358 10*3/?L. The reference range was not used to interpret this result as normal/abnormal. MPV (test code = 87844-8) 9.5 fL 9.5-12.9 NRBC/100 WBC (test code = 1984874435) 0.0 See_Comment [Automated me ssage] The system which generated this result transmitted reference range: 0.0 - 10.0 /100 WBCs. The reference range was not used to interpret this result as normal/abnormal. NRBC x10^3 (test code = 5244491952) See_Comment [Automated messa ge] The system which generated this result transmitted reference range: 10*3/?L. The reference range was not used to interpret this result as normal/abnormal. GRAN MAT (NEUT) % (test code = 770-8) 63.6 % IMM GRAN % (test code = 2607427160) 1.10 % LYMPH % (test code = 736-9) 24.3 % MONO % (test code = 5905-5) 7.7 % EOS % (test code = 713-8) 2.7 % BASO % (test code = 706-2) 0.6 % GRAN MAT x10^3(ANC) (test code = 6250598996) 5.23 10*3/uL 1.88-7.09 IMM GRAN x10^3 (test code = 7062642669) 0.09 10*3/uL 0.00-0.06 H LYMPH x10^3 (test code = 731-0) 2.00 10*3/uL 1.32-3.29 MONO x10^3 (test code = 742-7) 0.63 10*3/uL 0.33-0.92 EOS x10^3 (test code = 711-2) 0.22 10*3/uL 0.03-0.39 BASO x10^3 (test code = 704-7) 0.05 10*3/uL 0.01-0.07 Lab Interpretation (test code = 62544-0) Abnormal [facility] ArlingtonType and Screen - ONCE [id number] 03:05:00 * Test Item Value Reference Range Interpretation Comme nts ABO & RH (test code = 20) O Positive IAT (test code = 1185) Negative [facility] ArlingtonType and Screen - ONCE [id number] 03:05:00 * Test Item Value Reference Range Interpretation Comme nts ABO & RH (test code = 20) O Positive IAT (test code = 1185) Negative [facility] URINALYSIS W SPECIFIC [id number] 15:24:00* Test Item Value Reference Range Interpretation [...] POCT U APPEAR (test code = 3267) [facility] URINALYSIS W SPECIFIC [id number] 14:58:00* Test Item Value Reference Range Interpretation [...] POCT U APPEAR (test code = 3267) [facility] URINALYSIS W SPECIFIC [id number] 14:58:00* Test Item Value Reference Range Interpretation [...] POCT U APPEAR (test code = 3267) [facility] ArlingtonHIV 1/2 AG-AB WITH [id number] 07:04:34* Test Item Value Reference Range Interpretation Comme nts HIV Semi-quantitative (test code = 99753-1) 0.11 Negative FRED (test code = FRED) Non-reactive for HIV-1 antigen and HIV-1/HIV-2 antibodies. ?No laboratory evidence of HIV infection. ?Repeat in 2-4 weeks if acute HIV infection is suspected. [facility] ArlingtonTHYROID STIMULATING [id number] 06:09:03 * Test Item Value Reference Range Interpretation Comme nts TSH (test code = 2314639956) 3.02 See_Comment Biotin has been reported to cause a negative bias, interpret results relative to patient's use of biotin. [Automated message] The system which generated this result transmitted reference range: 0.45 - 4.70 mIU/L. The reference range was not used to interpret this result as normal/abnormal. Lab Interpretation (test code = 11897-7) Normal [facility] URINALYSIS W SPECIFIC [id number] 15:08:00* Test Item Value Reference Range Interpretation [...] U APPEAR (test code = 3267) . [facility] URINALYSIS W SPECIFIC [id number] 15:08:00* Test Item Value Reference Range Interpretation [...] U APPEAR (test code = 3267) . [facility] URINALYSIS W SPECIFIC [id number] 15:08:00* Test Item Value Reference Range Interpretation [...] U APPEAR (test code = 3267) . [facility]PO[facility] URINALYSIS W SPECIFIC [id number] 16:31:00* Test Item Value Reference Range Interpretation [...] POCT U APPEAR (test code = 3267) [facility] ArlingtonGlucose 1 Hour Post Uhydnoly3928-57-26 05:53:03* Test Item Value Reference Range Interpretation Comme nts GLUC 1 HR (test code = 8006980356) 98 mg/dL 120-170 L Lab Interpretation (test cod e = 23906-7) Abnormal [facility] ArlingtonALANINE AMINO TRANSFERASE([id number] 05:53:03* Test Item Value Reference Range Interpretation Comme nts ALTv (test code = 1742-6) 14 U/L 5-35 Lab Interpretation (test cod e = 71195-5) Normal [facility] ArlingtonSGOT (ASPARTATE AMINO TRANSFER)2023-02-08 05:53:03* Test Item Value Reference Range Interpretation Comme nts AST(SGOT) (test code = 1525100127) 17 U/L 13-40 Lab Interpretation (test cod e = 72637-9) Normal [facility] with Jydoucltzphp1023-67-53 04:22:07* Test Item Value Reference Range Interpretation [...] 33.3 g/dL 31.6-35.1 RDW-SD (test code = 94907-7) 46.3 fL 39.0-49.9 RDW-CV (test code = 788-0) 14.0 % 12.0-15.5 PLT (test code = 777-3) 347 See_Comment [Automated messa ge] The system which generated this result transmitted reference range: 166 - 358 10*3/?L. The reference range was not used to interpret this result as normal/abnormal. MPV (test code = 16375-1) 9.8 fL 9.5-12.9 NRBC/100 WBC (test code = 5607421124) 0.0 See_Comment [Automated me ssage] The system which generated this result transmitted reference range: 0.0 - 10.0 /100 WBCs. The reference range was not used to interpret this result as normal/abnormal. NRBC x10^3 (test code = 8776134779) See_Comment [Automated messa ge] The system which generated this result transmitted reference range: 10*3/?L. The reference range was not used to interpret this result as normal/abnormal. GRAN MAT (NEUT) % (test code = 770-8) 72.7 % IMM GRAN % (test code = 2288846962) 1.40 % LYMPH % (test code = 736-9) 16.9 % MONO % (test code = 5905-5) 6.2 % EOS % (test code = 713-8) 2.4 % BASO % (test code = 706-2) 0.4 % GRAN MAT x10^3(ANC) (test code = 0088094083) 7.04 10*3/uL 1.88-7.09 IMM GRAN x10^3 (test code = 0803497607) 0.14 10*3/uL 0.00-0.06 H LYMPH x10^3 (test code = 731-0) 1.64 10*3/uL 1.32-3.29 MONO x10^3 (test code = 742-7) 0.60 10*3/uL 0.33-0.92 EOS x10^3 (test code = 711-2) 0.23 10*3/uL 0.03-0.39 BASO x10^3 (test code = 704-7) 0.04 10*3/uL 0.01-0.07 Lab Interpretation (test code = 53003-9) Abnormal [facility] URINALYSIS W SPECIFIC [id number] 16:36:00* Test Item Value Reference Range Interpretation [...] U APPEAR (test code = 3267) . [facility] URINALYSIS W SPECIFIC [id number] 15:41:00* Test Item Value Reference Range Interpretation [...] POCT U APPEAR (test code = 3267) [facility] URINALYSIS W SPECIFIC [id number] 15:29:00* Test Item Value Reference Range Interpretation [...] POCT U APPEAR (test code = 3267) [facility] URINALYSIS W SPECIFIC [id number] 14:13:00* Test Item Value Reference Range Interpretation [...] POCT U APPEAR (test code = 3267) [facility] URINALYSIS W SPECIFIC [id number] 15:20:00* Test Item Value Reference Range Interpretation [...] U APPEAR (test code = 3267) . [facility] ArlingtonTHYROID STIMULATING [id number] 06:02:31 * Test Item Value Reference Range Interpretation Comme nts TSH (test code = 1238630289) 2.97 See_Comment [Automated messa ge] The system which generated this result transmitted reference range: 0.45 - 4.70 mIU/L. The reference range was not used to interpret this result as normal/abnormal. Lab Interpretation (test code = 00499-0) Normal [facility] ArlingtonSGOT (ASPARTATE AMINO TRANSFER)2022-10-16 05:28:29* Test Item Value Reference Range Interpretation Comme nts AST(SGOT) (test code = 9791894477) 22 U/L 13-40 Lab Interpretation (test cod e = 75324-7) Normal [facility] ArlingtonALANINE AMINO TRANSFERASE([id number] 05:28:28* Test Item Value Reference Range Interpretation Comme nts ALTv (test code = 1742-6) 25 U/L 5-35 Lab Interpretation (test cod e = 24068-6) Normal [facility] ArlingtonPOCT URINALYSIS W SPECIFIC [id number] 14:20:00* Test Item Value Reference Range Interpretation [...] U APPEAR (test code = 3267) . [facility]PO[facility] URINALYSIS W SPECIFIC [id number] 20:43:00* Test Item Value Reference Range Interpretation [...] POCT U APPEAR (test code = 3267) [facility]RUPA[facility] [id number] 19:12:18 * Test Item Value Reference Range Interpretation Comme [facility] Rubella screen IgG (test code = 7806559781) Negative Negative FRED (test code = FRED) Positive - Indicat es the patient was exposed to Rubella through infection or vaccination.Negative - Indicates the patient could be susceptible to Rubella infection.Equivocal - A second specimen should be sent. [facility] ArlingtonVZV ANTIBODY [id number] 19:12:18* Test Item Value Reference Range Interpretation Comme [facility] VZV IgG antibody (test code = 11076-0) Positive Negative FRED (test code = FRED) Positive - Indicat es the patient was exposed to VZV through infection or vaccination.Negative - Indicates the patient could be susceptible to VZV infection.Equivocal - A second specimen should be sent for testing. [facility] ArlingtonRUBELLA SCREEN (PATRICIA) [id number] 19:12:18 * Test Item Value Reference Range Interpretation Comme [facility] Rubella screen IgG (test code = 8320561902) Negative Negative FRED (test code = FRED) Positive - Indicat es the patient was exposed to Rubella through infection or vaccination.Negative - Indicates the patient could be susceptible to Rubella infection.Equivocal - A second specimen should be sent. [facility] [id number] 19:12:18* Test Item Value Reference Range Interpretation Comme [facility] VZV IgG antibody (test code = 16747-7) Positive Negative FRED (test code = FRED) Positive - Indicat es the patient was exposed to VZV through infection or vaccination.Negative - Indicates the patient could be susceptible to VZV infection.Equivocal - A second specimen should be sent for testing. [facility] ONLY - SYPHILIS [id number] 15:53:54* Test Item Value Reference Range Interpretation Comme [facility] Syphilis IgG/IgM (test code = 53169-5) Non-reactive Non-reactive FRED (test code = FRED) Non-reactive - No serologic evidence of T. pallidum infection. Cannot exclude incubating or early syphilis. Submit a second specimen in 2-4 weeks if syphilis is clinically suspected. Equivocal - Further testing to follow. Reactive - Further testing to follow. Lab Interpretation (test code = 00121-4) Normal [facility] ONLY - SYPHILIS [id number] 15:53:54* Test Item Value Reference Range Interpretation Comme [facility] Syphilis IgG/IgM (test code = 72658-3) Non-reactive Non-reactive FRED (test code = FRED) Non-reactive - No serologic evidence of T. pallidum infection. Cannot exclude incubating or early syphilis. Submit a second specimen in 2-4 weeks if syphilis is clinically suspected. Equivocal - Further testing to follow. Reactive - Further testing to follow. Lab Interpretation (test code = 44031-7) Normal [facility] [id number] 15:52:16* Test Item Value Reference Range Interpretation Comme nts FREE T3 (test code = 7726571578) 4.41 pg/mL 2.77-5.27 Lab Interpretation (test cod e = 30470-5) Normal [facility] [id number] 15:52:16* Test Item Value Reference Range Interpretation Comme nts FREE T3 (test code = 3675748093) 4.41 pg/mL 2.77-5.27 Lab Interpretation (test cod e = 74288-0) Normal [facility] 14:49:37* Test Item Value Reference Range Interpretation Comme nts FREE T4 (test code = 2141224998) 1.02 See_Comment [Automated messa ge] The system which generated this result transmitted reference range: 0.78 - 2.20 ng/dL:. The reference range was not used to interpret this result as normal/abnormal. Lab Interpretation (test code = 81989-0) Normal [facility] [id number] 14:49:37* Test Item Value Reference Range Interpretation Comme nts FREE T4 (test code = 3203124518) 1.02 See_Comment [Automated messa ge] The system which generated this result transmitted reference range: 0.78 - 2.20 ng/dL:. The reference range was not used to interpret this result as normal/abnormal. Lab Interpretation (test code = 09291-8) Normal [facility] 1/2 AG-AB WITH [id number] 08:56:49* Test Item Value Reference Range Interpretation Comme [facility] HIV Semi-quantitative (test code = 98481-5) 0.10 Negative FRED (test code = FRED) Non-reactive for HIV-1 antigen and HIV-1/HIV-2 antibodies. ?No laboratory evidence of HIV infection. ?Repeat in 2-4 weeks if acute HIV infection is suspected. [facility] 1/2 AG-AB WITH [id number] 08:56:49* Test Item Value Reference Range Interpretation Comme [facility] HIV Semi-quantitative (test code = 21583-0) 0.10 Negative FRED (test code = FRED) Non-reactive for HIV-1 antigen and HIV-1/HIV-2 antibodies. ?No laboratory evidence of HIV infection. ?Repeat in 2-4 weeks if acute HIV infection is suspected. [facility] [id number] 06:02:34* Test Item Value Reference Range Interpretation Comme nts HCV Ab (test code = 99994-2) Negative HCV Semi-Quantitative (test code = 53291-6) 0.03 [facility] [id number] 06:02:34* Test Item Value Reference Range Interpretation Comme nts HCV Ab (test code = 57552-9) Negative HCV Semi-Quantitative (test code = 41927-1) 0.03 [facility] B SURFACE [id number] 05:45:14 * Test Item Value Reference Range Interpretation Comme nts HBsAg Semi-Quantitative (kayleen t code = 5195-3) 0.05 Negative [facility] [id number] 05:45:14 * Test Item Value Reference Range Interpretation Comme nts TSH (test code = 6786730528) 4.99 See_Comment H [Automated messa ge] The system which generated this result transmitted reference range: 0.45 - 4.70 mIU/L. The reference range was not used to interpret this result as normal/abnormal. Lab Interpretation (test code = 88269-2) Abnormal [facility] B SURFACE [id number] 05:45:14 * Test Item Value Reference Range Interpretation Comme nts HBsAg Semi-Quantitative (kayleen t code = 5195-3) 0.05 Negative [facility] [id number] 05:45:14 * Test Item Value Reference Range Interpretation Comme nts TSH (test code = 9253511817) 4.99 See_Comment H [Automated messa ge] The system which generated this result transmitted reference range: 0.45 - 4.70 mIU/L. The reference range was not used to interpret this result as normal/abnormal. Lab Interpretation (test code = 37232-1) Abnormal [facility] 1 Hour Post [id number] 05:22:25* Test Item Value Reference Range Interpretation Comme nts GLUC 1 HR (test code = 1188948251) 95 mg/dL 120-170 L Lab Interpretation (test cod e = 88017-2) Abnormal [facility] 1 Hour Post [id number] 05:22:25* Test Item Value Reference Range Interpretation Comme nts GLUC 1 HR (test code = 1687524466) 95 mg/dL 120-170 L Lab Interpretation (test cod e = 83595-7) Abnormal [facility] METABOLIC PANEL (83516)2022-09-12 05:17:29* Test Item Value Reference Range Interpretation Comme nts NA (test code = 2645783494) 138 mmol/L 135-145 K (test code = 4740550727) 4.3 mmol/L 3.5-5.0 CL (test code = 2146029319) 104 mmol/L 98-108 CO2 TOTAL (test code = 7565626346) 24 mmol/L 23-31 AGAP (test code = 8232501399) 10 2-16 BUN (test code = 9637787687) 10 mg/dL 7-23 GLUCOSE (test code = 8484775095) 101 mg/dL 70-110 CREATININE (test code = 6011287229) 0.62 mg/dL 0.50-1.04 TOTAL BILI (test code = 9972779116) 0.4 mg/dL 0.1-1.1 CALCIUM (test code = 2667722084) 9.5 mg/dL 8.6-10.6 T PROTEIN (test code = 6354625139) 7.5 g/dL 6.3-8.2 ALBUMIN (test code = 0866962182) 4.4 g/dL 3.5-5.0 ALK PHOS (test code = 4746561420) 80 U/L 34-122 ALTv (test code = 1742-6) 47 U/L 5-35 H AST(SGOT) (test code = 8214439461) 30 U/L 13-40 eGFR (test code = 9925661471) 119.3 mL/min/1.73m2 FRED (test code = FRED) [...] imaging tests). Lab Interpretation (test code = 28984-2) Abnormal [facility]. METABOLIC PANEL (19220)2022-09-12 05:17:29* Test Item Value Reference Range Interpretation Comme nts NA (test code = 3964606507) 138 mmol/L 135-145 K (test code = 1902224909) 4.3 mmol/L 3.5-5.0 CL (test code = 3939479822) 104 mmol/L 98-108 CO2 TOTAL (test code = 7812685822) 24 mmol/L 23-31 AGAP (test code = 3475453902) 10 2-16 BUN (test code = 3548600146) 10 mg/dL 7-23 GLUCOSE (test code = 2362261989) 101 mg/dL 70-110 CREATININE (test code = 9106367323) 0.62 mg/dL 0.50-1.04 TOTAL BILI (test code = 3600712315) 0.4 mg/dL 0.1-1.1 CALCIUM (test code = 5886961908) 9.5 mg/dL 8.6-10.6 T PROTEIN (test code = 2022941892) 7.5 g/dL 6.3-8.2 ALBUMIN (test code = 8065103144) 4.4 g/dL 3.5-5.0 ALK PHOS (test code = 4796509304) 80 U/L 34-122 ALTv (test code = 1742-6) 47 U/L 5-35 H AST(SGOT) (test code = 4898088581) 30 U/L 13-40 eGFR (test code = 4000880279) 119.3 mL/min/1.73m2 FRED (test code = FRED) [...] imaging tests). Lab Interpretation (test code = 82190-0) Abnormal [facility] WITH [id number] 04:51:06* Test Item Value Reference Range Interpretation Comme nts WBC (test code = 6690-2) 8.62 See_Comment [Automated [employer]] The system which generated this result transmitted reference range: 4.30 - 11.10 10*3/?L. The reference range was not used to interpret this result as normal/abnormal. RBC (test code = 789-8) 4.81 See_Comment [Automated [employer]] The system which generated this result transmitted [...] 33.0 g/dL 31.6-35.1 RDW-SD (test code = 08728-6) 40.7 fL 39.0-49.9 RDW-CV (test code = 788-0) 12.4 % 12.0-15.5 PLT (test code = 777-3) 414 See_Comment H [Automated messa ge] The system which generated this result transmitted reference range: 166 - 358 10*3/?L. The reference range was not used to interpret this result as normal/abnormal. MPV (test code = 41257-6) 9.4 fL 9.5-12.9 L NRBC/100 WBC (test code = 4854149702) 0.0 See_Comment [Automated [employer] ssage] The system which generated this result transmitted reference range: 0.0 - 10.0 /100 WBCs. The reference range was not used to interpret this result as normal/abnormal. NRBC x10^3 (test code = 1073283227) See_Comment [Automated messa ge] The system which generated this result transmitted reference range: 10*3/?L. The reference range was not used to interpret this result as normal/abnormal. GRAN MAT (NEUT) % (test code = 770-8) 67.7 % IMM GRAN % (test code = 6027495202) 0.60 % LYMPH % (test code = 736-9) 22.3 % MONO % (test code = 5905-5) 5.6 % EOS % (test code = 713-8) 3.0 % BASO % (test code = 706-2) 0.8 % GRAN MAT x10^3(ANC) (test code = 9424683539) 5.84 10*3/uL 1.88-7.09 IMM GRAN x10^3 (test code = 6488723160) 0.05 10*3/uL 0.00-0.06 LYMPH x10^3 (test code = 731-0) 1.92 10*3/uL 1.32-3.29 MONO x10^3 (test code = 742-7) 0.48 10*3/uL 0.33-0.92 EOS x10^3 (test code = 711-2) 0.26 10*3/uL 0.03-0.39 BASO x10^3 (test code = 704-7) 0.07 10*3/uL 0.01-0.07 Lab Interpretation (test code = 23295-9) Abnormal [facility] WITH [id number] 04:51:06* Test Item Value Reference Range Interpretation [...] 33.0 g/dL 31.6-35.1 RDW-SD (test code = 73541-8) 40.7 fL 39.0-49.9 RDW-CV (test code = 788-0) 12.4 % 12.0-15.5 PLT (test code = 777-3) 414 See_Comment H [Automated messa ge] The system which generated this result transmitted reference range: 166 - 358 10*3/?L. The reference range was not used to interpret this result as normal/abnormal. MPV (test code = 42358-2) 9.4 fL 9.5-12.9 L NRBC/100 WBC (test code = 4503838134) 0.0 See_Comment [Automated me ssage] The system which generated this result transmitted reference range: 0.0 - 10.0 /100 WBCs. The reference range was not used to interpret this result as normal/abnormal. NRBC x10^3 (test code = 4686041070) See_Comment [Automated messa ge] The system which generated this result transmitted reference range: 10*3/?L. The reference range was not used to interpret this result as normal/abnormal. GRAN MAT (NEUT) % (test code = 770-8) 67.7 % IMM GRAN % (test code = 2783292340) 0.60 % LYMPH % (test code = 736-9) 22.3 % MONO % (test code = 5905-5) 5.6 % EOS % (test code = 713-8) 3.0 % BASO % (test code = 706-2) 0.8 % GRAN MAT x10^3(ANC) (test code = 0414619783) 5.84 10*3/uL 1.88-7.09 IMM GRAN x10^3 (test code = 6548552952) 0.05 10*3/uL 0.00-0.06 LYMPH x10^3 (test code = 731-0) 1.92 10*3/uL 1.32-3.29 MONO x10^3 (test code = 742-7) 0.48 10*3/uL 0.33-0.92 EOS x10^3 (test code = 711-2) 0.26 10*3/uL 0.03-0.39 BASO x10^3 (test code = 704-7) 0.07 10*3/uL 0.01-0.07 Lab Interpretation (test code = 42306-3) Abnormal [facility] WORKUP, BLOOD [id number] 16:49:00 * Test Item Value Reference Range Interpretation Comme nts ABO & RH (test code = 20) O POSITIVE IAT (test code = 1185) Negative [facility] WORKUP, BLOOD [id number] 16:49:00 * Test Item Value Reference Range Interpretation Comme nts ABO & RH (test code = 20) O POSITIVE IAT (test code = 1185) Negative [facility] [id number] 15:36:00* Test Item Value Reference Range Interpretation Comme nts POCT PREG (test code = 1605) Positive On board controls acceptable with C Line (test code = 3574) Yes POCT PREG LOT # (test code = 3575) POCT PREG TEST DATE ( test code = 3576) [facility] URINALYSIS W/O SPECIFIC [id number] 15:36:00* Test Item Value Reference Range Interpretation [...] = 3257) negative Negative - Negati ve [facility] [id number] 15:36:00* Test Item Value Reference Range Interpretation Comme nts POCT PREG (test code = 1605) Positive On board controls acceptable with C Line (test code = 3574) Yes POCT PREG LOT # (test code = 3575) POCT PREG TEST DATE ( test code = 3576) [facility] URINALYSIS W/O SPECIFIC [id number] 15:36:00* Test Item Value Reference Range Interpretation [...] = 3257) negative Negative - Negati ve [facility] Metabolic [id number] 01:52:07* Test Item Value Reference Range Interpretation Comme nts NA (test code = 0988846022) 140 mmol/L 135-145 K (test code = 5166702860) 4.3 mmol/L 3.5-5.0 CL (test code = 0420536331) 105 mmol/L 98-108 CO2 TOTAL (test code = 9519419575) 20 mmol/L 23-31 L AGAP (test code = 6921240029) 2-16 BUN (test code = 8713923608) 17 mg/dL 7-23 GLUCOSE (test code = 2631716877) 101 mg/dL 70-110 CREATININE (test code = 4071500717) 0.74 mg/dL 0.50-1.04 TOTAL BILI (test code = 7056134273) 0.4 mg/dL 0.1-1.1 CALCIUM (test code = 3308507328) 8.8 mg/dL 8.6-10.6 T PROTEIN (test code = 7915183553) 8.3 g/dL 6.3-8.2 H ALBUMIN (test code = 2812669132) 4.9 g/dL 3.5-5.0 ALK PHOS (test code = 7963234234) 116 U/L 34-122 ALTv (test code = 1742-6) 62 U/L 5-35 H AST(SGOT) (test code = 0747672482) 45 U/L 13-40 H eGFR (test code = 3831645471) mL/min/1.73m2 FRED (test code = FRED) Association [...] imaging tests). Lab Interpretation (test code = 61688-4) Abnormal [facility], [id number] 01:51:27* Test Item Value Reference Range Interpretation Comme nts LIPASE (test code = 4054866960) 128 U/L 0-220 Lab Interpretation (test cod e = 48891-7) Normal [facility] with [id number] 01:05:48* Test Item Value Reference Range Interpretation Comme nts WBC (test code = 6690-2) See_Comment [Make Meaning] The system which generated this result transmitted reference range: 4.30 - 11.10 10*3/?L. The reference range was not used to interpret this result as normal/abnormal. RBC (test code = 789-8) See_Comment [Make Meaning] The system which generated this result transmitted [...] 34.2 g/dL 31.6-35.1 RDW-SD (test code = 61064-5) 38.2 fL 39.0-49.9 L RDW-CV (test code = 788-0) 11.9 % 12.0-15.5 L PLT (test code = 777-3) See_Comment H [Automated messa ge] The system which generated this result transmitted reference range: 166 - 358 10*3/?L. The reference range was not used to interpret this result as normal/abnormal. MPV (test code = 88749-3) 8.9 fL 9.5-12.9 L NRBC/100 WBC (test code = 4751283931) See_Comment [Automated me ssage] The system which generated this result transmitted reference range: 0.0 - 10.0 /100 WBCs. The reference range was not used to interpret this result as normal/abnormal. NRBC x10^3 (test code = 5579814806) <0.01 See_Comment [Automated messa ge] The system which generated this result transmitted reference range: 10*3/?L. The reference range was not used to interpret this result as normal/abnormal. GRAN MAT (NEUT) % (test code = 770-8) 53.1 % IMM GRAN % (test code = 3373483152) 0.70 % LYMPH % (test code = 736-9) 34.4 % MONO % (test code = 5905-5) 5.9 % EOS % (test code = 713-8) 5.1 % BASO % (test code = 706-2) 0.8 % GRAN MAT x10^3(ANC) (test code = 8024555140) 4.38 10*3/uL 1.88-7.09 IMM GRAN x10^3 (test code = 1545374642) 0.06 10*3/uL 0.00-0.06 LYMPH x10^3 (test code = 731-0) 2.84 10*3/uL 1.32-3.29 MONO x10^3 (test code = 742-7) 0.49 10*3/uL 0.33-0.92 EOS x10^3 (test code = 711-2) 0.42 10*3/uL 0.03-0.39 H BASO x10^3 (test code = 704-7) 0.07 10*3/uL 0.01-0.07 Lab Interpretation (test code = 31435-3) Abnormal [facility] [id number] 00:52:00* Test Item Value Reference Range Interpretation Comme nts POCT PREG (test code = 1605) Negative On board controls acceptable with C Line (test code = 3574) Positive POCT PREG LOT # (test code = 3575) [id number] POCT PREG TEST DATE ( test code = 3576) Lab Interpretation (test cod e = 07410-2) Normal [facility] [id number] 21:20:00* Test Item Value Reference Range Interpretation Comme nts POCT PREG (test code = 1605) Negative On board controls acceptable with C Line (test code = 3574) Yes POCT PREG LOT # (test code = 3575) POCT PREG TEST DATE ( test code = 3576) [facility] [id number] 21:20:00* Test Item Value Reference Range Interpretation Comme nts POCT PREG (test code = 1605) Negative On board controls acceptable with C Line (test code = 3574) Yes POCT PREG LOT # (test code = 3575) POCT PREG TEST DATE ( test code = 3576) [facility] Notes Date/Time Note Provider Source 2023-01-24 08:15:21 Formatting of this n ote might be different from the original. Called patient and she states that if prescription was called in she no longer needs the appointment. Kevin Wu [facility] 2023-01-23 17:37:57 Formatting of this n ote might be different from the original. Cyndi Sheridan is a 23 year old female Patient called to schedule appointment with OB provider. She believes she has a vaginal infection and wants to see Dr. Romero as soon as possible. She has not appointments available for next, if possible, please reach out to patient to over book. Chepe Frankel [facility]"
[2024-09-16] MEDS ORDERED: METHYLPREDNISOLONE 125 MG INJ ONE (10:10)
[2024-09-16] MEDS ORDERED: NA CHLORIDE 0.9% 1,000 ML ONE (10:11)
[2024-09-16] MEDS ORDERED: DIPHENHYDRAMINE 50 MG/ML VIAL ONE (10:11)
[2024-09-16] MEDS ORDERED: FAMOTIDINE 20 MG/2 ML VIAL IV ONE (10:11)
[2024-09-16] MEDS ORDERED: predniSONE 20 MG TAB ONE (10:11)
[2024-09-16 10:40] LABS: Absolute Eosinophils 0.3 K/uL (0-0.5); Absolute Lymphocytes (CBC) 1.5 K/uL (0.7-4.9); Absolute Monocytes 0.4 K/uL (0.1-1.3); Absolute Neutrophil 5.1 K/uL (1.8-8.0); Basophils % 0.5 % (0-1.3); Eosinophils % 3.8 % (0-4.4); Hematocrit 44.2 % (36.0-45.0); Lymphocytes % 20.9 % (15.3-44.8); MCH 29.6 pg (27.0-35.0); MCHC 34.1 g/dL (32.0-36.0); MPV 6.9 fL (7.6-11.3); Monocytes % 4.8 % (3.3-12.3); Platelets 407 thou/uL (152-406); RBC Red Blood Cell Count 5.08 M/uL (3.86-4.86); Red Cell Distribution Width 13.5 % (12.1-15.2)
[2024-09-16 10:50] LABS: Albumin 4.1 g/dL (3.4-5.0); Albumin/Globulin Ratio 0.9 (1.1-1.8); Anion Gap 7.9 mEq/L (5.0-15.0); Bilirubin Total 0.5 mg/dL (0.2-1.0); Globulin 4.5 g/dL (2.3-3.5); Potassium 3.9 mEq/L (3.5-5.1); Protein, Total 8.6 g/dL (6.4-8.2)
--- NOTE | 2024-09-16 11:20 | ER ---
Nurse's Notes [facility] Name: Cyndi Sheridan Age: 24 yrs Sex: Female : 2000 Arrival Date: 09/16/2024 Time: 09:51 Bed 3 Private MD: Diagnosis: Allergy status to unspecified drugs, medicaments and biological substances status;Adverse effect of other drugs, medicaments and biological substances Presentation: 09/16 10:01 Chief complaint: Patient states: Took fluconazole yesterday. Started to have rash, ll1 swelling, burring to face, eyes, and throat area since 2AM. Coronavirus screen: Client denies travel out of the [place] in the last 14 days. At this time, the client does not indicate any symptoms associated with coronavirus-19. Ebola Screen: Patient denies travel to an Ebola-affected area in the 21 days before illness onset. Onset: The symptoms/episode began/occurred today. Anaphylaxis evaluation, no signs or symptoms of anaphylaxis were noted. Initial Sepsis Screen: Does the patient meet any 2 criteria? No. Patient's initial sepsis screen is negative. Does the patient have a suspected source of infection? No. Patient's initial sepsis screen is negative. Risk Assessment: Do you want to hurt yourself or someone else? Patient reports no desire to harm self or others. Onset of symptoms was September 16, 2024. 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 - Infectious Disease History:: Denies. - Social history:: Smoking status: Patient denies any tobacco usage or history of. Screenin:28 [facility] ED Fall Risk Assessment (Adult) History of falling in the last 3 months, ph including since admission No falls in past 3 months (0 pts) Confusion or Disorientation No (0 pts) Intoxicated or Sedated No (0 pts) Impaired Gait No (0 pts) Mobility Assist Device Used No (0 pt) Altered Elimination No (0 pt) Score/Fall Risk Level 0 - 2 = Low Risk Oriented to surroundings, Maintained a safe environment, Hourly rounding (assess needs \T\ fall precautionary measures) done. Abuse screen: Denies threats or abuse. Denies injuries from another. Nutritional screening: No deficits noted. Tuberculosis screening: No symptoms or risk factors identified. Assessment: 10:30 General: Appears in no apparent distress. comfortable, well groomed, Behavior is calm, ph cooperative, appropriate for age. Pain: Denies pain. Neuro: Level of Consciousness is awake, alert, obeys commands, Oriented to person, place, time, situation. Cardiovascular: Capillary refill < 3 seconds in bilateral fingers Patient's skin is warm and dry. Respiratory: Airway is patent Respiratory effort is even, unlabored. EENT: swelling and redness noted to bilateral eyes and mouth. Derm: Skin is pink, warm \T\ dry. 11:30 Respiratory: Breath sounds are clear bilaterally. ll1 Vital Signs: 10:01 BP 137 / 109; Pulse 100; Resp 18; Temp 98; Pulse Ox 100% ; Weight 69.85 kg; Height 5 ll1 ft. 2 in. ; Pain 10/10; 10:30 Pulse 83; Resp 18; Pulse Ox 100% on R/A; ph 11:29 BP 134 / 98; Pulse 79; Resp 17; Pulse Ox 100% on R/A; ll1 10:01 Body Mass Index 28.17 (69.85 kg, 157.48 cm) ll1 10:01 Pain Scale: Adult ll1 ED Course: 09:54 Patient arrived in ED. mr 09:56 Nadir Navas MD is Attending Physician. tanisha 10:01 Arm band placed on. ll1 10:03 Triage completed. ll1 10:07 April Garcia, YOCASTA is Primary Nurse. ph 10:27 CBC with Diff Sent. ph 10:27 Comprehensive Metabolic Panel Sent. ph 10:29 Patient has correct armband on for positive identification. Bed in low position. Call light in reach. Side rails up X2. Pulse ox on. NIBP on. Door closed. Noise minimized. Lights dimmed. Warm blanket given. Pillow given. 10:29 Initial lab(s) drawn, by me, sent to lab. Inserted saline lock: 20 gauge in right ph antecubital area, using aseptic technique. Blood collected. Flushed with 10 mL NS. 11:19 Tan Alegre MD is Referral Physician. [facility] 11:30 No provider procedures requiring assistance completed. IV discontinued, intact, ll1 bleeding controlled, No redness/swelling at site. Pressure dressing applied. 11:31 Provided Education on: ER procedures and process. ll1 Administered Medications: 10:27 Drug: NS 0.9% IV 1000 ml IV at 1000 ml once; to be given as a bolus over 60 minutes ph Route: IV; Rate: 1000 ml; Site: right antecubital; 11:31 Follow up: Response: No adverse reaction; IV Status: Completed infusion; IV Intake: ll1 950ml 10:27 Drug: MethylPrednisoLONE IVP 125 mg IVP once Route: IVP; Site: right antecubital; ph 11:32 Follow up: Response: No adverse reaction ll1 10:27 Drug: predniSONE PO 60 mg PO once Route: PO; ph 11:32 Follow up: Response: No adverse reaction ll1 10:27 Drug: diphenhydrAMINE IVP 50 mg IVP once Route: IVP; Site: right antecubital; ph 11:32 Follow up: Response: No adverse reaction ll1 10:27 Drug: Famotidine IVP 40 mg IVP once; dilute with 10 mL 0.9% NaCl; give over 2 minutes ph Route: IVP; Site: right antecubital; 11:32 Follow up: Response: No adverse reaction ll1 Medication: 10:29 VIS not applicable for this client. ph Intake: 11:31 IV: 950ml; Total: 950ml. ll1 Outcome: 11:19 Discharge ordered by . [facility] 11:30 Discharged to home ambulatory, [facility] 11:30 Condition: stable 11:30 Discharge instructions given to patient, Instructed on discharge instructions, follow up and referral plans. medication usage, Demonstrated understanding of instructions, follow-up care, medications, Prescriptions given X 4, 11:32 Patient left the ED. 1 Signatures: Nadir Navas MD MD cha Rivera, Mary, Spencer Palmer mr April Garcia RN RN Colton Henderson RN RN 1
--- NOTE | 2024-09-16 11:20 | EDPHYS ---
Physician Documentation [facility] Name: Cyndi Sheridan Age: 24 yrs Sex: Female : 2000 Arrival Date: 09/16/2024 Time: 09:51 Bed 3 Private MD: ED Physician Nadir Navas HPI: 09/16 11:07 This 24 yrs old Female presents to ER via Ambulatory with complaints of tanisha Allergic Reaction. 11:07 The patient presents with itching, rash, redness of skin, swelling of the lips. Onset: tanisha The symptoms/episode began/occurred just prior to arrival, this morning. Associated signs and symptoms: Pertinent positives: rash, swelling. Possible causes: difluncan. At home the patient or guardian has treated the symptoms with Benadryl. Severity of symptoms: At their worst the symptoms were moderate in the emergency department the symptoms are unchanged. The patient has not experienced similar symptoms in the past. DIRECTOR AMBULATORY: 11:31 LMP N/A - control method, Not ll1 Historical: - Allergies: 10:01 No Known Drug Allergies; ll1 - PMHx: 10: Hypothyroidism; ll1 - PSHx: 10:01 None; ll1 - Immunization history:: Adult Immunizations up to date. - Infectious Disease History:: Denies. - Social history:: Smoking status: Patient denies any tobacco usage or history of. ROS: 11:08 Constitutional: Negative for fever, chills, and weight loss, Eyes: Negative for injury, tanisha pain, redness, and discharge, ENT: Negative for injury, pain, and discharge, Neck: Negative for injury, pain, and swelling, Cardiovascular: Negative for chest pain, palpitations, and edema, Respiratory: Negative for shortness of breath, cough, wheezing, and pleuritic chest pain, Abdomen/GI: Negative for abdominal pain, nausea, vomiting, diarrhea, and constipation, Back: Negative for injury and pain, : Negative for injury, bleeding, discharge, and swelling, MS/Extremity: Negative for injury and deformity, Neuro: Negative for headache, weakness, numbness, tingling, and seizure, Psych: Negative for depression, anxiety, suicide ideation, homicidal ideation, and hallucinations, Endocrine: Negative for neck swelling, polydipsia, polyuria, polyphagia, and marked weight changes, Hematologic/Lymphatic: Negative for swollen nodes, abnormal bleeding, and unusual bruising, 11:08 Skin: Positive for erythema, swelling, 11:08 Allergy/Immunology: Positive for allergies, hives, pruritus, rash, diffusely, Exam: 11:10 Constitutional: This is a well developed, well nourished patient who is awake, alert, tanisha and in no acute distress. Eyes: Pupils equal round and reactive to light, extra-ocular motions intact. Lids and lashes normal. Conjunctiva and sclera are non-icteric and not injected. Cornea within normal limits. Periorbital areas with no swelling, redness, or edema. ENT: Nares patent. No nasal discharge, no septal abnormalities noted. Tympanic membranes are normal and external auditory canals are clear. Oropharynx with no redness, swelling, or masses, exudates, or evidence of obstruction, uvula midline. Mucous membranes moist. Neck: Trachea midline, no thyromegaly or masses palpated, and no cervical lymphadenopathy. Supple, full range of motion without nuchal rigidity, or vertebral point tenderness. No Meningismus. Chest/axilla: Normal chest wall appearance and motion. Nontender with no deformity. No lesions are appreciated. Cardiovascular: Regular rate and rhythm with a normal S1 and S2. No gallops, murmurs, or rubs. Normal PMI, no JVD. No pulse deficits. Respiratory: Lungs have equal breath sounds bilaterally, clear to auscultation and percussion. No rales, rhonchi or wheezes noted. No increased work of breathing, no retractions or nasal flaring. Abdomen/GI: Soft, non-tender, with normal bowel sounds. No distension or tympany. No guarding or rebound. No evidence of tenderness throughout. Back: No spinal tenderness. No costovertebral tenderness. Full range of motion. MS/ Extremity: Pulses equal, no cyanosis. Neurovascular intact. Full, normal range of motion., bilateral aka Neuro: Awake and alert, GCS 15, oriented to person, place, time, and situation. Cranial nerves II-XII grossly intact. Motor strength 5/5 in all extremities. Sensory grossly intact. Cerebellar exam normal. Normal gait. Psych: Awake, alert, with orientation to person, place and time. Behavior, mood, and affect are within normal limits. 11:10 Head/face: Noted is erythema, rash, that is urticarial, swelling, Vital Signs: 10:01 BP 137 / 109; Pulse 100; Resp 18; Temp 98; Pulse Ox 100% ; Weight 69.85 kg; Height 5 ll1 ft. 2 in. ; Pain 10/; 10:30 Pulse 83; Resp 18; Pulse Ox 100% on R/A; ph 11:29 BP 134 / 98; Pulse 79; Resp 17; Pulse Ox 100% on R/A; ll1 10:01 Body Mass Index 28.17 (69.85 kg, 157.48 cm) ll1 10:01 Pain Scale: Adult ll1 MDM: 09:56 Medical Screening Exam initiated tanisha 11:13 Differential diagnosis: anaphylaxis, angioedema, bronchospasm, foreign body or airway tanisha obstruction Hereditary Angioedema Mastocystosis Status Asthmaticus. Data reviewed: vital signs, nurses notes, lab test result(s), CBC, electrolytes, hepatic panel. Consideration of Admission/Observation Escalation of care including admission/observation considered. I considered the following discharge prescriptions or medication management in the emergency department Medications were administered in the Emergency Department. See MAR. Test considered but Not performed: X-ray: no cxr. Care significantly affected by the following chronic conditions: hypothyroid. 09/16 09:59 Order name: CBC with Diff; Complete Time: 11:06 [facility] 09/16 09:59 Order name: Comprehensive Metabolic Panel; Complete Time: : [facility] Administered Medications: 10:27 Drug: NS 0.9% IV 1000 ml IV at 1000 ml once; to be given as a bolus over 60 minutes ph Route: IV; Rate: 1000 ml; Site: right antecubital; 11:31 Follow up: Response: No adverse reaction; IV Status: Completed infusion; IV Intake: ll1 950ml 10:27 Drug: MethylPrednisoLONE IVP 125 mg IVP once Route: IVP; Site: right antecubital; ph 11:32 Follow up: Response: No adverse reaction ll1 10:27 Drug: predniSONE PO 60 mg PO once Route: PO; ph 11:32 Follow up: Response: No adverse reaction ll1 10:27 Drug: diphenhydrAMINE IVP 50 mg IVP once Route: IVP; Site: right antecubital; ph 11:32 Follow up: Response: No adverse reaction 1 10:27 Drug: Famotidine IVP 40 mg IVP once; dilute with 10 mL 0.9% NaCl; give over 2 minutes ph Route: IVP; Site: right antecubital; 11:32 Follow up: Response: No adverse reaction ll1 Disposition Summary: 09/16/24 11:19 Discharge Ordered Notes: Location: Home [facility] Problem: new tanisha Symptoms: have improved tanisha Condition: Stable tanisha Diagnosis - Allergy status to unspecified drugs, medicaments and biological substances status [facility] - Adverse effect of other drugs, medicaments and biological substances [facility] Followup: tanisha - With: Private Physician - When: 2 - 3 days - Reason: Recheck today's complaints, Continuance of care, Re-evaluation by your physician Followup: tanisha - With: Tan Alegre MD - When: 2 - 3 days - Reason: Recheck today's complaints, Re-evaluation by your physician Discharge Instructions: - Discharge Summary Sheet [facility] - Allergies, Adult [facility] - Drug Allergy, Veio-to-Ycua [facility] - Drug Allergy [facility] - How to Use an Auto-Injector Pen [facility] - Angioedema [facility] - Angioedema, Yikx-[id number] [facility] Forms: - Medication Reconciliation Form [facility] - Antibiotic Education [facility] - Prescription Opioid Use [facility] - Patient Portal Instructions [facility] - Leadership Thank You Letter [facility] Prescriptions: - EpiPen 2-Christopher - inject 1 application SUBCUTANEOUS route once; 2 unit; Refills: 0, Product [facility] Selection Permitted - Benadryl 25 mg Oral capsule - take 2 capsule ORAL route every 6 hours As needed; 40 tablet; Refills: 0, [facility] Product Selection Permitted - Pepcid 20 mg Oral Tablet - take 1 tablet ORAL route every 12 hours for 10 days; 20 tablet; Refills: 0, [facility] Product Selection Permitted - Prednisone 20 mg Oral tablet - take 3 tablets ORAL route once daily for 4 days; 12 tablet; Refills: 0, Product [facility] Selection Permitted Signatures: Dispatcher [employer] Nadir Cruz MD MD cha Hall, Patricia RN RN Colton Coronado RN RN ll1
[2024-09-16 12:03] VITALS: TEMP 98; O2SAT 100
[2024-09-16 12:05] VITALS: BP 134/98
== END 2024-09-16 11:32 | disposition home or self-care (01) ==
LOC: ER 09:51
DX: R21 Rash and other nonspecific skin eruption (principal); T50.995A Adverse effect of other drugs, medicaments and biological substances, initial encounter; Z88.8 Allergy status to other drugs, medicaments and biological substances
CPT/HCPCS: 96361; 85025; 36415; 80053; 96375; 96374; 99284; J7512; J1200; J2919; J7030

== ENCOUNTER 2025-01-27 04:26 | Emergency (ER) | payer OTHER ==
--- OUTSIDE RECORDS SUMMARY | 2025-01-27 04:41 | XMS REPORT | Continuity of Care Document ---
Author Name Unknown Address [address] [facility]. [address] [place] [address] Organization [facility] [place] Address [address] [facility] [address] [place] [address] Care Team Providers Care Plant Buyer Name Role Phone PCP, PATIENT DOES NOT HAVE A Primary Care Physic gabriele Unavailable Facundo Cassy FLYNN Attending Clinician [phone] CASSY LOREDO Attending Clinician Unavailable WHITNEY ROMERO Attending Clinician UnavailRONDA Grewal Attending Clinician Unavail able Salud Salvador MD Attending Clinician [phone] Whitney Romero CNM Attending Clinician [phone] Doctor Unassigned, [place] Attending Clinician U JANNIE Vincent Attending Clinician Unavailable [facility]ending [facility]ician Unava ilSHERRY Carlos Attending Clinician Unavailable Emanuel GARCIA, Sherry Bernal Attending Clinician [phone] Lazarus Lehman CRNA Attending Clinician [phone] Nilson Marx MD Attending Clinician [phone] JANENE SCHAEFER Attending Clinician Unavailabl e Ultrasound, [facility] Attending Clinician UnavailJanene Choe MD Attending Clinician [phone] SALUD SALVADOR Attending Clinician Unavailable SALUD SALVADOR Attending Clinician Unavailable 1, [facility] Usg Room Attending Clinician Unavaila YOLA Sheehan Attending Clinician Unavailable Risk, Uhh-Duihk-Vn/High Attending Clinician Unav ailable Landry WHYola FLYNN Attending Clinician [phone] CYNDI ACOSTA Attending Clinician Unavailab le CHAOMANLINDA Attending Clinician Unavailab le Chaoman STUDIO CONTROL OPERATOR, Linda Muñoz Attending Clinician + [phone] Aimee Childs MD Attending Clinician + AIMEE CHILDS Attending Clinician Unav ailable RADIOLOGY Attending Clinician Unavailable ELIEL PRO Attending Clinician Unavailable Eliel Pro MD Attending Clinician [phone] Akinsipe WHCNP, Ronda Pierce Attending Clinician + SHEYLA SOMMERS Attending Clinician Unavailable Sheyla Givens Attending Clinician [phone] Parisa Sousa RN Attending Clinician Unavailable Carolynn Melendez RN Attending Clinician Unavailab ANABELA Murray Attending Clinician Unavailab Dajuan Marquez DO Attending Clinician [phone] Anabela Serrato Attending Clinician + [phone] SHERRY ARREGUIN Admitting Clinician Unavailable Sherry Arreguin MD Admitting Clinician [phone] ELIEL PRO Admitting Clinician Unavailable Payers Payer Name Policy Type Policy Number Effective Date Expirati on Date Source [facility] [id number] 2023 00:00:00 [facility] [id number] 2023 00:00:00 [place] [id number] 2021 00:00:[address] [facility] [id number] 2020 00:00:00 Problems Condition Name Condition Details Condition Category Status Onset Date Resolution Date Last Treatment Date Treating Clinician Comments Source Status post section Status post section Disease Active 2022-06 2-07 00:00: 00 [facility] Declines flu vaccine Declines flu vaccine Disease Active 2022-06 0-05 00:00: 00 [facility] Elevated blood pressure reading without diagnosis of hypertensi on Elevated blood pressure reading without diagnosis of hypertensi on Disease Active 4-06 00:00: 00 [facility] Family history of Down syndrome Family history of Down syndrome Disease Active 2020-06 2-16 00:00: 00 Overview: Formattin g of this note might be different from the original. Reports her brother [facility] PCOS (polycysti c ovarian syndrome) PCOS (polycysti c ovarian syndrome) Disease Active 2-10 00:00: 00 [facility] Hypothyroi dism Hypothyroi dism Disease Active 2016-06 2-15 00:00: 00 [facility] Declines flu vaccine Declines flu vaccine Disease Resolve d 2022-06 0-05 00:00: 00 2024-12-22 00:00:00 2024-12-22 16:31:03 [facility] Overweight (BMI 25.0-29.9) Overweight (BMI 25.0-29.9) Disease Resolve d 1-02 00:00: 00 2024-06-23 00:00:00 2024-06-23 11:00:35 [facility] Mild pre-eclamp marlin in third trimester Mild pre-eclamp marlin in third trimester Disease Resolve d 4-06 00:00: 00 2023-05-18 00:00:00 2023-05-18 11:28:16 [facility] Elevated liver enzymes Elevated liver enzymes Disease Resolve d 4-06 00:00: 00 2023-05-18 00:00:00 2023-05-18 11:28:23 [facility] Rubella non-immune status, antepartum Rubella non-immune status, antepartum Disease Resolve d 2020-06 2-17 00:00: 00 2023-05-18 00:00:00 2023-05-18 11:26:00 Overview: Formattin g of this note might be different from the original. Address pp [facility] Liveborn infant, of dueñas , born in hospital by delivery Liveborn infant, of dueñas , born in hospital by delivery Disease Resolve d 2022-06 1-16 00:00: 00 2023-05-15 00:00:00 2023-05-15 12:48:02 [facility] Vaginal bleeding in Vaginal bleeding in Disease Resolve d 2022-06 1-15 00:00: 00 2023-05-15 00:00:00 2023-05-15 12:50:34 [facility] 37 weeks gestation of 37 weeks gestation of Disease Resolve d 2022- 1-15 00:00: 00 2023-05-15 00:00:00 2023-05-15 12:47:30 [facility] Pain of round ligament during Pain of round ligament during Disease Resolve d 2022- 9-03 00:00: 00 2023-05-15 00:00:00 2023-05-15 12:47:28 [facility] Family history of Down syndrome Family history of Down syndrome Disease Resolve d 2020-06 2-16 00:00: 00 2023-05-15 00:00:00 2023-05-15 12:50:18 Overview: Formattin g of this note might be different from the original. Reports her brother [facility] High-risk in third trimester High-risk in third trimester Disease Resolve d 2020-06 2-16 00:00: 00 2023-05-15 00:00:00 2023-05-15 12:50:19 [facility] History of hypothyroi dism History of hypothyroi dism Disease Resolve d 2020-06 2-16 00:00: 00 2023-05-15 00:00:00 2023-05-15 12:50:28 Overview: Formattin g of this note might be different from the original. Reports in 2013, was on meds, no longer on meds Labs WNL, repeat in 4 weeks [facility] Obesity in Obesity in Disease Resolve d 2019-0 9-23 00:00: 00 2023-05-15 00:00:00 2023-05-15 12:50:30 [facility] Other general counseling and advice for contracept dino management Other general counseling and advice for contracept dino management Disease Resolve d 2021-0 1-14 00:00: 00 2022-09-11 00:00:00 2022-09-11 10:59:14 [facility] UTI in UTI in Disease Resolve d 2020- 2-20 00:00: 00 2022-09-11 00:00:00 2022-09-11 10:59:10 Overview: Formattin g of this note might be different from the original. Pending brittni [facility] Amenorrhea Amenorrhea Disease Resolve d 2020-0 2-10 00:00: 00 2022-09-11 00:00:00 2022-09-11 10:59:07 [facility] Other general counseling and advice for contracept dino management Other general counseling and advice for contracept dino management Disease Resolve d 0 2-10 00:00: 00 2021-05-24 00:00:00 2021-05-24 10:54:32 [facility] Chlamydia trachomati s infection of lower genitourin khari sites Chlamydia trachomati s infection of lower genitourin khari sites Disease Resolve d 2017-0 5-11 00:00: 00 2021-05-24 00:00:00 2021-05-24 10:54:06 [facility] Screen for STD (sexually transmitte d disease) Screen for STD (sexually transmitte d disease) Disease Resolve d 2016-06 2-15 00:00: 00 2021-05-24 00:00:00 2021-05-24 10:54:26 [facility] Over weight Over weight Disease Resolve d 2016-06 2-15 00:00: 00 2021-05-24 00:00:00 2021-05-24 10:54:28 [facility] Allergies, Adverse Reactions, Alerts Allergy Name Allergy Type Status Severity Reaction(s) Onset Date Inactive Date Treating Clinician Comments Source METRONID AZOLE DRUG INGREDI Active Hives 6-18 00:00: 00 [facility] Metronid azole Propensi ty to adverse reaction s Active Hives 618 00:00: 00 [facility] FLUCONAZ OLE DRUG INGREDI Active ITCHING 11-10 00:00: 00 [facility] Fluconaz ole Propensi ty to adverse reaction s Active Swelling 11-10 00:00: 00 [facility] NO KNOWN ALLERGIE S Drug Class Active [facility] Social History Social Habit Start Date Stop Date Quantity Comments Source ASSERTION 2022-08-15 00:00:00 Not [facility] Gender identity [facility] Alcoh[facility] beverage intake 2024-12-22 00:00:00 2024-12-22 00:00:00 Ex-drinker (finding) [facility] History of Social function 2024-11-24 00:00:00 2024-11-24 00:00:00 [facility] Alcohol intake 2023-05-18 00:00:00 2023-05-18 00:00:00 Current non-drinker of alcohol (finding) [facility] Exposure to SARS-CoV-2 (event) 2022-11-01 00:00:00 2022-11-11 23:45:00 Not sure [facility] Tobacco use and exposure 2022-09-11 00:00:00 2022-09-11 00:00:00 Smokeless tobacco non-user [facility] Sex assigned at 2000 00:00:00 2000 00:00:00 [facility] Smoking Status Start Date Stop Date Source Never smoked tobacco [facility] Medications Ordered Medication Name Filled Medication Name Start Date Stop Date Current Medication? Ordering Clinician Indication Dosage Frequency Signature (SIG) Comments Components Source clindamycin 300 mg capsule 12-22 00:00: 00 Yes [id number] 300mg Take 1 capsule by mouth in the morning and 1 capsule in the evening. [facility] clindamycin 300 mg capsule 11-24 00:00: 00 12-22 00:00 :00 No [id number] 300mg Take 1 capsule by mouth in the morning and 1 capsule in the evening. [facility] metroNIDAZO LE 500 mg tablet 11-11 00:00: 00 11-24 00:00 :00 No [id number] 500mg Take 1 tablet by mouth in the morning and 1 tablet in the evening. [facility] SERTraline 100 mg tablet 11-10 00:00: 00 12-22 00:00 :00 No [id number] Take 1/2 tab PO once daily x 4 days, then take 1 tab PO once daily [facility] metroNIDAZO LE 500 mg tablet 07-22 00:00: 00 11-11 00:00 :00 No [id number] 500mg Take 1 tablet by mouth every 12 (twelve) hours. [facility] fluconazole 150 mg tablet 07-22 00:00: 00 07-23 05:59 :00 No [id number] 150mg Take 1 tablet by mouth once now for 1 dose. [facility] metroNIDAZO LE 500 mg tablet 06-25 00:00: 00 07-22 00:00 :00 No [id number] 500mg Take 1 tablet by mouth every 12 (twelve) hours. [facility] fluconazole 150 mg tablet 06-25 00:00: 00 06-26 05:59 :00 No [id number] 150mg Take 1 tablet by mouth once now for 1 dose. [facility] silver sulfADIAZIN E (SILVADENE) 1 % cream 06-23 00:00: 00 11-11 00:00 :00 No [id number] Apply to area(s) 2 (two) times daily. [facility] fluconazole 150 mg tablet 06-23 00:00: 00 06-24 05:59 :00 No [id number] 150mg Take 1 tablet by mouth once now for 1 dose. [facility] ibuprofen (IBU) tablet 600 mg 2022-06 00:00: 00 Yes 600mg 600 mg, Oral, Q6H ABX, First dose on 04/26/23 at 1800, Until Discontinu ed, Routine [facility] vitamin w/FA tablet 2022-06 00:00: 00 06-23 00:00 :00 No [id number] 1{tbl} Take 1 tablet by mouth in the morning. [facility] docusate 100 mg capsule 2022-06 00:00: 00 06-10 00:00 :00 No [id number] 200mg Take 2 capsules by mouth once daily as needed for Constipati on. [facility] ferrous sulfate 325 mg (65 mg iron) tablet 2022-06 00:00: 00 06-10 00:00 :00 No [id number] 325mg Take 1 tablet by mouth in the morning and 1 tablet in the evening. [facility] ibuprofen 600 mg tablet 2022-06 00:00: 00 06-10 00:00 :00 No [id number] 600mg Take 1 tablet by mouth every 6 (six) hours as needed (Pain). Take with food or milk. [facility] gabapentin 300 mg capsule 2022-06 00:00: 00 06-10 00:00 :00 No [id number] 300mg Take 1 capsule by mouth in the morning and 1 capsule at noon and 1 capsule in the evening. [facility] HYDROcodone -acetaminop hen 5-325 mg tablet 2022-06 00:00: 00 05-04 05:59 :00 No [id number] 1{tbl} Take 1 tablet by mouth every 6 (six) hours as needed for Pain (scale 7-10) (Alternate with Ibuprofen) for up to 7 days. Indication s: acute pain [facility] ketorolac (TORADOL) injection 30 mg 2022-06 00:00: 00 04-26 23:59 :00 No 30mg 30 mg, Slow IV Push, Q6H ABX, 4 doses, First dose on Fri04/25/23 at 1800, Last dose on Fri04/26/23 at 1200, Routine [facility] acetaminoph en (TYLENOL) tablet 650 mg 2022-06 18:00: 00 Yes 650mg 650 mg, Oral, Q6H ABX, First dose on Fri04/25/23 at 1200, Until Discontinu ed, Routine [facility] HYDROcodone -acetaminop hen (NORCO 5) 5-325 mg tablet 1 tablet 2022-06 18:00: 00 Yes 1{tbl} 1 tablet, Oral, Q6HPRN, Starting on Fri04/25/23 at 1200, Until Discontinu ed, Routine, Pain (scale 7-10), Alternate with Ibuprofen [facility] gabapentin (NEURONTIN) capsule 300 mg 2022-06 14:00: 00 Yes 300mg 300 mg, Oral, TID, First dose on Fri04/25/23 at 0800, Until Discontinu ed, Routine [facility] sodium chloride 0.9 % irrigation solution 2022-06 06:03: 00 Yes PRN, Starting on Fri04/25/23 at 0003, Until Discontinu ed, Intra-op [facility] lactated ringers IV infusion 1,000 mL 2022-06 04:45: 00 04-25 07:22 :51 No 1000mL at 125 mL/hr, 1,000 mL, IV Infusion, ONCE, 1 dose, On Fri04/24/23 at 2245, Routine [facility] rho(D) immune globulin (RHOGAM) syringe 300 mcg 2022-06 04:22: 07 Yes 300ug 300 mcg, Intramuscu lar, ONCE, For 1 dose, Conditiona l, Routine [facility] diphenhydrA MINE (BENADRYL) injection 25 mg 2022-06 04:22: 02 Yes 25mg 25 mg, Slow IV Push, Q6HPRN, Starting on Fri04/24/23 at 2222, Until Discontinu ed, Routine, Itching [facility] diphenhydrA MINE (BENADRYL) tablet 25 mg 2022-06 04:22: 02 Yes 25mg 25 mg, Oral, Q6HPRN, Starting on Fri04/24/23 at 2222, Until Discontinu ed, Routine, Sleep, Itching [facility] ondansetron (ZOFRAN (PF)) injection 4 mg 2022-06 04:22: 02 Yes 4mg 4 mg, Slow IV Push, Q8HPRN, Starting on Fri04/24/23 at 2222, Until Discontinu ed, Routine, Nausea and Vomiting (N/V) [facility] bisacodyL (DULCOLAX) suppository 10 mg 2022-06 04:22: 02 Yes 10mg 10 mg, Rectal, QDAILYPRN, Starting on Fri04/24/23 at 2222, Until Discontinu ed, Routine, Constipati on [facility] simethicone (GAS RELIEF (SIMETHICON E)) chewable tablet 160 mg 2022-06 04:22: 02 Yes 160mg 160 mg, Oral, PC+HSPRN, Starting on Fri04/24/23 at 2222, Until Discontinu ed, Routine, Gas [facility] docusate (COLACE) capsule 200 mg 2022-06 04:22: 02 Yes 200mg 200 mg, Oral, QDAILYPRN, Starting on Fri04/24/23 at 2222, Until Discontinu ed, Routine, Constipati on [facility] magnesium hydroxide (MILK OF MAGNESIA) 400 mg/5 mL suspension 30 mL 2022-06 04:22: 02 Yes 30mL 30 mL, Oral, QDAILYPRN, Starting on Fri04/24/23 at 2222, Until Discontinu ed, Routine, Constipati on [facility] lactated ringers IV infusion 1,000 mL 2022-06 04:22: 02 Yes 1000mL at 125 mL/hr, 1,000 mL, IV Infusion, PRN, 1 dose, Starting on Fri04/24/23 at 2222, Until Discontinu ed, Routine [facility] naloxone (NARCAN) injection 0.2 mg 2022-06 04:12: 00 Yes .2mg 0.2 mg, Intramuscu lar, Q3HPRN, Starting on Fri04/24/23 at 2212, Until Discontinu ed, Routine, Itching [facility] diphenhydrA MINE (BENADRYL) tablet 25 mg 2022-06 04:12: 00 Yes 25mg 25 mg, Oral, Q4HPRN, Starting on Georgina 04/24/23 at 2212, Until Discontinu ed, Routine, Itching [facility] naloxone (NARCAN) injection 0.4 mg 2022-06 04:12: 00 04-26 16:02 :22 No .4mg 0.4 mg, Slow IV Push, PRN - SEE INSTRUCTIO NS, Starting on Georgina 04/24/23 at 2212, Until 04/26/23 at 1002, Routine, Analgesia Recovery [facility] diphenhydrA MINE (BENADRYL) injection 25 mg 2022-06 04:12: 00 04-26 04:11 :00 No 25mg 25 mg, Slow IV Push, Q4HPRN, Starting on Georgina 04/24/23 at 2212, Until 04/25/23 at 2211, Routine, Itching [facility] morpHINE PF (DURAMORPH- PF) injection 2022-06 03:38: 00 04-25 03:58 :45 No Epidural, ONCE INTRA PROCEDURE, Starting on Georgina 04/24/23 at 2138, Until Georgina 04/24/23 at 2158, Routine, Intra-op [facility] methylergon ovine (METHERGINE ) injection 2022-06 03:08: 00 04-25 03:58 :45 No Intramuscu lar, ONCE INTRA PROCEDURE, Starting on Georgina 04/24/23 at 2108, Until Georgina 04/24/23 at 2158, Routine, Intra-op [facility] acetaminoph en ADULT (OFIRMEV) injection 2022-06 03:05: 00 04-25 03:58 :45 No IV Infusion, Administer over 15 Minutes, ONCE INTRA PROCEDURE, Starting on Georgina 04/24/23 at 2105, Until Georgina 04/24/23 at 2158, Routine, Intra-op [facility] ondansetron (ZOFRAN (PF)) injection 2022-06 02:59: 00 04-25 03:58 :45 No Slow IV Push, ONCE INTRA PROCEDURE, Starting on Georgina 04/24/23 at 2058, Until Georgina 04/24/23 at 2157, Routine, Intra-op [facility] LR 1000 mL + oxytocin 40 units 40 unit/ 1,000 mL IV Solution 2022-06 02:58: 00 04-25 03:58 :45 No IV Infusion, CONTINUOUS PRN, Starting on Georgina 04/24/23 at 2057, Until Georgina 04/24/23 at 2157, Routine, Intra-op [facility] chloroproca ine (NESACAINE- MPF) 30 mg/mL (3 %) injection 2022-06 02:31: 00 04-25 03:58 :45 No Epidural, ONCE INTRA PROCEDURE, Starting on Georgina 04/24/23 at 2030, Until Georgina 04/24/23 at 2157, Routine, Intra-op [facility] famotidine (PEPCID (PF)) injection 20 mg 2022-06 02:30: 00 04-25 04:22 :06 No 20mg 20 mg, Slow IV Push, Q12H, First dose on Georgina 04/24/23 at 2030, Until Discontinu ed, Routine [facility] mupirocin (BACTROBAN OINT) 2 % skin ointment 2022-06 02:00: 00 04-25 04:22 :06 No [facility] ceFAZolin (ANCEF) 2,000 mg in NaCl 0.9% (NS) 100 mL MINI-BAG 2022-06 01:28: 45 04-25 04:22 :06 No 2000mg 2,000 mg, IV Piggyback, O.R. HOLDING ONCE, Starting on Georgina 04/24/23 at 8, Until Georgina 04/24/23 at 2221, Administer over 30 Minutes, 100 mL
Reas on for Anti-Infec tive: Surgical Prophylaxi s
Surgi miquel Prophylaxi s: SAND SCREENER
Duration of therapy: within 24 hours of surgery [facility] PIB fentaNYL-ro pivacaine 2 mcg/mL-0.1 % (PF) in NS 200 mL epidural infusion RTU 2022-06 17:18: 00 04-25 03:58 :45 No Epidural, ONCE INTRA PROCEDURE, Starting on Georgina 04/24/23 at 1118, Until Discontinu ed, Routine, Intra-op [facility] lidocaine-e pinephrine (XYLOCAINE W/EPINEPHRI NE) 1.5 %-1:200,000 injection 2022-06 17:17: 00 04-25 03:58 :45 No Epidural, ONCE INTRA PROCEDURE, Starting on Georgina 04/24/23 at 1117, Until Discontinu ed, Routine, Intra-op [facility] lidocaine 1% (XYLOCAINE) 100 mg/10 mL (1 %) injection 2022-06 17:12: 00 04-25 03:58 :45 No Infiltrati on, ONCE INTRA PROCEDURE, Starting on Georgina 04/24/23 at 1112, Until Discontinu ed, Routine, Intra-op [facility] fluconazole (DIFLUCAN) tablet 200 mg 2022-06 04:00: 00 04-25 01:29 :17 No 200mg 200 mg, Oral, DAILY, 7 doses, First dose on Fri04/23/23 at 2200, Last dose on Fri04/29/23 at 0900, MARLY
Re ason for Anti-Infec tive: Documented Infection< br>Documen shamar Infection Site: Other
O ther site: yeast in vagina
Duration of Therapy: Other (see Comments) [facility] lactated ringers IV infusion 500 mL 2022-06 03:00: 00 04-24 16:50 :00 No 500mL at 999 mL/hr, 500 mL, IV Infusion, ONCE, 1 dose, On Fri04/23/23 at 2100, Routine [facility] terbutaline (BRETHINE) injection 0.25 mg 2022-06 02:33: 34 04-25 04:22 :06 No .25mg 0.25 mg, Subcutaneo us, PRN, Starting on Fri04/23/23 at 2032, Until Georgina 04/24/23 at 2222, Routine, feta bradycardi a > 3 min or Cat III strip [facility] FENTanyl PF (SUBLIMAZE (PF)) injection 100 mcg 2022-06 02:33: 02 04-25 04:22 :06 No 100ug 100 mcg, Slow IV Push, Q1HPRN, Starting on Fri04/23/23 at 2032, Until Georgina 04/24/23 at 2222, Routine, contractio n pain without an epidural and SVE < 8 cm and Cat I strip [facility] oxytocin (PITOCIN) 30 units in NS 500 mL IV infusion 2022-06 02:12: 52 04-25 04:22 :06 No 2mU/min at 2-40 mL/hr, IV Infusion, TITRATE, Starting on Fri04/23/23 at 2011, Until Fri04/24/23 at 2222, MARLY [facility] lactated ringers IV infusion 500 mL 2022-06 02:11: 17 04-25 04:22 :06 No 500mL at 999 mL/hr, 500 mL, IV Infusion, PRN - SEE INSTRUCTIO NS, Starting on Fri04/23/23 at 2010, Until Georgina 04/24/23 at 2222, Routine [facility] tranexamic acid (CYKLOKAPRO N) 1,000 mg in NaCl 0.9% (NS) 250 mL piggyback 2022-06 02:11: 17 04-25 03:10 :00 No 1000mg 1,000 mg, IV Piggyback, PRN, 1 dose, Starting on Fri04/23/23 at 2010, Until Discontinu ed, Administer over 10 Minutes, 250 mL [facility] carboprost (HEMABATE) injection 250 mcg 2022-06 02:11: 17 04-25 04:22 :06 No 250ug 250 mcg, Intramuscu lar, Q2HPRN, 8 doses, Starting on Fri04/23/23 at 2010, Until Fri04/24/23 at 2222, Routine, PPH [facility] sodium citrate-cit shannon acid (BICITRA) 500-334 mg/5 mL solution 30 mL 2022-06 02:11: 04-25 01:42 :00 No 30mL 30 mL, Oral, PRE-PROCED URE ONCE, 1 dose, Starting on Fri04/23/23 at 2010, Until Discontinu ed, Routine, Surgery/Pr ocedure [facility] D5W-LR IV infusion 1,000 mL 2022-06 02:11: 04-25 04:22 :06 No 1000mL at 1-125 mL/hr, IV Infusion, TITRATE, Starting on Fri04/23/23 at 2010, Until Georgina 04/24/23 at 2222, Routine [facility] fluconazole (DIFLUCAN) 150 mg tablet 2022-06 0-07 00:00: 00 03-16 04:59 :00 No [id number] 150mg Take 1 tablet by mouth once now for 1 dose. [facility] metroNIDAZO LE 500 mg tablet 18 00:00: 00 02-09 00:00 :00 No [id number] 500mg Take 1 tablet by mouth in the morning and 1 tablet in the evening. [facility] fluconazole (DIFLUCAN) 150 mg tablet 18 00:00: 00 01-25 04:59 :00 No [id number] 150mg Take 1 tablet by mouth once now for 1 dose. [facility] neomycin-po lymyxin-hyd rocortisone 3.5-10,000- 1 mg/mL-unit/ mL-% otic susp 8-03 00:00: 00 01-17 04:59 :00 No [id number] 25074 3[drp] Place 3 Drops in left ear 4 (four) times daily for 7 days. [facility] metroNIDAZO LE 500 mg tablet 7-07 00:00: 00 12-28 04:59 :00 No [id number] 500mg Take 1 tablet by mouth in the morning and 1 tablet in the evening. Do all this for 14 days. [facility] fluconazole (DIFLUCAN) 150 mg tablet 707 00:00: 00 12-14 04:59 :00 No [id number] 150mg Take 1 tablet by mouth once now for 1 dose. [facility] metroNIDAZO LE 500 mg tablet 607 00:00: 00 11-21 04:59 :00 No [id number] 500mg Take 1 tablet by mouth in the morning and 1 tablet in the evening. Do all this for 7 days. [facility] fluconazole (DIFLUCAN) 150 mg tablet 11-13 00:00: 00 11-14 04:59 :00 No [id number] 150mg Take 1 tablet by mouth once now for 1 dose. [facility] cephALEXin 500 mg capsule 5-14 00:00: 00 10-28 04:59 :00 No [id number] 500mg Take 1 capsule by mouth in the morning and 1 capsule in the evening. Do all this for 7 days. [facility] miconazole kit 5-14 00:00: 00 10-21 04:59 :00 No [id number] 1{each} Insert 1 Each into vagina once now for 1 dose. [facility] (BLOOD PRESSURE CUFF) [facility] 4-05 00:00: 00 Yes [id number] Use as directed [facility] (BLOOD PRESSURE CUFF) [facility] 4-05 00:00: 00 04-26 00:00 :00 No [id number] Use as directed [facility] semaglutide (OZEMPIC) 1 mg/dose (4 mg/3 mL) PnIj 1-27 00:00: 00 09-11 00:00 :00 No 1mg inject 1 mg under the skin. [facility] metformin ER 500 mg 24 hr tablet 8-12 00:00: 00 09-11 00:00 :00 No [facility] Nitrofurant oin&Nit. Macrocryst (MACROBID) 100 mg capsule 100 mg 08-20 05:00: 00 08-20 05:00 :00 No 100mg 100 mg, Oral, ONCE, 1 dose, On 08/20/21 at 0000, Routine
Reason for Anti-Infec tive: Documented Infection< br>Documen shamar Infection Site: Urine
D uration of Therapy: Other (see Comments) [facility] iopamidol (ISOVUE 370-500 mL) injection 100 mL 08-20 03:15: 00 08-20 03:15 :00 No [id number] 100mL 100 mL, Intravenou s, ONCE, 1 dose, On Fri08/19/21 at 2215, Routine [facility] Nitrofurant oin&Nit. Macrocryst (MACROBID) 100 mg capsule 08-19 00:00: 00 09-11 00:00 :00 No [id number] 100mg Take 1 capsule by mouth 2 (two) times daily. [facility] traMADoL (ULTRAM) 50 mg tablet 08-19 00:00: 00 09-11 00:00 :00 No [id number] 50mg Take 1 tablet by mouth every 6 (six) hours as needed for Pain (scale 7-10). Indication s: acute pain [facility] ondansetron (ZOFRAN) 4 mg tablet 08-19 00:00: 00 09-11 00:00 :00 No [id number] 4mg Take 1 tablet by mouth every 8 (eight) hours as needed for Nausea and Vomiting (N/V). [facility] Nitrofurant oin&Nit. Macrocryst (MACROBID) 100 mg capsule 2020-06 00:00: 00 08-19 00:00 :00 No [id number] 100mg Take 1 capsule by mouth 2 (two) times daily. [facility] multivitami n ( VITAMIN) tablet 2020-06 2-16 00:00: 00 Yes [id number] 1{tbl} Take 1 tablet by mouth daily. [facility] multivitami n ( VITAMIN) tablet 2020-06 2-16 00:00: 00 04-26 00:00 :00 No [id number] 1{tbl} Take 1 tablet by mouth daily. [facility] Immunizations Ordered Immunization Name Filled Immunization Name Date Status Comments Source DTaP, Unspecified Formulation 2023-06-10 10:30:00 Completed [facility] MMR 2023-06-10 10:30:00 Completed [facility] Pneumococcal 7 Conjugate, PCV7 (Prevnar7) 2023-06-10 10:30:00 Completed [facility] IPV 2023-06-10 10:30:00 Completed [facility] Varicella (varivax)(chicken pox) 2023-06-10 10:30:00 Completed [facility] TDAP 2023-06-10 10:30:00 Completed [facility] HPV9 2023-06-10 10:30:00 Completed [facility] HEPATITIS A 2023-06-10 10:30:00 Completed [facility] HPV 2023-06-10 10:30:00 Completed [facility] Meningococcal Polysaccharide (groups A, C, Y and W-135) conjugate vaccine (MCV4P) 2023-06-10 10:30:00 Completed [facility] TDAP 2023-06-03 00:00:00 Completed [facility] HPV9 2023-06-03 00:00:00 Completed [facility] DTaP, Unspecified Formulation 2023-06-03 00:00:00 Completed [facility] HEPATITIS A 2023-06-03 00:00:00 Completed [facility] HPV 2023-06-03 00:00:00 Completed [facility] Meningococcal Polysaccharide (groups A, C, Y and W-135) conjugate vaccine (MCV4P) 2023-06-03 00:00:00 Completed [facility] MMR 2023-06-03 00:00:00 Completed [facility] Pneumococcal 7 Conjugate, PCV7 (Prevnar7) 2023-06-03 00:00:00 Completed [facility] IPV 2023-06-03 00:00:00 Completed [facility] Varicella (varivax)(chicken pox) 2023-06-03 00:00:00 Completed [facility] DTaP, Unspecified Formulation 2023-05-15 12:45:00 Completed [facility] MMR 2023-05-15 12:45:00 Completed [facility] Pneumococcal 7 Conjugate, PCV7 (Prevnar7) 2023-05-15 12:45:00 Completed [facility] IPV 2023-05-15 12:45:00 Completed [facility] Varicella (varivax)(chicken pox) 2023-05-15 12:45:00 Completed [facility] TDAP 2023-05-15 12:45:00 Completed [facility] HPV9 2023-05-15 12:45:00 Completed [facility] HEPATITIS A 2023-05-15 12:45:00 Completed [facility] HPV 2023-05-15 12:45:00 Completed [facility] Meningococcal Polysaccharide (groups A, C, Y and W-135) conjugate vaccine (MCV4P) 2023-05-15 12:45:00 Completed [facility] TDAP 2023-04-30 08:30:00 Completed [facility] HPV9 2023-04-30 08:30:00 Completed [facility] DTaP, Unspecified Formulation 2023-04-30 08:30:00 Completed [facility] HEPATITIS A 2023-04-30 08:30:00 Completed [facility] HPV 2023-04-30 08:30:00 Completed [facility] Meningococcal Polysaccharide (groups A, C, Y and W-135) conjugate vaccine (MCV4P) 2023-04-30 08:30:00 Completed [facility] MMR 2023-04-30 08:30:00 Completed [facility] Pneumococcal 7 Conjugate, PCV7 (Prevnar7) 2023-04-30 08:30:00 Completed [facility] IPV 2023-04-30 08:30:00 Completed [facility] Varicella (varivax)(chicken pox) 2023-04-30 08:30:00 Completed [facility] TDAP 2023-04-28 00:00:00 Completed [facility] HPV9 2023-04-28 00:00:00 Completed [facility] DTaP, Unspecified Formulation 2023-04-28 00:00:00 Completed [facility] HEPATITIS A 2023-04-28 00:00:00 Completed [facility] HPV 2023-04-28 00:00:00 Completed [facility] Meningococcal Polysaccharide (groups A, C, Y and W-135) conjugate vaccine (MCV4P) 2023-04-28 00:00:00 Completed [facility] MMR 2023-04-28 00:00:00 Completed [facility] Pneumococcal 7 Conjugate, PCV7 (Prevnar7) 2023-04-28 00:00:00 Completed [facility] IPV 2023-04-28 00:00:00 Completed [facility] Varicella (varivax)(chicken pox) 2023-04-28 00:00:00 Completed [facility] TDAP 2023-04-27 00:00:00 Completed [facility] HPV9 2023-04-27 00:00:00 Completed [facility] DTaP, Unspecified Formulation 2023-04-27 00:00:00 Completed [facility] HEPATITIS A 2023-04-27 00:00:00 Completed [facility] HPV 2023-04-27 00:00:00 Completed [facility] Meningococcal Polysaccharide (groups A, C, Y and W-135) conjugate vaccine (MCV4P) 2023-04-27 00:00:00 Completed [facility] MMR 2023-04-27 00:00:00 Completed [facility] Pneumococcal 7 Conjugate, PCV7 (Prevnar7) 2023-04-27 00:00:00 Completed [facility] IPV 2023-04-27 00:00:00 Completed [facility] Varicella (varivax)(chicken pox) 2023-04-27 00:00:00 Completed [facility] TDAP 2023-04-26 00:00:00 Completed [facility] HPV9 2023-04-26 00:00:00 Completed [facility] DTaP, Unspecified Formulation 2023-04-26 00:00:00 Completed [facility] HEPATITIS A 2023-04-26 00:00:00 Completed [facility] HPV 2023-04-26 00:00:00 Completed [facility] Meningococcal Polysaccharide (groups A, C, Y and W-135) conjugate vaccine (MCV4P) 2023-04-26 00:00:00 Completed [facility] MMR 2023-04-26 00:00:00 Completed [facility] Pneumococcal 7 Conjugate, PCV7 (Prevnar7) 2023-04-26 00:00:00 Completed [facility] IPV 2023-04-26 00:00:00 Completed [facility] Varicella (varivax)(chicken pox) 2023-04-26 00:00:00 Completed [facility] TDAP 2023-04-25 20:00:51 Completed [facility] HPV9 2023-04-25 20:00:51 Completed [facility] DTaP, Unspecified Formulation 2023-04-25 20:00:51 Completed [facility] HEPATITIS A 2023-04-25 20:00:51 Completed [facility] HPV 2023-04-25 20:00:51 Completed [facility] Meningococcal Polysaccharide (groups A, C, Y and W-135) conjugate vaccine (MCV4P) 2023-04-25 20:00:51 Completed [facility] MMR 2023-04-25 20:00:51 Completed [facility] Pneumococcal 7 Conjugate, PCV7 (Prevnar7) 2023-04-25 20:00:51 Completed [facility] IPV 2023-04-25 20:00:51 Completed [facility] Varicella (varivax)(chicken pox) 2023-04-25 20:00:51 Completed [facility] TDAP 2023-04-24 20:45:00 Completed [facility] HPV9 2023-04-24 20:45:00 Completed [facility] DTaP, Unspecified Formulation 2023-04-24 20:45:00 Completed [facility] HEPATITIS A 2023-04-24 20:45:00 Completed [facility] HPV 2023-04-24 20:45:00 Completed [facility] Meningococcal Polysaccharide (groups A, C, Y and W-135) conjugate vaccine (MCV4P) 2023-04-24 20:45:00 Completed [facility] MMR 2023-04-24 20:45:00 Completed [facility] Pneumococcal 7 Conjugate, PCV7 (Prevnar7) 2023-04-24 20:45:00 Completed [facility] IPV 2023-04-24 20:45:00 Completed [facility] Varicella (varivax)(chicken pox) 2023-04-24 20:45:00 Completed [facility] TDAP 2023-04-24 11:00:00 Completed [facility] HPV9 2023-04-24 11:00:00 Completed [facility] DTaP, Unspecified Formulation 2023-04-24 11:00:00 Completed [facility] HEPATITIS A 2023-04-24 11:00:00 Completed [facility] HPV 2023-04-24 11:00:00 Completed [facility] Meningococcal Polysaccharide (groups A, C, Y and W-135) conjugate vaccine (MCV4P) 2023-04-24 11:00:00 Completed [facility] MMR 2023-04-24 11:00:00 Completed [facility] Pneumococcal 7 Conjugate, PCV7 (Prevnar7) 2023-04-24 11:00:00 Completed [facility] IPV 2023-04-24 11:00:00 Completed [facility] Varicella (varivax)(chicken pox) 2023-04-24 11:00:00 Completed [facility] TDAP 2023-04-23 19:33:00 Completed [facility] HPV9 2023-04-23 19:33:00 Completed [facility] DTaP, Unspecified Formulation 2023-04-23 19:33:00 Completed [facility] HEPATITIS A 2023-04-23 19:33:00 Completed [facility] HPV 2023-04-23 19:33:00 Completed [facility] Meningococcal Polysaccharide (groups A, C, Y and W-135) conjugate vaccine (MCV4P) 2023-04-23 19:33:00 Completed [facility] MMR 2023-04-23 19:33:00 Completed [facility] Pneumococcal 7 Conjugate, PCV7 (Prevnar7) 2023-04-23 19:33:00 Completed [facility] IPV 2023-04-23 19:33:00 Completed [facility] Varicella (varivax)(chicken pox) 2023-04-23 19:33:00 Completed [facility] TDAP 2023-04-23 00:00:00 Completed [facility] HPV9 2023-04-23 00:00:00 Completed [facility] DTaP, Unspecified Formulation 2023-04-23 00:00:00 Completed [facility] HEPATITIS A 2023-04-23 00:00:00 Completed [facility] HPV 2023-04-23 00:00:00 Completed [facility] Meningococcal Polysaccharide (groups A, C, Y and W-135) conjugate vaccine (MCV4P) 2023-04-23 00:00:00 Completed [facility] MMR 2023-04-23 00:00:00 Completed [facility] Pneumococcal 7 Conjugate, PCV7 (Prevnar7) 2023-04-23 00:00:00 Completed [facility] IPV 2023-04-23 00:00:00 Completed [facility] Varicella (varivax)(chicken pox) 2023-04-23 00:00:00 Completed [facility] TDAP 2023-04-16 09:30:00 Completed [facility] HPV9 2023-04-16 09:30:00 Completed [facility] DTaP, Unspecified Formulation 2023-04-16 09:30:00 Completed [facility] HEPATITIS A 2023-04-16 09:30:00 Completed [facility] HPV 2023-04-16 09:30:00 Completed [facility] Meningococcal Polysaccharide (groups A, C, Y and W-135) conjugate vaccine (MCV4P) 2023-04-16 09:30:00 Completed [facility] MMR 2023-04-16 09:30:00 Completed [facility] Pneumococcal 7 Conjugate, PCV7 (Prevnar7) 2023-04-16 09:30:00 Completed [facility] IPV 2023-04-16 09:30:00 Completed [facility] Varicella (varivax)(chicken pox) 2023-04-16 09:30:00 Completed [facility] DTaP, Unspecified Formulation 2023-04-10 10:45:00 Completed [facility] MMR 2023-04-10 10:45:00 Completed [facility] Pneumococcal 7 Conjugate, PCV7 (Prevnar7) 2023-04-10 10:45:00 Completed [facility] IPV 2023-04-10 10:45:00 Completed [facility] Varicella (varivax)(chicken pox) 2023-04-10 10:45:00 Completed [facility] TDAP 2023-04-10 10:45:00 Completed [facility] HPV9 2023-04-10 10:45:00 Completed [facility] HEPATITIS A 2023-04-10 10:45:00 Completed [facility] HPV 2023-04-10 10:45:00 Completed [facility] Meningococcal Polysaccharide (groups A, C, Y and W-135) conjugate vaccine (MCV4P) 2023-04-10 10:45:00 Completed [facility] TDAP 2023-03-27 10:00:00 Completed [facility] HPV9 2023-03-27 10:00:00 Completed [facility] DTaP, Unspecified Formulation 2023-03-27 10:00:00 Completed [facility] HEPATITIS A 2023-03-27 10:00:00 Completed [facility] HPV 2023-03-27 10:00:00 Completed [facility] Meningococcal Polysaccharide (groups A, C, Y and W-135) conjugate vaccine (MCV4P) 2023-03-27 10:00:00 Completed [facility] MMR 2023-03-27 10:00:00 Completed [facility] Pneumococcal 7 Conjugate, PCV7 (Prevnar7) 2023-03-27 10:00:00 Completed [facility] IPV 2023-03-27 10:00:00 Completed [facility] Varicella (varivax)(chicken pox) 2023-03-27 10:00:00 Completed [facility] TDAP 2023-03-15 00:00:00 Completed [facility] HPV9 2023-03-15 00:00:00 Completed [facility] DTaP, Unspecified Formulation 2023-03-15 00:00:00 Completed [facility] HEPATITIS A 2023-03-15 00:00:00 Completed [facility] HPV 2023-03-15 00:00:00 Completed [facility] Meningococcal Polysaccharide (groups A, C, Y and W-135) conjugate vaccine (MCV4P) 2023-03-15 00:00:00 Completed [facility] MMR 2023-03-15 00:00:00 Completed [facility] Pneumococcal 7 Conjugate, PCV7 (Prevnar7) 2023-03-15 00:00:00 Completed [facility] IPV 2023-03-15 00:00:00 Completed [facility] Varicella (varivax)(chicken pox) 2023-03-15 00:00:00 Completed [facility] TDAP 2023-03-13 09:45:00 Completed [facility] HPV9 2023-03-13 09:45:00 Completed [facility] DTaP, Unspecified Formulation 2023-03-13 09:45:00 Completed [facility] HEPATITIS A 2023-03-13 09:45:00 Completed [facility] HPV 2023-03-13 09:45:00 Completed [facility] Meningococcal Polysaccharide (groups A, C, Y and W-135) conjugate vaccine (MCV4P) 2023-03-13 09:45:00 Completed [facility] MMR 2023-03-13 09:45:00 Completed [facility] Pneumococcal 7 Conjugate, PCV7 (Prevnar7) 2023-03-13 09:45:00 Completed [facility] IPV 2023-03-13 09:45:00 Completed [facility] Varicella (varivax)(chicken pox) 2023-03-13 09:45:00 Completed [facility] TDAP 2023-02-28 11:00:00 Completed [facility] HPV9 2023-02-28 11:00:00 Completed [facility] DTaP, Unspecified Formulation 2023-02-28 11:00:00 Completed [facility] HEPATITIS A 2023-02-28 11:00:00 Completed [facility] HPV 2023-02-28 11:00:00 Completed [facility] Meningococcal Polysaccharide (groups A, C, Y and W-135) conjugate vaccine (MCV4P) 2023-02-28 11:00:00 Completed [facility] MMR 2023-02-28 11:00:00 Completed [facility] Pneumococcal 7 Conjugate, PCV7 (Prevnar7) 2023-02-28 11:00:00 Completed [facility] IPV 2023-02-28 11:00:00 Completed [facility] Varicella (varivax)(chicken pox) 2023-02-28 11:00:00 Completed [facility] TDAP 2023-02-07 00:00:00 Completed [facility] TDAP 2023-02-07 00:00:00 Completed [facility] TDAP 2023-01-07 00:00:00 Completed [facility] HPV9 2023-01-07 00:00:00 Completed [facility] DTaP, Unspecified Formulation 2023-01-07 00:00:00 Completed [facility] HEPATITIS A 2023-01-07 00:00:00 Completed [facility] HPV 2023-01-07 00:00:00 Completed [facility] Meningococcal Polysaccharide (groups A, C, Y and W-135) conjugate vaccine (MCV4P) 2023-01-07 00:00:00 Completed [facility] MMR 2023-01-07 00:00:00 Completed [facility] Pneumococcal 7 Conjugate, PCV7 (Prevnar7) 2023-01-07 00:00:00 Completed [facility] IPV 2023-01-07 00:00:00 Completed [facility] Varicella (varivax)(chicken pox) 2023-01-07 00:00:00 Completed [facility] TDAP 2022-12-30 00:00:00 Completed [facility] HPV9 2022-12-30 00:00:00 Completed [facility] DTaP, Unspecified Formulation 2022-12-30 00:00:00 Completed [facility] HEPATITIS A 2022-12-30 00:00:00 Completed [facility] HPV 2022-12-30 00:00:00 Completed [facility] Meningococcal Polysaccharide (groups A, C, Y and W-135) conjugate vaccine (MCV4P) 2022-12-30 00:00:00 Completed [facility] MMR 2022-12-30 00:00:00 Completed [facility] Pneumococcal 7 Conjugate, PCV7 (Prevnar7) 2022-12-30 00:00:00 Completed [facility] IPV 2022-12-30 00:00:00 Completed [facility] Varicella (varivax)(chicken pox) 2022-12-30 00:00:00 Completed [facility] TDAP 2022-10-20 00:00:00 Completed [facility] HPV9 2022-10-20 00:00:00 Completed [facility] DTaP, Unspecified Formulation 2022-10-20 00:00:00 Completed [facility] HEPATITIS A 2022-10-20 00:00:00 Completed [facility] HPV 2022-10-20 00:00:00 Completed [facility] Meningococcal Polysaccharide (groups A, C, Y and W-135) conjugate vaccine (MCV4P) 2022-10-20 00:00:00 Completed [facility] MMR 2022-10-20 00:00:00 Completed [facility] Pneumococcal 7 Conjugate, PCV7 (Prevnar7) 2022-10-20 00:00:00 Completed [facility] IPV 2022-10-20 00:00:00 Completed [facility] Varicella (varivax)(chicken pox) 2022-10-20 00:00:00 Completed [facility] TDAP 2022-09-12 00:00:00 Completed [facility] HPV9 2022-09-12 00:00:00 Completed [facility] DTaP, Unspecified Formulation 2022-09-12 00:00:00 Completed [facility] HEPATITIS A 2022-09-12 00:00:00 Completed [facility] HPV 2022-09-12 00:00:00 Completed [facility] Meningococcal Polysaccharide (groups A, C, Y and W-135) conjugate vaccine (MCV4P) 2022-09-12 00:00:00 Completed [facility] MMR 2022-09-12 00:00:00 Completed [facility] Pneumococcal 7 Conjugate, PCV7 (Prevnar7) 2022-09-12 00:00:00 Completed [facility] IPV 2022-09-12 00:00:00 Completed [facility] Varicella (varivax)(chicken pox) 2022-09-12 00:00:00 Completed [facility] TDAP 2021-08-21 00:00:00 Completed [facility] HPV9 2021-08-21 00:00:00 Completed [facility] DTaP, Unspecified Formulation 2021-08-21 00:00:00 Completed [facility] HEPATITIS A 2021-08-21 00:00:00 Completed [facility] HPV 2021-08-21 00:00:00 Completed [facility] Meningococcal Polysaccharide (groups A, C, Y and W-135) conjugate vaccine (MCV4P) 2021-08-21 00:00:00 Completed [facility] MMR 2021-08-21 00:00:00 Completed [facility] Pneumococcal 7 Conjugate, PCV7 (Prevnar7) 2021-08-21 00:00:00 Completed [facility] IPV 2021-08-21 00:00:00 Completed [facility] Varicella (varivax)(chicken pox) 2021-08-21 00:00:00 Completed [facility] TDAP 2021-06-04 00:00:00 Completed [facility] HPV9 2021-06-04 00:00:00 Completed [facility] DTaP, Unspecified Formulation 2021-06-04 00:00:00 Completed [facility] HEPATITIS A 2021-06-04 00:00:00 Completed [facility] HPV 2021-06-04 00:00:00 Completed [facility] Meningococcal Polysaccharide (groups A, C, Y and W-135) conjugate vaccine (MCV4P) 2021-06-04 00:00:00 Completed [facility] MMR 2021-06-04 00:00:00 Completed [facility] Pneumococcal 7 Conjugate, PCV7 (Prevnar7) 2021-06-04 00:00:00 Completed [facility] IPV 2021-06-04 00:00:00 Completed [facility] Varicella (varivax)(chicken pox) 2021-06-04 00:00:00 Completed [facility] HPV9 2017-12-15 00:00:00 Completed [facility] HPV9 2017-12-15 00:00:00 Completed [facility] HPV9 2017-12-15 00:00:00 Completed [facility] HPV9 2017-12-15 00:00:00 Completed [facility] HPV9 2017-12-15 00:00:00 Completed [facility] HPV9 2017-12-15 00:00:00 Completed [facility] HPV9 2017-12-15 00:00:00 Completed [facility] HPV9 2017-12-15 00:00:00 Completed [facility] HPV9 2017-12-15 00:00:00 Completed [facility] HPV9 2017-12-15 00:00:00 Completed [facility] HPV9 2017-12-15 00:00:00 Completed [facility] HPV9 2017-12-15 00:00:00 Completed [facility] HPV9 2017-12-15 00:00:00 Completed [facility] HPV9 2017-12-15 00:00:00 Completed [facility] HPV9 2017-12-15 00:00:00 Completed [facility] HPV9 2017-12-15 00:00:00 Completed [facility] HPV9 2017-12-15 00:00:00 Completed [facility] HPV9 2017-12-15 00:00:00 Completed HPV9 2017-12-15 00:00:00 Completed [facility] HPV9 2017-12-15 00:00:00 Completed [facility] HPV9 2017-12-15 00:00:00 Completed [facility] HPV9 2017-12-15 00:00:00 Completed [facility] HPV9 2017-12-15 00:00:00 Completed [facility] HPV9 2017-12-15 00:00:00 Completed [facility] HPV9 2017-12-15 00:00:00 [facility] HPV9 2017-12-15 00:00:00 [facility] HPV9 2017-12-15 00:00:00 [facility] HPV9 2017-12-15 00:00:00 Completed [facility] HPV9 2017-12-15 00:00:00 Completed [facility] HPV9 2017-08-15 00:00:00 [facility] HPV9 2017-08-15 00:00:00 [facility] HPV9 2017-08-15 00:00:00 [facility]pleted [facility] HPV9 2017-08-15 00:00:00 Completed [facility] HPV9 2017-08-15 00:00:00 Completed [facility] HPV9 2017-08-15 00:00:00 Completed [facility] HPV9 2017-08-15 00:00:00 Completed [facility] HPV9 2017-08-15 00:00:00 [facility] HPV9 2017-08-15 00:00:00 [facility] HPV9 2017-08-15 00:00:00 [facility] HPV9 2017-08-15 00:00:00 [facility] HPV9 2017-08-15 00:00:00 [facility] HPV9 2017-08-15 00:00:00 [facility] HPV9 2017-08-15 00:00:00 [facility] HPV9 2017-08-15 00:00:00 [facility] HPV9 2017-08-15 00:00:00 [facility] HPV9 2017-08-15 00:00:00 [facility] HPV9 2017-08-15 00:00:00 [facility] HPV9 2017-08-15 00:00:00 [facility] HPV9 2017-08-15 00:00:00 Completed [facility] HPV9 2017-08-15 00:00:00 [facility]pleted [facility] HPV9 2017-08-15 00:00:00 [facility]pleted [facility] HPV9 2017-08-15 00:00:00 Completed [facility] HPV9 2017-08-15 00:00:00 Completed [facility] HPV9 2017-08-15 00:00:00 [facility]pleted [facility] HPV9 2017-08-15 00:00:00 Completed [facility] HPV9 2017-08-15 00:00:00 Completed [facility] HPV9 2017-08-15 00:00:00 Completed [facility] HPV9 2017-08-15 00:00:00 Completed [facility] HPV9 2017-05-23 00:00:00 Completed [facility] HPV9 2017-05-23 00:00:00 Completed [facility] HPV9 2017-05-23 00:00:00 Completed [facility] HPV9 2017-05-23 00:00:00 Completed [facility] HPV9 2017-05-23 00:00:00 Completed [facility] HPV9 2017-05-23 00:00:00 Completed [facility] HPV9 2017-05-23 00:00:00 Completed [facility] HPV9 2017-05-23 00:00:00 Completed [facility] HPV9 2017-05-23 00:00:00 Completed [facility] HPV9 2017-05-23 00:00:00 Completed [facility] HPV9 2017-05-23 00:00:00 [facility]pleted [facility] HPV9 2017-05-23 00:00:00 [facility]pleted [facility] HPV9 2017-05-23 00:00:00 Completed [facility] HPV9 2017-05-23 00:00:00 [facility]pleted [facility] HPV9 2017-05-23 00:00:00 [facility]pleted [facility] HPV9 2017-05-23 00:00:00 [facility]pleted [facility] HPV9 2017-05-23 00:00:00 [facility]pleted [facility] HPV9 2017-05-23 00:00:00 [facility] HPV9 2017-05-23 00:00:00 [facility]pleted [facility] [facility]9 2017-05-23 00:00:00 Completed [facility] HPV9 2017-05-23 00:00:00 [facility] HPV9 2017-05-23 00:00:00 Completed [facility] HPV9 2017-05-23 00:00:00 Completed [facility] HPV9 2017-05-23 00:00:00 Completed [facility] HPV9 2017-05-23 00:00:00 Completed [facility] HPV9 2017-05-23 00:00:00 Completed [facility] HPV9 2017-05-23 00:00:00 Completed [facility] HPV9 2017-05-23 00:00:00 Completed [facility] TDAP 2017-02-07 00:00:00 Completed [facility] TDAP 2017-02-07 00:00:00 Completed [facility] TDAP 2017-02-07 00:00:00 Completed [facility] TDAP 2017-02-07 00:00:00 Completed [facility] TDAP 2017-02-07 00:00:00 Completed [facility] TDAP 2017-02-07 00:00:00 Completed [facility] TDAP 2017-02-07 00:00:00 Completed [facility] TDAP 2017-02-07 00:00:00 Completed [facility] TDAP 2017-02-07 00:00:00 Completed [facility] TDAP 2017-02-07 00:00:00 Completed [facility] TDAP 2017-02-07 00:00:00 Completed [facility] TDAP 2017-02-07 00:00:00 Completed [facility] TDAP 2017-02-07 00:00:00 Completed [facility] TDAP 2017-02-07 00:00:00 Completed [facility] TDAP 2017-02-07 00:00:00 Completed [facility] TDAP 2017-02-07 00:00:00 Completed [facility] TDAP 2017-02-07 00:00:00 Completed [facility] TDAP 2017-02-07 00:00:00 Completed [facility] TDAP 2017-02-07 00:00:00 Completed [facility] TDAP 2017-02-07 00:00:00 Completed [facility] TDAP 2017-02-07 00:00:00 Completed [facility] TDAP 2017-02-07 00:00:00 Completed [facility] TDAP 2017-02-07 00:00:00 Completed [facility] TDAP 2017-02-07 00:00:00 Completed [facility] TDAP 2017-02-07 00:00:00 Completed [facility] TDAP 2017-02-07 00:00:00 Completed [facility] TDAP 2017-02-07 00:00:00 Completed [facility] TDAP 2017-02-07 00:00:00 Completed [facility] Meningococcal Polysaccharide (groups A, C, Y and W-135) conjugate vaccine (MCV4P) 2015-09-29 00:00:00 Completed [facility] Meningococcal Polysaccharide (groups A, C, Y and W-135) conjugate vaccine (MCV4P) 2015-09-29 00:00:00 Completed [facility] Meningococcal Polysaccharide (groups A, C, Y and W-135) conjugate vaccine (MCV4P) 2015-09-29 00:00:00 Completed [facility] Meningococcal Polysaccharide (groups A, C, Y and W-135) conjugate vaccine (MCV4P) 2015-09-29 00:00:00 Completed [facility] Meningococcal Polysaccharide (groups A, C, Y and W-135) conjugate vaccine (MCV4P) 2015-09-29 00:00:00 Completed [facility] Meningococcal Polysaccharide (groups A, C, Y and W-135) conjugate vaccine (MCV4P) 2015-09-29 00:00:00 Completed [facility] Meningococcal Polysaccharide (groups A, C, Y and W-135) conjugate vaccine (MCV4P) 2015-09-29 00:00:00 Completed [facility] Meningococcal Polysaccharide (groups A, C, Y and W-135) conjugate vaccine (MCV4P) 2015-09-29 00:00:00 Completed [facility] Meningococcal Polysaccharide (groups A, C, Y and W-135) conjugate vaccine (MCV4P) 2015-09-29 00:00:00 Completed [facility] Meningococcal Polysaccharide (groups A, C, Y and W-135) conjugate vaccine (MCV4P) 2015-09-29 00:00:00 Completed [facility] Meningococcal Polysaccharide (groups A, C, Y and W-135) conjugate vaccine (MCV4P) 2015-09-29 00:00:00 Completed [facility] Meningococcal Polysaccharide (groups A, C, Y and W-135) conjugate vaccine (MCV4P) 2015-09-29 00:00:00 Completed [facility] Meningococcal Polysaccharide (groups A, C, Y and W-135) conjugate vaccine (MCV4P) 2015-09-29 00:00:00 Completed [facility] Meningococcal Polysaccharide (groups A, C, Y and W-135) conjugate vaccine (MCV4P) 2015-09-29 00:00:00 Completed [facility] Meningococcal Polysaccharide (groups A, C, Y and W-135) conjugate vaccine (MCV4P) 2015-09-29 00:00:00 Completed [facility] Meningococcal Polysaccharide (groups A, C, Y and W-135) conjugate vaccine (MCV4P) 2015-09-29 00:00:00 Completed [facility] Meningococcal Polysaccharide (groups A, C, Y and W-135) conjugate vaccine (MCV4P) 2015-09-29 00:00:00 Completed [facility] Meningococcal Polysaccharide (groups A, C, Y and W-135) conjugate vaccine (MCV4P) 2015-09-29 00:00:00 Completed Meningococcal Polysaccharide (groups A, C, Y and W-135) conjugate vaccine (MCV4P) 2015-09-29 00:00:00 Completed [facility] Meningococcal Polysaccharide (groups A, C, Y and W-135) conjugate vaccine (MCV4P) 2015-09-29 00:00:00 Completed [facility] Meningococcal Polysaccharide (groups A, C, Y and W-135) conjugate vaccine (MCV4P) 2015-09-29 00:00:00 Completed [facility] Meningococcal Polysaccharide (groups A, C, Y and W-135) conjugate vaccine (MCV4P) 2015-09-29 00:00:00 Completed [facility] Meningococcal Polysaccharide (groups A, C, Y and W-135) conjugate vaccine (MCV4P) 2015-09-29 00:00:00 Completed [facility] Meningococcal Polysaccharide (groups A, C, Y and W-135) conjugate vaccine (MCV4P) 2015-09-29 00:00:00 Completed [facility] Meningococcal Polysaccharide (groups A, C, Y and W-135) conjugate vaccine (MCV4P) 2015-01-25 00:00:00 Completed [facility] Meningococcal Polysaccharide (groups A, C, Y and W-135) conjugate vaccine (MCV4P) 2015-01-25 00:00:00 Completed [facility] Meningococcal Polysaccharide (groups A, C, Y and W-135) conjugate vaccine (MCV4P) 2015-01-25 00:00:00 Completed [facility] Meningococcal Polysaccharide (groups A, C, Y and W-135) conjugate vaccine (MCV4P) 2015-01-25 00:00:00 Completed [facility] Meningococcal Polysaccharide (groups A, C, Y and W-135) conjugate vaccine (MCV4P) 2015-01-25 00:00:00 Completed [facility] Meningococcal Polysaccharide (groups A, C, Y and W-135) conjugate vaccine (MCV4P) 2015-01-25 00:00:00 Completed [facility] Meningococcal Polysaccharide (groups A, C, Y and W-135) conjugate vaccine (MCV4P) 2015-01-25 00:00:00 Completed [facility] Meningococcal Polysaccharide (groups A, C, Y and W-135) conjugate vaccine (MCV4P) 2015-01-25 00:00:00 Completed [facility] Meningococcal Polysaccharide (groups A, C, Y and W-135) conjugate vaccine (MCV4P) 2015-01-25 00:00:00 Completed [facility] Meningococcal Polysaccharide (groups A, C, Y and W-135) conjugate vaccine (MCV4P) 2015-01-25 00:00:00 Completed [facility] Meningococcal Polysaccharide (groups A, C, Y and W-135) conjugate vaccine (MCV4P) 2015-01-25 00:00:00 Completed [facility] Meningococcal Polysaccharide (groups A, C, Y and W-135) conjugate vaccine (MCV4P) 2015-01-25 00:00:00 Completed [facility] Meningococcal Polysaccharide (groups A, C, Y and W-135) conjugate vaccine (MCV4P) 2015-01-25 00:00:00 Completed [facility] Meningococcal Polysaccharide (groups A, C, Y and W-135) conjugate vaccine (MCV4P) 2015-01-25 00:00:00 Completed [facility] Meningococcal Polysaccharide (groups A, C, Y and W-135) conjugate vaccine (MCV4P) 2015-01-25 00:00:00 Completed [facility] Meningococcal Polysaccharide (groups A, C, Y and W-135) conjugate vaccine (MCV4P) 2015-01-25 00:00:00 Completed [facility] Meningococcal Polysaccharide (groups A, C, Y and W-135) conjugate vaccine (MCV4P) 2015-01-25 00:00:00 Completed [facility] Meningococcal Polysaccharide (groups A, C, Y and W-135) conjugate vaccine (MCV4P) 2015-01-25 00:00:00 Completed [facility] Meningococcal Polysaccharide (groups A, C, Y and W-135) conjugate vaccine (MCV4P) 2015-01-25 00:00:00 Completed [facility] Meningococcal Polysaccharide (groups A, C, Y and W-135) conjugate vaccine (MCV4P) 2015-01-25 00:00:00 Completed [facility] Meningococcal Polysaccharide (groups A, C, Y and W-135) conjugate vaccine (MCV4P) 2015-01-25 00:00:00 Completed [facility] Meningococcal Polysaccharide (groups A, C, Y and W-135) conjugate vaccine (MCV4P) 2015-01-25 00:00:00 Completed [facility] Meningococcal Polysaccharide (groups A, C, Y and W-135) conjugate vaccine (MCV4P) 2015-01-25 00:00:00 Completed [facility] HPV 2014-01-10 00:00:00 Completed [facility] HPV 2014-01-10 00:00:00 Completed [facility] HPV 2014-01-10 00:00:00 Completed [facility] HPV 2014-01-10 00:00:00 Completed [facility] HPV 2014-01-10 00:00:00 Completed [facility] HPV 2014-01-10 00:00:00 Completed [facility] HPV 2014-01-10 00:00:00 Completed [facility] HPV 2014-01-10 00:00:00 Completed [facility] HPV 2014-01-10 00:00:00 Completed [facility] HPV 2014-01-10 00:00:00 Completed [facility] HPV 2014-01-10 00:00:00 Completed [facility] HPV 2014-01-10 00:00:00 Completed [facility] HPV 2014-01-10 00:00:00 Completed [facility] HPV 2014-01-10 00:00:00 Completed [facility] HPV 2014-01-10 00:00:00 Completed [facility] HPV 2014-01-10 00:00:00 Completed [facility] HPV 2014-01-10 00:00:00 Completed [facility] HPV 2014-01-10 00:00:00 Completed HPV 2014-01-10 00:00:00 Completed [facility] HPV 2014-01-10 00:00:00 Completed [facility] HPV 2014-01-10 00:00:00 Completed [facility] HPV 2014-01-10 00:00:00 Completed [facility] HPV 2014-01-10 00:00:00 Completed [facility] HPV 2014-01-10 00:00:00 Completed [facility] HEPATITIS A 2013-01-11 00:00:00 Completed [facility] HPV 2013-01-11 00:00:00 Completed [facility] HEPATITIS A 2013-01-11 00:00:00 Completed [facility] HPV 2013-01-11 00:00:00 Completed [facility] HEPATITIS A 2013-01-11 00:00:00 Completed [facility] HPV 2013-01-11 00:00:00 Completed [facility] HEPATITIS A 2013-01-11 00:00:00 Completed [facility] HPV 2013-01-11 00:00:00 Completed [facility] HEPATITIS A 2013-01-11 00:00:00 Completed [facility] HPV 2013-01-11 00:00:00 Completed [facility] HEPATITIS A 2013-01-11 00:00:00 Completed [facility] HPV 2013-01-11 00:00:00 Completed [facility] HEPATITIS A 2013-01-11 00:00:00 Completed [facility] HPV 2013-01-11 00:00:00 Completed [facility] HEPATITIS A 2013-01-11 00:00:00 Completed [facility] HPV 2013-01-11 00:00:00 Completed [facility] HEPATITIS A 2013-01-11 00:00:00 Completed [facility] HPV 2013-01-11 00:00:00 Completed [facility] HEPATITIS A 2013-01-11 00:00:00 Completed [facility] HPV 2013-01-11 00:00:00 Completed [facility] HEPATITIS A 2013-01-11 00:00:00 Completed [facility] HPV 2013-01-11 00:00:00 Completed [facility] HEPATITIS A 2013-01-11 00:00:00 Completed [facility] HPV 2013-01-11 00:00:00 Completed [facility] HEPATITIS A 2013-01-11 00:00:00 Completed [facility] HPV 2013-01-11 00:00:00 Completed [facility] HEPATITIS A 2013-01-11 00:00:00 Completed [facility] HPV 2013-01-11 00:00:00 Completed [facility] HEPATITIS A 2013-01-11 00:00:00 Completed [facility] HPV 2013-01-11 00:00:00 Completed [facility] HEPATITIS A 2013-01-11 00:00:00 Completed [facility] HPV 2013-01-11 00:00:00 Completed [facility] HEPATITIS A 2013-01-11 00:00:00 Completed [facility] HPV 2013-01-11 00:00:00 Completed [facility] HEPATITIS A 2013-01-11 00:00:00 Completed HPV 2013-01-11 00:00:00 Completed HEPATITIS A 2013-01-11 00:00:00 Completed [facility] HPV 2013-01-11 00:00:00 Completed [facility] HEPATITIS A 2013-01-11 00:00:00 Completed [facility] HPV 2013-01-11 00:00:00 Completed [facility] HEPATITIS A 2013-01-11 00:00:00 Completed [facility] HPV 2013-01-11 00:00:00 Completed [facility] HEPATITIS A 2013-01-11 00:00:00 Completed [facility] HPV 2013-01-11 00:00:00 Completed [facility] HEPATITIS A 2013-01-11 00:00:00 Completed [facility] HPV 2013-01-11 00:00:00 Completed [facility] HEPATITIS A 2013-01-11 00:00:00 Completed [facility] HPV 2013-01-11 00:00:00 Completed [facility] HEPATITIS A 2012-01-10 00:00:00 Completed [facility] HPV 2012-01-10 00:00:00 Completed [facility] HEPATITIS A 2012-01-10 00:00:00 Completed [facility] HPV 2012-01-10 00:00:00 Completed [facility] HEPATITIS A 2012-01-10 00:00:00 Completed [facility] HPV 2012-01-10 00:00:00 Completed [facility] HEPATITIS A 2012-01-10 00:00:00 Completed [facility] HPV 2012-01-10 00:00:00 Completed [facility] HEPATITIS A 2012-01-10 00:00:00 Completed [facility] HPV 2012-01-10 00:00:00 Completed [facility] HEPATITIS A 2012-01-10 00:00:00 Completed [facility] HPV 2012-01-10 00:00:00 Completed [facility] HEPATITIS A 2012-01-10 00:00:00 Completed [facility] HPV 2012-01-10 00:00:00 Completed [facility] HEPATITIS A 2012-01-10 00:00:00 Completed [facility] HPV 2012-01-10 00:00:00 Completed [facility] HEPATITIS A 2012-01-10 00:00:00 Completed [facility] HPV 2012-01-10 00:00:00 Completed [facility] HEPATITIS A 2012-01-10 00:00:00 Completed [facility] HPV 2012-01-10 00:00:00 Completed [facility] HEPATITIS A 2012-01-10 00:00:00 Completed [facility] HPV 2012-01-10 00:00:00 Completed [facility] HEPATITIS A 2012-01-10 00:00:00 Completed [facility] HPV 2012-01-10 00:00:00 Completed [facility] HEPATITIS A 2012-01-10 00:00:00 Completed [facility] HPV 2012-01-10 00:00:00 Completed [facility] HEPATITIS A 2012-01-10 00:00:00 Completed [facility] HPV 2012-01-10 00:00:00 Completed [facility] HEPATITIS A 2012-01-10 00:00:00 Completed [facility] HPV 2012-01-10 00:00:00 Completed [facility] HEPATITIS A 2012-01-10 00:00:00 Completed [facility] HPV 2012-01-10 00:00:00 Completed [facility] HEPATITIS A 2012-01-10 00:00:00 Completed [facility] HPV 2012-01-10 00:00:00 Completed [facility] HEPATITIS A 2012-01-10 00:00:00 Completed [facility] HPV 2012-01-10 00:00:00 Completed [facility] HEPATITIS A 2012-01-10 00:00:00 Completed [facility] HPV 2012-01-10 00:00:00 Completed [facility] HEPATITIS A 2012-01-10 00:00:00 Completed [facility] HPV 2012-01-10 00:00:00 Completed [facility] HEPATITIS A 2012-01-10 00:00:00 Completed [facility] HPV 2012-01-10 00:00:00 Completed [facility] HEPATITIS A 2012-01-10 00:00:00 Completed [facility] HPV 2012-01-10 00:00:00 Completed [facility] HEPATITIS A 2012-01-10 00:00:00 Completed [facility] HPV 2012-01-10 00:00:00 Completed [facility] Varicella (varivax)(chicken pox) 2011-10-10 00:00:00 Completed [facility] Varicella (varivax)(chicken pox) 2011-10-10 00:00:00 Completed [facility] Varicella (varivax)(chicken pox) 2011-10-10 00:00:00 Completed [facility] Varicella (varivax)(chicken pox) 2011-10-10 00:00:00 Completed [facility] Varicella (varivax)(chicken pox) 2011-10-10 00:00:00 Completed [facility] Varicella (varivax)(chicken pox) 2011-10-10 00:00:00 Completed [facility] Varicella (varivax)(chicken pox) 2011-10-10 00:00:00 Completed [facility] Varicella (varivax)(chicken pox) 2011-10-10 00:00:00 Completed [facility] Varicella (varivax)(chicken pox) 2011-10-10 00:00:00 Completed [facility] Varicella (varivax)(chicken pox) 2011-10-10 00:00:00 Completed [facility] Varicella (varivax)(chicken pox) 2011-10-10 00:00:00 Completed [facility] Varicella (varivax)(chicken pox) 2011-10-10 00:00:00 Completed [facility] Varicella (varivax)(chicken pox) 2011-10-10 00:00:00 Completed [facility] Varicella (varivax)(chicken pox) 2011-10-10 00:00:00 Completed [facility] Varicella (varivax)(chicken pox) 2011-10-10 00:00:00 Completed [facility] Varicella (varivax)(chicken pox) 2011-10-10 00:00:00 Completed [facility] Varicella (varivax)(chicken pox) 2011-10-10 00:00:00 Completed [facility] Varicella (varivax)(chicken pox) 2011-10-10 00:00:00 Completed [facility] Varicella (varivax)(chicken pox) 2011-10-10 00:00:00 Completed [facility] Varicella (varivax)(chicken pox) 2011-10-10 00:00:00 Completed [facility] Varicella (varivax)(chicken pox) 2011-10-10 00:00:00 Completed [facility] Varicella (varivax)(chicken pox) 2011-10-10 00:00:00 Completed [facility] Varicella (varivax)(chicken pox) 2011-10-10 00:00:00 Completed [facility] Meningococcal Polysaccharide (groups A, C, Y and W-135) conjugate vaccine (MCV4P) 2010-01-26 00:00:00 Completed [facility] TDAP 2010-01-26 00:00:00 Completed [facility] Meningococcal Polysaccharide (groups A, C, Y and W-135) conjugate vaccine (MCV4P) 2010-01-26 00:00:00 Completed [facility] TDAP 2010-01-26 00:00:00 Completed [facility] Meningococcal Polysaccharide (groups A, C, Y and W-135) conjugate vaccine (MCV4P) 2010-01-26 00:00:00 Completed [facility] TDAP 2010-01-26 00:00:00 Completed [facility] Meningococcal Polysaccharide (groups A, C, Y and W-135) conjugate vaccine (MCV4P) 2010-01-26 00:00:00 Completed [facility] TDAP 2010-01-26 00:00:00 Completed [facility] Meningococcal Polysaccharide (groups A, C, Y and W-135) conjugate vaccine (MCV4P) 2010-01-26 00:00:00 Completed [facility] TDAP 2010-01-26 00:00:00 Completed [facility] Meningococcal Polysaccharide (groups A, C, Y and W-135) conjugate vaccine (MCV4P) 2010-01-26 00:00:00 Completed [facility] TDAP 2010-01-26 00:00:00 Completed [facility] Meningococcal Polysaccharide (groups A, C, Y and W-135) conjugate vaccine (MCV4P) 2010-01-26 00:00:00 Completed [facility] TDAP 2010-01-26 00:00:00 Completed [facility] Meningococcal Polysaccharide (groups A, C, Y and W-135) conjugate vaccine (MCV4P) 2010-01-26 00:00:00 Completed [facility] TDAP 2010-01-26 00:00:00 Completed [facility] Meningococcal Polysaccharide (groups A, C, Y and W-135) conjugate vaccine (MCV4P) 2010-01-26 00:00:00 Completed [facility] TDAP 2010-01-26 00:00:00 Completed [facility] Meningococcal Polysaccharide (groups A, C, Y and W-135) conjugate vaccine (MCV4P) 2010-01-26 00:00:00 Completed [facility] TDAP 2010-01-26 00:00:00 Completed [facility] Meningococcal Polysaccharide (groups A, C, Y and W-135) conjugate vaccine (MCV4P) 2010-01-26 00:00:00 Completed [facility] TDAP 2010-01-26 00:00:00 Completed [facility] Meningococcal Polysaccharide (groups A, C, Y and W-135) conjugate vaccine (MCV4P) 2010-01-26 00:00:00 Completed [facility] TDAP 2010-01-26 00:00:00 Completed [facility] Meningococcal Polysaccharide (groups A, C, Y and W-135) conjugate vaccine (MCV4P) 2010-01-26 00:00:00 Completed [facility] TDAP 2010-01-26 00:00:00 Completed [facility] Meningococcal Polysaccharide (groups A, C, Y and W-135) conjugate vaccine (MCV4P) 2010-01-26 00:00:00 Completed [facility] TDAP 2010-01-26 00:00:00 Completed [facility] Meningococcal Polysaccharide (groups A, C, Y and W-135) conjugate vaccine (MCV4P) 2010-01-26 00:00:00 Completed [facility] TDAP 2010-01-26 00:00:00 Completed [facility] Meningococcal Polysaccharide (groups A, C, Y and W-135) conjugate vaccine (MCV4P) 2010-01-26 00:00:00 Completed [facility] TDAP 2010-01-26 00:00:00 Completed [facility] Meningococcal Polysaccharide (groups A, C, Y and W-135) conjugate vaccine (MCV4P) 2010-01-26 00:00:00 Completed [facility] TDAP 2010-01-26 00:00:00 Completed [facility] Meningococcal Polysaccharide (groups A, C, Y and W-135) conjugate vaccine (MCV4P) 2010-01-26 00:00:00 Completed TDAP 2010-01-26 00:00:00 Completed Meningococcal Polysaccharide (groups A, C, Y and W-135) conjugate vaccine (MCV4P) 2010-01-26 00:00:00 Completed [facility] TDAP 2010-01-26 00:00:00 Completed [facility] Meningococcal Polysaccharide (groups A, C, Y and W-135) conjugate vaccine (MCV4P) 2010-01-26 00:00:00 Completed [facility] TDAP 2010-01-26 00:00:00 Completed [facility] Meningococcal Polysaccharide (groups A, C, Y and W-135) conjugate vaccine (MCV4P) 2010-01-26 00:00:00 Completed [facility] TDAP 2010-01-26 00:00:00 Completed [facility] Meningococcal Polysaccharide (groups A, C, Y and W-135) conjugate vaccine (MCV4P) 2010-01-26 00:00:00 Completed [facility] TDAP 2010-01-26 00:00:00 Completed [facility] Meningococcal Polysaccharide (groups A, C, Y and W-135) conjugate vaccine (MCV4P) 2010-01-26 00:00:00 Completed [facility] TDAP 2010-01-26 00:00:00 Completed [facility] Meningococcal Polysaccharide (groups A, C, Y and W-135) conjugate vaccine (MCV4P) 2010-01-26 00:00:00 Completed [facility] TDAP 2010-01-26 00:00:00 Completed [facility] DTaP, Unspecified Formulation 2003-01-17 00:00:00 Completed [facility] MMR 2003-01-17 00:00:00 Completed [facility] Pneumococcal 7 Conjugate, PCV7 (Prevnar7) 2003-01-17 00:00:00 Completed [facility] IPV 2003-01-17 00:00:00 Completed [facility] DTaP, Unspecified Formulation 2003-01-17 00:00:00 Completed [facility] MMR 2003-01-17 00:00:00 Completed [facility] Pneumococcal 7 Conjugate, PCV7 (Prevnar7) 2003-01-17 00:00:00 Completed [facility] IPV 2003-01-17 00:00:00 Completed [facility] DTaP, Unspecified Formulation 2003-01-17 00:00:00 Completed [facility] MMR 2003-01-17 00:00:00 Completed [facility] Pneumococcal 7 Conjugate, PCV7 (Prevnar7) 2003-01-17 00:00:00 Completed [facility] IPV 2003-01-17 00:00:00 Completed [facility] DTaP, Unspecified Formulation 2003-01-17 00:00:00 Completed [facility] MMR 2003-01-17 00:00:00 Completed [facility] Pneumococcal 7 Conjugate, PCV7 (Prevnar7) 2003-01-17 00:00:00 Completed [facility] IPV 2003-01-17 00:00:00 Completed [facility] DTaP, Unspecified Formulation 2003-01-17 00:00:00 Completed [facility] MMR 2003-01-17 00:00:00 Completed [facility] Pneumococcal 7 Conjugate, PCV7 (Prevnar7) 2003-01-17 00:00:00 Completed [facility] IPV 2003-01-17 00:00:00 Completed [facility] DTaP, Unspecified Formulation 2003-01-17 00:00:00 Completed [facility] MMR 2003-01-17 00:00:00 Completed [facility] Pneumococcal 7 Conjugate, PCV7 (Prevnar7) 2003-01-17 00:00:00 Completed [facility] IPV 2003-01-17 00:00:00 Completed [facility] DTaP, Unspecified Formulation 2003-01-17 00:00:00 Completed [facility] MMR 2003-01-17 00:00:00 Completed [facility] Pneumococcal 7 Conjugate, PCV7 (Prevnar7) 2003-01-17 00:00:00 Completed [facility] IPV 2003-01-17 00:00:00 Completed [facility] DTaP, Unspecified Formulation 2003-01-17 00:00:00 Completed [facility] MMR 2003-01-17 00:00:00 Completed [facility] Pneumococcal 7 Conjugate, PCV7 (Prevnar7) 2003-01-17 00:00:00 Completed [facility] IPV 2003-01-17 00:00:00 Completed [facility] DTaP, Unspecified Formulation 2003-01-17 00:00:00 Completed [facility] MMR 2003-01-17 00:00:00 Completed [facility] Pneumococcal 7 Conjugate, PCV7 (Prevnar7) 2003-01-17 00:00:00 Completed [facility] IPV 2003-01-17 00:00:00 Completed [facility] DTaP, Unspecified Formulation 2003-01-17 00:00:00 Completed [facility] MMR 2003-01-17 00:00:00 Completed [facility] Pneumococcal 7 Conjugate, PCV7 (Prevnar7) 2003-01-17 00:00:00 Completed [facility] IPV 2003-01-17 00:00:00 Completed [facility] DTaP, Unspecified Formulation 2003-01-17 00:00:00 Completed [facility] MMR 2003-01-17 00:00:00 Completed [facility] Pneumococcal 7 Conjugate, PCV7 (Prevnar7) 2003-01-17 00:00:00 Completed [facility] IPV 2003-01-17 00:00:00 Completed [facility] DTaP, Unspecified Formulation 2003-01-17 00:00:00 Completed [facility] MMR 2003-01-17 00:00:00 Completed [facility] Pneumococcal 7 Conjugate, PCV7 (Prevnar7) 2003-01-17 00:00:00 Completed [facility] IPV 2003-01-17 00:00:00 Completed [facility] DTaP, Unspecified Formulation 2003-01-17 00:00:00 Completed [facility] MMR 2003-01-17 00:00:00 Completed [facility] Pneumococcal 7 Conjugate, PCV7 (Prevnar7) 2003-01-17 00:00:00 Completed [facility] IPV 2003-01-17 00:00:00 Completed [facility] DTaP, Unspecified Formulation 2003-01-17 00:00:00 Completed [facility] MMR 2003-01-17 00:00:00 Completed [facility] Pneumococcal 7 Conjugate, PCV7 (Prevnar7) 2003-01-17 00:00:00 Completed [facility] IPV 2003-01-17 00:00:00 Completed [facility] DTaP, Unspecified Formulation 2003-01-17 00:00:00 Completed [facility] MMR 2003-01-17 00:00:00 Completed [facility] Pneumococcal 7 Conjugate, PCV7 (Prevnar7) 2003-01-17 00:00:00 Completed [facility] IPV 2003-01-17 00:00:00 Completed [facility] DTaP, Unspecified Formulation 2003-01-17 00:00:00 Completed [facility] MMR 2003-01-17 00:00:00 Completed [facility] Pneumococcal 7 Conjugate, PCV7 (Prevnar7) 2003-01-17 00:00:00 Completed [facility] IPV 2003-01-17 00:00:00 Completed [facility] DTaP, Unspecified Formulation 2003-01-17 00:00:00 Completed [facility] MMR 2003-01-17 00:00:00 Completed [facility] Pneumococcal 7 Conjugate, PCV7 (Prevnar7) 2003-01-17 00:00:00 Completed [facility] IPV 2003-01-17 00:00:00 Completed [facility] DTaP, Unspecified Formulation 2003-01-17 00:00:00 Completed [facility] DTaP, Unspecified Formulation 2003-01-17 00:00:00 Completed [facility] MMR 2003-01-17 00:00:00 Completed [facility] Pneumococcal 7 Conjugate, PCV7 (Prevnar7) 2003-01-17 00:00:00 Completed [facility] IPV 2003-01-17 00:00:00 Completed [facility] DTaP, Unspecified Formulation 2003-01-17 00:00:00 Completed [facility] MMR 2003-01-17 00:00:00 Completed [facility] Pneumococcal 7 Conjugate, PCV7 (Prevnar7) 2003-01-17 00:00:00 Completed [facility] IPV 2003-01-17 00:00:00 Completed [facility] DTaP, Unspecified Formulation 2003-01-17 00:00:00 Completed [facility] MMR 2003-01-17 00:00:00 Completed [facility] Pneumococcal 7 Conjugate, PCV7 (Prevnar7) 2003-01-17 00:00:00 Completed [facility] IPV 2003-01-17 00:00:00 Completed [facility] DTaP, Unspecified Formulation 2003-01-17 00:00:00 Completed [facility] MMR 2003-01-17 00:00:00 Completed [facility] Pneumococcal 7 Conjugate, PCV7 (Prevnar7) 2003-01-17 00:00:00 Completed [facility] IPV 2003-01-17 00:00:00 Completed [facility] DTaP, Unspecified Formulation 2003-01-17 00:00:00 Completed [facility] MMR 2003-01-17 00:00:00 Completed [facility] Pneumococcal 7 Conjugate, PCV7 (Prevnar7) 2003-01-17 00:00:00 Completed [facility] IPV 2003-01-17 00:00:00 Completed [facility] DTaP, Unspecified Formulation 2003-01-17 00:00:00 Completed [facility] MMR 2003-01-17 00:00:00 Completed [facility] Pneumococcal 7 Conjugate, PCV7 (Prevnar7) 2003-01-17 00:00:00 Completed [facility] IPV 2003-01-17 00:00:00 Completed [facility] Vital Signs Vital Name Observation Time Observation Value Comments S ource Systolic blood pressure 2024-12-22 20:48:00 137 mm[Hg] [facility] Diastolic blood pressure 2024-12-22 20:48:00 100 mm[Hg] [facility] Heart rate 2024-12-22 20:47:00 93 /min [facility] Body temperature 2024-12-22 20:47:00 36.28 Melissa [facility] Respiratory rate 2024-12-22 20:47:00 18 /min [facility] Body height 2024-12-22 20:47:00 157.5 cm [facility] Body weight 2024-12-22 20:47:00 71.3 kg [facility] BMI 2024-12-22 20:47:00 28.75 kg/m2 [facility] Systolic blood pressure 2024-11-24 21:20:00 128 mm[Hg] [facility] Diastolic blood pressure 2024-11-24 21:20:00 90 mm[Hg] [facility] Heart rate 2024-11-24 20:55:00 88 /min [facility] Body temperature 2024-11-24 20:55:00 36.67 Melissa [facility] Respiratory rate 2024-11-24 20:55:00 20 /min [facility] Body height 2024-11-24 20:55:00 157.5 cm [facility] Body weight 2024-11-24 20:55:00 71.079 kg [facility] BMI 2024-11-24 20:55:00 28.66 kg/m2 [facility] Systolic blood pressure 2024-11-10 20:52:00 110 mm[Hg] [facility] Diastolic blood pressure 2024-11-10 20:52:00 78 mm[Hg] [facility] Heart rate 2024-11-10 20:47:00 83 /min [facility] Body temperature 2024-11-10 20:47:00 36.83 Melissa [facility] Respiratory rate 2024-11-10 20:47:00 18 /min [facility] Body height 2024-11-10 20:47:00 157.5 cm [facility] Body weight 2024-11-10 20:47:00 71.782 kg [facility] BMI 2024-11-10 20:47:00 28.94 kg/m2 [facility] Systolic blood pressure 2024-07-22 16:02:00 132 mm[Hg] [facility] Diastolic blood pressure 2024-07-22 16:02:00 90 mm[Hg] [facility] Heart rate 2024-07-22 16:02:00 94 /min [facility] Body temperature 2024-07-22 16:02:00 36.61 Melissa [facility] Respiratory rate 2024-07-22 16:02:00 18 /min [facility] Body height 2024-07-22 16:02:00 157.5 cm [facility] Body weight 2024-07-22 16:02:00 73.755 kg [facility] BMI 2024-07-22 16:02:00 29.74 kg/m2 [facility] Systolic blood pressure 2024-06-23 16:40:00 112 mm[Hg] [facility] Diastolic blood pressure 2024-06-23 16:40:00 82 mm[Hg] [facility] Heart rate 2024-06-23 16:35:00 78 /min [facility] Body temperature 2024-06-23 16:35:00 36.56 Melissa [facility] Respiratory rate 2024-06-23 16:35:00 18 /min [facility] Body height 2024-06-23 16:35:00 157.5 cm [facility] Body weight 2024-06-23 16:35:00 77.367 kg [facility] BMI 2024-06-23 16:35:00 31.20 kg/m2 [facility] Systolic blood pressure 2023-06-10 16:29:00 121 mm[Hg] [facility] Diastolic blood pressure 2023-06-10 16:29:00 83 mm[Hg] [facility] Heart rate 2023-06-10 16:29:00 71 /min [facility] Body temperature 2023-06-10 16:29:00 36.56 Melissa [facility] Respiratory rate 2023-06-10 16:29:00 18 /min [facility] Body height 2023-06-10 16:29:00 157.5 cm [facility] Body weight 2023-06-10 16:29:00 74.135 kg [facility] BMI 2023-06-10 16:29:00 29.89 kg/m2 [facility] Systolic blood pressure 2023-05-15 19:10:00 124 mm[Hg] [facility] Diastolic blood pressure 2023-05-15 19:10:00 89 mm[Hg] [facility] Heart rate 2023-05-15 19:10:00 66 /min [facility] Body temperature 2023-05-15 19:10:00 36.28 Melissa [facility] Respiratory rate 2023-05-15 19:10:00 18 /min [facility] Body height 2023-05-15 19:10:00 157.5 cm [facility] Body weight 2023-05-15 19:10:00 76.839 kg [facility] BMI 2023-05-15 19:10:00 30.98 kg/m2 [facility] Systolic blood pressure 2023-04-30 14:48:00 110 mm[Hg] [facility] Diastolic blood pressure 2023-04-30 14:48:00 72 mm[Hg] [facility] Heart rate 2023-04-30 14:40:00 83 [facility] Body temperature 2023-04-30 14:40:00 36.39 Melissa [facility] Respiratory rate 2023-04-30 14:40:00 17 /min [facility] Body height 2023-04-30 14:40:00 157.5 cm [facility] Body weight 2023-04-30 14:40:00 81.103 kg [facility] BMI 2023-04-30 14:40:00 32.70 kg/m2 [facility] Systolic blood pressure 2023-04-26 13:44:00 121 mm[Hg] [facility] Diastolic blood pressure 2023-04-26 13:44:00 87 mm[Hg] [facility] Heart rate 2023-04-26 13:44:00 87 /min [facility] Body temperature 2023-04-26 13:44:00 36.67 Melissa [facility] Respiratory rate 2023-04-26 13:44:00 18 /min [facility] Oxygen saturation in Arterial blood by Pulse oximetry 2023-04-26 13:44:00 100 /min [facility] Body height 2023-04-24 01:48:00 157.5 cm [facility] Body weight 2023-04-24 01:48:00 87 kg [facility] BMI 2023-04-24 01:48:00 35.08 kg/m2 [facility] Systolic blood pressure 2023-04-25 04:15:00 117 mm[Hg] [facility] Diastolic blood pressure 2023-04-25 04:15:00 67 mm[Hg] [facility] Heart rate 2023-04-25 04:15:00 98 /min [facility] Oxygen saturation in Arterial blood by Pulse oximetry 2023-04-25 04:15:00 98 /min [facility] Body temperature 2023-04-25 04:00:00 36.44 Melissa [facility] Respiratory rate 2023-04-25 04:00:00 18 /min [facility] Body height 2023-04-24 01:48:00 157.5 cm [facility] Body weight 2023-04-24 01:48:00 87 kg [facility] BMI 2023-04-24 01:48:00 35.08 kg/m2 [facility] Respiratory rate 2023-04-25 03:49:00 25 /min [facility] Systolic blood pressure 2023-04-16 15:21:00 119 mm[Hg] [facility] Diastolic blood pressure 2023-04-16 15:21:00 76 mm[Hg] [facility] Heart rate 2023-04-16 15:21:00 89 /min [facility] Body temperature 2023-04-16 15:21:00 36.5 Melissa [facility] Respiratory rate 2023-04-16 15:21:00 18 /min [facility] Body height 2023-04-16 15:21:00 157.5 cm [facility] Body weight 2023-04-16 15:21:00 85.503 kg [facility] BMI 2023-04-16 15:21:00 34.48 kg/m2 [facility] Systolic blood pressure 2023-04-10 15:41:00 108 mm[Hg] [facility] Diastolic blood pressure 2023-04-10 15:41:00 72 mm[Hg] [facility] Heart rate 2023-04-10 15:41:00 85 /min [facility] Body temperature 2023-04-10 15:41:00 36.33 Melissa [facility] Respiratory rate 2023-04-10 15:41:00 18 /min [facility] Body height 2023-04-10 15:41:00 157.5 cm [facility] Body weight 2023-04-10 15:41:00 84.879 kg [facility] BMI 2023-04-10 15:41:00 34.23 kg/m2 [facility] Systolic blood pressure 2023-03-27 14:57:00 119 mm[Hg] [facility] Diastolic blood pressure 2023-03-27 14:57:00 79 mm[Hg] [facility] Heart rate 2023-03-27 14:57:00 88 /min [facility] Body temperature 2023-03-27 14:57:00 36.61 Melissa [facility] Respiratory rate 2023-03-27 14:57:00 18 /min [facility] Body height 2023-03-27 14:57:00 157.5 cm [facility] Body weight 2023-03-27 14:57:00 84.823 kg [facility] BMI 2023-03-27 14:57:00 34.20 kg/m2 [facility] Systolic blood pressure 2023-03-13 15:04:00 121 mm[Hg] [facility] Diastolic blood pressure 2023-03-13 15:04:00 76 mm[Hg] [facility] Heart rate 2023-03-13 15:04:00 86 /min [facility] Body temperature 2023-03-13 15:04:00 36.56 Melissa [facility] Respiratory rate 2023-03-13 15:04:00 17 /min [facility] Body height 2023-03-13 15:04:00 157.5 cm [facility] Body weight 2023-03-13 15:04:00 84.879 kg [facility] BMI 2023-03-13 15:04:00 34.23 kg/m2 [facility] Systolic blood pressure 2023-02-28 15:54:00 112 mm[Hg] [facility] Diastolic blood pressure 2023-02-28 15:54:00 77 mm[Hg] [facility] Heart rate 2023-02-28 15:54:00 75 /min [facility] Body temperature 2023-02-28 15:54:00 36.22 Melissa [facility] Respiratory rate 2023-02-28 15:54:00 18 /min [facility] Body height 2023-02-28 15:54:00 157.5 cm [facility] Body weight 2023-02-28 15:54:00 83.122 kg [facility] BMI 2023-02-28 15:54:00 33.52 kg/m2 [facility] Systolic blood pressure 2023-02-07 15:28:00 114 mm[Hg] [facility] Diastolic blood pressure 2023-02-07 15:28:00 81 mm[Hg] [facility] Heart rate 2023-02-07 15:28:00 83 /min [facility] Body temperature 2023-02-07 15:28:00 36.72 Melissa [facility] Respiratory rate 2023-02-07 15:28:00 18 /min [facility] Body height 2023-02-07 15:28:00 157.5 cm [facility] Body weight 2023-02-07 15:28:00 82.781 kg [facility] BMI 2023-02-07 15:28:00 33.38 kg/m2 [facility] Systolic blood pressure 2023-01-09 15:40:00 122 mm[Hg] [facility] Diastolic blood pressure 2023-01-09 15:40:00 76 mm[Hg] [facility] Heart rate 2023-01-09 15:40:00 89 /min [facility] Body temperature 2023-01-09 15:40:00 36.78 Melissa [facility] Respiratory rate 2023-01-09 15:40:00 18 /min [facility] Body height 2023-01-09 15:40:00 157.5 cm [facility] Body weight 2023-01-09 15:40:00 80.428 kg [facility] BMI 2023-01-09 15:40:00 32.43 kg/m2 [facility] Systolic blood pressure 2022-12-12 15:28:00 124 mm[Hg] [facility] Diastolic blood pressure 2022-12-12 15:28:00 78 mm[Hg] [facility] Heart rate 2022-12-12 15:28:00 82 /min [facility] Body temperature 2022-12-12 15:28:00 36.78 Melissa [facility] Respiratory rate 2022-12-12 15:28:00 20 /min [facility] Body height 2022-12-12 15:28:00 157.5 cm [facility] Body weight 2022-12-12 15:28:00 80.457 kg [facility] BMI 2022-12-12 15:28:00 32.44 kg/m2 [facility] Systolic blood pressure 2022-11-21 14:12:00 113 mm[Hg] [facility] Diastolic blood pressure 2022-11-21 14:12:00 75 mm[Hg] [facility] Heart rate 2022-11-21 14:12:00 93 /min [facility] Body temperature 2022-11-21 14:12:00 37.06 Melissa [facility] Respiratory rate 2022-11-21 14:12:00 18 /min [facility] Body height 2022-11-21 14:12:00 157.5 cm [facility] Body weight 2022-11-21 14:12:00 78.501 kg [facility] BMI 2022-11-21 14:12:00 31.65 kg/m2 [facility] Systolic blood pressure 2022-11-12 15:19:00 130 mm[Hg] [facility] Diastolic blood pressure 2022-11-12 15:19:00 84 mm[Hg] [facility] Heart rate 2022-11-12 15:19:00 84 /min [facility] Body temperature 2022-11-12 15:19:00 37 Melissa [facility] Respiratory rate 2022-11-12 15:19:00 18 /min [facility] Body height 2022-11-12 15:19:00 157.5 cm [facility] Body weight 2022-11-12 15:19:00 78.189 kg [facility] BMI 2022-11-12 15:19:00 31.53 kg/m2 [facility] Systolic blood pressure 2022-10-20 14:15:00 139 mm[Hg] [facility] Diastolic blood pressure 2022-10-20 14:15:00 97 mm[Hg] [facility] Heart rate 2022-10-20 14:15:00 78 /min [facility] Body temperature 2022-10-20 14:15:00 37 Melissa [facility] Respiratory rate 2022-10-20 14:15:00 18 /min [facility] Body weight 2022-10-20 14:15:00 77.565 kg [facility] BMI 2022-10-20 14:15:00 31.28 kg/m2 [facility] Oxygen saturation in Arterial blood by Pulse oximetry 2022-10-20 14:15:00 99 /min [facility] Systolic blood pressure 2022-10-15 14:17:00 126 mm[Hg] [facility] Diastolic blood pressure 2022-10-15 14:17:00 84 mm[Hg] [facility] Heart rate 2022-10-15 14:17:00 85 /min [facility] Body temperature 2022-10-15 14:17:00 36.72 Melissa [facility] Respiratory rate 2022-10-15 14:17:00 17 /min [facility] Body height 2022-10-15 14:17:00 157.5 cm [facility] Body weight 2022-10-15 14:17:00 77.565 kg [facility] BMI 2022-10-15 14:17:00 31.28 kg/m2 [facility] Systolic blood pressure 2022-09-17 20:40:00 119 mm[Hg] [facility] Diastolic blood pressure 2022-09-17 20:40:00 81 mm[Hg] [facility] Heart rate 2022-09-17 20:40:00 82 /min [facility] Body temperature 2022-09-17 20:40:00 37.11 Melissa [facility] Respiratory rate 2022-09-17 20:40:00 18 /min [facility] Body height 2022-09-17 20:40:00 157.5 cm [facility] Body weight 2022-09-17 20:40:00 78.586 kg [facility] BMI 2022-09-17 20:40:00 31.69 kg/m2 [facility] Systolic blood pressure 2022-09-11 15:34:00 135 mm[Hg] [facility] Diastolic blood pressure 2022-09-11 15:34:00 97 mm[Hg] [facility] Heart rate 2022-09-11 15:33:00 85 /min [facility] Body temperature 2022-09-11 15:33:00 36.83 Melissa [facility] Respiratory rate 2022-09-11 15:33:00 18 /min [facility] Body height 2022-09-11 15:33:00 157.5 cm [facility] Body weight 2022-09-11 15:33:00 77.928 kg [facility] BMI 2022-09-11 15:33:00 31.42 kg/m2 [facility] Systolic blood pressure 2021-08-20 04:00:00 118 mm[Hg] [facility] Diastolic blood pressure 2021-08-20 04:00:00 72 mm[Hg] [facility] Heart rate 2021-08-20 04:00:00 89 /min Un[facility] Respiratory rate 2021-08-20 04:00:00 16 /min [facility] Oxygen saturation in Arterial blood by Pulse oximetry 2021-08-20 04:00:00 99 /min [facility] Body temperature 2021-08-20 00:27:00 36.33 Melissa [facility] Body height 2021-08-20 00:27:00 157.5 cm [facility] Body weight 2021-08-20 00:27:00 80.151 kg [facility] BMI 2021-08-20 00:27:00 32.32 kg/m2 [facility] Systolic blood pressure 2021-06-22 21:15:00 139 mm[Hg] [facility] Diastolic blood pressure 2021-06-22 21:15:00 89 mm[Hg] [facility] Heart rate 2021-06-22 21:15:00 87 /min [facility] Body temperature 2021-06-22 21:15:00 36.11 Melissa [facility] Respiratory rate 2021-06-22 21:15:00 16 /min [facility] Body height 2021-06-22 21:15:00 157.5 cm [facility] Body weight 2021-06-22 21:15:00 79.062 kg [facility] BMI 2021-06-22 21:15:00 31.88 kg/m2 [facility] Procedures Procedure Date / Time Performed Performing Clinician Source [facility] ONLY - VAGINAL PATHOGENS BY NUCLEIC ACID TESTING 2024-07-22 17:20[facility] 2024-06-23 17:27:00 Cassy Loredo [facility] CBC WITH DIFF 2023-04-25 10:05:00 Sherry Arreguin [facility] CBC WITH DIFF 2023-04-25 10:05:00 Sherry Arreguin [facility] SECTION 2023-04-25 02:19:00 Sherry Arreguin [facility] SECTION 2023-04-25 02:19:00 Sherry Arreguin [facility] URINALYSIS 2023-04-24 20:21:00 Sherry Arreguin [facility] PROTEIN CREAT RATIO URINE RANDOM 2023-04-24 20:21:00 EmanuelSherry Gabe [facility] URINALYSIS 2023-04-24 20:21:00 EmanuelSherry Gabe [facility] PROTEIN CREAT RATIO URINE RANDOM 2023-04-24 20:21:00 EmanuelSherry [facility] CENTRAL NEURAXIAL BLOCK 2023-04-24 17:31:00 Trisha Lehman [facility] SGOT (ASPARTATE AMINO TRANSFER) 2023-04-24 02:33:00 Emanuel Sherry Gabe [facility] CREATININE 2023-04-24 02:33:00 Emanuel Sherrynewton Bernal [facility] ALANINE AMINO TRANSFERASE(SGPT 2023-04-24 02:33:00 Emanuel Sherry [facility] LACTATE DEHYDROGENASE 2023-04-24 02:33:00 Sherry Arreguin [facility] URIC ACID 2023-04-24 02:33:00 Sherry Arreguin [facility] CBC WITH DIFF 2023-04-24 02:33:00 Sherry Arreguin [facility] HEPATITIS B SURFACE ANTIGEN 2023-04-24 02:33:00 Emanuel Sherry [facility] HB ABO GROUPING 2023-04-24 02:33:00 Sherry Arreguin [facility] ADC CLC OR LCC ONLY - WET PREP 2023-04-24 [facility]BULIN 2023-04-24 02:33:00 Sherry Arreguin [facility] ADC OR CRISTIANO ONLY - RPR 2023-04-24 02:33:00 Emanuel Sherry [facility] EXTRA TUBE LT. GREEN 2023-04-24 02:33:00 Emanuel Sherry [facility] HIV 1/2 AG-AB WITH REFLEX 2023-04-24 02:33[facility]AS[facility]ATE AMINO TRANSFER) 2023-04-24 02:33:00 Sherry Arreguin [facility] CREATININE 2023-04-24 02:33:00 Arreguin, Sherry [facility] ALANINE AMINO TRANSFERASE(SGPT 2023-04-24 02:33:00 Sherry Arreguin [facility] LACTATE DEHYDROGENASE 2023-04-24 02:33:00 Sherry Arreguin [facility] URIC ACID 2023-04-24 02:33:00 Sherry Arreguin [facility] CBC WITH DIFF 2023-04-24 02:33:00 [facility] HEPATITIS B SURFACE ANTIGEN 2023-04-24 02:33:00 Sherry Arreguin [facility] HB ABO GROUPING 2023-04-24 02:33:00 Sherry Arreguin [facility] ADC CLC OR LCC ONLY - WET PREP 2023-04-24 02:33:00 Sherry Arreguin [facility] RHO (D) IMMUNE GLOBULIN 2023-04-24 02:33:00 Sherry Arreguin [facility] ADC OR [facility]RISTIAN[facility] ONLY - RPR 2023-04-24 02:33:00 Sherry Arreguin [facility] EXTRA TUBE LT. [place]EN 2023-04-24 02:33:00 Sherry Arreguin [facility] HIV 1/2 AG-AB WITH REFLEX 2023-04-24 02:33:00 Sherry Arreguin [facility] ASSIGNMENT OF BENEFITS 2023-04-24 01:27:39 Docto r Unassigned, [place] [facility] ASSIGNMENT OF BENEFITS 2023-04-24 01:27:39 Docto r Unassigned, [place] [facility] CONSENT/REFUSAL FOR DIAGNOSIS AND TREATMENT 2023-04-24 01:27:07 Doctor Unassigned, [place] [facility] POCT URINALYSIS 2023-04-16 15:24:00 Whitney Romero [facility] POCT URINALYSIS 2023-03-27 14:58:00 Whitney Romero [facility] THYROID STIMULATING HORMONE 2023-03-13 15:35:00 Whitney Romero [facility] HIV 1/2 AG-AB WITH REFLEX 2023-03-13 15:35:00 Whitney Romero [facility] POCT URINALYSIS 2023-03-13 15:08:00 Whitney Romero [facility] POCT URINALYSIS 2023-02-28 16:30:00 Whitney Romero [facility] POCT URINALYSIS 2023-02-07 16:36:00 Whitney Romero [facility] SGOT (ASPARTATE AMINO TRANSFER) 2023-02-07 16:25:00 Whitney Romero [facility] GLUCOSE 1 HOUR POST PRANDIAL 2023-02-07 16:25:00 Whitney Romero [facility] ALANINE AMINO TRANSFERASE(SGPT 2023-02-07 16:25:00 Whitney Romero [facility] CBC WITH DIFF 2023-02-07 16:25:00 Whitney Romero [facility] TDAP VACCINE, >11 YRS, IM 2023-02-07 15:59:35 Whitney Romero [facility] SECOND AND THIRD TRIMESTER ULTRASOUND 2023-02-03 15:26:00 Whitney Romero [facility] POCT URINALYSIS 2023-01-09 15:41:00 Whitney Romero [facility] SECOND AND THIRD TRIMESTER ULTRASOUND 2022-12-30 15:32:00 Whitney Romero [facility] SECOND AND THIRD TRIMESTER ULTRASOUND 2022-12-30 15:04:00 Whitney Romero [facility] POCT URINALYSIS 2022-12-12 15:29:00 Whitney Romero [facility] POCT URINALYSIS 2022-11-21 14:13:00 Whitney Romero [facility] POCT URINALYSIS 2022-11-12 15:19:00 Whitney Romero [facility] URINALYSIS 2022-10-20 14:31:00 [facility] FOR [facility]AG[facility]IS AND TREATMENT 2022-10-20 14:12:03 Doctor Unassigned, [place] [facility] ASSIGNMENT OF BENEFITS 2022-10-20 14:11:46 Docto r Unassigned, [place] [facility] SGOT (ASPARTATE AMINO TRANSFER) 2022-10-15 15:05:00 Whitney Romero [facility] ALANINE AMINO TRANSFERASE(SGPT 2022-10-15 15:05:00 Whitney Romero [facility] THYROID STIMULATING HORMONE 2022-10-15 15:05:00 Whitney Romero [facility] POCT URINALYSIS 2022-10-15 00:00:00 Whitney Romero [facility] POCT URINALYSIS 2022-09-17 20:43:00 Whitney Romero [facility] GLUCOSE 1 HOUR POST PRANDIAL 2022-09-11 16:30:00 Whitney Romero [facility] FREE T4 2022-09-11 16:30:00 Whitney Romero [facility] THYROID STIMULATING HORMONE 2022-09-11 16:30:00 Whitney Romero [facility] COMP. METABOLIC PANEL (22217) 2022-09-11 16:30:00 Whitney Romero [facility] CBC WITH DIFF 2022-09-11 16:30:00 Whitney Romero [facility] RUBELLA SCREEN IGG 2022-09-11 16:30:00 Fátima Romero [facility] VZV ANTIBODY SCREEN 2022-09-11 16:30:00 Donnell Romero [facility] HEPATITIS B SURFACE ANTIGEN 2022-09-11 16:30:00 Whitney Romero [facility] HCV ANTIBODY 2022-09-11 16:30:00 Whitney Romero [facility] HB INDIRECT ANTIGLOBULIN TEST 2022-09-11 16:30:00 Whitney Romero [facility] GC & CHLAMYDIA AMPLIFIED ASSAY 2022-09-11 16:30:00 Whitney Romero [facility] FREE T3 2022-09-11 16:30:00 [facility]/2 AG-AB WITH REFLEX 2022-09-11 16:30:00 Whitney Romero [facility] SYPHILIS IGG/IGM 2022-09-11 16:30:00 Whitney Romero [facility] URINE CULTURE 2022-09-11 16:30:00 Whitney Romero [facility] ASSIGNMENT OF BENEFITS 2022-09-11 14:40:20 Docto r Unassigned, [place] [facility] POCT TEST 2022-09-11 00:00:00 Donnell Romero [facility] POCT URINALYSIS W/O SPECIFIC GRAVITY 2022-09-11 00:00:00 Whitney Romero [facility] EXTERNAL PROVIDER RECORDS 2022-01-24 05:01:00 Doctor Unassigned, [place] [facility] CT ABDOMEN PELVIS W CONTRAST 2021-08-20 02:10:12 Eliel Pro [facility] POCT TEST 2021-08-20 00:52:00 Eliel Pro [facility] LIPASE 2021-08-20 00:50:00 Eliel Pro [facility] COMP. METABOLIC PANEL (63996) 2021-08-20 00:50:00 Eliel Pro [facility] CBC WITH DIFF 2021-08-20 00:50:00 Eliel Pro [facility] URINALYSIS 2021-08-20 00:42:00 Eliel Pro [facility] NOTICE OF PRIVACY PRACTICES 2021-08-20 00:19:08 Doctor Unassigned, [place] [facility] CONSENT/REFUSAL FOR DIAGNOSIS AND TREATMENT 2021-08-20 00:18:13 Doctor Unassigned, [place] [facility] POCT TEST 2021-06-22 21:20:00 George Andres [facility] Encounters Start Date/Time End Date/Time Encounter Type Admission Type Attending Clinicians Care Facility Care Department Encounter ID Source 2024-12-22 16:00:00 2024-12-22 16:29:25 Office Visit Kathleen FacundoCassy [facility]ILD [facility] 1.2840.114 350.1.13.10 4.2.7.2.686 [id number] 107 [id number] [facility] 2024-12-20 10:15:00 2024-12-20 10:15:00 Outpatient Kathleen LOREDOCASSY [facility] [id number] [facility] 2024-11-11 00:00:00 2024-12-18 18:47:33 Patient Secure Msg Facundo [facility]CRE[facility]ILD [facility] 1.2840.114 350.1.13.10 4.2.7.2.686 [id number] 107 [id number] [facility] 2024-12-09 10:30:00 2024-12-09 10:30:00 Outpatient Kathleen LOREDOCASSY [facility] [id number] [facility] 2024-12-03 00:00:00 2024-12-03 13:45:15 Refill Cassy Loredo [facility] CH[facility] 1.20.114 350.1.13.10 4.2.7.2.686 [id number] 107 [id number] [facility] 2024-11-24 15:45:00 2024-11-24 16:20:00 Office Visit Kathleen FacundoCassy [facility] 1.2840.114 350.1.13.10 4.2.7.2.686 [id number] 107 [id number] [facility] 2024-11-11 00:00:00 2024-11-11 16:18:[address] [facility] CH[facility] 1.2840.114 350.1.13.10 4.2.7.2.686 [id number] 107 [id number] [facility] 2024-11-10 15:30:00 2024-11-10 16:37:38 Office Visit R [facility]A [facility]ENER [facility] & CHILD [facility] 1.2840.114 350.1.13.10 4.2.7.2.686 [id number] 107 [id number] [facility] 2024-07-22 09:45:00 2024-07-22 10:40:45 Outpatient R CASSY LOREDO [facility] [id number] [facility] 2024-07-22 09:45:00 2024-07-22 10:40:45 Office Visit Facundo [facility]ER[facility] & CHILD [facility] 1.2840.114 350.1.13.10 4.2.7.2.686 [id number] 107 [id number] [facility] 2024-06-25 00:00:00 2024-06-25 08:26:37 Case Management Facundo [facility] 1.0.114 350.1.13.10 4.2.7.2.686 [id number] 107 [id number] [facility] 2024-06-23 10:15:00 2024-06-23 11:32:05 Outpatient R [facility] [id number] [facility] 2024-06-23 10:15:00 2024-06-23 11:32:05 Office Visit Facundo [facility] 1.0.114 350.1.13.10 4.2.7.2.686 [id number] 107 [id number] [facility] 2022-12-30 00:00:00 2023-12-08 13:20:06 Letter (Out) Salud Salvador [facility] 1..114 350.1.13.10 4.2.7.2.686 [id number] [facility] 2023-06-10 10:30:00 2023-06-10 11:24:49 Outpatient R WHITNEY ROMERO [facility] [id number] [facility] 2023-06-10 10:30:00 2023-06-10 11:24:49 Office Visit Whitney Romero [facility] 1..114 350.1.13.10 4.2.7.2.686 [id number] 107 [id number] [facility] 2023-06-03 00:00:00 2023-06-03 00:00:00 Patient Secure Msg Doctor Unassigned, [place] [facility] 1.114 350.1.13.10 4.2.7.2.686 [id number] [facility] 2023-05-15 12:45:00 2023-05-15 13:30:08 Outpatient R WHITNEY ROMERO [facility] [id number] [facility] 2023-05-15 12:45:00 2023-05-15 13:30:08 Routine Visit Whitney Romero [facility] 1.114 350.1.13.10 4.2.7.2.686 [id number] 107 [id number] [facility] 2023-04-30 08:30:00 2023-04-30 09:02:45 Outpatient R WHITNEY ROMERO [facility] [id number] [facility] 2023-04-30 08:30:00 2023-04-30 09:02:45 Nurse Visit Visit, Kevin[facility]chp [facility] 1.114 350.1.13.10 4.2.7.2.686 [id number] 107 [id number] [facility] 2023-04-28 00:00:00 2023-04-28 00:00:00 Encounter 1.2.840.1 [id number] 3.104.2.7 .2.872255 1.2.840.114 350.1.13.10 4.2.7.2.696 [id number] [facility] 2023-04-27 00:00:00 2023-04-27 00:00:00 Encounter 1.2.840.1 [id number] 3.104.2.7 .2.912300 1.2.840.114 350.1.13.10 4.2.7.2.696 [id number] [facility] 2023-04-23 19:33:00 2023-04-26 08:55:00 Inpatient X SHERRY ARREGUIN [facility] MICHELLE [id number] [facility] 2023-04-23 19:33:00 2023-04-26 08:55:00 Hospital Encounter Sherry Arreguin [facility] 1.2.840.114 350.1.13.10 4.2.7.2.686 [id number] [facility] 2023-04-26 00:00:00 2023-04-26 00:00:00 Encounter 1.2.840.1 [id number] 3.104.2.7 .2.889979 1.2.840.114 350.1.13.10 4.2.7.2.696 [id number] [facility] 2023-04-25 20:00:51 2023-04-25 20:00:51 Anesthesia Event Lazarus Lehman [facility] 1.2.840.114 350.1.13.10 4.2.7.2.686 [id number] [id number] [facility] 2023-04-24 20:45:00 2023-04-24 22:25:00 Surgery Sherry Arreguin [facility] 1.2.840.114 350.1.13.10 4.2.7.2.686 [id number] [id number] [facility] 2023-04-24 11:00:00 2023-04-24 21:58:00 Anesthesia Event Lazarus Lehman David K [facility] 1.840.114 350.1.13.10 4.2.7.2.686 [id number] [id number] [facility] 2023-04-24 09:30:00 2023-04-24 09:30:00 Outpatient R WHITNEY ROMERO [facility] [id number] [facility] 2023-04-23 00:00:00 2023-04-23 00:00:00 Orders Only Doctor Unassigned, [place] [facility] 1.840.114 350.1.13.10 4.2.7.2.686 [id number] [facility] 2023-04-16 09:30:00 2023-04-16 09:53:21 Outpatient R WHITNEY ROMERO [facility] [id number] [facility] 2023-04-16 09:30:00 2023-04-16 09:53:21 Routine Visit Whitney Romero [facility]CREENER [facility] MATERNAL & [facility]ILD [facility] 1..114 350.1.13.10 4.2.7.2.686 [id number] 107 [id number] [facility] 2023-04-10 10:45:00 2023-04-10 11:12:30 Outpatient R WHITNEY ROMERO [facility] [id number] [facility] 2023-04-10 10:45:00 2023-04-10 11:12:30 Routine Visit Whitney Romero [facility]CRE[facility] 1..114 350.1.13.10 4.2.7.2.686 [id number] 107 [id number] [facility] 2023-03-27 10:00:00 2023-03-27 10:19:53 Outpatient R WHITNEY ROMERO [facility] [id number] [facility] 2023-03-27 10:00:00 2023-03-27 10:19:53 Routine Visit Whitney Romero [facility]CRE[facility] & CHILD [facility] 1.2.840.114 350.1.13.10 4.2.7.2.686 [id number] 107 [id number] [facility] 2023-03-15 00:00:00 2023-03-15 00:00:00 Case Management Whitney Romero [facility] & CHILD [facility] 1..840.114 350.1.13.10 4.2.7.2.686 [id number] 107 [id number] [facility] 2023-03-14 09:30:00 2023-03-14 09:30:00 Outpatient R WHITNEY ROMERO [facility] [id number] [facility] 2023-03-13 09:45:00 2023-03-13 10:36:54 Outpatient R WHITNEY ROMERO [facility] [id number] [facility] 2023-03-13 09:45:00 2023-03-13 10:36:54 Routine Visit Whitney Romero [facility] 1.2.840.114 350.1.13.10 4.2.7.2.686 [id number] 107 [id number] [facility] 2023-02-28 11:00:00 2023-02-28 11:22:05 Outpatient R WHITNEY ROMERO [facility] [id number] [facility] 2023-02-28 11:00:00 2023-02-28 11:22:05 Routine Visit Whitney Romero [facility] 1.2.840.114 350.1.13.10 4.2.7.2.686 [id number] 107 [id number] [facility] 2023-02-07 10:15:00 2023-02-07 11:27:34 Outpatient R WHITNEY ROMERO [facility] [id number] [facility] 2023-02-07 10:15:00 2023-02-07 11:27:34 Routine Visit Whitney Romero [facility]CREENER [facility] CH[facility] 1.2.840.114 350.1.13.10 4.2.7.2.686 [id number] 107 [id number] [facility] 2023-02-03 10:00:00 2023-02-03 10:27:48 Outpatient P JANENE SCHAEFER [facility] [id number] [facility] 2023-02-03 10:00:00 2023-02-03 10:27:48 Medical Data Analyst Visit Ultrasound, Kevin-Janene Don [facility] 1.2.840.114 350.1.13.10 4.2.7.2.686 [id number] [facility] 2023-02-03 00:00:00 2023-02-03 00:00:00 Case Management Whitney Romero [facility] 1.2.840.114 350.1.13.10 4.2.7.2.686 [id number] 107 [id number] [facility] 2023-01-23 00:00:00 2023-01-23 00:00:00 Patient Secure Msg Whitney Romero [facility] 1.2.840.114 350.1.13.10 4.2.7.2.686 [id number] 107 [id number] [facility] 2023-01-23 00:00:00 2023-01-23 00:00:00 Refill Whitney Romero [facility] 1.2.840.114 350.1.13.10 4.2.7.2.686 [id number] 107 [id number] [facility] 2023-01-23 00:00:00 2023-01-23 00:00:00 Telephone Whitney Romero [facility] 1.2.840.114 350.1.13.10 4.2.7.2.686 [id number] 107 [id number] [facility] 2023-01-09 10:15:00 2023-01-09 11:09:44 Outpatient R WHITNEY ROMERO [facility] [id number] [facility] 2023-01-09 10:15:00 2023-01-09 11:09:44 Routine Visit Whitney Romero [facility] 1.2.840.114 350.1.13.10 4.2.7.2.686 [id number] [facility] 2023-01-07 10:10:55 2023-01-07 10:10:[address] [facility] [id number] Spike Mccarthy 2023-01-07 00:00:00 2023-01-07 00:00:00 Patient Secure Msg Doctor Unassigned, [place] [facility] 1.2.840.114 350.1.13.10 4.2.7.2.686 [id number] [facility] 2022-12-31 00:00:00 2022-12-31 00:00:00 Case Management Whitney Romero [facility] 1.2.840.114 350.1.13.10 4.2.7.2.686 [id number] [facility] 2022-12-30 09:45:00 2022-12-30 10:33:37 Outpatient P SALUD SALVADOR SHANNON [facility] [id number] [facility] 2022-12-30 09:45:00 2022-12-30 10:33:37 Medical Data Analyst Visit 1, [facility] Salud Salvador [facility] .114 350.1.13.10 4.2.7.2.686 [id number] [facility] 2022-12-13 00:00:00 2022-12-13 00:00:00 Case Management Whitney Romero [facility] 1.84.114 350.1.13.10 4.2.7.2.686 [id number] 107 [id number] [facility] 2022-12-12 10:30:00 2022-12-12 10:57:13 [facility] [id number] [facility] 2022-12-12 10:30:00 2022-12-12 10:57:13 Routine Visit Whitney Romero [facility] 1..114 350.1.13.10 4.2.7.2.686 [id number] 107 [id number] [facility] 2022-12-09 00:00:00 2022-12-09 00:00:00 Refill Whitney Romero [facility] ..114 350.1.13.10 4.2.7.2.686 [id number] 107 [id number] [facility] 2022-11-21 09:30:00 2022-11-21 10:03:03 Outpatient R YOLA ALATORRE [facility] [id number] [facility] 2022-11-21 09:30:00 2022-11-21 10:03:03 Routine Visit Risk, Ang-Rmchp-N p/High Yola Alatorre [facility] 1.2.840.114 350.1.13.10 4.2.7.2.686 [id number] 107 [id number] [facility] 2022-11-13 00:00:00 2022-11-13 00:00:00 Case Management Whitney Romero [facility] 1.2.840.114 350.1.13.10 4.2.7.2.686 [id number] 107 [id number] [facility] 2022-11-12 10:15:00 2022-11-12 11:51:57 Routine Visit Whitney Romero [facility] 1.2840.114 350.1.13.10 4.2.7.2.686 [id number] [facility] 2022-11-12 10:15:00 2022-11-12 11:51:57 Outpatient R WHITNEY ROMERO [facility] [id number] [facility] 2022-10-30 15:00:00 2022-10-30 15:00:00 Outpatient CYNDI HOLM [facility] [id number] [facility] 2022-10-20 09:16:00 2022-10-20 10:26:00 Emergency X LINDA CARMEN [facility] ERT [id number] [facility] 2022-10-20 09:16:00 2022-10-20 10:26:00 Emergency Linda Carmen [facility] 1.2.840.114 350.1.13.10 4.2.7.2.686 [id number] [facility] 2022-10-20 00:00:00 2022-10-20 00:00:00 Orders Only Doctor Unassigned, [place] [facility] 1.2840.114 350.1.13.10 4.2.7.2.686 [id number] [facility] 2022-10-20 00:00:00 2022-10-20 00:00:00 Patient Secure Msg Doctor Unassigned, [place] [facility] 1.20.114 350.1.13.10 4.2.7.2.686 [id number] [facility] 2022-10-15 08:45:00 2022-10-15 10:05:00 Outpatient R WHITNEY ROMERO [facility] [id number] [facility] 2022-10-15 08:45:00 2022-10-15 10:05:00 Routine Visit Whitney Romero [facility] MATERNAL & CHILD [facility] 1.840.114 350.1.13.10 4.2.7.2.686 [id number] 107 [id number] [facility] 2022-10-15 08:00:00 2022-10-15 08:00:00 Outpatient R RONDA ANDRES [facility] [id number] [facility] 2022-10-14 13:00:00 2022-10-14 13:16:44 Medical Data Analyst Visit Ultrasound, [facility] Aimee Carranza [facility] 1..840.114 350.1.13.10 4.2.7.2.686 [id number] [facility] 2022-10-14 13:00:00 2022-10-14 13:00:00 Outpatient P AIMEE CARRANZA [facility] [id number] [facility] 2022-10-14 00:00:00 2022-10-14 00:00:00 Letter (Out) Ezequiel alan Toribio [facility]ER[facility] CHILD [facility] 1.2.840.114 350.1.13.10 4.2.7.2.686 [id number] 107 [id number] [facility] 2022-09-25 15:00:00 2022-09-25 15:00:00 Outpatient R DMITRY RONDA [facility] [id number] [facility] 2022-09-17 15:30:00 2022-09-17 16:10:47 Outpatient R KAURDONNELL MontenegroNDA [facility] [id number] [facility] 2022-09-17 15:30:00 2022-09-17 16:10:47 Routine Visit Whitney Romero [facility] 1.2.840.114 350.1.13.10 4.2.7.2.686 [id number] 107 [id number] [facility] 2022-09-12 00:00:00 2022-09-12 00:00:00 [facility] 1.2.840.114 350.1.13.10 4.2.7.2.686 [id number] 107 [id number] [facility] 2022-09-12 00:00:00 2022-09-12 00:00:00 Case Management Whitney Romero [facility] S[facility] SCRE[facility]ILD [facility] 1.2.840.114 350.1.13.10 4.2.7.2.686 [id number] 107 [id number] [facility] 2022-09-11 10:15:00 2022-09-11 11:42:24 Initial Visit Whitney Romero [facility] S[facility] SCREENER [facility] 1.2.840.114 350.1.13.10 4.2.7.2.686 [id number] 107 [id number] [facility] 2022-09-11 09:45:00 2022-09-11 10:08:58 Outpatient R WHITNEY ROMERO [facility] [id number] [facility] 2022-09-11 00:00:00 2022-09-11 00:00:00 Orders Only Doctor Unassigned, [place] [facility] 1.840.114 350.1.13.10 4.2.7.2.686 [id number] [facility] 2022-09-03 00:00:00 2022-09-03 00:00:00 Telephone Whitney Romero [facility] S[employer] SCREENER [facility] 1.840.114 350.1.13.10 4.2.7.2.686 [id number] 107 [id number] [facility] 2022-01-24 00:00:00 2022-01-24 00:00:00 Orders Only Doctor Unassigned, [place] [facility] 1.840.114 350.1.13.10 4.2.7.2.686 [id number] [facility] 2021-08-24 00:00:00 2021-08-24 00:00:00 Outpatient R RADIOLOGY [facility] [id number] [facility] 2021-08-21 00:00:00 2021-08-21 00:00:00 Patient Secure Msg Doctor Unassigned, [place] [facility] S[facility] SCREENER [facility] 1.840.114 350.1.13.10 4.2.7.2.686 [id number] 107 [id number] [facility] [facility] 19:30:00 2021-08-19 23:10:00 Emergency X ELIEL PRO [facility] ERT [id number] [facility] 2021-08-19 19:30:00 2021-08-19 23:10:00 Emergency Eliel Pro [facility] 1.840.114 350.1.13.10 4.2.7.2.686 [id number] [facility] 2021-06-26 09:00:00 2021-06-26 09:00:00 Outpatient P [facility] [id number] [facility] 2021-06-22 15:15:00 2021-06-22 15:40:37 Office Visit Ronda Andres [facility] S[facility]CREENER [facility] MATERNAL & CHILD [facility] 1.2.840.114 350.1.13.10 4.2.7.2.686 [id number] 107 [id number] [facility] 2021-06-22 15:15:00 2021-06-22 15:40:37 Outpatient R AKINSIPE RONDA [facility] [id number] [facility] 2021-06-22 15:15:00 2021-06-22 15:15:00 Outpatient R AKINSIPE, RONDA [facility] [id number] [facility] 2021-06-21 15:30:00 2021-06-21 15:30:00 Outpatient R AKINSIPE RONDA [facility] [id number] [facility] 2021-06-21 15:30:00 2021-06-21 15:30:00 Outpatient R AKINSIPE RONDA [facility] [id number] [facility] 2021-06-19 08:15:00 2021-06-19 08:15:00 Outpatient R AKINSIPE, RONDA [facility] [id number] [facility] 2021-06-06 08:30:00 2021-06-06 08:30:00 Outpatient R AKINSIPE RONDA [facility] [id number] [facility] 2021-06-06 08:30:00 2021-06-06 08:30:00 Outpatient R AKINSIPE, RONDA [facility] [id number] [facility] 2021-06-05 09:45:00 2021-06-05 10:19:48 Outpatient R RONDA ANDRES [facility] [id number] [facility] 2021-06-05 09:45:00 2021-06-05 10:19:48 Routine Visit Ronda Andres MIJUAN [facility] MATERNAL & CHILD [facility] 1..840.114 350.1.13.10 4.2.7.2.686 [id number] 107 [id number] [facility] 2021-06-05 09:45:00 2021-06-05 10:19:48 Outpatient R COOKIERICHIE ROBINILOLA [facility] [id number] [facility] 2021-06-05 00:00:00 2021-06-05 00:00:00 Letter (Out) Rnoda Andres [facility] S[facility] SCREENER [facility] & CHILD [facility] ..840.114 350.1.13.10 4.2.7.2.686 [id number] 107 [id number] [facility] 2021-06-04 10:24:00 2021-06-04 12:52:00 Emergency X SOMMERS SHEYLA [facility] ERT [id number] [facility] 2021-06-04 10:24:00 2021-06-04 12:52:00 Emergency Sheyla Sommers [facility] ..840.114 350.1.13.10 4.2.7.2.686 [id number] 084 [id number] [facility] 2021-06-04 10:24:00 2021-06-04 12:52:00 Emergency X SOMMERS SHEYLA [facility] ERT [id number] [facility] 2021-06-04 00:00:00 2021-06-04 00:00:00 Patient Secure Msg Ronda Andres [facility]CRE[facility] & CHILD [facility] 1..840.114 350.1.13.10 4.2.7.2.686 [id number] 107 [id number] [facility] 2021-06-04 00:00:00 2021-06-04 00:00:00 Orders Only Doctor Unassigned, [place] [facility] 1.2.840.114 350.1.13.10 4.2.7.2.686 [id number] [facility] 2021-06-03 00:00:00 2021-06-03 00:00:00 Telephone Ronda Andres [facility]CRE[facility] & CHILD [facility] 1.2.840.114 350.1.13.10 4.2.7.2.686 [id number] 107 [id number] [facility] 2021-06-02 00:00:00 2021-06-02 00:00:00 Nurse Triage Parisa Sousa [facility] 1.2.840.114 350.1.13.10 4.2.7.2.686 [id number] 019 [id number] [facility] 2021-06-01 00:00:00 2021-06-01 00:00:00 Nurse Triage Carolynn Melendez [facility] 1.2.840.114 350.1.13.10 4.2.7.2.686 [id number] 019 [id number] [facility] 2021-05-30 00:00:00 2021-05-30 00:00:00 Telephone Ronda Andres [facility]CRE[facility] & CHILD [facility] 1.2.840.114 350.1.13.10 4.2.7.2.686 [id number] 107 [id number] [facility] 2021-05-28 00:00:00 2021-05-28 00:00:00 Telephone Ronda Andres [facility] S[facility] SCREENER [facility] CHILD [facility] 1.2.840.114 350.1.13.10 4.2.7.2.686 [id number] 107 [id number] [facility] 2021-05-24 10:00:00 2021-05-24 11:24:27 Outpatient R RONDA ANDRES [facility] [id number] [facility] 2021-05-24 10:00:00 2021-05-24 11:24:27 Initial Visit Ronda Andres [facility]CRE[facility] MATERNAL & CHILD [facility] 1.840.114 350.1.13.10 4.2.7.2.686 [id number] 107 [id number] [facility] 2021-05-24 10:00:00 2021-05-24 11:24:27 Outpatient R RICHIE ANDRESILOLA [facility] [id number] [facility] 2021-05-24 09:30:00 2021-05-24 10:30:59 Outpatient R RONDA ANDRES [facility] [id number] [facility] 2021-05-24 09:30:00 2021-05-24 09:30:00 Outpatient R SHIRAIRMARONDA [facility] [id number] [facility] 2021-05-24 00:00:00 2021-05-24 00:00:00 Orders Only Doctor Unassigned, [place] [facility] 1..840.114 350.1.13.10 4.2.7.2.686 [id number] [facility] 2021-03-05 08:30:00 2021-03-05 08:30:00 Outpatient R CHAVEZANABELA [facility] [id number] [facility] 2021-01-23 00:00:00 2021-01-23 00:00:00 Telephone Ronda Andres [facility] S[facility] SCREENER [facility] & CHILD [facility] 1..840.114 350.1.13.10 4.2.7.2.686 [id number] 107 [id number] [facility] 2021-01-17 15:15:00 2021-01-17 15:59:01 Outpatient R RONDA ANDRES [facility] [id number] [facility] 2021-01-17 14:59:33 2021-01-17 15:59:01 Office Visit Ronda Andres Kari MIJUAN [facility] CHILD [facility] 1.2.840.114 350.1.13.10 4.2.7.2.686 [id number] 107 [id number] [facility] 2021-01-17 15:15:00 2021-01-17 15:15:00 Outpatient R SHIRAIRMARONDA [facility] [id number] [facility] 2021-01-17 14:15:00 2021-01-17 14:15:00 Outpatient R SHIRAIRMARONDA [facility] [id number] [facility] 2021-01-16 00:00:00 2021-01-16 00:00:00 Telephone DmitryRonda Kari [facility] SCREENER [facility] 1.2.840.114 350.1.13.10 4.2.7.2.686 [id number] 107 [id number] [facility] 2021-01-02 13:00:00 2021-01-02 13:35:51 Outpatient R RONDA ANDRES [facility] [id number] [facility] 2021-01-02 12:57:30 2021-01-02 13:35:51 Office Visit Ronda Andres [facility] S[facility] SCREENER [facility] 1.2.840.114 350.1.13.10 4.2.7.2.686 [id number] 107 [id number] [facility] 2021-01-02 13:00:00 2021-01-02 13:00:00 Outpatient R SHIRAIRMARONDA [facility] [id number] [facility] 2020-12-05 15:00:00 2020-12-05 16:00:40 Outpatient R RONDA ANDRES [facility] [id number] [facility] 2020-12-05 14:46:31 2020-12-05 16:00:40 Office Visit Ronda Andres [facility] S[facility] SCREENER [facility] MATERNAL & CHILD [facility] 1.840.114 350.1.13.10 4.2.7.2.686 [id number] [facility] 2020-12-05 15:00:00 2020-12-05 15:00:00 Outpatient R COOKIECARLOS MANUELIRMARONDA [facility] [id number] [facility] 2020-12-04 09:15:00 2020-12-04 09:15:00 Outpatient R COOKIECARLOS MANUELIRMARONDA [facility] [id number] [facility] 2020-11-09 10:30:00 2020-11-09 10:30:00 Outpatient R DERICK ANDRESOLA [facility] [id number] [facility] 2020-09-18 00:00:00 2020-09-18 00:00:00 Telephone Ronda Andres [facility] S[facility] SCREENER [facility] CHILD [facility] .840.114 350.1.13.10 4.2.7.2.686 [id number] 107 [id number] [facility] 2020-09-06 00:00:00 2020-09-06 00:00:00 Telephone Ronda Andres [facility] S[facility] SCREENER [facility] .840.114 350.1.13.10 4.2.7.2.686 [id number] 107 [id number] [facility] 2020-08-29 00:00:00 2020-08-29 00:00:00 Patient Outreach Dajuan Salvador [facility] .840.114 350.1.13.10 4.2.7.2.686 [id number] [facility] 2020-08-09 10:37:00 2020-08-09 11:22:08 Office Visit Ronda Andres [facility] S[facility] SCREENER [facility] 1.2.840.114 350.1.13.10 4.2.7.2.686 [id number] 107 [id number] [facility] 2020-08-09 10:30:00 2020-08-09 10:30:00 Outpatient R RONDA ANDRES [facility] [id number] [facility] 2020-07-26 00:00:00 2020-07-26 00:00:00 Telephone Ronda Andres [facility] S[facility] SCREENER [facility] 1.2.840.114 350.1.13.10 4.2.7.2.686 [id number] 107 [id number] [facility] 2020-07-20 00:00:00 2020-07-20 00:00:00 Telephone Ronda Andres [facility] S[facility] SCREENER [facility] CHILD [facility] 1.2.840.114 350.1.13.10 4.2.7.2.686 [id number] 107 [id number] [facility] 2020-07-19 10:30:37 2020-07-19 11:15:52 Office Visit Ronda Andres MIJAUN S[employer] SCREENER [facility] CHILD [facility] 1.2840.114 350.1.13.10 4.2.7.2.686 [id number] 107 [id number] [facility] 2020-07-19 10:30:00 2020-07-19 10:30:00 Outpatient R RONDA ANDRES [facility] [id number] [facility] 2020-03-01 15:36:14 2020-03-01 16:30:50 Office Visit Anabela Chavez [facility] S[facility] SCREENER [facility] 1.2.840.114 350.1.13.10 4.2.7.2.686 [id number] 107 [id number] [facility] 2020-03-01 15:15:00 2020-03-01 15:15:00 Outpatient Kathleen OREILLYANABELA Valderrama [facility] [id number] [facility] 2020-03-01 00:00:00 2020-03-01 00:00:00 Orders Only Doctor Unassigned, [place] [facility] 1..114 350.1.13.10 4.2.7.2.686 [id number] [id number] [facility] 2020-02-22 00:00:00 2020-02-22 00:00:00 Telephone Ronda Andres [facility] S[facility] SCREENER [facility]NAL [facility] 1.840.114 350.1.13.10 4.2.7.2.686 [id number] 107 [id number] [facility] Results Test Description Test Time Test Comments Results Result Co mments Source [facility] with Rvryuqtdqusm1128-22-55 13:00:30* Test Item Value Reference Range Interpretation [...] 33.0 g/dL 31.6-35.1 RDW-SD (test code = 01744-9) 45.7 fL 39.0-49.9 RDW-CV (test code = 788-0) 14.3 % 12.0-15.5 PLT (test code = 777-3) 282 See_Comment [Automated message] The system which generated this result transmitted reference range: 166 - 358 10*3/?L. The reference range was not used to interpret this result as normal/abnormal. MPV (test code = 99409-5) 9.9 fL 9.5-12.9 NRBC/100 WBC (test code = 2123155664) 0.0 See_Comment [Automated message] The system which generated this result transmitted reference range: 0.0 - 10.0 /100 WBCs. The reference range was not used to interpret this result as normal/abnormal. NRBC x10^3 (test code = 0840148546) See_Comment [Automated message] The system which generated this result transmitted reference range: 10*3/?L. The reference range was not used to interpret this result as normal/abnormal. SEG % (test code = 27519-5) 88 % 33-76 H BAND % (test code = 39867-3) 4 % 0-1 H LYMPH % (test code = 78189-2) 8 % 14-54 L ANC (test code = 753-4) 16.58 10*3/uL 1.88-7.09 H Lab Interpretation (test code = 76667-8) Abnormal [facility] with Gayfmqwhjjxz2691-48-56 13:00:30* Test Item Value Reference Range Interpretation [...] 33.0 g/dL 31.6-35.1 RDW-SD (test code = 42455-7) 45.7 fL 39.0-49.9 RDW-CV (test code = 788-0) 14.3 % 12.0-15.5 PLT (test code = 777-3) 282 See_Comment [Automated message] The system which generated this result transmitted reference range: 166 - 358 10*3/?L. The reference range was not used to interpret this result as normal/abnormal. MPV (test code = 45824-7) 9.9 fL 9.5-12.9 NRBC/100 WBC (test code = 4630041348) 0.0 See_Comment [Automated message] The system which generated this result transmitted reference range: 0.0 - 10.0 /100 WBCs. The reference range was not used to interpret this result as normal/abnormal. NRBC x10^3 (test code = 9484599413) See_Comment [Automated message] The system which generated this result transmitted reference range: 10*3/?L. The reference range was not used to interpret this result as normal/abnormal. SEG % (test code = 04582-7) 88 % 33-76 H BAND % (test code = 92118-6) 4 % 0-1 H LYMPH % (test code = 27232-9) 8 % 14-54 L ANC (test code = 753-4) 16.58 10*3/uL 1.88-7.09 H Lab Interpretation (test code = 98827-5) [facility]normal [facility] I[facility]E [id number] 06:14:16* Test Item Value Reference Range Interpretation Comme nts RHIG CANDIDATE? (test code = 5188) No- see comment Patient is not a candidate for RhIg- Patient is Rh Positive.Performed at [facility] Laboratory Services - [facility] Blood [address] [place] [address]Klcj Free: [phone] No. [id number] [facility] IMMUNE [id number] 06:14:16* Test Item Value Reference Range Interpretation Comme nts RHIG CANDIDATE? (test code = 5188) No- see comment Patient is not a candidate for RhIg- Patient is Rh Positive.Performed at [facility] Laboratory Services - [facility] Blood [address] [place], [place] [id number] Free: [phone] No. [id number] [facility] B Surface Wmjmujz8814-31-83 10:02:47 * Test Item Value Reference Range Interpretation Comme nts HBsAg Semi-Quantitative (kayleen t code = 5195-3) 0.05 Negative [facility] B Surface Ixdwygd5042-77-94 10:02:47 * Test Item Value Reference Range Interpretation Comme nts HBsAg Semi-Quantitative (kayleen t code = 5195-3) 0.05 Negative [facility] OR CRISTIANO ONLY - [id number] 08:35:53* Test Item Value Reference Range Interpretation Comme nts RPR (Qualitative) (test code = 40787-1) Nonreactive Nonreactive Lab Interpretation (test cod e = 10401-3) Normal [facility] OR CRISTIANO ONLY - [id number] 08:35:53* Test Item Value Reference Range Interpretation Comme nts RPR (Qualitative) (test code = 27123-2) Nonreactive Nonreactive Lab Interpretation (test cod e = 51908-7) Normal [facility] Dlweb0090-82-48 08:10:11* Test Item Value Reference Range Interpretation Comme nts URIC ACID (test code = 5645624414) 5.7 mg/dL 2.9-6.0 Lab Interpretation (test cod e = 18667-7) Normal [facility] Center[facility] Dkgeqrsink2705-49-32 08:10:11* Test Item Value Reference Range Interpretation Comme nts CREATININE (test code = 0211927248) 0.56 mg/dL 0.50-1.04 eGFR (test code = 70333-1) 130.9 mL/min/1.73m2 CKD-EPI eGFR (20 21). Assuming creatinine has been stable day-to-day for at least three months, the eGFR indicates Category G1 (>= 90 mL/min/1.73 m2) [facility] (Asparate Amino Transfer)2023-04-24 08:10:11* Test Item Value Reference Range Interpretation Comme nts AST(SGOT) (test code = 8301521046) 18 U/L 13-40 Lab Interpretation (test cod e = 19372-8) Normal [facility] CenterAl[facility] Amino Transferase (SGPT)2023-04-24 08:10:11* Test Item Value Reference Range Interpretation Comme nts ALTv (test code = 1742-6) 17 U/L 5-35 Lab Interpretation (test cod e = 84813-9) Normal [facility] CenterLactate Nipucyegolecc7720-00-18 08:10:11* Test Item Value Reference Range Interpretation Comme nts LDH (test code = 8292789566) 141 U/L 120-246 Lab Interpretation (test cod e = 58676-4) Normal [facility] Center[facility] Wkqqn1174-04-43 08:10:11* Test Item Value Reference Range Interpretation Comme [facility] URIC ACID (test code = 5326404330) 5.7 mg/dL 2.9-6.0 Lab Interpretation (test cod e = 39701-3) Normal [facility] Tjaxtfpqxc8565-49-18 08:10:11* Test Item Value Reference Range Interpretation Comme [facility] CREATININE (test code = 8794228128) 0.56 mg/dL 0.50-1.04 eGFR (test code = 90954-0) 130.9 mL/min/1.73m2 CKD-EPI eGFR (20 21). Assuming creatinine has been stable day-to-day for at least three months, the eGFR indicates Category G1 (>= 90 mL/min/1.73 m2) [facility] (Asparate [facility])2023-04-24 08:10:11* Test Item Value Reference Range Interpretation Comme nts AST(SGOT) (test code = 4471903410) 18 U/L 13-40 Lab Interpretation (test cod e = 17865-2) Normal [facility] Center[facility] Transfer[facility] (SGPT)2023-04-24 08:10:11* Test Item Value Reference Range Interpretation Comme nts ALTv (test code = 1742-6) 17 U/L 5-35 Lab Interpretation (test cod e = 50038-9) Normal [facility] Center[facility] Kyptztyeugxzw3703-82-54 08:10:11* Test Item Value Reference Range Interpretation Comme nts LDH (test code = 7846404890) 141 U/L 120-246 Lab Interpretation (test cod e = 26918-3) Normal [facility]2 AG-AB WITH [id number] 04:25:18* Test Item Value Reference Range Interpretation Comme nts HIV Semi-quantitative (test code = 01264-2) 0.19 Negative FRED (test code = FRED) Non-reactive for HIV-1 antigen and HIV-1/HIV-2 antibodies. ?No laboratory evidence of HIV infection. ?Repeat in 2-4 weeks if acute HIV infection is suspected. [facility] WITH [id number] 04:25:18* Test Item Value Reference Range Interpretation Comme nts HIV Semi-quantitative (test code = 71617-5) 0.19 Negative FRED (test code = FRED) Non-reactive for HIV-1 antigen and HIV-1/HIV-2 antibodies. ?No laboratory evidence of HIV infection. ?Repeat in 2-4 weeks if acute HIV infection is suspected. [facility] CenterCB WITH [id number] 03:10:10* Test Item Value Reference Range Interpretation [...] 34.0 g/dL 31.6-35.1 RDW-SD (test code = 14925-2) 44.8 fL 39.0-49.9 RDW-CV (test code = 788-0) 14.0 % 12.0-15.5 PLT (test code = 777-3) 304 See_Comment [Automated messa ge] The system which generated this result transmitted reference range: 166 - 358 10*3/?L. The reference range was not used to interpret this result as normal/abnormal. MPV (test code = 12719-0) 9.5 fL 9.5-12.9 NRBC/100 WBC (test code = 8318943413) 0.0 See_Comment [Automated [employer] ssage] The system which generated this result transmitted reference range: 0.0 - 10.0 /100 WBCs. The reference range was not used to interpret this result as normal/abnormal. NRBC x10^3 (test code = 7425777438) See_Comment [Automated [employer] ge] The system which generated this result transmitted reference range: 10*3/?L. The reference range was not used to interpret this result as normal/abnormal. GRAN MAT (NEUT) % (test code = 770-8) 63.6 % IMM GRAN % (test code = 9085332992) 1.10 % LYMPH % (test code = 736-9) 24.3 % MONO % (test code = 5905-5) 7.7 % EOS % (test code = 713-8) 2.7 % BASO % (test code = 706-2) 0.6 % GRAN MAT x10^3(ANC) (test code = 3324808051) 5.23 10*3/uL 1.88-7.09 IMM GRAN x10^3 (test code = 9230227098) 0.09 10*3/uL 0.00-0.06 H LYMPH x10^3 (test code = 731-0) 2.00 10*3/uL 1.32-3.29 MONO x10^3 (test code = 742-7) 0.63 10*3/uL 0.33-0.92 EOS x10^3 (test code = 711-2) 0.22 10*3/uL 0.03-0.39 BASO x10^3 (test code = 704-7) 0.05 10*3/uL 0.01-0.07 Lab Interpretation (test code = 01274-8) Abnormal [facility] WITH [id number] 03:10:10* Test Item Value Reference Range Interpretation Comme nts WBC (test code = 6690-2) 8.22 See_Comment [Automated [employer]] The system which generated this result transmitted reference range: 4.30 - 11.10 10*3/?L. The reference range was not used to interpret this result as normal/abnormal. RBC (test code = 789-8) 3.93 See_Comment [Automated [employer]] The system which generated this result transmitted [...] 34.0 g/dL 31.6-35.1 RDW-SD (test code = 57229-5) 44.8 fL 39.0-49.9 RDW-CV (test code = 788-0) 14.0 % 12.0-15.5 PLT (test code = 777-3) 304 See_Comment [Automated [employer] ge] The system which generated this result transmitted reference range: 166 - 358 10*3/?L. The reference range was not used to interpret this result as normal/abnormal. MPV (test code = 77057-7) 9.5 fL 9.5-12.9 NRBC/100 WBC (test code = 5539248860) 0.0 See_Comment [Automated me ssage] The system which generated this result transmitted reference range: 0.0 - 10.0 /100 WBCs. The reference range was not used to interpret this result as normal/abnormal. NRBC x10^3 (test code = 7181127483) See_Comment [Automated messa ge] The system which generated this result transmitted reference range: 10*3/?L. The reference range was not used to interpret this result as normal/abnormal. GRAN MAT (NEUT) % (test code = 770-8) 63.6 % IMM GRAN % (test code = 9582946971) 1.10 % LYMPH % (test code = 736-9) 24.3 % MONO % (test code = 5905-5) 7.7 % EOS % (test code = 713-8) 2.7 % BASO % (test code = 706-2) 0.6 % GRAN MAT x10^3(ANC) (test code = 5219869538) 5.23 10*3/uL 1.88-7.09 IMM GRAN x10^3 (test code = 0437499727) 0.09 10*3/uL 0.00-0.06 H LYMPH x10^3 (test code = 731-0) 2.00 10*3/uL 1.32-3.29 MONO x10^3 (test code = 742-7) 0.63 10*3/uL 0.33-0.92 EOS x10^3 (test code = 711-2) 0.22 10*3/uL 0.03-0.39 BASO x10^3 (test code = 704-7) 0.05 10*3/uL 0.01-0.07 Lab Interpretation (test code = 07869-4) [facility]normal [facility] Screen - ONCE [id number] 03:05:00 * Test Item Value Reference Range Interpretation Comme nts ABO & RH (test code = 20) O Positive IAT (test code = 1185) Negative [facility] [id number] 03:05:00 * Test Item Value Reference Range Interpretation Comme nts ABO & RH (test code = 20) O Positive IAT (test code = 1185) Negative [facility] URINALYSIS W SPECIFIC [id number] 15:24:00* Test Item Value Reference Range Interpretation [...] POCT U APPEAR (test code = 3267) [facility] URINALYSIS W SPECIFIC XPCOTHQ8006-32-58 14:58:00* Test Item Value Reference Range Interpretation [...] POCT U APPEAR (test code = 3267) [facility] URINALYSIS W SPECIFIC [id number] 14:58:00* Test Item Value Reference Range Interpretation [...] POCT U APPEAR (test code = 3267) [facility] [id number] 07:04:34* Test Item Value Reference Range Interpretation Comme nts HIV Semi-quantitative (test code = 58898-6) 0.11 Negative FRED (test code = FRED) Non-reactive for HIV-1 antigen and HIV-1/HIV-2 antibodies. ?No laboratory evidence of HIV infection. ?Repeat in 2-4 weeks if acute HIV infection is suspected. [facility] [id number] 06:09:03 * Test Item Value Reference Range Interpretation Comme nts TSH (test code = 9765454189) 3.02 See_Comment Biotin has been reported to cause a negative bias, interpret results relative to patient's use of biotin. [Automated message] The system which generated this result transmitted reference range: 0.45 - 4.70 mIU/L. The reference range was not used to interpret this result as normal/abnormal. Lab Interpretation (test code = 28138-2) [facility] [id number] 15:08:00* Test Item Value Reference Range Interpretation [...] U APPEAR (test code = 3267) . [facility] URINALYSIS W SPECIFIC [id number] 15:08:00* Test Item Value Reference Range Interpretation [...] U APPEAR (test code = 3267) . [facility] URINALYSIS W SPECIFIC [id number] 15:08:00* Test Item Value Reference Range Interpretation [...] U APPEAR (test code = 3267) . [facility] [id number] 16:31:00* Test Item Value Reference Range Interpretation [...] POCT U APPEAR (test code = 3267) [facility] [id number] 05:53:03* Test Item Value Reference Range Interpretation Comme nts GLUC 1 HR (test code = 7995785190) 98 mg/dL 120-170 L Lab Interpretation (test cod e = 05310-3) [facility]normal [facility] CenterALAN[facility] AMINO TRANSFERASE([id number] 05:53:03* Test Item Value Reference Range Interpretation Comme nts ALTv (test code = 1742-6) 14 U/L 5-35 Lab Interpretation (test cod e = 15092-4) Normal [facility] (ASPARTATE AMINO TRANSFER)2023-02-08 05:53:03* Test Item Value Reference Range Interpretation Comme nts AST(SGOT) (test code = 1922809258) 17 U/L 13-40 Lab Interpretation (test cod e = 18972-0) [facility]CB with [id number] 04:22:07* Test Item Value Reference Range Interpretation [...] 33.3 g/dL 31.6-35.1 RDW-SD (test code = 54596-3) 46.3 fL 39.0-49.9 RDW-CV (test code = 788-0) 14.0 % 12.0-15.5 PLT (test code = 777-3) 347 See_Comment [Automated messa ge] The system which generated this result transmitted reference range: 166 - 358 10*3/?L. The reference range was not used to interpret this result as normal/abnormal. MPV (test code = 84758-3) 9.8 fL 9.5-12.9 NRBC/100 WBC (test code = 9976953999) 0.0 See_Comment [Automated me ssage] The system which generated this result transmitted reference range: 0.0 - 10.0 /100 WBCs. The reference range was not used to interpret this result as normal/abnormal. NRBC x10^3 (test code = 5674806696) See_Comment [Automated messa ge] The system which generated this result transmitted reference range: 10*3/?L. The reference range was not used to interpret this result as normal/abnormal. GRAN MAT (NEUT) % (test code = 770-8) 72.7 % IMM GRAN % (test code = 2529254965) 1.40 % LYMPH % (test code = 736-9) 16.9 % MONO % (test code = 5905-5) 6.2 % EOS % (test code = 713-8) 2.4 % BASO % (test code = 706-2) 0.4 % GRAN MAT x10^3(ANC) (test code = 5594065568) 7.04 10*3/uL 1.88-7.09 IMM GRAN x10^3 (test code = 7157762259) 0.14 10*3/uL 0.00-0.06 H LYMPH x10^3 (test code = 731-0) 1.64 10*3/uL 1.32-3.29 MONO x10^3 (test code = 742-7) 0.60 10*3/uL 0.33-0.92 EOS x10^3 (test code = 711-2) 0.23 10*3/uL 0.03-0.39 BASO x10^3 (test code = 704-7) 0.04 10*3/uL 0.01-0.07 Lab Interpretation (test code = 10732-1) Abnormal [facility] URINALYSIS W SPECIFIC [id number] 16:36:00* Test Item Value Reference Range Interpretation Comme nts POCT U SP GRAV (test code = 3255) . 1.005-1.025 POCT PH U (test code = 3254) . 5-8 POCT U LEUK EST (test code = 3263) . Negative - N egative POCT U NIT (test code = 3262) . Negative - Negati ve POCT U PROT (test code = 1119) . Negative - Negat dino POCT U [...] U APPEAR (test code = 3267) . [facility] URINALYSIS W SPECIFIC [id number] 15:41:00* Test Item Value Reference Range Interpretation [...] POCT U APPEAR (test code = 3267) [facility] URINALYSIS W SPECIFIC [id number] 15:29:00* Test Item Value Reference Range Interpretation [...] POCT U APPEAR (test code = 3267) [facility] URINALYSIS W SPECIFIC [id number] 14:13:00* Test Item Value Reference Range Interpretation [...] POCT U APPEAR (test code = 3267) [facility] URINALYSIS W SPECIFIC [id number] 15:20:00* Test Item Value Reference Range Interpretation [...] U APPEAR (test code = 3267) . [facility] ST[facility] [id number] 06:02:31 * Test Item Value Reference Range Interpretation Comme nts TSH (test code = 1895093439) 2.97 See_Comment [Automated messa ge] The system which generated this result transmitted reference range: 0.45 - 4.70 mIU/L. The reference range was not used to interpret this result as normal/abnormal. Lab Interpretation (test code = 18453-1) Normal [facility] (ASPARTATE AMINO TRANSFER)2022-10-16 05:28:29* Test Item Value Reference Range Interpretation Comme nts AST(SGOT) (test code = 7706504712) 22 U/L 13-40 Lab Interpretation (test cod e = 88013-2) Normal [facility] CenterAL[facility] AMINO TRANSFERASE([id number] 05:28:28* Test Item Value Reference Range Interpretation Comme nts ALTv (test code = 1742-6) 25 U/L 5-35 Lab Interpretation (test cod e = 41628-1) Normal [facility]IFIC [id number] 14:20:00* Test Item Value Reference Range Interpretation [...] U APPEAR (test code = 3267) . [facility]IFIC [id number] 20:43:00* Test Item Value Reference Range Interpretation [...] POCT U APPEAR (test code = 3267) [facility] [id number] 19:12:18 * Test Item Value Reference Range Interpretation Comme [facility] Rubella screen IgG (test code = 1443641215) Negative Negative FRED (test code = FRED) Positive - Indicat es the patient was exposed to Rubella through infection or vaccination.Negative - Indicates the patient could be susceptible to Rubella infection.Equivocal - A second specimen should be sent. [facility] CenterVZV ANTIBODY [id number] 19:12:18* Test Item Value Reference Range Interpretation Comme [facility] VZV IgG antibody (test code = 95234-5) Positive Negative FRED (test code = FRED) Positive - Indicat es the patient was exposed to VZV through infection or vaccination.Negative - Indicates the patient could be susceptible to VZV infection.Equivocal - A second specimen should be sent for testing. [facility] CenterRUBELLA SCREEN ([facility]RICIA) [id number] 19:12:18 * Test Item Value Reference Range Interpretation Comme [facility] Rubella screen IgG (test code = 5300212103) Negative Negative FRED (test code = FRED) Positive - Indicat es the patient was exposed to Rubella through infection or vaccination.Negative - Indicates the patient could be susceptible to Rubella infection.Equivocal - A second specimen [facility] be sent. [facility] [id number] 19:12:18* Test Item Value Reference Range Interpretation Comme nts VZV IgG antibody (test code = 77870-3) Positive Negative FRED (test code = FRED) Positive - Indicat es the patient was exposed to VZV through infection or vaccination.Negative - Indicates the patient could be susceptible to VZV infection.Equivocal - A second specimen should be sent for testing. [facility] ONLY - SYPHILIS [id number] 15:53:54* Test Item Value Reference Range Interpretation Comme nts Syphilis IgG/IgM (test code = 26768-9) Non-reactive Non-reactive FRED (test code = FRED) Non-reactive - No serologic evidence of T. pallidum infection. Cannot exclude incubating or early syphilis. Submit a second specimen in 2-4 weeks if syphilis is clinically suspected. Equivocal - Further testing to follow. Reactive - Further testing to follow. Lab Interpretation (test code = 94997-8) Normal [facility] ONLY - SYPHILIS [id number] 15:53:54* Test Item Value Reference Range Interpretation Comme nts Syphilis IgG/IgM (test code = 13261-2) Non-reactive Non-reactive FRED (test code = FRED) Non-reactive - No serologic evidence of T. pallidum infection. Cannot exclude incubating or early syphilis. Submit a second specimen in 2-4 weeks if syphilis is clinically suspected. Equivocal - Further testing to follow. Reactive - Further testing to follow. Lab Interpretation (test code = 48667-8) Normal [facility] [id number] 15:52:16* Test Item Value Reference Range Interpretation Comme nts FREE T3 (test code = 5385530276) 4.41 pg/mL 2.77-5.27 Lab Interpretation (test cod e = 82193-8) Normal [facility] [id number] 15:52:16* Test Item Value Reference Range Interpretation Comme nts FREE T3 (test code = 8002269604) 4.41 pg/mL 2.77-5.27 Lab Interpretation (test cod e = 78374-0) Normal [facility] [id number] 14:49:37* Test Item Value Reference Range Interpretation Comme nts FREE T4 (test code = 8387448952) 1.02 See_Comment [Automated messa ge] The system which generated this result transmitted reference range: 0.78 - 2.20 ng/dL:. The reference range was not used to interpret this result as normal/abnormal. Lab Interpretation (test code = 57887-9) Normal [facility] [id number] 14:49:37* Test Item Value Reference Range Interpretation Comme nts FREE T4 (test code = 6232902318) 1.02 See_Comment [Automated messa ge] The system which generated this result transmitted reference range: 0.78 - 2.20 ng/dL:. The reference range was not used to interpret this result as normal/abnormal. Lab Interpretation (test code = 71484-4) Normal [facility] hospital 1/2 AG-AB WITH [id number] 08:56:49* Test Item Value Reference Range Interpretation Comme nts HIV Semi-quantitative (test code = 04361-3) 0.10 Negative FRED (test code = FRED) Non-reactive for HIV-1 antigen and HIV-1/HIV-2 antibodies. ?No laboratory evidence of HIV infection. ?Repeat in 2-4 weeks if acute HIV infection is suspected. General acute hospital 1/2 AG-AB WITH [id number] 08:56:49* Test Item Value Reference Range Interpretation Comme nts HIV Semi-quantitative (test code = 47748-1) 0.10 Negative FRED (test code = FRED) Non-reactive for HIV-1 antigen and HIV-1/HIV-2 antibodies. ?No laboratory evidence of HIV infection. ?Repeat in 2-4 weeks if acute HIV infection is suspected. [facility] [id number] 06:02:34* Test Item Value Reference Range Interpretation Comme nts HCV Ab (test code = 08021-7) Negative HCV Semi-Quantitative (test code = 48532-9) 0.03 [facility] CenterHC [id number] 06:02:34* Test Item Value Reference Range Interpretation Comme nts HCV Ab (test code = 87574-1) Negative HCV Semi-Quantitative (test code = 44748-6) 0.03 [facility] B SURFACE [id number] 05:45:14 * Test Item Value Reference Range Interpretation Comme nts HBsAg Semi-Quantitative (kayleen t code = 5195-3) 0.05 Negative [facility] CenterTHYROID STIMULATING [id number] 05:45:14 * Test Item Value Reference Range Interpretation Comme nts TSH (test code = 1864742580) 4.99 See_Comment H [Automated messa ge] The system which generated this result transmitted reference range: 0.45 - 4.70 mIU/L. The reference range was not used to interpret this result as normal/abnormal. Lab Interpretation (test code = 96868-2) Abnormal [facility] B SURFACE [id number] 05:45:14 * Test Item Value Reference Range Interpretation Comme nts HBsAg Semi-Quantitative (kayleen t code = 5195-3) 0.05 Negative [facility] CenterTHY[facility]ID STIMULATING [id number] 05:45:14 * Test Item Value Reference Range Interpretation Comme nts TSH (test code = 8682023010) 4.99 See_Comment H [Automated messa ge] The system which generated this result transmitted reference range: 0.45 - 4.70 mIU/L. The reference range was not used to interpret this result as normal/abnormal. Lab Interpretation (test code = 49323-3) [facility]normal [facility]Gl[facility] [id number] 05:22:25* Test Item Value Reference Range Interpretation Comme nts GLUC 1 HR (test code = 2140552219) 95 mg/dL 120-170 L Lab Interpretation (test cod e = 21210-4) [facility]normal [facility] Post [id number] 05:22:25* Test Item Value Reference Range Interpretation Comme nts GLUC 1 HR (test code = 9293926610) 95 mg/dL 120-170 L Lab Interpretation (test cod e = 88518-2) [facility]normal [facility]COM. METABOLIC PANEL (80567)2022-09-12 05:17:29* Test Item Value Reference Range Interpretation Comme nts NA (test code = 0632125705) 138 mmol/L 135-145 K (test code = 3506203840) 4.3 mmol/L 3.5-5.0 CL (test code = 3139168669) 104 mmol/L 98-108 CO2 TOTAL (test code = 8730871698) 24 mmol/L 23-31 AGAP (test code = 0610692884) 10 2-16 BUN (test code = 8369145517) 10 mg/dL 7-23 GLUCOSE (test code = 1434539121) 101 mg/dL 70-110 CREATININE (test code = 1125083971) 0.62 mg/dL 0.50-1.04 TOTAL BILI (test code = 2818881173) 0.4 mg/dL 0.1-1.1 CALCIUM (test code = 9475254511) 9.5 mg/dL 8.6-10.6 T PROTEIN (test code = 2226965824) 7.5 g/dL 6.3-8.2 ALBUMIN (test code = 9778558393) 4.4 g/dL 3.5-5.0 ALK PHOS (test code = 4192063019) 80 U/L 34-122 ALTv (test code = 1742-6) 47 U/L 5-35 H AST(SGOT) (test code = 0194120044) 30 U/L 13-40 eGFR (test code = 1958537449) 119.3 mL/min/1.73m2 FRED (test code = FRED) [...] imaging tests). Lab Interpretation (test code = 51133-9) Abnormal [facility]. METABOLIC PANEL (79200)2022-09-12 05:17:29* Test Item Value Reference Range Interpretation Comme nts NA (test code = 4331096333) 138 mmol/L 135-145 K (test code = 3900676509) 4.3 mmol/L 3.5-5.0 CL (test code = 2322986580) 104 mmol/L 98-108 CO2 TOTAL (test code = 7675680774) 24 mmol/L 23-31 AGAP (test code = 0247776198) 10 2-16 BUN (test code = 5102827519) 10 mg/dL 7-23 GLUCOSE (test code = 7732309719) 101 mg/dL 70-110 CREATININE (test code = 9892914700) 0.62 mg/dL 0.50-1.04 TOTAL BILI (test code = 8898312551) 0.4 mg/dL 0.1-1.1 CALCIUM (test code = 9448417254) 9.5 mg/dL 8.6-10.6 T PROTEIN (test code = 4735866709) 7.5 g/dL 6.3-8.2 ALBUMIN (test code = 8289929597) 4.4 g/dL 3.5-5.0 ALK PHOS (test code = 2757533363) 80 U/L 34-122 ALTv (test code = 1742-6) 47 U/L 5-35 H AST(SGOT) (test code = 2488173104) 30 U/L 13-40 eGFR (test code = 1190774648) 119.3 mL/min/1.73m2 FRED (test code = FRED) [...] imaging tests). Lab Interpretation (test code = 46210-9) Abnormal [facility] WITH [id number] 04:51:06* Test Item Value Reference Range Interpretation Comme nts WBC (test code = 6690-2) 8.62 See_Comment [Automated [employer]] The system which generated this result transmitted reference range: 4.30 - 11.10 10*3/?L. The reference range was not used to interpret this result as normal/abnormal. RBC (test code = 789-8) 4.81 See_Comment [Automated [employer]] The system which generated this result transmitted [...] 33.0 g/dL 31.6-35.1 RDW-SD (test code = 64846-0) 40.7 fL 39.0-49.9 RDW-CV (test code = 788-0) 12.4 % 12.0-15.5 PLT (test code = 777-3) 414 See_Comment H [Automated messa ge] The system which generated this result transmitted reference range: 166 - 358 10*3/?L. The reference range was not used to interpret this result as normal/abnormal. MPV (test code = 52228-9) 9.4 fL 9.5-12.9 L NRBC/100 WBC (test code = 1334031594) 0.0 See_Comment [Automated [employer] ssage] The system which generated this result transmitted reference range: 0.0 - 10.0 /100 WBCs. The reference range was not used to interpret this result as normal/abnormal. NRBC x10^3 (test code = 3764291898) See_Comment [Automated [employer]] The system which generated this result transmitted reference range: 10*3/?L. The reference range was not used to interpret this result as normal/abnormal. GRAN MAT (NEUT) % (test code = 770-8) 67.7 % IMM GRAN % (test code = 6658112092) 0.60 % LYMPH % (test code = 736-9) 22.3 % MONO % (test code = 5905-5) 5.6 % EOS % (test code = 713-8) 3.0 % BASO % (test code = 706-2) 0.8 % GRAN MAT x10^3(ANC) (test code = 8629051830) 5.84 10*3/uL 1.88-7.09 IMM GRAN x10^3 (test code = 3991797815) 0.05 10*3/uL 0.00-0.06 LYMPH x10^3 (test code = 731-0) 1.92 10*3/uL 1.32-3.29 MONO x10^3 (test code = 742-7) 0.48 10*3/uL 0.33-0.92 EOS x10^3 (test code = 711-2) 0.26 10*3/uL 0.03-0.39 BASO x10^3 (test code = 704-7) 0.07 10*3/uL 0.01-0.07 Lab Interpretation (test code = 59244-1) Abnormal [facility] WITH [id number] 04:51:06* Test Item Value Reference Range Interpretation Comme nts WBC (test code = 6690-2) 8.62 See_Comment [Automated [employer]] The system which generated this result [...] 33.0 g/dL 31.6-35.1 RDW-SD (test code = 51960-0) 40.7 fL 39.0-49.9 RDW-CV (test code = 788-0) 12.4 % 12.0-15.5 PLT (test code = 777-3) 414 See_Comment H [Automated messa ge] The system which generated this result transmitted reference range: 166 - 358 10*3/?L. The reference range was not used to interpret this result as normal/abnormal. MPV (test code = 10762-6) 9.4 fL 9.5-12.9 L NRBC/100 WBC (test code = 0876274678) 0.0 See_Comment [Automated me ssage] The system which generated this result transmitted reference range: 0.0 - 10.0 /100 WBCs. The reference range was not used to interpret this result as normal/abnormal. NRBC x10^3 (test code = 5694295689) See_Comment [Automated messa ge] The system which generated this result transmitted reference range: 10*3/?L. The reference range was not used to interpret this result as normal/abnormal. GRAN MAT (NEUT) % (test code = 770-8) 67.7 % IMM GRAN % (test code = 4209702501) 0.60 % LYMPH % (test code = 736-9) 22.3 % MONO % (test code = 5905-5) 5.6 % EOS % (test code = 713-8) 3.0 % BASO % (test code = 706-2) 0.8 % GRAN MAT x10^3(ANC) (test code = 7110902012) 5.84 10*3/uL 1.88-7.09 IMM GRAN x10^3 (test code = 3576086721) 0.05 10*3/uL 0.00-0.06 LYMPH x10^3 (test code = 731-0) 1.92 10*3/uL 1.32-3.29 MONO x10^3 (test code = 742-7) 0.48 10*3/uL 0.33-0.92 EOS x10^3 (test code = 711-2) 0.26 10*3/uL 0.03-0.39 BASO x10^3 (test code = 704-7) 0.07 10*3/uL 0.01-0.07 Lab Interpretation (test code = 58453-1) Abnormal [facility] WORKUP, BLOOD [id number] 16:49:00 * Test Item Value Reference Range Interpretation Comme nts ABO & RH (test code = 20) O POSITIVE IAT (test code = 1185) Negative [facility] WORKUP, BLOOD [id number] 16:49:00 * Test Item Value Reference Range Interpretation Comme nts ABO & RH (test code = 20) O POSITIVE IAT (test code = 1185) Negative [facility] [id number] 15:36:00* Test Item Value Reference Range Interpretation Comme nts POCT PREG (test code = 1605) Positive On board controls acceptable with C Line (test code = 3574) Yes POCT PREG LOT # (test code = 3575) POCT PREG TEST DATE ( test code = 3576) [facility] URINALYSIS W/O SPECIFIC [id number] 15:36:00* Test Item Value Reference Range Interpretation [...] = 3257) negative Negative - Negati ve [facility] [id number] 15:36:00* Test Item Value Reference Range Interpretation Comme nts POCT PREG (test code = 1605) Positive On board controls acceptable with C Line (test code = 3574) Yes POCT PREG LOT # (test code = 3575) POCT PREG TEST DATE ( test code = 3576) [facility] URINALYSIS W/O SPECIFIC [id number] 15:36:00* Test Item Value Reference Range Interpretation [...] = 3257) negative Negative - Negati ve [facility] CenterComplete Metabolic [id number] 01:52:07* Test Item Value Reference Range Interpretation Comme nts NA (test code = 5759940236) 140 mmol/L 135-145 K (test code = 3165774382) 4.3 mmol/L 3.5-5.0 CL (test code = 9574562127) 105 mmol/L 98-108 CO2 TOTAL (test code = 1581134941) 20 mmol/L 23-31 L AGAP (test code = 7150328791) 2-16 BUN (test code = 3061776376) 17 mg/dL 7-23 GLUCOSE (test code = 6608365504) 101 mg/dL 70-110 CREATININE (test code = 9387113027) 0.74 mg/dL 0.50-1.04 TOTAL BILI (test code = 6279802778) 0.4 mg/dL 0.1-1.1 CALCIUM (test code = 3648183084) 8.8 mg/dL 8.6-10.6 T PROTEIN (test code = 4444806029) 8.3 g/dL 6.3-8.2 H ALBUMIN (test code = 1007222963) 4.9 g/dL 3.5-5.0 ALK PHOS (test code = 8200431350) 116 U/L 34-122 ALTv (test code = 1742-6) 62 U/L 5-35 H AST(SGOT) (test code = 9058965390) 45 U/L 13-40 H eGFR (test code = 2402911544) mL/min/1.73m2 FRED (test code = FRED) Association [...] imaging tests). Lab Interpretation (test code = 08562-5) [facility]normal [facility] CenterLip[facility], [id number] 01:51:27* Test Item Value Reference Range Interpretation Comme nts LIPASE (test code = 4607034686) 128 U/L 0-220 Lab Interpretation (test cod e = 49093-5) Normal [facility] with Njxxphpdtbyy8483-56-43 01:05:48* Test Item Value Reference Range Interpretation Comme nts WBC (test code = 6690-2) See_Comment [Automated [employer]] The system which generated this result transmitted reference range: 4.30 - 11.10 10*3/?L. The reference range was not used to interpret this result as normal/abnormal. RBC (test code = 789-8) See_Comment [Automated [employer]] The system which generated this result transmitted [...] 34.2 g/dL 31.6-35.1 RDW-SD (test code = 43613-5) 38.2 fL 39.0-49.9 L RDW-CV (test code = 788-0) 11.9 % 12.0-15.5 L PLT (test code = 777-3) See_Comment H [Automated messa ge] The system which generated this result transmitted reference range: 166 - 358 10*3/?L. The reference range was not used to interpret this result as normal/abnormal. MPV (test code = 42789-3) 8.9 fL 9.5-12.9 L NRBC/100 WBC (test code = 6183095881) See_Comment [Automated [employer] ssage] The system which generated this result transmitted reference range: 0.0 - 10.0 /100 WBCs. The reference range was not used to interpret this result as normal/abnormal. NRBC x10^3 (test code = 7482430372) <0.01 See_Comment [Automated messa ge] The system which generated this result transmitted reference range: 10*3/?L. The reference range was not used to interpret this result as normal/abnormal. GRAN MAT (NEUT) % (test code = 770-8) 53.1 % IMM GRAN % (test code = 0850965418) 0.70 % LYMPH % (test code = 736-9) 34.4 % MONO % (test code = 5905-5) 5.9 % EOS % (test code = 713-8) 5.1 % BASO % (test code = 706-2) 0.8 % GRAN MAT x10^3(ANC) (test code = 1705676646) 4.38 10*3/uL 1.88-7.09 IMM GRAN x10^3 (test code = 5489688544) 0.06 10*3/uL 0.00-0.06 LYMPH x10^3 (test code = 731-0) 2.84 10*3/uL 1.32-3.29 MONO x10^3 (test code = 742-7) 0.49 10*3/uL 0.33-0.92 EOS x10^3 (test code = 711-2) 0.42 10*3/uL 0.03-0.39 H BASO x10^3 (test code = 704-7) 0.07 10*3/uL 0.01-0.07 Lab Interpretation (test code = 14714-2) [facility] [id number] 00:52:00* Test Item Value Reference Range Interpretation Comme nts POCT PREG (test code = 1605) Negative On board controls acceptable with C Line (test code = 3574) Positive POCT PREG LOT # (test code = 3575) [id number] POCT PREG TEST DATE ( test code = 3576) Lab Interpretation (test cod e = 35144-8) [facility] [id number] 21:20:00* Test Item Value Reference Range Interpretation Comme nts POCT PREG (test code = 1605) Negative On board controls acceptable with C Line (test code = 3574) Yes POCT PREG LOT # (test code = 3575) POCT PREG TEST DATE ( test code = 3576) [facility] [id number] 21:20:00* Test Item Value Reference Range Interpretation Comme nts POCT PREG (test code = 1605) Negative On board controls acceptable with C Line (test code = 3574) Yes POCT PREG LOT # (test code = 3575) POCT PREG TEST DATE ( test code = 3576) [facility] Notes Date/Time Note Provider Source 2023-01-24 08:15:21 Formatting of this n ote might be different from the original. Called patient and she states that if prescription was called in she no longer needs the appointment. Kevin Wu [facility] 2023-01-23 17:37:57 Formatting of this n ote [...] to patient to over book. Chepe Frankel [facility]"
[2025-01-27] MEDS ORDERED: ONDANSETRON 4 MG/2 ML VIAL ONE (04:52)
[2025-01-27] MEDS ORDERED: KETOROLAC 30 MG/ML INJ ONE (04:52)
[2025-01-27] MEDS ORDERED: NA CHLORIDE 0.9% 1,000 ML ONE ×2 (04:53→07:20)
[2025-01-27 05:04] LABS: Absolute Lymphocytes (CBC) 2.2 K/uL (0.7-4.9); Hematocrit 40.4 % (36.0-45.0); Hemoglobin 14.0 g/dL (12.0-15.0); MCH 29.6 pg (27.0-35.0); MCHC 34.5 g/dL (32.0-36.0); MCV 85.6 fL (80-100); MPV 6.8 fL (7.6-11.3); Nucleated RBC Absolute Count 0.0 (0-0); Nucleated Red Blood Cells % 0.1 % (0-0); RBC Red Blood Cell Count 4.72 M/uL (3.86-4.86); White Blood Count 10.30 thou/uL (4.3-10.9)
[2025-01-27 05:21] LABS: ALT/SGPT 28.0 U/L (13-56); AST/SGOT 12.0 U/L (15-37); Albumin 3.6 g/dL (3.4-5.0); Albumin/Globulin Ratio 1.0 (1.1-1.8); Alkaline Phosphatase 79.0 U/L (45-117); Anion Gap 9.6 mEq/L (5.0-15.0); BUN Blood Urea Nitrogen 9.0 mg/dL (7-18); Globulin 3.7 g/dL (2.3-3.5); Glucose Level 84.0 mg/dL (74-106); Lipase 22.0 U/L (13-75); Potassium 3.6 mEq/L (3.5-5.1)
[2025-01-27] MEDS ORDERED: MORPHINE 4 MG/ML SYR ONE (05:40)
[2025-01-27] MEDS ORDERED: CEFTRIAXONE 1000 MG/VIAL ONE (05:54)
[2025-01-27 06:12] LABS: Sqamous Epithelial <5 /HPF (None Seen); Urine Culture Reflex Order NOT NEEDED; Urine Microscopic Reflex YN ORDER UMIC
--- NOTE | 2025-01-27 06:49 | RAD REPORT ---
EXAM: CT Abdomen and Pelvis With Intravenous Contrast CLINICAL HISTORY: The patient is 25 years old and is Female; Abdominal pain. TECHNIQUE: Axial computed tomography images of the abdomen and pelvis with intravenous contrast. Sagittal and coronal reformatted images were created and reviewed. This CT exam was performed using one or more of the following dose reduction techniques: automated exposure control, adjustmen t of the mA and/or kV according to patient size, and/or use of iterative reconstruction technique. COMPARISON: No relevant prior studies available. FINDINGS: Lung bases: Unremarkable. No mass. No consolidation. ABDOMEN: Liver: Unremarkable. No mass. Gallbladder and bile ducts: Unremarkable. No calcified stones. No ductal dilation. Pancreas: No findings to suggest acute pancreatitis. No mass visualized. No ductal dilation. Spleen: Unremarkable. No splenomegaly. Adrenals: Unremarkable. No mass. Kidneys and ureters: Unremarkable. No solid mass. No hydronephrosis. Stomach and bowel: No bowel dilatation or obstruction. No bowel wall thickening. PELVIS: Appendix: The visualized appendix is normal. No pericecal inflammation to suggest acute appendici tis. Bladder: Unremarkable. No mass. Reproductive: Moderate hyperdense fluid in the pelvis suggesting hemorrhagic fluid, extending int o the paracolic gutters. Suspect small focus of active bleeding posterior to the uterus. Uterus is unremarkable as visualized. Limited characterization of the ovaries. ABDOMEN and PELVIS: Intraperitoneal space: Unremarkable. No free air. No significant fluid collection. Bones/joints: See below. Soft tissues: Unremarkable. Vasculature: Unremarkable. No abdominal aortic aneurysm. Lymph nodes: Reactive lymph nodes bilaterally. No acute fracture visualized. IMPRESSION: Moderate hyperdense fluid in the pelvis suggesting hemorrhagic fluid, extending into the paracolic gutters. Suspect small focus of active bleeding posterior to the uterus. Characterization of the ovaries is limited. However, the differential diagnosis includes ruptured ectopic and ruptu red hemorrhagic ovarian cyst. Electronically signed by: Yuko Bello MD 01/27/2025 06:43 AM CDT V2 Due to temporary technical issues with the PACS/Pressi reporting system, reports are being gabby d by the in-house radiologist without review as a courtesy to ensure prompt reporting the interpreting radiologist is fully responsible for the content of the report. Transcribed Date/Time: 01/27/2025 6:49 AM
--- NOTE | 2025-01-27 07:05 | ER ---
Nurse's Notes [facility] Name: Cyndi Sheridan Age: 25 yrs Sex: Female : 2000 Arrival Date: 01/27/2025 Time: 04:26 Bed 15 Private MD: Diagnosis: Ruptured hemorrhagic ovarian cyst, Acute pelvic hemorrhage Presentation: 01/27 04:43 Chief complaint: Patient states: PELVIC, BILATERAL FLANK AND BACK PAIN. STARTED AT j7 MIDNIGHT. Coronavirus screen: At this time, the client does not indicate any symptoms associated with coronavirus-19. Ebola Screen: No symptoms or risks identified at this time. Initial Sepsis Screen: Does the patient meet any 2 criteria? No. Patient's initial sepsis screen is negative. Does the patient have a suspected source of infection? No. Patient's initial sepsis screen is negative. Risk Assessment: Do you want to hurt yourself or someone else? Patient reports no desire to harm self or others. 04:43 Method Of Arrival: Ambulatory [facility] 04:43 Acuity: COLT 3 [facility] 04:43 Onset of symptoms was January 27, 2025. ha1 Triage Assessment: 04:43 General: Appears in no apparent distress. comfortable, Behavior is calm, cooperative, jj7 appropriate for age. Pain: Complains of pain in back, posterior aspect of right lateral abdomen and posterior aspect of left lateral abdomen. : Reports pain flank(s), lower quadrant(s) in lower back. 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 - Infectious Disease History:: Denies. - Social history:: Smoking status: Patient denies any tobacco usage or history of. Patient/guardian denies using alcohol, street drugs, IV drugs. - Family history:: not pertinent. Screenin:11 [facility] ED Fall Risk Assessment (Adult) History of falling in the last 3 months, ha1 including since admission No falls in past 3 months (0 pts) Confusion or Disorientation No (0 pts) Intoxicated or Sedated No (0 pts) Impaired Gait No (0 pts) Mobility Assist Device Used No (0 pt) Altered Elimination No (0 pt) Score/Fall Risk Level 0 - 2 = Low Risk Oriented to surroundings, Maintained a safe environment, Hourly rounding (assess needs \T\ fall precautionary measures) done. Abuse screen: Denies threats or abuse. Denies injuries from another. Nutritional screening: No deficits noted. Tuberculosis screening: No symptoms or risk factors identified. Assessment: 04:32 General: Appears uncomfortable, Behavior is cooperative. Pain: Complains of pain in ha1 back and pelvis Pain currently is 9 out of 10 on a pain scale. Quality of pain is described as aching. Neuro: Level of Consciousness is awake, alert, obeys commands, Oriented to person, place, time, situation. Cardiovascular: Capillary refill < 3 seconds Patient's skin is warm and dry. Respiratory: Airway is patent Respiratory effort is even, unlabored, Respiratory pattern is regular, symmetrical. GI: Abdomen is round non-distended, Bowel sounds present X 4 quads. Abd is soft Abdomen is tender to palpation X 4 quads. Derm: Skin is pink, warm \T\ dry. Musculoskeletal: Circulation, motion, and sensation intact. Range of motion:. 05:30 Reassessment: Patient and/or family updated on plan of care and expected duration. Pain ha1 level reassessed. Patient is alert, oriented x 3, equal unlabored respirations, skin warm/dry/pink. Patient states symptoms have not improved. 06:08 Reassessment: Patient and/or family updated on plan of care and expected duration. Pain ha1 level reassessed. Patient is alert, oriented x 3, equal unlabored respirations, skin warm/dry/pink. pain 3/10 Patient states feeling better. Patient states symptoms have improved. 07:00 Reassessment: Patient and/or family updated on plan of care and expected duration. Pain ar8 level reassessed. Patient is alert, oriented x 3, equal unlabored respirations, skin warm/dry/pink. Patient denies pain at this time. 07:45 Reassessment: Patient report called to YOCASTA Pang at [facility]. ar8 Vital Signs: 04:43 BP 143 / 116; Pulse 105; Resp 20; Temp 97.9; Pulse Ox 99% ; Weight 71.67 kg; Height 5 jj7 ft. 2 in. ; Pain 10/10; 06:05 BP 141 / 103; Pulse 77; Resp 16 S; Pulse Ox 99% on R/A; ha1 07:00 BP 126 / 97; Pulse 114; Resp 20; Pulse Ox 100% ; ar8 07:15 BP 90 / 52; Pulse 59; Resp 20; Pulse Ox 98% ; ar8 07:37 BP 83 / 44; Pulse 82; Resp 19; Pulse Ox 100% on R/A; Pain 0/10; ar8 07:48 BP 94 / 57; Pulse 74; Resp 20; Pulse Ox 100% on R/A; Pain 0/10; ar8 08:00 BP 107 / 74; Pulse 79; Resp 18; Pulse Ox 100% on R/A; ar8 08:18 BP 121 / 88; Pulse 73; Resp 17; Pulse Ox 100% on R/A; Pain 0/10; ar8 04:43 Body Mass Index 28.90 (71.67 kg, 157.48 cm) jj7 04:43 Pain Scale: Adult jj7 07:37 Pain Scale: Adult ar8 07:48 Pain Scale: Adult ar8 08:18 Pain Scale: Adult ar8 Kingsley Coma Score: 07:01 Eye Response: spontaneous(4). Motor Response: obeys commands(6). Verbal Response: sp4 oriented(5). Total: 15. ED Course: 04:30 Patient arrived in ED. gm2 04:32 Patient has correct armband on for positive identification. Bed in low position. Call ha1 light in reach. Side rails up X 1. 04:32 Provided Education on: plan of care . ha1 04:32 Inserted saline lock: 20 gauge antecubital area, using aseptic technique. Blood ha1 collected. Flushed with 10 mL NS. 04:43 Arm band placed on right wrist. Patient placed in an exam room, on a stretcher. jj7 04:51 Triage completed. jj7 04:57 Adolfo Larios MD is Attending Physician. sp4 05:09 Addis Giullen, YOCASTA is Primary Nurse. ha1 05:09 CMP Sent. ha1 05:09 Lipase Sent. ha1 05:54 CT Abd/Pelvis - IV Contrast Only In Process Unspecified. EDMS 06:54 Initiated transfer with Megan at [facility]. rv1 07:00 No provider procedures requiring assistance completed. ar8 07:22 Attending Physician role handed off by Adolfo Larios MD tanisha 07:22 Nadir Navas MD is Attending Physician. tanisha 07:25 acceptance received with Eula Lopez for DR. Hortencia Mccoy at [facility] bc6 [id number]. 07:46 Lesley with [facility] accepted transfer. bc6 07:49 Inserted saline lock: 20 gauge in left antecubital area, using aseptic technique. Blood ha1 collected. Flushed with 10 mL NS. 08:20 Patient transferred, IV remains in place. ar8 Administered Medications: 05:00 Drug: NS 0.9% IV 1000 ml IV at 1000 ml once; to be given as a bolus over 60 minutes ha1 Route: IV; Rate: 1000 ml; Site: right antecubital; 07:51 Follow up: Response: No adverse reaction; IV Status: Completed infusion ha1 05:02 Drug: Ondansetron IVP 8 mg IVP once; over 2 minutes Route: IVP; Site: right antecubital;ha1 05:30 Follow up: Response: No adverse reaction ha1 05:04 Drug: Ketorolac IVP 15 mg IVP once Route: IVP; Site: right antecubital; ha1 05:30 Follow up: Response: No adverse reaction; Marked relief of symptoms ha1 05:40 Drug: morphine IVP or IV 4 mg IVP once over 4 mins Route: IVP; Infused Over: 4 mins; ha1 Site: right antecubital; 06:00 Follow up: Response: No adverse reaction; Marked relief of symptoms; Pain is decreased; ha1 RASS: Alert and Calm (0) 05:42 Drug: Droperidol IVP 2.5 mg IVP once Route: IVP; Site: right antecubital; ha1 06:00 Follow up: Response: No adverse reaction; Marked relief of symptoms; Pain is decreased ha1 07:10 Drug: Rocephin - Rocephin (cefTRIAXone) IVPB 1 grams IVPB once over 30 mins; (mix in 50 ha1 mL NS) Route: IVPB; Infused Over: 30 mins; Site: right antecubital; 07:50 Follow up: Response: No adverse reaction; IV Status: Completed infusion ha1 07:35 Drug: NS 0.9% IV 1000 ml IV at 1000 ml once; to be given as a bolus over 60 minutes ar8 Route: IV; Rate: 1000 ml; Site: right antecubital; 08:18 Follow up: Response: No adverse reaction; Marked relief of symptoms; IV Status: ar8 Infusion continued upon transfer; IV Intake: 700ml 07:37 Drug: tranexamic acid IV 1000 mg IV at calculated rate once; IV once over 20 minutes ar8 Route: IV; Rate: calculated rate; Site: right antecubital; 08:00 Follow up: Response: No adverse reaction; IV Status: Completed infusion; IV Intake: ar8 100ml 08:04 Not Given (New order for bolus received. ): ns 0.9% 1000 ml IV at 125 ml/hr once; to be ar8 given at 125 ml/hour Medication: 06:12 VIS not applicable for this client. ha1 Intake: 08:00 IV: 100ml; Total: 100ml. ar8 08:18 IV: 700ml; Total: 800ml. ar8 Outcome: 07:05 ER care complete, transfer ordered by MD. guzman 08:20 Transferred by ground EMS to [facility], Transfer form ar8 completed. X-rays sent w/ patient. 08:20 Transferred 08:20 Condition: stable 08:20 Discharge instructions given to patient was educated on reason for transfer 08:22 Patient left the ED. ar8 Signatures: Dispatcher [employer] EDNadir Lee MD MD cha Ayala, Heidy, RN RN ha1 Sampson Haynes RN RN jj7 Villegas, Rebecca Ruchi Mtz Sergey, MD MD sp4 Mitchell, Ginger 2 Rupert Red RN RN ar8 Corrections: (The following items were deleted from the chart) 06:08 06:06 Allergies: No Known Allergies; ha1 ha1 07:48 07:46 [facility] accepted transfer bc6 bc6
--- NOTE | 2025-01-27 07:06 | EDPHYS ---
Physician Documentation [facility] Name: Cyndi Sheridan Age: 25 yrs Sex: Female : 2000 Arrival Date: 01/27/2025 Time: 04:26 Bed 15 Private MD: ED Physician Nadir Navas HPI: 01/27 04:58 This 25 yrs old Female presents to ER via Ambulatory with complaints of sp4 Abdominal Pain. 07:00 25-year-old female presents with acute onset bilateral pelvic pain. Denied vomiting sp4 dysuria or hematuria.. History of 1 and 2 prior miscarriages. -0-2-1 . 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 - Infectious Disease History:: Denies. - Social history:: Smoking status: Patient denies any tobacco usage or history of. Patient/guardian denies using alcohol, street drugs, IV drugs. - Family history:: not pertinent. ROS: 07:01 Constitutional: Positive for acute onset pelvic pain. sp4 07:01 All other systems are negative, Exam: 07:01 Constitutional: This is a well developed, well nourished patient who is awake, alert, sp4 and in no acute distress. Head/Face: Normocephalic, atraumatic. Eyes: Pupils equal round and reactive to light, extra-ocular motions intact. Lids and lashes normal. Conjunctiva and sclera are not injected. Cornea within normal limits. Periorbital areas with no swelling, redness, or edema. ENT: Nares patent. No nasal discharge, no septal abnormalities noted. Tympanic membranes are normal and external auditory canals are clear. Oropharynx with no redness, swelling, or masses, exudates, or evidence of obstruction, uvula midline. Mucous membranes moist. Neck: Trachea midline, no thyromegaly or masses palpated, and no cervical lymphadenopathy. Supple, full range of motion without nuchal rigidity, or vertebral point tenderness. Chest/axilla: Normal chest wall appearance and motion. Nontender with no deformity. No lesions are appreciated. Cardiovascular: Regular rate and rhythm with a normal S1 and S2. No gallops, murmurs, or rubs. No pulse deficits. Respiratory: Lungs have equal breath sounds bilaterally, clear to auscultation and percussion. No rales, rhonchi or wheezes noted. No increased work of breathing, no retractions or nasal flaring. Abdomen/GI: Soft, with normal bowel sounds. No distension or tympany. No guarding or rebound. No evidence of tenderness throughout. Back: No spinal tenderness. No costovertebral tenderness. Skin: Warm, dry with normal turgor. Normal color with no rashes, no lesions, and no evidence of cellulitis. MS/ Extremity: Pulses equal, no cyanosis. Neurovascular intact. Full, normal range of motion. Neuro: Awake and alert, GCS 15, oriented to person, place, time, and situation. Cranial nerves II-XII grossly intact. Motor strength 5/5 in all extremities. Sensory grossly intact. Psych: Awake, alert, with orientation to person, place and time. Behavior, mood, and affect are within normal limits Vital Signs: 04:43 BP 143 / 116; Pulse 105; Resp 20; Temp 97.9; Pulse Ox 99% ; Weight 71.67 kg; Height 5 jj7 ft. 2 in. ; Pain 10/10; 06:05 BP 141 / 103; Pulse 77; Resp 16 S; Pulse Ox 99% on R/A; ha1 07:00 BP 126 / 97; Pulse 114; Resp 20; Pulse Ox 100% ; ar8 07:15 BP 90 / 52; Pulse 59; Resp 20; Pulse Ox 98% ; ar8 07:37 BP 83 / 44; Pulse 82; Resp 19; Pulse Ox 100% on R/A; Pain 0/10; ar8 07:48 BP 94 / 57; Pulse 74; Resp 20; Pulse Ox 100% on R/A; Pain 0/10; ar8 08:00 BP 107 / 74; Pulse 79; Resp 18; Pulse Ox 100% on R/A; ar8 08:18 BP 121 / 88; Pulse 73; Resp 17; Pulse Ox 100% on R/A; Pain 0/10; ar8 04:43 Body Mass Index 28.90 (71.67 kg, 157.48 cm) jj7 04:43 Pain Scale: Adult jj7 07:37 Pain Scale: Adult ar8 07:48 Pain Scale: Adult ar8 08:18 Pain Scale: Adult ar8 Jhony Coma Score: 07:01 Eye Response: spontaneous(4). Motor Response: obeys commands(6). Verbal Response: sp4 oriented(5). Total: 15. MDM: 04:56 Medical Screening Exam initiated sp4 06:53 ED course: COMPARISON: No relevant prior studies available. FINDINGS: Lung bases: sp4 Unremarkable. No mass. No consolidation. ABDOMEN: Liver: Unremarkable. No mass. Gallbladder and bile ducts: Unremarkable. No calcified stones. No ductal dilation. Pancreas: No findings to suggest acute pancreatitis. No mass visualized. No ductal dilation. Spleen: Unremarkable. No splenomegaly. Adrenals: Unremarkable. No mass. Kidneys and ureters: Unremarkable. No solid mass. No hydronephrosis. Stomach and bowel: No bowel dilatation or obstruction. No bowel wall thickening. PELVIS: Appendix: The visualized appendix is normal. No pericecal inflammation to suggest acute appendicitis. Bladder: Unremarkable. No mass. Reproductive: Moderate hyperdense fluid in the pelvis suggesting hemorrhagic fluid, extending into the paracolic gutters. Suspect small focus of active bleeding posterior to the uterus. Uterus is unremarkable as visualized. Limited characterization of the ovaries. ABDOMEN and PELVIS: Intraperitoneal space: Unremarkable. No free air. No significant fluid collection. Bones/joints: See below. Soft tissues: Unremarkable. Vasculature: Unremarkable. No abdominal aortic aneurysm. Lymph nodes: Reactive lymph nodes bilaterally. No acute fracture visualized. IMPRESSION: Moderate hyperdense fluid in the pelvis suggesting hemorrhagic fluid, extending into the paracolic gutters. Suspect small focus of active bleeding posterior to the uterus. Characterization of the ovaries is limited. However, the differential diagnosis includes ruptured ectopic and ruptured hemorrhagic ovarian cyst. Electronically signed by: Yuko Bello MD 01/27/2025 06:43 AM CDT RP. 07:03 Differential diagnosis: appendicitis, Endometriosis, gastritis, GI Bleed, Hepatitis, sp4 Irritable bowel syndrome, Menorrhagia, non-specific abd pain, Ovarian Torsion, Peritonitis, Pelvic Inflammatory Disease, Pyelonephritis, Tubal Ovarian Abcess. Data reviewed: vital signs, nurses notes, lab test result(s), radiologic studies, CT scan. Consideration of Admission/Observation Escalation of care including admission/observation considered. Management of patient was discussed with the following: Business Planner: Discussed with the TALLOW MAKER surgery.. ED course: CT has revealed pelvic hemorrhage, likely ruptured and bleeding ovarian cyst. Suspected ruptured hemorrhagic ovarian cyst.. 07:17 Transition of care: After a detail discussion of the patient's case, care is sp4 transferred to Nadir Navas MD. 01/27 04:47 Order name: CBC with Diff; Complete Time: 05:40 al5 01/27 04:47 Order name: CMP; Complete Time: 05:40 al5 01/27 04:47 Order name: Lipase; Complete Time: 05:40 al5 01/27 04:47 Order name: Test, Serum; Complete Time: 05:40 al5 01/27 04:47 Order name: UA Rfx Hosea Cult if indicated; Complete Time: 06:50 al5 01/27 06:53 Order name: Type And Screen sp4 01/27 07:40 Order name: CBC with Diff [facility] 01/27 05:04 Order name: CT Abd/Pelvis - IV Contrast Only sp4 01/27 04:47 Order name: IV Saline Lock; Complete Time: 05:09 al5 01/27 04:47 Order name: Labs collected and sent; Complete Time: 05:09 al5 01/27 06:58 Order name: NPO; Complete Time: 07:10 sp4 01/27 07:40 Order name: IV Saline Lock - Large Bore; Complete Time: 07:[address] [facility] Administered Medications: 05:00 Drug: NS 0.9% IV 1000 ml IV at 1000 ml once; to be given as a bolus over 60 minutes ha1 Route: IV; Rate: 1000 ml; Site: right antecubital; 07:51 Follow up: Response: No adverse reaction; IV Status: Completed infusion ha1 05:02 Drug: Ondansetron IVP 8 mg IVP once; over 2 minutes Route: IVP; Site: right antecubital;ha1 05:30 Follow up: Response: No adverse reaction ha1 05:04 Drug: Ketorolac IVP 15 mg IVP once Route: IVP; Site: right antecubital; ha1 05:30 Follow up: Response: No adverse reaction; Marked relief of symptoms ha1 05:40 Drug: morphine IVP or IV 4 mg IVP once over 4 mins Route: IVP; Infused Over: 4 mins; ha1 Site: right antecubital; 06:00 Follow up: Response: No adverse reaction; Marked relief of symptoms; Pain is decreased; ha1 RASS: Alert and Calm (0) 05:42 Drug: Droperidol IVP 2.5 mg IVP once Route: IVP; Site: right antecubital; ha1 06:00 Follow up: Response: No adverse reaction; Marked relief of symptoms; Pain is decreased ha1 07:10 Drug: Rocephin - Rocephin (cefTRIAXone) IVPB 1 grams IVPB once over 30 mins; (mix in 50 ha1 mL NS) Route: IVPB; Infused Over: 30 mins; Site: right antecubital; 07:50 Follow up: Response: No adverse reaction; IV Status: Completed infusion ha1 07:35 Drug: NS 0.9% IV 1000 ml IV at 1000 ml once; to be given as a bolus over 60 minutes ar8 Route: IV; Rate: 1000 ml; Site: right antecubital; 08:18 Follow up: Response: No adverse reaction; Marked relief of symptoms; IV Status: ar8 Infusion continued upon transfer; IV Intake: 700ml 07:37 Drug: tranexamic acid IV 1000 mg IV at calculated rate once; IV once over 20 minutes ar8 Route: IV; Rate: calculated rate; Site: right antecubital; 08:00 Follow up: Response: No adverse reaction; IV Status: Completed infusion; IV Intake: ar8 100ml 08:04 Not Given (New order for bolus received. ): ns 0.9% 1000 ml IV at 125 ml/hr once; to be ar8 given at 125 ml/hour Disposition Summary: 01/27/25 07:05 Transfer Ordered Notes: Transfer Location: [facility] sp4 Reason: Higher level of care sp4 Condition: Serious sp4 Problem: new sp4 Symptoms: are unchanged sp4 Accepting Physician: Attending TALLOW MAKER(01/27/25 08:22) ar8 Diagnosis - Ruptured hemorrhagic ovarian cyst, Acute pelvic hemorrhage sp4 Forms: - Medication Reconciliation Form sp4 - SBAR form sp4 Signatures: Dispatcher [employer] EDNadir Lee MD MD cha Ayala, Heidy, RN RN ha1 Sampson Haynes RN RN jAdolfo Farris MD MD sp4 Africa Webber RN RN al5 Teofilo, Rupert, RN RN ar8 Corrections: (The following items were deleted from the chart) 04:47 04:47 CBC+H.LAB.BRZ ordered. EDMS EDMS 04:47 04:47 COMPREHENSIVE METABOLIC PANEL+C.LAB.BRZ ordered. EDMS EDMS 04:47 04:47 LIPASE+C.LAB.BRZ ordered. EDMS EDMS 04:47 04:47 TEST, SERUM+SC.LAB.BRZ ordered. EDMS EDMS 04:47 04:47 UA Rfx Hosea Cult if indicated+U.LAB.BRZ ordered. EDMS EDMS 06:08 06:06 Allergies: No Known Allergies; ha1 ha1 08:22 07:05 Attending TALLOW MAKER sp4 ar8
[2025-01-27] MEDS ORDERED: NA CHLORIDE 0.9% 100 ML ONE (07:20)
[2025-01-27] MEDS ORDERED: TRANEXAMIC ACID 1,000 MG/10 ML VIAL IV ONE (07:20)
[2025-01-27 07:59] LABS: Absolute Lymphocytes (CBC) 2.4 K/uL (0.7-4.9); Hematocrit 34.3 % (36.0-45.0); Hemoglobin 11.7 g/dL (12.0-15.0); MCH 29.7 pg (27.0-35.0); MCHC 34.1 g/dL (32.0-36.0); MCV 87.2 fL (80-100); MPV 7.1 fL (7.6-11.3); Nucleated RBC Absolute Count 0.0 (0-0); Nucleated Red Blood Cells % 0.0 % (0-0); RBC Red Blood Cell Count 3.93 M/uL (3.86-4.86); White Blood Count 14.20 thou/uL (4.3-10.9)
[2025-01-27 09:35] VITALS: TEMP 97.9
[2025-01-27 09:42] VITALS: O2SAT 100
[2025-01-27 09:47] VITALS: BP 121/88
== END 2025-01-27 08:22 | disposition short-term general hospital (02) ==
LOC: ER 04:26
DX: N83.209 Unspecified ovarian cyst, unspecified side (principal); K66.1 Hemoperitoneum
CPT/HCPCS: 96365; 96361; 85025 ×2; 81001; 36415; 86900; 86850; 84703; 86901; 83690; 80053; 74177; 96375; 99285; Q9967; J2405; J1790; J7030 ×2; J0696